=== PATIENT | female | born 1935 | race Caucasian/White ===

== ENCOUNTER → 2016-09-18 | Outpatient (CLI) | payer MEDICARE, OTHER ==
[~2016-09-18] MED LIST: ACDPT PO; ACET325T38 PO; ACT35T PO; APIX5TAB2 PO; ASP81TEC PO; ATOR10TA66 PO; BETA1TAB15 PO; C250T PO; CALCIUM PO; CARV3.122 PO; CEFD300C3 PO; CEPH500C; CHOL10002; CHOL10003 PO; CHONDROITIN; CYCL10TA45 PO; DENO60DI SQ; DIGO125T PO; ETAN50PE SQ; FLC1T PO; GLUC500C2 PO; GLUC750T; IBP800T PO; LACT1TAB6; LORA10TA76 PO; LVT.025T PO; M; MELA1TAB9 PO; METO-272 PO; MISO100T4 PO; MTX2.5T PO; MULT1CAP27 PO; OLME5TAB3 PO; OMEG10005 PO; OMEP-10 PO; UBID100C8 PO; VITA1CAP59 PO; [UNRECOGNIZED DRUG - CODE] PO; [UNRECOGNIZED DRUG - CODE] PO
--- OUTSIDE RECORDS SUMMARY | 2016-09-18 07:40 | XMS REPORT | Continuity of Care Document ---
Author Author [facility] Organization [facility] Address Unknown Phone Unavailable Care Team Providers Care Wearing Apparel Presser Name Role Phone TERRI ORTA DO PCP Insurance Providers Payer Name Policy Number Subscriber Name Relationship Wps Medicare [id number] Rowan Betancourt 19 Self / Same As Patient For Life [id number] Zena Betancourt Se 01 Advance Directives Directive Response Recorded Date/Time Advance Directives Yes 10/10/15 11:30am Health Care Power of Host No 10/10/15 11:30am Organ Donor Yes 10/10/15 11:30am Problems Active Problems Medical Problem Onset Date Status Acute sinusitis Unknown Acute Chest pain 11/19/2014 Acute Medications Current Home Medications Medication Dose Units Route Directions Days/Qty Instructions Start Date Folic Acid 1 Mg 1 Mg Oral Twice A Day 11/02/08 Etanercept 50 Mg/1 Ml 50 Mg Sub-Q As Directed WEEKLY 11/02/08 Methotrexate 2.5 Mg 20 Mg Oral As Directed WEEKLY 11/02/08 Multivitamins 1 Each 1 Each Oral Daily 01/08/10 [place]-3 Fatty Acids 1,000 Mg 1,000 Mg Oral Twice A Day 02/23/12 Metoprolol Succinate (Toprol Xl) 50 Mg 50 Mg Oral Bedtime 02/23/12 Atorvastatin Calcium 10 Mg 5 Mg Oral Daily 08/17/14 Cyclobenzaprine Hcl 10 Mg 2.5 Mg Oral Bedtime 08/17/14 Ubidecarenone 100 Mg 150 Mg Oral Daily 08/17/14 Melatonin/Pyridoxine Hcl 1 Each 1 Each Oral Bedtime 08/17/14 Denosumab 60 Mg/1 Ml 60 Mg Sub-Q As Directed every 6 months 08/17/14 Acetaminophen 325 Mg 500 Mg Oral Bedtime 08/17/14 Calcium Carbonate/Vitamin D3 1 Tab 1 Tab Oral Daily 11/18/14 Loratadine 10 Mg 10 Mg Oral Daily as needed for Congestion 11/18/14 Levothyroxine Sodium (Levothroid) 25 Mcg 25 Mcg Oral Daily@0630 30 Apixaban 5 Mg 5 Mg Oral Twice A Day 60 11/19/14 Digoxin (Lanoxin) 125 Mcg 1 Each Oral Daily 30 11/19/14 Cefdinir (Omnicef) 300 Mg 300 Mg Oral Twice A Day 28 10/10/15 Past Home Medications Medication Directions Ordered Status Ibuprofen 800 Mg Tablet, 800 Mg Oral Four Times Daily as needed 11/02/08 Discontinued Misoprostol 100 Mcg Tab, 350 Mcg Oral Daily 11/02/08 Discontinued Risedronate 35 Mg Tab, 35 Mg Oral As Directed 11/02/08 Discontinued Omeprazole 20 Mg Capsule.dr, 20 Mg Oral Daily 11/02/08 Discontinued Cholecalciferol 1,000 Unit Capsule, 11/02/08 Discontinued Lactobacillus Acidophilus 1 Each Tab.chew, 11/02/08 Discontinued Ascorbic Acid 250 Mg Tab, 1000 Mg Oral Daily 11/02/08 Discontinued Vitamin B Complex 1 Cap Capsule, 1 Cap Oral Daily 11/02/08 Discontinued Glucosamine Sulfate 750 Mg Tablet, 11/02/08 Discontinued [M] 1 Gm Tablet, 11/02/08 Discontinued [Chondroitin] 600 Mg Tab, 11/02/08 Discontinued Aspirin 81 Mg Tabec, 81 Mg Oral Daily 11/02/08 Discontinued Cephalexin Monohydrate (Keflex) 500 Mg Capsule, 11/02/08 Discontinued Cyclobenzaprine Hcl 10 Mg Tablet, 2.5 Mg Oral As Needed 11/02/08 Discontinued Carvedilol (Coreg) 3.125 Mg Tablet, 3.125 Mg Oral Twice A Day 01/07/10 Discontinued Olmesartan Medoxomil 5 Mg Tablet, 10 Mg Oral Daily 01/07/10 Discontinued Misoprostol 100 Mcg Tablet, 100 Mcg Oral 01/07/10 Discontinued [Calcium] , 600 Mg Oral Bedtime 01/08/10 Discontinued Glucosamine Sulfate 500 Mg Capsule, 600 Mg Oral Twice A Day 01/08/10 Discontinued Cholecalciferol 1,000 Unit Tablet, 1000 Unit Oral Daily 01/08/10 Discontinued Vit A/Vit C/Vit E/Zinc/Copper 1 Each Tablet, 2 Each Oral Daily 02/23/12 Discontinued Acetaminophen/Diphenhydramine 1 Ea Tab, 1 Ea Oral Bedtime 08/17/14 Discontinued Social History Social History Problem Response Recorded Date/Time Alcohol Use Denies Use 10/10/2015 11:30am Recreational Drug Use No 10/10/2015 11:30am Recent Foreign Travel No 01/09/2016 11:06am Sexually Transmitted Disease No 10/10/2015 11:30am Do you dip or chew tobacco? No 10/10/2015 11:30am Sexually Transmitted Disease No 10/10/2015 11:30am Hx Sexually Transmitted Disorders No 05/13/2009 8:12am Hospital Discharge Instructions No hospital discharge instructions. Plan of Care Prescriptions See Medication Section Functional Status No functional status results. Allergies, Adverse Reactions, Alerts Allergen Type Severity Reaction Status Last Updated tetanus toxoid, adsorbed Allergy Unknown Active 08/17/14 Immunizations No immunization records. Vital Signs No known vital signs results. Results No known relevant diagnostic tests, laboratory data and/or discharge summary. Procedures Procedure Status Date Provider(s) 48 hour Holter monitoring Completed 01/09/16 JESUS ORTEGA 48 hour Holter monitoring Completed 01/09/16 JESUS ORTEGA Encounters Encounter Location Arrival/Admit Date Discharge/Depart Date Attending Provider Registered Recurring [facility] 01/09/16 11:07am JESUS ORTEGA
--- NOTE | 2016-09-23 11:52 | ECHOCARDIOGRAPHY REPORT ---
PROCEDURE PHYSICIAN: WALTER MARQUEZ DATE OF PROCEDURE: 09/18/2016 TWO DIMENSIONAL ECHOCARDIOGRAM REPORT PRIMARY PHYSICIAN: OTHER PHYSICIAN: REFERRING PHYSICIAN: Dr. Connolly ORDERING PHYSICIAN: INDICATION FOR THE PROCEDURE: Coronary artery disease, hypertension MEASUREMENTS DERIVED VALUES LV DIAMETER (LAX) NORMALS NORMALS Diastolic 3. (3.6-5.2) Eject. Fract. 60% (60%+/-6%) Systolic (2.3-3.9) Diastolic Vol. % Shortening (0.22-0.42) Systolic Vol. Aortic Root IVS THICKNESS Diastolic 1. (0.6-1.1) LVPW THICKNESS Diastolic 1. (0.6-1.1) LA DIAMETER Systolic 2.5 (2.1-3.7) FINDINGS: 1. Technical quality is good. 2. The left ventricle is normal in size with normal contractility. Systolic function appeared to be normal. Estimated ejection fraction 60%. 3. The left atrium is normal in size. No clot or thrombus were seen within the left atrium. 4. The right atrium and right ventricle are normal in size. No clot or thrombus were seen within the right side. 5. Mitral valve is normal in morphology with mild mitral regurgitation noted by color Doppler flow. No mitral valve prolapse. No mitral valve stenosis. 6. Aortic valve is trileaflet with normal opening and closing pattern. No significant aortic stenosis or regurgitation was seen. 7. Tricuspid valve is normal in morphology with mild tricuspid regurgitation noted by color Doppler flow. Doppler across tricuspid valve estimated pulmonary artery pressure of 14+ right atrial pressure. 8. Pulmonic valve is functioning normally. 9. No pericardial effusion. CONCLUSION: 1. Normal left ventricular size and systolic function. Estimated ejection fraction 60%. 2. Mild mitral and tricuspid regurgitation. 3. Estimated pulmonary artery pressure of 20 mmHg. Job ID: [id number] Dictated Date: 09/23/2016 08:14:38 Respite Worker Date: 09/23/2016 11:47:50 / tommy
== END ==
LOC: CARD 07:37
PROVIDERS: ATTEND Physician Assistant
DX: I25.10 Atherosclerotic heart disease of native coronary artery without angina pectoris (principal); I10 Essential (primary) hypertension; E78.2 Mixed hyperlipidemia; I48.0 Paroxysmal atrial fibrillation
CPT/HCPCS: 93306

== ENCOUNTER → 2016-09-23 | Outpatient (CLI) | payer MEDICARE, OTHER ==
[~2016-09-23] VITALS: Ht 165.1 cm; Wt 52.6 kg
[~2016-09-23] MED LIST changes: +REGADENOSON 0.4 MG/5 ML SYR (LEXISCAN) IV ONE
--- OUTSIDE RECORDS SUMMARY | 2016-09-23 07:36 | XMS REPORT | Continuity of Care Document ---
Author Author [facility] Organization [facility] Address Unknown Phone Unavailable Care Team Providers Care Physician/Ophthalmologist Name Role Phone TERRI ORTA DO PCP Insurance Providers Payer Name Policy Number Subscriber Name Relationship Wps Medicare [id number] Rowan Betancourt 19 Self / Same As Patient For Life [id number] Zena Betancourt Se 01 Advance Directives Directive Response Recorded Date/Time Advance Directives Yes 10/10/15 11:30am Health Care Power of Incubator Machine Operator No 10/10/15 11:30am Organ Donor Yes 10/10/15 [...] 1 Each 1 Each Oral Daily 01/08/10 [place]-3 Fatty Acids 1,000 Mg 1,000 Mg Oral [...] Date Attending Provider Registered Recurring [facility] 01/09/16 11:07am JESUS ORTGEA
[2016-09-23] MEDS: CATHETER FLUSH 10 ML SYR IV PRN ×2 (07:48→09:16)
[2016-09-23 09:14] VITALS: BP 168/87
--- NOTE | 2016-09-24 07:25 | STRESS TEST ---
PROCEDURE PHYSICIAN: WALTER MARQUEZ DATE OF PROCEDURE: 09/23/2016 LEXISCAN MYOVIEW STRESS TEST REPORT REFERRING PHYSICIAN: Dr. Connolly. INDICATIONS: 1. Coronary artery disease. 2. Hypertension. BASELINE HEART RATE: 68 BASELINE BLOOD PRESSURE: 168/87. BASELINE EKG: Sinus rhythm with no ischemic changes. SUMMARY: The patient was injected with 10.83 mCi of technetium 99 Myoview and the resting images were obtained. Then the patient received 0.4 mg of Lexiscan followed by 28.3 mCi of technetium 99 Myoview. Throughout the test, there were no EKG changes. The resting and stress images were reviewed and compared in the short axis, horizontal long axis, and vertical long axis views. Review of the images showed good radiotracer uptake with no ischemia or infarction on SPECT images. SSS is 4, SDS 3, TID value 0.94. On the gated images, the left ventricle appeared to be small in size with normal contractility. Calculated ejection fraction 82%. CONCLUSION: 1. The patient tolerated Lexiscan well. 2. No ischemia or infarction on SPECT images. 3. Small left ventricular size with normal contractility. Calculated ejection fraction 82% Job ID: [id number] Dictated Date: 09/23/2016 17:47:19 Heddler Tier Date: 09/24/2016 07:22:40 / mukesh
== END ==
LOC: CARD 07:33
PROVIDERS: ATTEND Physician Assistant
DX: I25.10 Atherosclerotic heart disease of native coronary artery without angina pectoris (principal); I10 Essential (primary) hypertension; E78.2 Mixed hyperlipidemia; I48.0 Paroxysmal atrial fibrillation
CPT/HCPCS: 78452; 93017

== ENCOUNTER → 2016-09-25 | Outpatient (CLI) | payer MEDICARE, OTHER ==
[~2016-09-25] MED LIST changes: -REGADENOSON 0.4 MG/5 ML SYR (LEXISCAN) IV ONE
--- OUTSIDE RECORDS SUMMARY | 2016-09-25 08:15 | XMS REPORT | Continuity of Care Document ---
Author Author [facility] Organization [facility] Address Unknown Phone Unavailable Care Team Providers Care Pigment Processor Name Role Phone TERRI ORTA DO PCP Insurance Providers Payer Name Policy Number Subscriber Name Relationship Wps Medicare [id number] Rowan Betancourt 19 Self / Same As Patient For Life [id number] Zena Betancourt Se 01 Advance Directives Directive Response Recorded Date/Time Advance Directives Yes 10/10/15 11:30am Health Care Power of Inspector Watch Train No 10/10/15 11:30am Organ Donor Yes 10/10/15 [...] 1 Each 1 Each Oral Daily 01/08/10 [place]-3 Fatty Acids 1,000 Mg 1,000 Mg Oral [...] Discharge/Depart Date Attending Provider Registered Recurring [facility] 01/09/16 11:07am JESUS ORTEGA
[2016-09-25 08:42] LABS: ALANINE AMINOTRANSFERASE 21 U/L (0-55); ALBUMIN 4.3 G/DL (3.2-4.5); ANION GAP 11 MMOL/L (5-14); ASPARTATE AMINO TRANSFERASE 25 U/L (5-34); BILIRUBIN,TOTAL 0.6 MG/DL (0.1-1.0); BLOOD UREA NITROGEN 17 MG/DL (7-18); BUN/CREATININE RATIO 23; CALCIUM 10.2 MG/DL (8.5-10.1); CARBON DIOXIDE 27 MMOL/L (21-32); CHLORIDE 106 MMOL/L (98-107); CHOLESTEROL 207 MG/DL (< 200); CREATININE SERUM 0.74 MG/DL (0.60-1.30); DIRECT LDL 114 MG/DL (1-129); GFR ESTIMATED > 60; GLUCOSE 91 MG/DL (70-105); POTASSIUM 4.1 MMOL/L (3.6-5.0); SODIUM 144 MMOL/L (135-145); TOTAL PROTEIN 7.6 G/DL (6.4-8.2); TRIGLYCERIDES 119 MG/DL (<150); VLDL CHOLESTEROL 24 MG/DL (5-40)
== END ==
LOC: LAB 08:12
PROVIDERS: ATTEND Physician Assistant
DX: I25.10 Atherosclerotic heart disease of native coronary artery without angina pectoris (principal); I10 Essential (primary) hypertension; I48.0 Paroxysmal atrial fibrillation; E78.2 Mixed hyperlipidemia
CPT/HCPCS: 36415; 80053; 80061

== ENCOUNTER → 2017-06-15 | Outpatient (CLI) | payer MEDICARE, OTHER ==
[2017-06-15 09:15] LABS: ALBUMIN 4.1 GM/DL (3.2-4.5); BILIRUBIN,DIRECT 0.3 MG/DL (0.0-0.3); BILIRUBIN,INDIRECT 0.5 MG/DL; BILIRUBIN,TOTAL 0.8 MG/DL (0.1-1.0); TOTAL PROTEIN 7.8 GM/DL (6.4-8.2)
== END ==
LOC: LAB 08:25
PROVIDERS: ATTEND Internal Medicine Cardiovascular Disease
DX: I25.10 Atherosclerotic heart disease of native coronary artery without angina pectoris (principal); I10 Essential (primary) hypertension; E78.2 Mixed hyperlipidemia; I48.0 Paroxysmal atrial fibrillation
CPT/HCPCS: 36415; 80061; 80076

== ENCOUNTER 2017-08-06 20:52 | Emergency (ER) | payer MEDICARE, OTHER ==
[~2017-08-06] VITALS: Ht 165.1 cm; Wt 52.6 kg
[2017-08-06 21:14] LABS: BASOPHILS % (AUTO) 0 % (0-10); EOSINOPHILS # (AUTO) 0.2 10^3/uL (0.0-0.3); EOSINOPHILS % (AUTO) 2 % (0-10); HEMATOCRIT 44 % (35-52); HEMOGLOBIN 14.5 G/DL (11.5-16.0); LYMPHOCYTES # (AUTO) 2.4 X 10^3 (1.0-4.0); LYMPHOCYTES % (AUTO) 37 % (12-44); MEAN CORPUSCULAR HEMOGLOBIN 34 PG (25-34); MEAN CORPUSCULAR HGB CONC 33 G/DL (32-36); MEAN CORPUSCULAR VOLUME 103 FL (80-99); MEAN PLATELET VOLUME 10.6 FL (7.4-10.4); MONOCYTES # (AUTO) 0.7 X 10^3 (0.0-1.0); MONOCYTES % (AUTO) 10 % (0-12); NEUTROPHILS # (AUTO) 3.4 X 10^3 (1.8-7.8); NEUTROPHILS % (AUTO) 51 % (42-75); PLATELET COUNT 215 10^3/uL (130-400); RED BLOOD COUNT 4.24 10^6/uL (4.35-5.85); RED CELL DISTRIBUTION WIDTH 13.6 % (10.0-14.5); WHITE BLOOD COUNT 6.6 10^3/uL (4.3-11.0)
[2017-08-06] MEDS ORDERED: TERI202.4P SQ (21:21)
[2017-08-06] MEDS ORDERED: EZET10TA27 PO (21:21)
[2017-08-06] MEDS ORDERED: FLUT9.9S NS (21:21)
[2017-08-06] MEDS ORDERED: LIDO700A45 TP (21:21)
--- NOTE | 2017-08-06 21:21 | ED Neurological Problem ---
General Chief Complaint: Head/Cervical Problems Stated Complaint: HEADACHE,DIZZINESS Nursing Triage Note: PT REPORTS THAT AT APPROX 203 THIS EVENING SHE WAS IN HER KITCHEN WHEN SHE HAD SUDDEN ONSET OF DIZZINESS. SHE STATES HER HEAD FELT LIKE IT WAS SPINNING, CAUSING HER TO LOWER HERSELF TO HER KNEES. SHE STATES THAT IMMEDIATELY AFTER, SHE HAD SUDDEN ONSET R SIDED OH. Nursing Sepsis Screen: No Definite Risk Source: patient History of Present Illness Time seen by provider: 21:03 Initial Comments PT ARRIVES VIA POV FROM HOME C/O SUDDEN ONSET OF DIZZINESS AND HEADACHE--RIGHT POSTERIOR/OCCIPITAL AREA-- BEGAN AROUND 1999 TONIGHT BEGAN WHILE SHE WAS IN THE KITCHEN AND HAD TO GET DOWN ON HER KNEES BECAUSE SHE WAS SO DIZZY DIZZINESS HAS IMPROVED, HAS HEADACHE STATES HEADACHE WAS 4-5/10,NOW 3/10--FEELS ALOT OF PRESSURE IN HER HEAD NO VISION CHANGES NO PARESTHESIAS OR MOTOR DEFICITS NO NAUSEA/VOMITING NO PALPITATIONS NO CHEST PAIN OR SHORTNESS OF BREATH NO SWEATS HAS NOT TAKEN ANYTHING FOR HEADACHE NO FEVER OR URI SYMPTOMS HAD GI ILLNESS FOR 1 DAY LAST WEEK--DIARRHEA AND FELT WEAK ALL DAY, BUT THOSE SYMPTOMS COMPLETELY RESOLVED. HAD IT WELL. 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 PT FORGOT TO TAKE HER MORNING DOSE OF TOPROL YESTERDAY, BUT TOOK HER EVENING DOSE AND TOOK HER MORNING DOSE TODAY PCP: DR. ORTA Allergies and Home Medications Allergies Coded Allergies: tetanus toxoid, adsorbed (Unverified Allergy, Unknown, 08/17/14) Home Medications Acetaminophen 325 Mg Tablet, 500 MG PO HS, (Reported) Apixaban 5 Mg Tablet, 5 MG PO BID, #60 Ref 4 Prescribed by: WALTER MARQUEZ on 11/19/14 0913 Atorvastatin Calcium 10 Mg Tablet, 5 MG PO DAILY, (Reported) Calcium Carbonate/Vitamin D3 1 Tab Tablet, 1 TAB PO DAILY, (Reported) Cefdinir 300 Mg Capsule, 300 MG PO BID, #28 Ref 0 Prescribed by: ALTAGRACIA VINES on 10/10/15 1437 Cyclobenzaprine Hcl 10 Mg Tablet, 2.5 MG PO HS, (Reported) Denosumab 60 Mg/1 Ml Disp.syrin, 60 MG SQ UD, (Reported) every 6 months Digoxin 125 Mcg Tablet, 1 EACH PO DAILY, #30 Ref 4 Prescribed by: WALTER MARQUEZ on 11/19/14912 Etanercept 50 Mg/1 Ml Pen.injctr, 50 MG SQ UD, (Reported) WEEKLY Ezetimibe 10 Mg Tablet, 10 MG PO DAILY, (Reported) Fluticasone Propionate 9.9 Ml [place].susp, 9.9 ML NS, (Reported) Folic Acid 1 Mg Tab, 1 MG PO BID, (Reported) Levothyroxine Sodium 25 Mcg Tab, 25 MCG PO DAILY@0630, #30 Ref 4 Prescribed by: WALTER MARQUEZ on 11/19/14912 Lidocaine 1 Each Adh..patch, 1 EACH TP, (Reported) Loratadine 10 Mg Tablet, 10 MG PO DAILY PRN for CONGESTION, (Reported) Melatonin/Pyridoxine Hcl 1 Each Tablet, 1 EACH PO HS, (Reported) Methotrexate 2.5 Mg Tab, 20 MG PO UD, (Reported) WEEKLY Metoprolol Succinate 50 Mg Tab.sr.24h, 50 MG PO HS, (Reported) Multivitamins 1 Each Capsule, 1 EACH PO DAILY, (Reported) [place]-3 Fatty Acids 1,000 Mg Capsule, 1,000 MG PO BID, (Reported) Teriparatide 600 Mcg/2.4 Ml Syr, 20 MCG SQ DAILY, (Reported) Ubidecarenone 100 Mg Capsule, 150 MG PO DAILY, (Reported) Constitutional: see HPI, dizziness Eyes: No Symptoms Reported Ears, Nose, Mouth, Throat: no symptoms reported Respiratory: no symptoms reported Cardiovascular: no symptoms reported Gastrointestinal: no symptoms reported Genitourinary: no symptoms reported Musculoskeletal: no symptoms reported, No back pain, No neck pain Skin: no symptoms reported Psychiatric/Neurological: See HPI, Denies Cognitive Dysfunction, Headache, Denies Numbness, Denies Tingling, Denies Weakness Endocrine: No Symptoms Reported Hematologic/Lymphatic: No Symptoms Reported Past Kiedmwy-Ilkxkw-Sbqiyh Hx Patient Social History Alcohol Use: Denies Use Recreational Drug Use: No Smoking Status: Never a Smoker 2nd Hand Smoke Exposure: No Recent Foreign Travel: No Contact w/Someone Who Travel: No Recent Infectious Disease Expo: No Recent Hopitalizations: No Immunizations Up To Date Date of Pneumonia Vaccine: May 26, 2011 Date of Influenza Vaccine: May 17, 2014 Seasonal Allergies Seasonal Allergies: No Surgeries History of Surgeries: Yes (CATARACTS/LENS IMPLANT, COLONOSCOPY) Surgeries: Adenoidectomy, Cardiac, CABG, Eye Surgery, Gallbladder, Tonsillectomy Respiratory History of Respiratory Disorde: Yes Respiratory Disorders: Pneumonia Cardiovascular History of Cardiac Disorders: Yes Cardiac Disorders: Atrial Fibrillation, Coronary Artery Disease, High Cholesterol, Hypertension Neurological History of Neurological Disord: No Reproductive System Hx Reproductive Disorders: No Sexually Transmitted Disease: No UNION STEWARD History: Menopausal Genitourinary History of Genitourinary Disor: Yes Genitourinary Disorders: Kidney Infection, Bladder Infection Gastrointestinal History of Gastrointestinal Di: Yes ("STOMACH PROBLEMS" SINCE CABG--?IBS? 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) Integumentary History of Skin or Integumenta: No Blood Transfusions History of Blood Disorders: No Adverse Reaction to a Blood Tr: No Family Medical History Family Medial History: Abdominal aortic aneurysm G8 BROTHER Angina pectoris 19 MOTHER Completed stroke G8 BROTHER FH: brain aneurysm 19 MOTHER Hypercholesterolemia G8 SISTER Hypertension G8 SISTER Osteoporosis G8 SISTER Physical Exam Vital Signs Vital Sign - Last 12Hours 08/06/17 20:55 Temp 97.3 Pulse 77 Resp 20 B/P (MAP) 178/69 (105) Pulse Ox 95 O2 Delivery Room Air Capillary Refill : Less Than 3 Seconds General Appearance: thin HEENT: PERRL/EOMI, normal ENT inspection, TMs normal, pharynx normal, other ( GLASSES) Neck: non-tender, full range of motion, supple, normal inspection, No carotid bruit Respiratory: normal breath sounds, no respiratory distress, no accessory muscle use Cardiovascular: normal peripheral pulses, regular rate, rhythm, no edema, no gallop, no JVD, no murmur Gastrointestinal: normal bowel sounds, non tender, soft Back: normal inspection Extremities: normal inspection, no pedal edema, no calf tenderness, normal capillary refill Neurologic/Psychiatric: 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, no motor/sensory deficits, alert, normal mood/affect, oriented x 3 Cra[place] Nerves: normal hearing, normal speech, PERRL Motor/Sensory: no motor deficit, no sensory deficit, no pronator drift Skin: normal color, warm/dry Progress/Results/Core Measures Results/Orders Lab Results Laboratory Tests Test 08/06/17 21:08 08/06/17 21:18 Range/Units White Blood Count 6.6 4.3-11.0 10^3/uL Red Blood Count 4.24 L 4.35-5.85 10^6/uL Hemoglobin 14.5 11.5-16.0 G/DL Hematocrit 44 35-52 % Mean Corpuscular Volume 103 H 80-99 FL Mean Corpuscular Hemoglobin 34 25-34 PG Mean Corpuscular Hemoglobin Concent 33 32-36 G/DL Red Cell Distribution Width 13.6 10.0-14.5 % Platelet Count 215 130-400 10^3/uL Mean Platelet Volume 10.6 H 7.4-10.4 FL Neutrophils (%) (Auto) 51 42-75 % Lymphocytes (%) (Auto) 37 12-44 % Monocytes (%) (Auto) 10 0-12 % Eosinophils (%) (Auto) 2 0-10 % Basophils (%) (Auto) 0 0-10 % Neutrophils # (Auto) 3.4 1.8-7.8 X 10^3 Lymphocytes # (Auto) 2.4 1.0-4.0 X 10^3 Monocytes # (Auto) 0.7 0.0-1.0 X 10^3 Eosinophils # (Auto) 0.2 0.0-0.3 10^3/uL Basophils # (Auto) 0.0 0.0-0.1 10^3/uL Prothrombin Time 13.4 12.2-14.7 SEC INR Comment 1.0 0.8-1.4 Activated Partial Thromboplast Time 31 24-35 SEC Sodium Level 142 135-145 MMOL/L Potassium Level 3.7 3.6-5.0 MMOL/L Chloride Level 103 98-107 MMOL/L Carbon Dioxide Level 27 21-32 MMOL/L Anion Gap 12 5-14 MMOL/L Blood Urea Nitrogen 16 7-18 MG/DL Creatinine 0.71 0.60-1.30 MG/DL Estimat Glomerular Filtration Rate > 60 BUN/Creatinine Ratio 23 Glucose Level 125 H 70-105 MG/DL Calcium Level 9.7 8.5-10.1 MG/DL Magnesium Level 2.1 1.8-2.4 MG/DL Total Bilirubin 0.4 0.1-1.0 MG/DL Aspartate Amino Transf (AST/SGOT) 29 5-34 U/L Alanine Aminotransferase (ALT/SGPT) 24 0-55 U/L Alkaline Phosphatase 94 40-136 U/L Troponin I < 0.30 <0.30 NG/ML Total Protein 7.6 6.4-8.2 GM/DL Albumin 4.1 3.2-4.5 GM/DL Digoxin Level < 0.30 L 0.80-2.00 NG/ML Urine Color YELLOW Urine Clarity CLEAR Urine pH 7 5-9 Urine Specific [place] 1.005 L 1.016-1.022 Urine Protein NEGATIVE NEGATIVE Urine Glucose (UA) NEGATIVE NEGATIVE Urine Ketones NEGATIVE NEGATIVE Urine Nitrite NEGATIVE NEGATIVE Urine Bilirubin NEGATIVE NEGATIVE Urine Urobilinogen NORMAL NORMAL MG/DL Urine Leukocyte Esterase NEGATIVE NEGATIVE Urine RBC (Auto) 1+ H NEGATIVE Urine RBC RARE /HPF Urine WBC RARE /HPF Urine Crystals NONE /LPF Urine Bacteria TRACE /HPF Urine Casts NONE /LPF Urine Mucus NEGATIVE /LPF Urine Culture Indicated NO My Orders Orders - NICOLLE CROSS DO Saline Lock/Iv-Start (08/06/17 21:03) Ekg Tracing (08/06/17 21:03) Monitor-Rhythm Ecg Trace Only (08/06/17 21:03) Ct Head Wo-R/O Stroke (08/06/17 21:03) Cbc With Automated Diff (08/06/17 21:03) Comprehensive Metabolic Panel (08/06/17 21:03) Magnesium (08/06/17 21:03) Protime With Inr (08/06/17 21:03) Partial Thromboplastin Time (08/06/17 21:03) Troponin I (08/06/17 21:03) Ua Culture If Indicated (08/06/17 21:03) Digoxin (08/06/17 21:52) Metoprolol Succinate (Xl) Tab (Toprol Xl (08/06/17 22:00) Vital Signs/I&O Vital Sign - Last 12Hours 08/06/17 20:55 Temp 97.3 Pulse 77 Resp 20 B/P (MAP) 178/69 (105) Pulse Ox 95 O2 Delivery Room Air Blood Pressure Mean: 105 Progress Note : Progress Note PT DECLINES MEDICATIONS FOR DIZZINESS OR HEADACHE PT DECLINES ADMIT PT DECLINES TAKING TOPROL 50 MG IN ER--STATES IT WILL MAKE HER TOO TIRED AND JUST WANTS TO GO HOME COMFORTABLE TAKING PT HOME. ADVISED TO RETURN TO ER IF SYMPTOMS WORSEN ECG Initial ECG Impression Time: 21:09 Initial ECG Rate: 75 Initial ECG Rhythm: Normal Sinus Diagnostic Imaging Comments CT HEAD--NO ACUTE PROCESS,CHRONIC ISCHEMIC CHANGES--PER RADIOLOGIST REPORT @ 2143 Reviewed: Reviewed by Me Departure Impression Impression: Primary Impression: HTN (hypertension) Additional Impressions: Dizziness Headache Disposition: HOME, SELF-CARE Condition: Improved Departure-Patient Inst. Referrals: TERRI ORTA DO (PCP/Family) Primary Care Physician Patient Instructions: Dizziness, Nonvertigo, (DC), Headache, Adult (DC), High Blood Pressure (DC) Add. Discharge Instructions: RESUME ALL YOUR REGULAR MEDICATIONS PRESCRIBED FOLLOW UP WITH YOUR DR. ON WEDNESDAY FOR FURTHER CARE RETURN TO ER IF SYMPTOMS WORSEN All discharge instructions reviewed with patient and/or family. Voiced understanding. NICOLLE CROSS DO Aug 06, 2017 21:21
[2017-08-06 21:25] LABS: BILIRUBIN,URINE NEGATIVE (NEGATIVE); CLARITY,URINE CLEAR; COLOR,URINE YELLOW; GLUCOSE, URINE (UA) NEGATIVE (NEGATIVE); KETONES,URINE NEGATIVE (NEGATIVE); LEUKOCYTE ESTERASE ,URINE NEGATIVE (NEGATIVE); NITRITE,URINE NEGATIVE (NEGATIVE); PH,URINE 7 (5-9); PROTEIN,URINE NEGATIVE (NEGATIVE); UROBILINOGEN,URINE NORMAL (NORMAL)
[2017-08-06 21:35] LABS: ALANINE AMINOTRANSFERASE 24 U/L (0-55); ALBUMIN 4.1 GM/DL (3.2-4.5); ALKALINE PHOSPHATASE 94 U/L (40-136); BILIRUBIN,TOTAL 0.4 MG/DL (0.1-1.0); BUN/CREATININE RATIO 23; CALCIUM 9.7 MG/DL (8.5-10.1); CARBON DIOXIDE 27 MMOL/L (21-32); CHLORIDE 103 MMOL/L (98-107); CREATININE SERUM 0.71 MG/DL (0.60-1.30); GFR ESTIMATED > 60; GLUCOSE 125 MG/DL (70-105); MAGNESIUM 2.1 MG/DL (1.8-2.4); POTASSIUM 3.7 MMOL/L (3.6-5.0); SODIUM 142 MMOL/L (135-145); TOTAL PROTEIN 7.6 GM/DL (6.4-8.2)
--- NOTE | 2017-08-06 21:38 | Diagnostic Imaging Report ---
INDICATION: Headache and dizziness Noncontrast brain CT is performed. There is comparison to 10/10/2015. There are mild diffuse atrophic changes. There are patchy low-density changes in the deep white matter compatible with chronic ischemic change, similar to the previous study. There is no acute hemorrhage or mass effect or midline shift. Ventricles are stable in size. There is no new focal parenchymal abnormality in the brain. Calvarial windows are unremarkable. Visualized portions of the mastoid air cells and sinuses are well aerated. IMPRESSION: Mild atrophy and moderate chronic ischemic changes in the deep white matter. No acute hemorrhage or acute finding, no change from 10/10/2015. Dictated by: Dictated on workstation # [id number]
[2017-08-06 21:40] LABS: RBC,URINE RARE /HPF
[2017-08-06 21:41] LABS: BACTERIA,URINE TRACE /HPF; WBC,URINE RARE /HPF
[2017-08-06 21:46] LABS: PROTHROMBIN TIME PATIENT 13.4 SEC (12.2-14.7)
[2017-08-06] MEDS ORDERED: meTOproloL SUCCINATE 50 MG (TOPROL XL) TAB PO SCH (22:00)
[2017-08-06 22:41] VITALS: BP 155/69
== END 2017-08-06 22:33 | disposition home or self-care (01) ==
LOC: EDUNIT# 20:52 → ER 20:53
DX: I10 Essential (primary) hypertension (principal); F32.9 Major depressive disorder, single episode, unspecified; M06.9 Rheumatoid arthritis, unspecified; K21.9 Gastro-esophageal reflux disease without esophagitis; K58.9 Irritable bowel syndrome, unspecified; I25.10 Atherosclerotic heart disease of native coronary artery without angina pectoris; I48.2 Chronic atrial fibrillation; E78.00 Pure hypercholesterolemia, unspecified; Z87.01 Personal history of pneumonia (recurrent); Z95.1 Presence of aortocoronary bypass graft; Z90.89 Acquired absence of other organs; Z79.02 Long term (current) use of antithrombotics/antiplatelets
CPT/HCPCS: 36415; 70450; 80053; 80162; 81000; 83735; 84484; 85025; 85610; 85730; 93005; 93041

== ENCOUNTER 2017-12-25 12:20 | Emergency (ER) | payer MEDICARE, OTHER ==
[~2017-12-25] VITALS: Ht 165.1 cm; Wt 52.6 kg
[~2017-12-25 12:20] MED LIST changes: +EZET10TA27 PO; +FLUT9.9S NS; +LIDO700A45 TP; +TERI202.4P SQ
--- OUTSIDE RECORDS SUMMARY | 2017-12-25 12:29 | XMS REPORT | Continuity of Care Document ---
Author Author [facility] Organization [facility] Address Unknown Phone Unavailable Allergies Active Description Code Type Severity Reaction Onset Reported/Identified Relationship to Patient Clinical Status Yes [id number] (TETANUS ANTITOXIN) [id number] (TETANUS ANTITOXIN) Mild N/A 11/02/2008 Yes TETUNUS SHOT TETUNUS SHOT Unknown N/A 01/07/2010 Yes tetanus toxoid, adsorbed [id number] Drug Allergy Unknown N/A 08/17/2014 Medications There is no data. Problems Date Dx Coded Attending Type Code Diagnosis Diagnosed By 01/10/2010 Ot 401.9 01/10/2010 Ot 414.00 01/10/2010 Ot 560.1 01/10/2010 Ot 714.0 01/10/2010 Ot V45.81 04/13/2010 Ot 787.91 06/20/2014 JESUS DAILY Ot 272.4 08/17/2014 Ot 787.91 08/17/2014 Ot 787.91 08/17/2014 RICHARD HANSON MD Ot 455.0 INT HEMORRHOID W/O COMPL 08/17/2014 RICHARD HANSON MD Ot 455.3 EXT HEMORRHOID W/O COMPL 08/17/2014 RICHARD HANSON MD Ot 562.10 DIVERTICULOSIS COLON (W/O MENT OF HEMORR 08/17/2014 RICHARD HANSON MD Ot V58.66 LONG-TERM (CURRENT) USE OF ASPIRIN 11/14/2014 Ot V72.84 11/14/2014 Ot V72.84 11/19/2014 WALTER MARQUEZ MD Ot 244.9 HYPOTHYROIDISM NOS 11/19/2014 WALTER MARQUEZ MD Ot 272.0 PURE HYPERCHOLESTEROLEM 11/19/2014 WALTER MARQUEZ MD Ot 272.4 HYPERLIPIDEMIA NEC/NOS 11/19/2014 WALTER MARQUEZ MD Ot 362.50 MACULAR DEGENERATION NOS 11/19/2014 WALTER MARQUEZ MD Ot 397.0 TRICUSPID VALVE DISEASE 11/19/2014 WALTER MARQUEZ MD Ot 401.9 HYPERTENSION NOS 11/19/2014 WALTER MARQUEZ MD Ot 414.00 CORON ATHEROSCLER NOS TYPE VESSEL, NATIV 11/19/2014 WALTER MARQUEZ MD Ot 424.0 MITRAL VALVE DISORDER 11/19/2014 WALTER MARQUEZ MD Ot 427.31 ATRIAL FIBRILLATION 11/19/2014 WALTER MARQUEZ MD Ot 433.10 CAROTID ARTERY OCCLUSION W O CEREBRAL IN 11/19/2014 WALTER MARQUEZ MD Ot 433.30 MULT BILTRAL ARTERY OCCLUSION WO CEREBRA 11/19/2014 WALTER MARQUEZ MD Ot 714.0 RHEUMATOID ARTHRITIS 11/19/2014 WALTER MARQUEZ MD Ot V45.81 AORTOCORONARY BYPASS 11/19/2014 WALTER MARQUEZ MD Ot V58.65 LONG-TERM(CURRENT)USE OF STEROIDS 11/21/2014 Ot 401.9 11/21/2014 Ot 414.00 11/21/2014 Ot V45.81 11/21/2014 Ot V58.66 11/21/2014 Ot V58.69 11/21/2014 Ot 272.4 11/21/2014 Ot 401.9 11/21/2014 Ot 414.01 11/21/2014 Ot 790.6 11/21/2014 Ot 780.79 11/21/2014 Ot 785.1 11/21/2014 Ot 787.91 11/21/2014 Ot 729.5 11/21/2014 Ot 729.81 11/21/2014 Ot 396.3 11/21/2014 Ot 397.0 11/21/2014 Ot 401.9 11/21/2014 Ot 414.00 11/21/2014 Ot 272.4 11/21/2014 Ot 401.9 11/21/2014 Ot 414.01 11/21/2014 Ot 272.4 11/21/2014 Ot 272.4 11/21/2014 Ot 272.4 11/21/2014 Ot 414.01 11/21/2014 Ot 496 11/21/2014 Ot 780.79 11/21/2014 Ot V58.69 11/21/2014 Ot 401.9 11/21/2014 Ot 414.00 11/21/2014 Ot 272.4 11/21/2014 Ot 401.9 11/21/2014 Ot 414.00 11/21/2014 Ot 785.1 11/21/2014 Ot 715.34 11/21/2014 Ot 733.00 11/21/2014 Ot 959.5 11/21/2014 Ot E000.8 11/21/2014 Ot E849.0 11/21/2014 Ot E888.9 11/21/2014 HOLLIE PERALTA DO Ot 724.02 11/21/2014 JESUS DAILY Ot 272.4 11/21/2014 GELLENDER DO, TERRI Fernando Ot 780.60 11/21/2014 GELLENDER DO, TERRI Fernando Ot 780.79 11/21/2014 GELLENDER DO, TERRI Fernando Ot V58.69 11/21/2014 JESUS DAILY Ot 272.4 11/21/2014 RICHARD HANSON MD Ot V72.84 11/21/2014 Ot V72.84 12/22/2014 WALTER MARQUEZ MD Ot 786.59 01/16/2015 GELLENDER DO, TERRI Fernando Ot 782.9 01/16/2015 GELLENDER DO, TERRI Fernando Ot V13.52 02/05/2015 GELLENDER DO, TERRI Fernando Ot 782.9 02/05/2015 GELLENDER DO, TERRI Fernando Ot V13.52 10/04/2015 GELLENDER DO, TERRI Fernando Ot R05 10/06/2015 GELLENDER DO, TERRI Fernando Ot R05 10/10/2015 ALTAGRACIA VINES MD Ot J01.00 ACUTE MAXILLARY SINUSITIS, UNSPECIFIED 10/11/2015 ALTAGRACIA VINES MD Ot J01.00 10/12/2015 ALTAGRACIA VINES MD Ot J01.00 10/22/2015 GELLENDER DO, TERRI Fernando Ot R05 11/13/2015 GELLENDER DO, TERRI Fernando Ot R05 COUGH 12/10/2015 WALTER MARQUEZ MD Ot E78.2 MIXED HYPERLIPIDEMIA 12/10/2015 WALTER MARQUEZ MD Ot I10 ESSENTIAL (PRIMARY) HYPERTENSION 12/10/2015 WALTER MARQUEZ MD Ot I25.10 ATHSCL HEART DISEASE OF [place] CORONARY 12/10/2015 WALTER MARQUEZ MD Ot I48.0 PAROXYSMAL ATRIAL FIBRILLATION 01/10/2016 WALTER MARQUEZ MD Ot E78.2 MIXED HYPERLIPIDEMIA 01/10/2016 WALTER MARQUEZ MD Ot I10 ESSENTIAL (PRIMARY) HYPERTENSION 01/10/2016 WALTER MARQUEZ MD Ot I25.10 ATHSCL HEART DISEASE OF [place] CORONARY 01/10/2016 WALTER MARQUEZ MD Ot I48.0 PAROXYSMAL ATRIAL FIBRILLATION 01/10/2016 JESUS DAILY Ot I48.0 PAROXYSMAL ATRIAL FIBRILLATION 01/10/2016 JESUS DAILY Ot I48.0 PAROXYSMAL ATRIAL FIBRILLATION 02/13/2016 JESUS DAILY Ot I48.0 PAROXYSMAL ATRIAL FIBRILLATION 03/31/2016 JESUS DAILY Ot I48.0 PAROXYSMAL ATRIAL FIBRILLATION 04/03/2016 HOLLIE PERALTA DO Ot 724.02 SPINAL STENOSIS, LUMBAR REG, W/OUT NEURO 04/08/2016 JESUS DAILY Ot I48.0 PAROXYSMAL ATRIAL FIBRILLATION 04/09/2016 JESUS DAILY Ot I48.0 PAROXYSMAL ATRIAL FIBRILLATION 09/18/2016 JESUS DAILY Ot 272.4 HYPERLIPIDEMIA NEC/NOS 09/18/2016 TERRI ORTA DO Ot 780.60 FEVER, UNSPECIFIED 09/18/2016 TERRI ORTA DO Ot 780.79 OTH MALAISE FATIGUE 09/18/2016 TERRI ORTA DO Ot V58.69 OTH MED,LT,CURRENT USE 09/18/2016 JESUS DAILY Ot 272.4 HYPERLIPIDEMIA NEC/NOS 09/18/2016 RICHARD HANSON MD Ot V72.84 EXAM PRE-OPERATIVE NOS 09/18/2016 Ot V72.84 EXAM PRE- OPERATIVE NOS 09/18/2016 WALTER MARQUEZ MD Ot 786.59 CHEST PAIN NEC 09/18/2016 TERRI ORTA DO Ot 782.9 INTEGUMENT TISS SYMP NEC 09/18/2016 TERRI ORTA DO Ot V13.52 PERSONAL HISTORY OF STRESS FRACTURE 09/18/2016 TERRI ORTA DO Ot R05 COUGH 09/18/2016 WALTER MARQUEZ MD Ot E78.2 MIXED HYPERLIPIDEMIA 09/18/2016 ALMA MD, BASHAR J Ot I10 ESSENTIAL (PRIMARY) HYPERTENSION 09/18/2016 ALMA MACKENZIE, WALTER Cee Ot I25.10 ATHSCL HEART DISEASE OF [place] CORONARY 09/18/2016 ALMA MACKENZIE, WALTER Cee Ot I48.0 PAROXYSMAL ATRIAL FIBRILLATION 09/18/2016 JESUS DAILY Ot I48.0 PAROXYSMAL ATRIAL FIBRILLATION 09/18/2016 JESUS DAILY Ot I25.10 ATHSCL HEART DISEASE OF [place] CORONARY 09/18/2016 JOSE DAILYTH K Ot I25.10 ATHSCL HEART DISEASE OF [place] CORONARY 09/18/2016 JOSE DAILYTH K Ot E78.2 MIXED HYPERLIPIDEMIA 09/18/2016 JESUS DAILY K Ot I10 ESSENTIAL (PRIMARY) HYPERTENSION 09/18/2016 JESUS DAILY Ot I25.10 ATHSCL HEART DISEASE OF [place] CORONARY 09/18/2016 JESUS DAILY Ot I48.0 PAROXYSMAL ATRIAL FIBRILLATION 09/21/2016 JOSE DAILYTH K Ot E78.2 MIXED HYPERLIPIDEMIA 09/21/2016 SHANNON HENDERSON JESUS K Ot I10 ESSENTIAL (PRIMARY) HYPERTENSION 09/21/2016 JOSE DAILYTH K Ot I25.10 ATHSCL HEART DISEASE OF [place] CORONARY 09/21/2016 JESUS DAILY Ot I48.0 PAROXYSMAL ATRIAL FIBRILLATION 09/24/2016 JESUS DAILY Ot E78.2 MIXED HYPERLIPIDEMIA 09/24/2016 JOSE DAILYTH K Ot I10 ESSENTIAL (PRIMARY) HYPERTENSION 09/24/2016 JOSE DAILYTH K Ot I25.10 ATHSCL HEART DISEASE OF [place] CORONARY 09/24/2016 JESUS DAILY K Ot I48.0 PAROXYSMAL ATRIAL FIBRILLATION 09/25/2016 JESUS DAILY Ot 272.4 HYPERLIPIDEMIA NEC/NOS 09/25/2016 TERRI ORTA DO Ot 780.60 FEVER, UNSPECIFIED 09/25/2016 TERRI ORTA DO Ot 780.79 OTH MALAISE FATIGUE 09/25/2016 TERRI ORTA DO Ot V58.69 [facility] MED,LT,CURRENT USE 09/25/2016 SHANNON HENDERSON, JESUS Patel Ot 272.4 HYPERLIPIDEMIA NEC/NOS 09/25/2016 VALENTIN MACKENZIE, RICHARD Ot V72.84 EXAM PRE-OPERATIVE NOS 09/25/2016 Ot V72.84 EXAM PRE- OPERATIVE NOS 09/25/2016 ALMA MACKENZIE, WALTER Cee Ot 786.59 CHEST PAIN NEC 09/25/2016 TERRI ORTA DO Ot 782.9 INTEGUMENT TISS SYMP NEC 09/25/2016 MARIVEL BREAUX TERRI Fernando Ot V13.52 PERSONAL HISTORY OF STRESS FRACTURE 09/25/2016 MARIVEL BREAUX TERRI Fernando Ot R05 COUGH 09/25/2016 WALTER MARQUEZ MD Ot E78.2 MIXED HYPERLIPIDEMIA 09/25/2016 WALTER MARQUEZ MD Ot I10 ESSENTIAL (PRIMARY) HYPERTENSION 09/25/2016 WALTER MARQUEZ MD Ot I25.10 ATHSCL HEART DISEASE OF [place] CORONARY 09/25/2016 WALTER MARQUEZ MD Ot I48.0 PAROXYSMAL ATRIAL FIBRILLATION 09/25/2016 JESUS DAILY Ot I48.0 PAROXYSMAL ATRIAL FIBRILLATION 09/25/2016 JESUS DAILY Ot E78.2 MIXED HYPERLIPIDEMIA 09/25/2016 JESUS DAILY Ot I10 ESSENTIAL (PRIMARY) HYPERTENSION 09/25/2016 JESUS DAILY Ot I25.10 ATHSCL HEART DISEASE OF [place] CORONARY 09/25/2016 JESUS DAILY Ot I48.0 PAROXYSMAL ATRIAL FIBRILLATION 09/25/2016 JESUS DAILY Ot E78.2 MIXED HYPERLIPIDEMIA 09/25/2016 JESUS DAILY Ot I10 ESSENTIAL (PRIMARY) HYPERTENSION 09/25/2016 JESUS DAILY Ot I25.10 ATHSCL HEART DISEASE OF [place] CORONARY 09/25/2016 JESUS DAILY Ot I48.0 PAROXYSMAL ATRIAL FIBRILLATION 09/28/2016 JESUS DAILY Ot E78.2 MIXED HYPERLIPIDEMIA 09/28/2016 JESUS DAILY Ot I10 ESSENTIAL (PRIMARY) HYPERTENSION 09/28/2016 SHANNON PA, JESUS K Ot I25.10 ATHSCL HEART DISEASE OF [place] CORONARY 09/28/2016 SHANNON PA, JESUS K Ot I48.0 PAROXYSMAL ATRIAL FIBRILLATION 10/15/2016 SHANNON PA, JESUS K Ot E78.2 MIXED HYPERLIPIDEMIA 10/15/2016 LEEPEGGY PA, JESUS K Ot I10 ESSENTIAL (PRIMARY) HYPERTENSION 10/15/2016 SHANNON HENDERSON, JESUS K Ot I25.10 ATHSCL HEART DISEASE OF [place] CORONARY 10/15/2016 SHANNON PA, JESUS K Ot I48.0 PAROXYSMAL ATRIAL FIBRILLATION 10/15/2016 SHANNON PA, JESUS K Ot E78.2 MIXED HYPERLIPIDEMIA 10/15/2016 SHANNON PA, JESUS K Ot I10 ESSENTIAL (PRIMARY) HYPERTENSION 10/15/2016 SHANNON PA, JESUS K Ot I25.10 ATHSCL HEART DISEASE OF [place] CORONARY 10/15/2016 SHANNON HENDERSON, JESUS K Ot I48.0 PAROXYSMAL ATRIAL FIBRILLATION 10/19/2016 SHANNON PA, JESUS K Ot E78.2 MIXED HYPERLIPIDEMIA 10/19/2016 SHANNON PA, JESUS K Ot I10 ESSENTIAL (PRIMARY) HYPERTENSION 10/19/2016 SHANNON HENDERSON, JESUS K Ot I25.10 ATHSCL HEART DISEASE OF [place] CORONARY 10/19/2016 SHANNON PA, JESUS K Ot I48.0 PAROXYSMAL ATRIAL FIBRILLATION 11/05/2016 SHANNON HENDERSON, JESUS K Ot E78.2 MIXED HYPERLIPIDEMIA 11/05/2016 SHANNON PA, JESUS K Ot I10 ESSENTIAL (PRIMARY) HYPERTENSION 11/05/2016 SHANNON PA, JESUS K Ot I25.10 ATHSCL HEART DISEASE OF [place] CORONARY 11/05/2016 SHANNON PA, JESUS K Ot I48.0 PAROXYSMAL ATRIAL FIBRILLATION 11/05/2016 SHANNON PA, JESUS K Ot E78.2 MIXED HYPERLIPIDEMIA 11/05/2016 SHANNON PA, JESUS K Ot I10 ESSENTIAL (PRIMARY) HYPERTENSION 11/05/2016 SHANNON HENDERSON, JESUS K Ot I25.10 ATHSCL HEART DISEASE OF [place] CORONARY 11/05/2016 JESUS DAILY Ot I48.0 PAROXYSMAL ATRIAL FIBRILLATION 11/26/2016 REGISDAMIR BREAUX HOLLIE Brianda Ot 724.02 SPINAL STENOSIS, LUMBAR REG, W/OUT NEURO 06/21/2017 WALTER MARQUEZ MD Ot E78.2 MIXED HYPERLIPIDEMIA 06/21/2017 ALMA MACKENZIE, WALTER Cee Ot I10 ESSENTIAL (PRIMARY) HYPERTENSION 06/21/2017 WALTER MARQUEZ MD Ot I25.10 ATHSCL HEART DISEASE OF [place] CORONARY 06/21/2017 WALTER MARQUEZ MD Ot I48.0 PAROXYSMAL ATRIAL FIBRILLATION 07/06/2017 WALTER MARQUEZ MD Ot E78.2 MIXED HYPERLIPIDEMIA 07/06/2017 WALTER MARQUEZ MD Ot I10 ESSENTIAL (PRIMARY) HYPERTENSION 07/06/2017 WALTER MARQUEZ MD Ot I25.10 ATHSCL HEART DISEASE OF [place] CORONARY 07/06/2017 WALTER MARQUEZ MD Ot I48.0 PAROXYSMAL ATRIAL FIBRILLATION 08/06/2017 TAY DO, NICOLLE K Ot E78.00 PURE HYPERCHOLESTEROLEMIA, UNSPECIFIED 08/06/2017 TAY DO NICOLLE K Ot F32.9 MAJOR DEPRESSIVE DISORDER, SINGLE EPISOD 08/06/2017 TAY DO, NICOLLE K Ot I10 ESSENTIAL (PRIMARY) HYPERTENSION 08/06/2017 TAY DO NICOLLE K Ot I25.10 ATHSCL HEART DISEASE OF [place] CORONARY 08/06/2017 TAY DO NICOLLE K Ot I48.2 CHRONIC ATRIAL FIBRILLATION 08/06/2017 TAY DO NICOLLE K Ot K21.9 GASTRO-ESOPHAGEAL REFLUX DISEASE WITHOUT 08/06/2017 TAY DO, NICOLLE K Ot K58.9 IRRITABLE BOWEL SYNDROME WITHOUT DIARRHE 08/06/2017 TAY DO NICOLLE K Ot M06.9 RHEUMATOID ARTHRITIS, UNSPECIFIED 08/06/2017 TAY DO NICOLLE K Ot R42 DIZZINESS AND GIDDINESS 08/06/2017 TAY BREAUX NICOLLE K Ot Z79.02 SNF (CURRENT) USE OF ANTITHROMBOTI 08/06/2017 TAY DO NICOLLE K Ot Z87.01 PERSONAL HISTORY OF PNEUMONIA (RECURRENT 08/06/2017 CHASITY CROSS DOA K Ot Z90.89 ACQUIRED ABSENCE OF OTHER ORGANS 08/06/2017 NICOLLE CROSS DO Ot Z95.1 PRESENCE OF AORTOCORONARY BYPASS GRAFT 08/09/2017 TAY NICOLLE BREAUX Ot E78.00 PURE HYPERCHOLESTEROLEMIA, UNSPECIFIED 08/09/2017 TAY NICOLLE BREAUX Ot F32.9 MAJOR DEPRESSIVE DISORDER, SINGLE EPISOD 08/09/2017 NICOLLE CROSS DO Ot I10 ESSENTIAL (PRIMARY) HYPERTENSION 08/09/2017 TAY NICOLLE BREAUX Ot I25.10 ATHSCL HEART DISEASE OF [place] CORONARY 08/09/2017 NICOLLE CROSS DO Ot I48.2 CHRONIC ATRIAL FIBRILLATION 08/09/2017 TAY , NICOLLE Patel Ot K21.9 GASTRO-ESOPHAGEAL REFLUX DISEASE WITHOUT 08/09/2017 TAY CHASITY BREAUXA Amanda Ot K58.9 IRRITABLE BOWEL SYNDROME WITHOUT DIARRHE 08/09/2017 NICOLLE CROSS DO Ot M06.9 RHEUMATOID ARTHRITIS, UNSPECIFIED 08/09/2017 TAY NICOLLE BREAUX Ot R42 DIZZINESS AND GIDDINESS 08/09/2017 TAY BREAUX NICOLLE Patel Ot Z79.02 SNF (CURRENT) USE OF ANTITHROMBOTI 08/09/2017 NICOLLE CROSS DO Ot Z87.01 PERSONAL HISTORY OF PNEUMONIA (RECURRENT 08/09/2017 NICOLLE CROSS DO Ot Z90.89 ACQUIRED ABSENCE OF OTHER ORGANS 08/09/2017 NICOLLE CROSS DO Ot Z95.1 PRESENCE OF AORTOCORONARY BYPASS GRAFT 08/16/2017 JESUS DAILY Ot 272.4 HYPERLIPIDEMIA NEC/NOS 08/16/2017 TERRI ORTA DO Ot 780.60 FEVER, UNSPECIFIED 08/16/2017 TERRI ORTA DO Ot 780.79 OTH MALAISE FATIGUE 08/16/2017 TERRI ORTA DO Ot V58.69 OTH MED,LT,CURRENT USE 08/16/2017 JESUS DAILY Ot 272.4 HYPERLIPIDEMIA NEC/NOS 08/16/2017 RICHARD HANSON MD Ot V72.84 EXAM PRE-OPERATIVE NOS 08/16/2017 Ot V72.84 EXAM PRE- OPERATIVE NOS 08/16/2017 ALMA MACKENZIE, WALTER Cee Ot 786.59 CHEST PAIN NEC 08/16/2017 TERRI ORTA DO Ot 782.9 INTEGUMENT TISS SYMP NEC 08/16/2017 TERRI ORTA DO Ot V13.52 PERSONAL HISTORY OF STRESS FRACTURE 08/16/2017 TERRI ORTA DO Ot R05 COUGH 08/16/2017 ALMA MACKENZIE, WALTER Cee Ot E78.2 MIXED HYPERLIPIDEMIA 08/16/2017 ALMA MACKENZIE, WALTER Cee Ot I10 ESSENTIAL (PRIMARY) HYPERTENSION 08/16/2017 ALMA MACKENZIE, WALTER Cee Ot I25.10 ATHSCL HEART DISEASE OF [place] CORONARY 08/16/2017 ALMA MACKENZIE, WALTER J Ot I48.0 PAROXYSMAL ATRIAL FIBRILLATION 08/16/2017 SHANNON HENDERSON, JESUS K Ot I48.0 PAROXYSMAL ATRIAL FIBRILLATION 08/16/2017 SHANNON HENDERSON, JESUS K Ot E78.2 MIXED HYPERLIPIDEMIA 08/16/2017 SHANNON HENDERSON, JESUS K Ot I10 ESSENTIAL (PRIMARY) HYPERTENSION 08/16/2017 SHANNON HENDERSON JESUS K Ot I25.10 ATHSCL HEART DISEASE OF [place] CORONARY 08/16/2017 SHANNON HENDERSON, JESUS K Ot I48.0 PAROXYSMAL ATRIAL FIBRILLATION 08/16/2017 SHANNON HENDERSON, JESUS K Ot E78.2 MIXED HYPERLIPIDEMIA 08/16/2017 SHANNON HENDERSON, JESUS K Ot I10 ESSENTIAL (PRIMARY) HYPERTENSION 08/16/2017 SHANNON HENDERSON, JESUS K Ot I25.10 ATHSCL HEART DISEASE OF [place] CORONARY 08/16/2017 SHANNON HENDERSON JESUS K Ot I48.0 PAROXYSMAL ATRIAL FIBRILLATION 08/16/2017 SHANNON HENDERSON, JESUS K Ot E78.2 MIXED HYPERLIPIDEMIA 08/16/2017 SHANNON HENDERSON, JESUS K Ot I10 ESSENTIAL (PRIMARY) HYPERTENSION 08/16/2017 SHANNON HENDERSON, JESUS K Ot I25.10 ATHSCL HEART DISEASE OF [place] CORONARY 08/16/2017 SHANNON HENDERSON, JESUS K Ot I48.0 PAROXYSMAL ATRIAL FIBRILLATION 08/16/2017 ALMA MACKENZIE, WALTER eCe Ot E78.2 MIXED HYPERLIPIDEMIA 08/16/2017 ALMA MACKENZIE, WALTER Cee Ot I10 ESSENTIAL (PRIMARY) HYPERTENSION 08/16/2017 ALMA MACKENZIE, BASHAR J Ot I25.10 ATHSCL HEART DISEASE OF [place] CORONARY 08/16/2017 ALMA MACKENZIE, WALTER J Ot I48.0 PAROXYSMAL ATRIAL FIBRILLATION Procedures There is no data. Results Test Result Range Complete blood count (CBC) with automated white blood cell (WBC) differential - 08/06/17 21:08 Blood leukocytes automated count (number/volume) 6.6 10*3/uL 4.3-11.0 Blood erythrocytes automated count (number/volume) 4.24 10*6/uL 4.35-5.85 Venous blood hemoglobin measurement (mass/volume) 14.5 g/dL 11.5-16.0 Blood hematocrit (volume fraction) 44 % 35-52 Automated erythrocyte mean corpuscular volume 103 [foz_us] 80-99 Automated erythrocyte mean corpuscular hemoglobin (mass per erythrocyte) 34 pg 25-34 Automated erythrocyte mean corpuscular hemoglobin concentration measurement ( mass/volume) 33 g/dL 32-36 Automated erythrocyte distribution width ratio 13.6 % 10.0-14.5 Automated blood platelet count (count/volume) 215 10*3/uL 130-400 Automated blood platelet mean volume measurement 10.6 [foz_us] 7.4-10.4 Automated blood neutrophils/100 leukocytes 51 % 42-75 Automated blood lymphocytes/100 leukocytes 37 % 12-44 Blood monocytes/100 leukocytes 10 % 0-12 Automated blood eosinophils/100 leukocytes 2 % 0-10 Automated blood basophils/100 leukocytes 0 % 0-10 Blood neutrophils automated count (number/volume) 3.4 10*3 1.8-7.8 Blood lymphocytes automated count (number/volume) 2.4 10*3 1.0-4.0 Blood monocytes automated count (number/volume) 0.7 10*3 0.0-1.0 Automated eosinophil count 0.2 10*3/uL 0.0-0.3 Automated blood basophil count (count/volume) 0.0 10*3/uL 0.0-0.1 Comprehensive metabolic panel - 08/06/17 21:08 Serum or plasma sodium measurement (moles/volume) 142 mmol/L 135-145 Serum or plasma potassium measurement (moles/volume) 3.7 mmol/L 3.6-5.0 Serum or plasma chloride measurement (moles/volume) 103 mmol/L 98-107 Carbon dioxide 27 mmol/L 21-32 Serum or plasma anion gap determination (moles/volume) 12 mmol/L 5-14 Serum or plasma urea nitrogen measurement (mass/volume) 16 mg/dL 7-18 Serum or plasma creatinine measurement (mass/volume) 0.71 mg/dL 0.60-1.30 Serum or plasma urea nitrogen/creatinine mass ratio 23 NRG Serum or plasma creatinine measurement with calculation of estimated glomerular filtration rate > NRG Serum or plasma glucose measurement (mass/volume) 125 mg/dL 70-105 Serum or plasma calcium measurement (mass/volume) 9.7 mg/dL 8.5-10.1 Serum or plasma total bilirubin measurement (mass/volume) 0.4 mg/dL 0.1-1.0 Serum or plasma alkaline phosphatase measurement (enzymatic activity/volume) 94 U/L 40-136 Serum or plasma aspartate aminotransferase measurement (enzymatic activity/ volume) 29 U/L 5-34 Serum or plasma alanine aminotransferase measurement (enzymatic activity/volume ) 24 U/L 0-55 Serum or plasma protein measurement (mass/volume) 7.6 g/dL 6.4-8.2 Serum or plasma albumin measurement (mass/volume) 4.1 g/dL 3.2-4.5 Magnesium - 08/06/17 21:08 Magnesium 2.1 mg/dL 1.8-2.4 Serum or plasma troponin i.cardiac measurement (mass/volume) - 08/06/17 21:08 Serum or plasma troponin i.cardiac measurement (mass/volume) < ng/ mL <0.30 PT panel in platelet poor plasma by coagulation assay - 08/06/17 21:08 Prothrombin time (PT) in platelet poor plasma by coagulation assay 13.4 s 12.2-14.7 INR in platelet poor plasma or blood by coagulation assay 1.0 0.8-1.4 Activated partial thromboplastin time (aPTT) in platelet poor plasma bycoagulation assay - 08/06/17 21:08 Activated partial thromboplastin time (aPTT) in platelet poor plasma bycoagulation assay 31 s 24-35 Digoxin - 08/06/17 21:08 Digoxin < ng/mL 0.80-2.00 Complete urinalysis with reflex to culture - 08/06/17 21:18 Urine color determination YELLOW NRG Urine clarity determination CLEAR NRG Urine pH measurement by test strip 7 5-9 Specific gravity of urine by test strip 1.005 1.016- 1.022 Urine protein assay by test strip, semi-quantitative NEGATIVE NEGATIVE Urine glucose detection by automated test strip NEGATIVE NEGATIVE Erythrocytes detection in urine sediment by light microscopy 1+ NEGATIVE Urine ketones detection by automated test strip NEGATIVE NEGATIVE Urine nitrite detection by test strip NEGATIVE NEGATIVE Urine total bilirubin detection by test strip NEGATIVE NEGATIVE Urine urobilinogen measurement by automated test strip (mass/volume) NORMAL NORMAL Urine leukocyte esterase detection by dipstick NEGATIVE NEGATIVE Automated urine sediment erythrocyte count by microscopy (number/high power field) RARE NRG Automated urine sediment leukocyte count by microscopy (number/high power field ) RARE NRG Bacteria detection in urine sediment by light microscopy TRACE NRG Crystals detection in urine sediment by light microscopy NONE NRG Casts detection in urine sediment by light microscopy NONE NRG Mucus detection in urine sediment by light microscopy NEGATIVE NRG Complete urinalysis with reflex to culture NO NRG Encounters ACCT No. Visit Date/Time Discharge Status Pt. Type Provider Facility Loc./Unit Complaint [id number] 08/06/2017 20:53:00 08/06/2017 22:33:00 DIS Emergency NICOLLE CROSS DO [facility] ER HEADACHE,DIZZINESS [id number] 06/15/2017 08:25:00 06/15/2017 23:59:59 CLS Outpatient ALMA MACKENZIE, WALTER Cee [facility] LAB I25.10,I10,E78.2,I48.0 [id number] 09/25/2016 08:12:00 09/25/2016 23:59:59 CLS Outpatient JESUS DAILY [facility] LAB CAD,HTN,PAF [id number] 09/23/2016 07:33:00 09/23/2016 23:59:59 CLS Outpatient JESUS DAILY [facility] CARD CAD,HTN, HYPERLIPIDEMIA,PAF [id number] 09/18/2016 07:37:00 09/18/2016 23:59:59 CLS Outpatient JESUS DAILY [facility] CARD CAD,HTN, HYPERLIPIDEMIA,PAF [id number] 04/09/2016 11:00:00 04/09/2016 23:59:59 CLS Preadmit JESUS DAILY [facility] CARD PAF, HEART PALPITATIONS [id number] 01/09/2016 11:07:00 04/08/2016 00:01:00 DIS Outpatient JESUS DAILY [facility] CARD PAF, HEART PALPITATIONS [id number] 12/09/2015 14:00:00 12/09/2015 23:59:59 CLS Outpatient WALTER MARQUEZ MD [facility] LAB CAD, HTN, PAF [id number] 10/10/2015 11:23:00 10/10/2015 14:47:00 DIS Emergency ALTAGRACIA VINES MD [facility] ER HEART SKIPPING BEATS; SHAKINESS [id number] 09/30/2015 16:06:00 09/30/2015 23:59:59 CLS Outpatient TERRI ORTA DO [facility] RAD COUGH [id number] 12/27/2014 16:41:00 12/27/2014 23:59:59 CLS Outpatient TERRI ORTA DO [facility] RAD HX OF STRESS FX, REDUCTION OF RT 3RD [id number] 11/21/2014 08:39:00 11/21/2014 23:59:59 CLS Outpatient WALTER MARQUEZ MD [facility] CARD CAD,HTN,HLP,PAF [id number] 11/18/2014 06:11:00 11/19/2014 10:30:00 DIS Inpatient WALTER MARQUEZ MD [facility] ICU NEW ONSET ATRIAL FIBRILLATION [id number] 08/17/2014 09:09:00 08/17/2014 13:10:00 DIS Outpatient RICHARD HANSON MD [facility] SDC KAJAL POSITIVE STOOLS [id number] 07/04/2014 06:08:00 07/04/2014 23:59:59 CLS Outpatient RICHARD HANSON MD [facility] PREOP BLOOD IN STOOL [id number] 06/29/2014 10:00:00 06/29/2014 23:59:59 CLS Preadmit RICHARD HANSON MD [facility] SDC POSITIVE BLOOD IN STOOL [id number] 05/21/2014 08:58:00 05/21/2014 23:59:59 CLS Outpatient JESUS DAILY [facility] LAB HYPERLIPADEMIA [id number] 01/16/2014 15:15:00 01/16/2014 23:59:59 CLS Outpatient TERRI ORTA DO [facility] LAB TIRED FEELING WEAK [id number] 11/03/2013 09:03:00 11/03/2013 23:59:59 CLS Outpatient JESUS DAILY [facility] LAB HYPERLIPADEMIA [id number] 09/15/2013 15:38:00 09/15/2013 23:59:59 CLS Outpatient FABIAN BREAUX HOLLIE Brianda [facility] RAD LUMBAR RADICULOPATHY [id number] 11/21/2014 19:00:00 Document Registration [id number] 08/16/2014 10:32:00 Document Registration [id number] 03/17/2012 16:11:00 Document Registration [id number] 02/24/2012 09:58:00 Document Registration [id number] 02/22/2012 11:21:00 Document Registration [id number] 08/21/2011 08:21:00 Document Registration [id number] 05/15/2011 09:48:00 Document Registration [id number] 10/20/2010 09:39:00 Document Registration [id number] 09/11/2010 08:27:00 Document Registration [id number] 09/01/2010 07:54:00 Document Registration [id number] 06/25/2010 09:14:00 Document Registration [id number] 06/09/2010 09:09:00 Document Registration [id number] 05/22/2010 11:53:00 Document Registration [id number] 04/14/2010 00:00:00 Document Registration [id number] 01/28/2010 12:05:00 Document Registration [id number] 01/16/2010 08:39:00 Document Registration [id number] 01/13/2010 13:44:00 Document Registration [id number] 01/07/2010 21:31:00 Document Registration [id number] 08/05/2009 09:13:00 Document Registration [id number] 05/10/2009 00:00:00 Document Registration [id number] 12/28/2014 05:36:55 [place] Document Registration
[2017-12-25 12:42] LABS: BASOPHILS % (AUTO) 0 % (0-10); EOSINOPHILS # (AUTO) 0.1 10^3/uL (0.0-0.3); EOSINOPHILS % (AUTO) 1 % (0-10); HEMATOCRIT 43 % (35-52); HEMOGLOBIN 14.8 G/DL (11.5-16.0); LYMPHOCYTES # (AUTO) 1.9 X 10^3 (1.0-4.0); LYMPHOCYTES % (AUTO) 28 % (12-44); MEAN CORPUSCULAR HEMOGLOBIN 36 PG (25-34); MEAN CORPUSCULAR HGB CONC 34 G/DL (32-36); MEAN CORPUSCULAR VOLUME 105 FL (80-99); MEAN PLATELET VOLUME 10.6 FL (7.4-10.4); MONOCYTES # (AUTO) 0.7 X 10^3 (0.0-1.0); MONOCYTES % (AUTO) 10 % (0-12); NEUTROPHILS # (AUTO) 4.3 X 10^3 (1.8-7.8); NEUTROPHILS % (AUTO) 62 % (42-75); PLATELET COUNT 165 10^3/uL (130-400); RED CELL DISTRIBUTION WIDTH 13.9 % (10.0-14.5); WHITE BLOOD COUNT 6.9 10^3/uL (4.3-11.0)
[2017-12-25] MEDS ORDERED: ONDANSETRON 4 MG/2 ML (SDV) Z0FRAN IVP ONE ×2 (12:45→13:30)
--- NOTE | 2017-12-25 12:46 | ED Headache ---
General Chief Complaint: Head/Cervical Problems Stated Complaint: STOKE SYMTOMS Source: patient History of Present Illness Date Seen by Provider: Dec 25, 2017 Time Seen by Provider: 12:23 Initial Comments PT ARRIVES VIA POV FROM HOME--AMBULATES INTO ER WITHOUT DIFFICULTY C/O SEVERE HEADACHE ON TOP OF HEAD--BEGAN 2 HOURS AGO, BUT HAD A MILDER HEADACHE ALL DAY YESTERDAY AND "JUST DIDN'T FEEL GOOD" ALL DAY YESTERDAY-- HEADACHE, MALAISE, NAUSEA. C/O NUMBNESS TO LOWER JAW BILATERALLY AND BOTH ARMS FEEL A LITTLE TINGLY NO MOTOR DEFICITS HAD A DIZZY SPELL THIS AM WHEN HEADACHE WAS BAD, LASTED A FEW MINUTES AND WENT AWAY WHEN SHE LAID DOWN NO CHEST PAIN NO SHORTNESS OF BREATH NO PALPITATIONS NO VISION CHANGES + NAUSEA, NO VOMITING NO PROBLEMS SWALLOWING. ATE BREAKFAST AND TOOK MEDICATIONS THIS AM WITHOUT DIFFICULTY NO PROBLEMS SPEAKING DENIES HISTORY OF SIMILAR PT IS ON ELIQUIS FOR HISTORY OF ATRIAL FIBRILLATION DID NOT HIT HEAD OR FALL RECENTLY PT HAS NOT TAKEN ANYTHING FOR PAIN AT ANY TIME PCP: DR. ORTA VEGETABLE CANNER: DR. MARQUEZ Allergies and Home Medications Allergies Coded Allergies: tetanus toxoid, adsorbed (Unverified Allergy, Unknown, 08/17/14) Home Medications Acetaminophen 325 Mg Tablet, 500 MG PO HS, (Reported) Apixaban 5 Mg Tablet, 5 MG PO BID Prescribed by: WALTER MARQUEZ on 11/19/14 09 Atorvastatin Calcium 10 Mg Tablet, 5 MG PO DAILY, (Reported) Calcium Carbonate/Vitamin D3 1 Tab Tablet, 1 TAB PO DAILY, (Reported) Cefdinir 300 Mg Capsule, 300 MG PO BID Prescribed by: ALTAGRACIA VINES on 10/10/15 1437 Cyclobenzaprine Hcl 10 Mg Tablet, 2.5 MG PO HS, (Reported) Denosumab 60 Mg/1 Ml Disp.syrin, 60 MG SQ UD, (Reported) every 6 months Digoxin 125 Mcg Tablet, 1 EACH PO DAILY Prescribed by: WALTER MARQUEZ on 11/19/14 09 Etanercept 50 Mg/1 Ml Pen.injctr, 50 MG SQ UD, (Reported) WEEKLY Ezetimibe 10 Mg Tablet, 10 MG PO DAILY, (Reported) Folic Acid 1 Mg Tab, 1 MG PO BID, (Reported) Levothyroxine Sodium 25 Mcg Tab, 25 MCG PO DAILY@0630 Prescribed by: WALTER MARQUEZ on 11/19/14 0913 Loratadine 10 Mg Tablet, 10 MG PO DAILY PRN for CONGESTION, (Reported) Melatonin/Pyridoxine Hcl 1 Each Tablet, 1 EACH PO HS, (Reported) Methotrexate 2.5 Mg Tab, 20 MG PO UD, (Reported) WEEKLY Metoprolol Succinate 50 Mg Tab.sr.24h, 50 MG PO HS, (Reported) Multivitamins 1 Each Capsule, 1 EACH PO DAILY, (Reported) [place]-3 Fatty Acids 1,000 Mg Capsule, 1,000 MG PO BID, (Reported) Teriparatide 600 Mcg/2.4 Ml Syr, 20 MCG SQ DAILY, (Reported) Ubidecarenone 100 Mg Capsule, 150 MG PO DAILY, (Reported) Patient Home Medication List Home Medication List Reviewed: Yes Review of Systems Constitutional: see HPI; No chills; dizziness; No fever; malaise, weakness Eyes: No Symptoms Reported; Denies Blurred Vision Ears, Nose, Mouth, Throat: no symptoms reported Respiratory: no symptoms reported; No dyspnea on exertion, No short of breath Cardiovascular: no symptoms reported; No chest pain, No edema, No palpitations , No syncope Gastrointestinal: see HPI; No abdominal pain; loss of appetite, nausea; No vomiting Genitourinary: no symptoms reported Musculoskeletal: no symptoms reported (BUT HAS R.A. ) Skin: no symptoms reported Psychiatric/Neurological: See HPI, Headache, Paresthesia, Tingling Past Yqmrexx-Laqbbo-Mctmak Hx Patient Social History Alcohol Use: Denies Use Recreational Drug Use: No Smoking Status: Never a Smoker 2nd Hand Smoke Exposure: No Recent Foreign Travel: No Contact w/Someone Who Travel: No Recent Hopitalizations: No Immunizations Up To Date Date of Pneumonia Vaccine: May 26, 2011 Date of Influenza Vaccine: May 17, 2014 Seasonal Allergies Seasonal Allergies: No Past Medical History Surgeries: Yes (CATARACTS/LENS IMPLANT, COLONOSCOPY) Adenoidectomy, Cardiac, CABG, Eye Surgery, Gallbladder, Tonsillectomy Respiratory: Yes Pneumonia Cardiac: Yes Atrial Fibrillation, Coronary Artery Disease, High Cholesterol, Hypertension Neurological: No Reproductive Disorders: No 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 CONSTIPATION AND DIARRHEA) Gastroesophageal Reflux, Obstructive Bowel, Chronic Constipation, Diverticulosis , Chronic Diarrhea, Irritable Bowel Musculoskeletal: Yes Rheumatoid Arthritis, Chronic Back Pain Endocrine: No HEENT: Yes Macular Degeneration Cancer: No Psychosocial: Yes (POST DEPRESSION) Integumentary: No Blood Disorders: No Adverse Reaction/Blood Tranf: No Family Medical History Abdominal aortic aneurysm G8 BROTHER Angina pectoris 19 MOTHER Completed stroke G8 BROTHER FH: brain aneurysm 19 MOTHER Hypercholesterolemia G8 SISTER Hypertension G8 SISTER Osteoporosis G8 SISTER Physical Exam Vital Signs Capillary Refill : General Appearance: no apparent distress, thin, other (LOOKS MILDLY ILL. PALE. ) HEENT: PERRL/EOMI, pale conjunctivae (R), pale conjunctivae (L) Neck: non-tender, supple, normal inspection; No carotid bruit Cardiovascular: normal peripheral pulses, regular rate, rhythm, no edema, no JVD, no murmur Respiratory: normal breath sounds, no respiratory distress, no accessory muscle use Gastrointestinal: normal bowel sounds, non tender, soft, no organomegaly, no pulsatile mass Back: normal inspection, no CVA tenderness Extremities: normal range of motion, non-tender, normal inspection, no pedal edema, no calf tenderness, normal capillary refill, other (SEVERE R.A. BONY CHANGES TO RIGHT HAND-ULNAR DEVIATION) Psychiatric: alert, oriented x 3 Crainal Nerves: normal speech, PERRL, other (HARD OF HEARING) Coordination/Gait: normal finger to nose, normal gait Motor/Sensory: no motor deficit, no sensory deficit, no pronator drift Skin: normal color, warm/dry Progress/Results/Core Measures Results/Orders Lab Results Laboratory Tests Test 12/25/17 12:35 Range/Units White Blood Count 6.9 4.3-11.0 10^3/uL Red Blood Count 4.10 L 4.35-5.85 10^6/uL Hemoglobin 14.8 11.5-16.0 G/DL Hematocrit 43 35-52 % Mean Corpuscular Volume 105 H 80-99 FL Mean Corpuscular Hemoglobin 36 H 25-34 PG Mean Corpuscular Hemoglobin Concent 34 32-36 G/DL Red Cell Distribution Width 13.9 10.0-14.5 % Platelet Count 165 130-400 10^3/uL Mean Platelet Volume 10.6 H 7.4-10.4 FL Neutrophils (%) (Auto) 62 42-75 % Lymphocytes (%) (Auto) 28 12-44 % Monocytes (%) (Auto) 10 0-12 % Eosinophils (%) (Auto) 1 0-10 % Basophils (%) (Auto) 0 0-10 % Neutrophils # (Auto) 4.3 1.8-7.8 X 10^3 Lymphocytes # (Auto) 1.9 1.0-4.0 X 10^3 Monocytes # (Auto) 0.7 0.0-1.0 X 10^3 Eosinophils # (Auto) 0.1 0.0-0.3 10^3/uL Basophils # (Auto) 0.0 0.0-0.1 10^3/uL Prothrombin Time 14.0 12.2-14.7 SEC INR Comment 1.1 0.8-1.4 Activated Partial Thromboplast Time 30 24-35 SEC Sodium Level 141 135-145 MMOL/L Potassium Level 4.4 3.6-5.0 MMOL/L Chloride Level 106 98-107 MMOL/L Carbon Dioxide Level 22 21-32 MMOL/L Anion Gap 13 5-14 MMOL/L Blood Urea Nitrogen 13 7-18 MG/DL Creatinine 0.65 0.60-1.30 MG/DL Estimat Glomerular Filtration Rate > 60 BUN/Creatinine Ratio 20 Glucose Level 78 70-105 MG/DL Calcium Level 9.8 8.5-10.1 MG/DL Magnesium Level 2.2 1.8-2.4 MG/DL Total Bilirubin 0.7 0.1-1.0 MG/DL Aspartate Amino Transf (AST/SGOT) 27 5-34 U/L Alanine Aminotransferase (ALT/SGPT) 25 0-55 U/L Alkaline Phosphatase 60 40-136 U/L Myoglobin 47.9 10.0-92.0 NG/ML Troponin I < 0.30 <0.30 NG/ML Total Protein 7.4 6.4-8.2 GM/DL Albumin 4.4 3.2-4.5 GM/DL TSH [facility] Testing 1.87 0.35-4.94 UIU/ML Digoxin Level < 0.30 L 0.80-2.00 NG/ML My Orders Orders - NICOLLE CROSS DO O2 (12/25/17 12:27) Ekg Tracing (12/25/17 12:27) Cbc With Automated Diff (12/25/17 12:27) Comprehensive Metabolic Panel (12/25/17 12:27) Protime With Inr (12/25/17 12:27) Partial Thromboplastin Time (12/25/17 12:27) Magnesium (12/25/17 12:27) Chest 1 View, Ap/Pa Only (12/25/17 12:27) Cardiac Profile 1 (12/25/17 12:27) Myoglobin Serum (12/25/17 12:27) Monitor-Rhythm Ecg Trace Only (12/25/17 12:27) Ct Head Wo-R/O Stroke (12/25/17 12:27) Ondansetron Injection (Zofran Injectio (12/25/17 12:45) Ondansetron Injection (Zofran Injectio (12/25/17 13:30) Ketorolac Injection (Toradol Injection) (12/25/17 13:19) Saline Lock/Iv-Start (12/25/17 13:19) Lactated Ringers (Lr 1000 Ml Iv Solution (12/25/17 13:19) Fentanyl Injection (Sublimaze Injection (12/25/17 14:31) Methylprednisolone Sod Succ (Solu-Medrol (12/25/17 14:45) Digoxin (12/25/17 14:52) Thyroid Analyzer (12/25/17 14:52) Medications Given in ED Current Medications Medications Dose Ordered Sig/Cody Route Start Time Stop Time Status Last Admin Dose Admin Lactated Ringer's 1,000 ml @ 0 mls/hr Q0M ONCE IV 12/25/17 13:19 12/25/17 13:20 DC 12/25/17 13:51 1,000 MLS/HR Methylprednisolone Sodium Succinate 125 mg ONCE ONCE IVP 12/25/17 14:45 12/25/17 14:46 DC 12/25/17 15:05 125 MG Ondansetron HCl 4 mg ONCE ONCE IVP 12/25/17 12:45 12/25/17 12:46 DC 12/25/17 13:04 4 MG Progress Progress Note : Progress Note UNEVENTFUL ER STAY SYMPTOMS MUCH IMPROVED AT DISMISSAL BP DOWN WITHOUT TREATMENT DURING ER STAY PT ANXIOUS TO GO HOME PT ABLE TO WALK TO AND FROM BATHROOM ON HER OWN A FEW TIMES WITHOUT DIFFICULTY Initial ECG Impression Date: Dec 25, 2017 Initial ECG Impression Time: 12:56 Initial ECG Rate: 82 Initial ECG Rhythm: Normal Sinus Initial ECG Impression: Nonspecific Changes Initial ECG Comparisson: No Previous ECG Available Diagnostic Imaging Comments CXR--VAGUE, NONSPECIFIC DENSITY ALONG LEFT HEART BORDER CT HEAD--NO ACUTE PROCESS, CHRONIC SMALL VESSEL ISCHEMIC CHANGES PER RADIOLOGIST REPORTS @ 1256 Reviewed: Reviewed by Me Departure Impression Primary Impression: Headache Disposition: HOME, SELF-CARE Condition: Improved Departure-Patient Inst. Referrals: TERRI ORTA DO (PCP/Family) Primary Care Physician Patient Instructions: Headache, Adult (DC) Add. Discharge Instructions: LOTS OF CLEAR LIQUIDS TAKE YOUR REGULAR MEDICATIONS PRESCRIBED TYLENOL AND MOTRIN NEEDED FOR HEADACHE FOLLOW UP WITH YOUR DR ON WEDNESDAY IF NO BETTER RETURN TO ER IF WORSE All discharge instructions reviewed with patient and/or family. Voiced understanding. NICOLLE CROSS DO Dec 25, 2017 12:46
[2017-12-25 12:54] LABS: INR 1.1 (0.8-1.4)
--- NOTE | 2017-12-25 12:55 | Diagnostic Imaging Report ---
INDICATION: Headache, jaw numbness, weakness. COMPARISON: 08/06/2017. TECHNIQUE: Multiple contiguous axial CT images are obtained through the head without the use of intravenous contrast dated 12/25/2017. FINDINGS: Mild atrophy. No intracranial hemorrhage. Periventricular and subcortical white matter hypodensities are again identified, most consistent with moderate chronic small vessel white matter ischemic disease. This appears stable from prior examination. No CT evidence of an acute ischemic infarction. The paranasal sinuses are clear. The calvarium and extracalvarial soft tissues are unremarkable. IMPRESSION: 1. No acute intracranial abnormality. 2. Mild atrophy with associated moderate chronic small vessel white matter ischemic disease. 3. If there remains clinical concern for underlying occult infarction, further evaluation with MRI brain could be obtained. Dictated by: Dictated on workstation # [id number]
[2017-12-25 13:01] LABS: ALANINE AMINOTRANSFERASE 25 U/L (0-55); ALBUMIN 4.4 GM/DL (3.2-4.5); ALKALINE PHOSPHATASE 60 U/L (40-136); BILIRUBIN,TOTAL 0.7 MG/DL (0.1-1.0); BUN/CREATININE RATIO 20; CALCIUM 9.8 MG/DL (8.5-10.1); CARBON DIOXIDE 22 MMOL/L (21-32); CHLORIDE 106 MMOL/L (98-107); CREATININE SERUM 0.65 MG/DL (0.60-1.30); GFR ESTIMATED > 60; GLUCOSE 78 MG/DL (70-105); MAGNESIUM 2.2 MG/DL (1.8-2.4); POTASSIUM 4.4 MMOL/L (3.6-5.0); SODIUM 141 MMOL/L (135-145); TOTAL PROTEIN 7.4 GM/DL (6.4-8.2)
[2017-12-25 13:07] LABS: MYOGLOBIN SERUM 47.9 NG/ML (10.0-92.0)
--- NOTE | 2017-12-25 13:08 | Diagnostic Imaging Report ---
PA chest at 1:07 p.m. INDICATION: CVA. FINDINGS: The heart size is within normal limits and the heart does seem less prominent than on the prior exam of 10/10/2015. The sternotomy wires and surgical clips noted previously are again evident and no different. There is a vague area of increased density partially obscuring the left heart border. This finding was not present on the prior exam. This could be related to pneumonia/atelectasis. The possibility that this is secondary to scar formation should also be considered. The lungs are otherwise clear. There is no pleural effusion identified. The mediastinum is not widened. The osseous structures are intact. IMPRESSION: 1. In the interval since the prior study, a vague area of increased density has developed along the left heart border. Whether this is secondary to acute pneumonia/atelectasis or scar formation is not certain. Clinical follow-up is recommended. 2. There is no acute cardiopulmonary abnormality noted otherwise. Dictated by: Dictated on workstation # [id number]
[2017-12-25] MEDS ORDERED: LACTATED RINGERS 1,000 ML IV ONE (13:19)
[2017-12-25] MEDS ORDERED: KETOROLAC 30 MG/ML VIAL IVP STA (13:19)
[2017-12-25] MEDS ORDERED: fentaNYL INJECTION 100 MCG/2 ML AMP IVP STA (14:31)
[2017-12-25] MEDS ORDERED: methylPREDNISolone 125 MG (Solu-MEDROL) VIAL IVP ONE (14:45)
[2017-12-25 15:26] LABS: DIGOXIN < 0.30 NG/ML (0.80-2.00); TSH (THYROID ANALYZER) 1.87 UIU/ML (0.35-4.94)
[2017-12-25 17:00] VITALS: BP 142/85
== END 2017-12-25 17:00 | disposition home or self-care (01) ==
LOC: EDUNIT# 12:20 → ER 12:23
DX: R51 Headache (principal); Z95.5 Presence of coronary angioplasty implant and graft; I25.10 Atherosclerotic heart disease of native coronary artery without angina pectoris; E78.00 Pure hypercholesterolemia, unspecified; I10 Essential (primary) hypertension; K21.9 Gastro-esophageal reflux disease without esophagitis; M06.9 Rheumatoid arthritis, unspecified; Z79.01 Long term (current) use of anticoagulants; Z87.01 Personal history of pneumonia (recurrent); Z90.89 Acquired absence of other organs; Z88.7 Allergy status to serum and vaccine
CPT/HCPCS: 36415; 70450; 71045; 80053; 80162; 83735; 83874; 84443; 84484; 85025; 85610; 85730; 93041; 96361; 96374; 96375

== ENCOUNTER → 2018-01-31 | Outpatient (CLI) | payer MEDICARE, OTHER ==
[2018-01-31 16:19] LABS: BASOPHILS % (AUTO) 0 % (0-10); EOSINOPHILS # (AUTO) 0.2 10^3/uL (0.0-0.3); EOSINOPHILS % (AUTO) 2 % (0-10); HEMATOCRIT 41 % (35-52); HEMOGLOBIN 13.3 G/DL (11.5-16.0); LYMPHOCYTES # (AUTO) 1.7 X 10^3 (1.0-4.0); LYMPHOCYTES % (AUTO) 20 % (12-44); MEAN CORPUSCULAR HEMOGLOBIN 34 PG (25-34); MEAN CORPUSCULAR HGB CONC 33 G/DL (32-36); MEAN CORPUSCULAR VOLUME 104 FL (80-99); MEAN PLATELET VOLUME 10.2 FL (7.4-10.4); MONOCYTES # (AUTO) 0.9 X 10^3 (0.0-1.0); MONOCYTES % (AUTO) 11 % (0-12); NEUTROPHILS # (AUTO) 5.9 X 10^3 (1.8-7.8); NEUTROPHILS % (AUTO) 68 % (42-75); PLATELET COUNT 235 10^3/uL (130-400); RED BLOOD COUNT 3.92 10^6/uL (4.35-5.85); RED CELL DISTRIBUTION WIDTH 13.4 % (10.0-14.5); WHITE BLOOD COUNT 8.7 10^3/uL (4.3-11.0)
[2018-01-31 16:41] LABS: ALANINE AMINOTRANSFERASE 22 U/L (0-55); ALBUMIN 4.1 GM/DL (3.2-4.5); ALKALINE PHOSPHATASE 72 U/L (40-136); BILIRUBIN,TOTAL 0.4 MG/DL (0.1-1.0); BUN/CREATININE RATIO 19; CALCIUM 9.5 MG/DL (8.5-10.1); CARBON DIOXIDE 27 MMOL/L (21-32); CHLORIDE 104 MMOL/L (98-107); CREATININE SERUM 0.68 MG/DL (0.60-1.30); GFR ESTIMATED > 60; GLUCOSE 84 MG/DL (70-105); POTASSIUM 4.2 MMOL/L (3.6-5.0); SODIUM 139 MMOL/L (135-145); TOTAL PROTEIN 7.7 GM/DL (6.4-8.2)
--- NOTE | 2018-01-31 18:15 | Diagnostic Imaging Report ---
INDICATION: Cough, congestion, sputum production. TECHNIQUE: Two view chest 4:41 PM CORRELATION STUDY: 12/25/2017 FINDINGS: Poststernotomy and coronary artery bypass changes. Heart size borderline enlarged. Vasculature overall slightly prominent. Chronic type change about the lung parenchyma persists. Density over the left heart border appearing to persist. No significant effusion. IMPRESSION: 1. Chronic density over the left heart margins superimposed on chronic change of the lung parenchyma. Given symptoms and persistent nature, consideration might be given to CT imaging for further assessment. Dictated by: Dictated on workstation # [id number]
== END ==
LOC: LAB 15:50
PROVIDERS: ATTEND Family Medicine
DX: R05 Cough (principal)
CPT/HCPCS: 36415; 71046; 80053; 85025

== ENCOUNTER → 2018-02-02 | Outpatient (CLI) | payer MEDICARE, OTHER ==
[~2018-02-02] MED LIST changes: +IOHEXOL 350 MG/ML 100 ML (OMNIPAQUE 350) VIAL IV ONE; +NS 100 ML (IVPB) BAG IV ONE
--- NOTE | 2018-02-02 13:42 | Diagnostic Imaging Report ---
PROCEDURE: CT chest with contrast only. TECHNIQUE: Multiple contiguous axial images were obtained through the chest after administration of intravenous contrast. INDICATION: Cough and weakness with density noted on chest x-ray. COMPARISON: Correlation is made with prior chest radiograph from 01/31/2018. No prior CT chest is available for comparison. FINDINGS: No axillary lymphadenopathy is identified. No mediastinal lymphadenopathy is seen. There are small lymph nodes in the luna bilaterally. No pericardial or pleural fluid is detected. There are changes of median sternotomy and CABG. Parenchymal evaluation does show an ovoid nodule in left upper lobe, image 26 measuring 7 mm and indeterminate. There are areas of chronic scarring or atelectasis in the left upper lobe and lingula, likely accounting for the density noted on chest radiograph. This is adjacent to the left heart border. No discrete mass is seen. There appears to be an area of scarring or atelectasis in the posterior right lower lobe as well. There is subpleural interstitial scarring bilaterally. The upper abdomen is unremarkable. IMPRESSION: Chronic parenchymal changes, as described with probable scarring or atelectasis in the lingula accounting for the chest radiographic abnormality. No discrete mass is identified. Dictated by: Dictated on workstation # [id number]
== END ==
LOC: RAD 11:32
PROVIDERS: ATTEND Family Medicine
DX: J98.4 Other disorders of lung (principal); R53.1 Weakness
CPT/HCPCS: 71260

== ENCOUNTER 2018-07-29 09:42 | Emergency (ER) | payer MEDICARE, OTHER | END 2018-07-29 12:31 | disposition home or self-care (01) | LOC: ER 09:42 ==

== ENCOUNTER → 2018-10-24 | Outpatient (CLI) | payer MEDICARE, OTHER ==
[~2018-10-24] MED LIST changes: +HYOS0.1283 SL; -IOHEXOL 350 MG/ML 100 ML (OMNIPAQUE 350) VIAL IV ONE; -NS 100 ML (IVPB) BAG IV ONE; +ONDA4TAB11 SL
== END ==
LOC: CARD 10:22
PROVIDERS: ATTEND Physician Assistant
DX: I25.10 Atherosclerotic heart disease of native coronary artery without angina pectoris (principal); I10 Essential (primary) hypertension; E78.5 Hyperlipidemia, unspecified; I35.1 Nonrheumatic aortic (valve) insufficiency
CPT/HCPCS: 93306

== ENCOUNTER → 2018-10-26 | Outpatient (CLI) | payer MEDICARE, OTHER ==
[~2018-10-26] MED LIST changes: +CATHETER FLUSH 10 ML SYR IV PRN; +REGADENOSON 0.4 MG/5 ML SYR (LEXISCAN) IV ONE
[2018-10-26 09:19] VITALS: BP 151/73
[2018-10-26 09:22] VITALS: BP 172/69
--- NOTE | 2018-10-26 15:33 | STRESS TEST ---
DATE OF SERVICE: 10/26/2018 LEXISCAN MYOVIEW STRESS TEST REFERRING PHYSICIAN: Dr. Connolly. Baseline heart rate is 70. Baseline blood pressure 149/63. Baseline EKG is sinus rhythm with right bundle branch block. In summary, the patient was injected with 10.64 mCi of technetium-99 Myoview and the resting images were obtained. Then, the patient received 0.4 mg of Lexiscan followed by 29.0 mCi of technetium-99 Myoview. Throughout the test, there were no EKG changes. The resting and stress images were reviewed and compared in the short axis, horizontal long axis, and vertical long axis views. Review of the images showed breast attenuation affecting the quality of the images with questionable reversible ischemia involving the whole lateral wall, anterolateral and inferolateral wall. SSS is 11, SDS 4, TID value 1.01. On the gated images, the left ventricle appeared to be small in size with normal contractility. Calculated ejection fraction %. CONCLUSION: 1. The patient tolerated Lexiscan well. 2. Breast attenuation affecting the quality of the images with questionable ischemia involving the whole lateral wall, anterolateral and inferolateral wall. 3. Small left ventricular size with normal contractility. Calculated ejection fraction %. Job ID: [id number] DocumentID: [id number] Dictated Date: 10/26/2018 15:05:06 Plant Maintenance Manager Date: 10/26/2018 15:32:48 Dictated By: WALTER MARQUEZ MD
== END ==
LOC: CARD 07:38
PROVIDERS: ATTEND Physician Assistant
DX: I25.10 Atherosclerotic heart disease of native coronary artery without angina pectoris (principal); I10 Essential (primary) hypertension; E78.5 Hyperlipidemia, unspecified
CPT/HCPCS: 78452; 93017

== ENCOUNTER 2018-11-16 06:45 | Day surgery (SDC) | payer MEDICARE, OTHER ==
[~2018-11-16] VITALS: Ht 165.1 cm; Wt 54.0 kg
[2018-11-16] VITALS (11 sets, daily range): BP systolic 108–168; BP diastolic 49–74
[~2018-11-16 06:45] MED LIST changes: -CATHETER FLUSH 10 ML SYR IV PRN; -REGADENOSON 0.4 MG/5 ML SYR (LEXISCAN) IV ONE
[2018-11-16] MEDS ORDERED: HEParin 1000 UNIT/ML (10ML VIAL) FOR BOLUS ONE (06:54)
[2018-11-16] MEDS ORDERED: NS IV 1000 ML 3,000 ML ONE (06:54)
[2018-11-16] MEDS ORDERED: LIDOCAINE 1% INJ 20 ML 20 ML VIAL ONE (06:54)
[2018-11-16] MEDS ORDERED: NS IV 1000 ML 1,000 ML IV SCH ×2 (07:00→10:39)
[2018-11-16 07:29] LABS: BILIRUBIN,URINE NEGATIVE (NEGATIVE); CLARITY,URINE CLEAR; COLOR,URINE YELLOW; GLUCOSE, URINE (UA) NEGATIVE (NEGATIVE); KETONES,URINE NEGATIVE (NEGATIVE); LEUKOCYTE ESTERASE ,URINE 1+ (NEGATIVE); NITRITE,URINE NEGATIVE (NEGATIVE); PH,URINE 6.5 (5-9); PROTEIN,URINE NEGATIVE (NEGATIVE); UROBILINOGEN,URINE NORMAL (NORMAL)
[2018-11-16 07:31] LABS: HEMOGLOBIN 14.1 G/DL (11.5-16.0); MEAN PLATELET VOLUME 10.6 FL (7.4-10.4); RED CELL DISTRIBUTION WIDTH 13.9 % (10.0-14.5); WHITE BLOOD COUNT 5.4 10^3/uL (4.3-11.0)
[2018-11-16 07:36] LABS: RBC,URINE 0-2 /HPF; WBC,URINE RARE /HPF
[2018-11-16 07:37] LABS: BACTERIA,URINE NEGATIVE /HPF
[2018-11-16 07:42] LABS: INR 0.9 (0.8-1.4); PROTHROMBIN TIME PATIENT 12.7 SEC (12.2-14.7)
[2018-11-16 07:51] LABS: ALANINE AMINOTRANSFERASE 25 U/L (0-55); ALBUMIN 4.3 GM/DL (3.2-4.5); ALKALINE PHOSPHATASE 65 U/L (40-136); BILIRUBIN,TOTAL 0.5 MG/DL (0.1-1.0); BUN/CREATININE RATIO 19; CALCIUM 9.7 MG/DL (8.5-10.1); CARBON DIOXIDE 28 MMOL/L (21-32); CHLORIDE 106 MMOL/L (98-107); CHOLESTEROL 204 MG/DL (< 200); CREATININE SERUM 0.68 MG/DL (0.60-1.30); GFR ESTIMATED > 60; GLUCOSE 89 MG/DL (70-105); HDL CHOLESTEROL 58 MG/DL (40-60); POTASSIUM 3.9 MMOL/L (3.6-5.0); SODIUM 144 MMOL/L (135-145); TOTAL PROTEIN 7.7 GM/DL (6.4-8.2); TRIGLYCERIDES 133 MG/DL (<150); VLDL CHOLESTEROL 27 MG/DL (5-40)
--- NOTE | 2018-11-16 08:30 | Diagnostic Imaging Report ---
INDICATION: Heart disease. COMPARISON: 01/31/2018. FINDINGS: There is cardiomegaly. There is patchy bibasilar atelectasis and/or pneumonitis. There has been a previous median sternotomy and coronary artery bypass graft. There is no pneumothorax. The mediastinum is unremarkable. IMPRESSION: Cardiomegaly and some patchy bibasilar atelectasis and/or pneumonitis. Dictated by: Dictated on workstation # [id number]
--- NOTE | 2018-11-16 09:29 | Cardiac Procedure Note-CS/ASA ---
Pre-Procedure Note Pre-Op Procedure Note H&P Reviewed The H&P was reviewed, patient examined and no changes noted. Date H&P Reviewed: Nov 16, 2018 Time H&P Reviewed: 09:29 Conscious Sedation Pre-Proced Time 09:29 ASA Score 3 For ASA 3 and 4: Consider anesthesia and medical clearance. Also, for patients with a history of failed moderate sedation consider anesthesia. Airway Lungs Heart ASA score ASA 1: a normal healthy patient ASA 2: a patient with a mild systemic disease (mid diabetes, controlled hypertension, obesity x ASA 3: a patient with a severe systemic disease that limits activity (angina , COPD, prior Myocardial infarction) ASA 4: a patient with an incapacitating disease that is a constant threat to life (CHF, renal failure) ASA 5: a moribund patient not expected to survive 24 hrs. (ruptured aneurysm) ASA 6: a declared brain- patient whose organs are being harvested. For emergent operations, add the letter E after the classification Mallampati Classification Grade 3 Sedation Plan Analgesia, Amnesia, Plan communicated to team members, Discussed options with patient/fam, Discussed risks with patient/fam The patient is an appropriate candidate to undergo the planned procedure, sedation, and anesthesia. The patient immediately re-assessed prior to indication. WALTER MARQUEZ MD Nov 16, 2018 09:29
[2018-11-16] MEDS ORDERED: MIDAZOLAM 5 MG/5 ML (VERSED) VIAL ONE (09:39)
[2018-11-16] MEDS ORDERED: fentaNYL INJECTION 100 MCG/2 ML AMP ONE (09:39)
--- NOTE | 2018-11-16 10:42 | Discharge Inst-Post CATH ---
Discharge Inst-CATH/EP Post Cardiac Cath/EP D/C Inst Follow Up/Plan Appointment with Dr Davis's office in 2-4 weeks <b>CARDIAC CATH/EP PROCEDURE DISCHARGE INSTRUCTIONS</b> Cardiac Rehab Please be expecting a follow up call from Cardiac Rehab within in one week. ACTIVITY * Go Home directly and rest. * Limit activity of the leg (or wrist if it was used) for 7 days including aerobics, swimming, jogging, bicycling, etc. * Restrict stair-climbing for 7 days if possible, if not, climb up with your non -cath leg, then bring together on the same step. * Avoid lifting, pushing, pulling or excessive movement of the affected extremity for 7 days. * Customary sexual activity may be resumed after 2 days-use caution not to use a position that strains or causes pain to the affected extremity. * No driving for 24 hours. * NO SMOKING. * Avoid straining for bowel movements for 7 days. * Gentle walking on level ground is allowed. * Returning to work will depend on the type of procedure and the results. Your doctor will discuss this with you. CALL YOUR DOCTOR FOR ANY OF THE FOLLOWING: *If bleeding from the puncture site occurs- Apply gentle pressure to site with clean cloth and call your doctor or EMS. * If a knot or lump forms under the skin, increases in size, or causes pain. * If bruising appears to be worsening or moving further down your leg instead of disappearing. * Temperature above 101 F. CARE OF YOUR GROIN INCISION; * Bruising or purple discoloration of the skin near the puncture site is common. * You may shower only, no bathtub bathing for 5 days. Be careful to avoid slipping as your leg may feel stiff. * If a closure device was used on your femoral artery, please see the attached guide regarding care of the device and your leg. * Leave dressing on FOR 24 hours. CARE OF YOUR WRIST INCISION; * Bruising or purple discoloration of the skin near the puncture site is common. * You may shower. * DO NOT submerge wrist. * Leave dressing on FOR 24 hours. WALTER DAVIS MD Nov 16, 2018 10:42
[2018-11-16] MEDS ORDERED: PATIENT MAY USE OWN MEDS, ALL PO SCH (10:45)
--- NOTE | 2018-11-16 11:01 | Cardiac Cath Report ---
Cardiac Cath Report Physician (s)/Energy Specialist (s) Physician WALTER MARQUEZ MD Pre-Procedure Diagnosis Pre-Procedure Diagnosis: coronary artery disease Post-Procedure Note Procedure Start Date: Nov 16, 2018 Name of Procedure: Left heart catheterization Left ventriculogram Vein graft angiogram SAMUEL angiogram Aortic arch angiogram Findings/Procedure Note PROCEDURE NOTE: After explaining the procedure to the patient, all pros and cons were explained , all questions were answered. The patient signed the consent and then she was placed on the cardiac catheterization laboratory. Groin was prepped SL fashion local anesthesia was used. Sheath placed in the right femoral artery, Miguel left 3.5 catheter was used to access the left main system, angina gram was done , Miguel right catheter was used to access the right coronary artery and 2 vein graft and the SAMUEL, angiogram was done. Pigtail catheter was advanced to the left ventricular cavity, pressure was measured, pullback LV to aorta was done, aortic arch angiogram was done. At the end of the procedure the sheath was removed. manual pressure applied FINDINGS: Hemodynamics LV 135/19, end-diastolic pressure of 19 Aorta 138/53 mean of 89 ANATOMY: Left Main has severe stenosis Left Anterior Descending has severe stenosis, vein graft to the mid LAD is patent, the SAMUEL to the LAD is atretic and very small Left Circumflex is small nondominant, severe stenosis at the ostium and proximal circumflex artery, not bypassed artery, not amendable to intervention due to its size Right Coronory Artery is large dominant artery with moderate disease at the midportion, patent vein graft to the right PDA SAMUEL angiogram was done showing very small SAMUEL and atretic with sluggish flow Vein Graft evaluation showed 2 vein graft. The upper vein graft is the vein graft to the mid LAD that is patent with excellent flow in the LAD system. The lower vein graft to the vein graft to the right coronary artery that is very small and patent to the right PDA LV Gram was done showing normal left ventricular size and systolic function estimated ejection fraction 60 percent Aorta evaluation with aortic arch angiogram showed hypertensive changes in the aortic arch, no dissection or aneurysm, origin of the innominate artery, left carotid artery and left subclavian artery showed tortuosity with consultation with no obstructive disease CONCLUSION: 1. Severe left main coronary artery stenosis and ostial left circumflex and LAD stenosis, the LAD is corrected by vein graft to the mid, the circumflex artery is small artery not amendable to intervention and was not bypassed 2. The SAMUEL to the distal LAD appear to be atretic with sluggish flow. Probably due to the competitive flow through the vein graft to the LAD 3. Mild to moderate disease in the right coronary artery that is a large dominant and patent vein graft to the right coronary artery 4. Normal left ventricular size and systolic function estimated ejection fraction 60 percent 5. Normal aortic arch and great vessels of the neck DISCUSSION AND RECOMMENDATION: continue to maximize medical therapy no intervention is warranted Anesthesia Type: Conscious Sedation Estimated blood loss (mL): 25 ml Contrast Amount: 111 ml Total Radiation Dose: 194 mGy Post-Procedure Diagnosis Post-operative diagnosis: Coronary artery disease Hypertension Hyperlipidemia Rheumatoid arthritis WALTER MARQUEZ MD Nov 16, 2018 11:01
== END 2018-11-16 15:35 | disposition home or self-care (01) ==
LOC: CATH 06:45 → SDC 11:55 → CATH 15:35
PROVIDERS: ATTEND Internal Medicine Cardiovascular Disease
DX: I25.10 Atherosclerotic heart disease of native coronary artery without angina pectoris (principal); I10 Essential (primary) hypertension; E78.5 Hyperlipidemia, unspecified; M06.9 Rheumatoid arthritis, unspecified; I65.23 Occlusion and stenosis of bilateral carotid arteries; I48.0 Paroxysmal atrial fibrillation; Z88.1 Allergy status to other antibiotic agents; Z88.7 Allergy status to serum and vaccine; Z79.01 Long term (current) use of anticoagulants; Z79.899 Other long term (current) drug therapy; M81.0 Age-related osteoporosis without current pathological fracture; Z87.891 Personal history of nicotine dependence; R94.39 Abnormal result of other cardiovascular function study; Z95.1 Presence of aortocoronary bypass graft
CPT/HCPCS: 36221; 36415; 71045; 80053; 80061; 81000; 85027; 85610; 85730; 87081; 93459

== ENCOUNTER → 2019-01-12 | Outpatient (CLI) | payer MEDICARE, OTHER ==
[~2019-01-12] MED LIST changes: -EZET10TA27 PO; +EZET10TA49 PO
--- NOTE | 2019-01-12 21:08 | Diagnostic Imaging Report ---
INDICATION: Pain in the medial aspect of the left breast. COMPARISON: Correlation is made with prior mammogram from 04/28/2018 and 03/03/2016. EXAMINATION: 2D and 3D bilateral diagnostic mammography was performed with CAD. FINDINGS: Both breasts remain heterogeneously dense, limiting the sensitivity of mammography. The overall parenchymal pattern is stable. No mass or malignant appearing microcalcifications are seen. There are benign parenchymal and vascular calcifications, bilaterally. No abnormality is seen at the area of pain in the medial left breast. IMPRESSION: No mammographic features suspicious for malignancy are identified. Even so, directed sonographic interrogation of the medial left breast at the area of pain is recommended and will be performed today. ACR BI-RADS Category 0: Incomplete. (Needs additional imaging evaluation). Result letter will be mailed to the patient. Note: At least 10% of breast cancer is not imaged by mammography. Dictated by: Dictated on workstation # [id number]
--- NOTE | 2019-01-12 21:14 | Diagnostic Imaging Report ---
INDICATION: Pain in the medial left breast. Correlation is made with diagnostic mammogram earlier the same day. FINDINGS: Sonographic interrogation of the area of pain in the medial left breast was performed. No sonographic abnormality is seen. No solid or cystic mass is detected. IMPRESSION: No sonographic abnormality is identified. ACR BI-RADS Category 1: Negative. Dictated by: Dictated on workstation # [id number]
== END ==
LOC: RAD 08:34
PROVIDERS: ATTEND Obstetrics & Gynecology
DX: N64.4 Mastodynia (principal); Z80.3 Family history of malignant neoplasm of breast
CPT/HCPCS: 76642; 77066

== ENCOUNTER → 2019-06-15 | Outpatient (CLI) | payer MEDICARE, OTHER ==
--- NOTE | 2019-06-15 11:18 | Diagnostic Imaging Report ---
INDICATION: Status post CABG. TIME OF EXAM: 10:18 a.m. COMPARISON: Correlation is made with prior chest from 11/16/2018. FINDINGS: The heart is enlarged but stable. There are changes of median sternotomy and CABG. Lungs also appear to be hyperinflated, consistent with COPD. There may be some mild infiltrate or atelectasis in the right base. Otherwise, the lungs are clear. There is no effusion or pneumothorax. IMPRESSION: Status post CABG and COPD. There is some mild infiltrate or atelectasis in the right base. Dictated by: Dictated on workstation # [id number]
== END ==
LOC: RAD 09:44
PROVIDERS: ATTEND Internal Medicine Rheumatology
DX: J44.9 Chronic obstructive pulmonary disease, unspecified (principal); Z95.5 Presence of coronary angioplasty implant and graft; Z79.899 Other long term (current) drug therapy
CPT/HCPCS: 71046

== ENCOUNTER 2019-08-14 15:03 | Emergency (ER) | payer MEDICARE, OTHER ==
[~2019-08-14] VITALS: Ht 162 cm; Wt 54.4 kg
[2019-08-14] MEDS ORDERED: LIDOCAINE 1% INJ 20 ML 20 ML VIAL INJ ONE (16:15)
[2019-08-14] MEDS ORDERED: CEPH-507 PO (16:53)
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
[2019-08-14 17:23] VITALS: BP 158/74
== END 2019-08-14 17:23 | disposition home or self-care (01) ==
LOC: EDUNIT# 15:03 → ER 15:04
DX: S81.812A Laceration without foreign body, left lower leg, initial encounter (principal); I10 Essential (primary) hypertension; E78.00 Pure hypercholesterolemia, unspecified; I25.10 Atherosclerotic heart disease of native coronary artery without angina pectoris; I48.91 Unspecified atrial fibrillation; M06.9 Rheumatoid arthritis, unspecified; K21.9 Gastro-esophageal reflux disease without esophagitis; K58.9 Irritable bowel syndrome, unspecified; Z88.7 Allergy status to serum and vaccine; Z88.5 Allergy status to narcotic agent; Z79.01 Long term (current) use of anticoagulants; Z90.89 Acquired absence of other organs; Z95.1 Presence of aortocoronary bypass graft; Z82.49 Family history of ischemic heart disease and other diseases of the circulatory system; W50.1XXA Accidental kick by another person, initial encounter
CPT/HCPCS: 12032

== ENCOUNTER 2019-08-17 16:39 | Emergency (ER) | payer MEDICARE, OTHER ==
[~2019-08-17] VITALS: Ht 162 cm; Wt 54.4 kg
[~2019-08-17 16:39] MED LIST changes: -HYDR-4226 PO
[2019-08-17] MEDS ORDERED: HYDR-4226 PO (17:02)
--- NOTE | 2019-08-17 17:03 | ED Upper Extremity ---
General Stated Complaint: RT ELBOW FRACTURE Source: patient, family Exam Limitations: no limitations History of Present Illness Date Seen by Provider: Aug 17, 2019 Time Seen by Provider: 16:57 Initial Comments To ER with right elbow fracture from outpatient department. Elbow x-ray was ordered by primary care doctor Mohsen after a reported fall yesterday. No other injury. She is on Eliquis for history of atrial fibrillation. She is up-to-date on tetanus and currently on antibiotics following a leg laceration a few days ago. Onset: yesterday Severity: moderate Pain/Injury Location: left elbow Method of Injury: fell Modifying Factors: Improves With Movement Allergies and Home Medications Allergies Coded Allergies: tetanus toxoid, adsorbed (Unverified Allergy, Unknown, 08/17/14) tramadol (Verified Allergy, Unknown, Hives, 11/16/18) Home Medications Acetaminophen 325 Mg Tablet, 500 MG PO HS, (Reported) Apixaban 5 Mg Tablet, 5 MG PO BID Prescribed by: WALTER MARQUEZ on 11/19/14912 Cephalexin 500 Mg Capsule, 500 MG PO BID Prescribed by: AMANDA LU on 08/14/19 1653 Cyclobenzaprine Hcl 10 Mg Tablet, 2.5 MG PO HS, (Reported) Denosumab 60 Mg/1 Ml Disp.syrin, 60 MG SQ UD, (Reported) every 6 months Digoxin 125 Mcg Tablet, 1 EACH PO DAILY Prescribed by: AWLTER MARQUEZ on 11/19/14912 Etanercept 50 Mg/1 Ml Pen.injctr, 50 MG SQ UD, (Reported) WEEKLY Folic Acid 1 Mg Tab, 1 MG PO BID, (Reported) Hydrocodone/Acetaminophen 1 Each Tablet, 1 TAB PO Q4-6HR Prescribed by: IMTIAZ WYATT on 08/17/19 1702 Melatonin/Pyridoxine Hcl 1 Each Tablet, 1 EACH PO HS, (Reported) Methotrexate 2.5 Mg Tab, 20 MG PO UD, (Reported) WEEKLY Metoprolol Succinate 50 Mg Tab.sr.24h, 50 MG PO HS, (Reported) Multivitamins 1 Each Capsule, 1 EACH PO DAILY, (Reported) [place]-3 Fatty Acids 1,000 Mg Capsule, 1,000 MG PO BID, (Reported) Patient Home Medication List Home Medication List Reviewed: Yes Review of Systems Constitutional: see HPI EENTM: see HPI Respiratory: no symptoms reported Cardiovascular: no symptoms reported Genitourinary: no symptoms reported Musculoskeletal: see HPI Skin: no symptoms reported Psychiatric/Neurological: No Symptoms Reported Past Dltinzy-Hzaovk-Qojdwt Hx Patient Social History Type Used: Cigarettes 2nd Hand Smoke Exposure: No Recent Foreign Travel: No Contact w/Someone Who Travel: No Recent Hopitalizations: No Immunizations Up To Date Date of Pneumonia Vaccine: May 26, 2011 Date of Influenza Vaccine: May 17, 2014 Seasonal Allergies Seasonal Allergies: No Past Medical History Surgeries: Yes (CATARACTS/LENS IMPLANT, COLONOSCOPY) Adenoidectomy, Cardiac, CABG, Eye Surgery, Gallbladder, Tonsillectomy Respiratory: Yes Pneumonia Currently Using CPAP: No Currently Using BIPAP: No Cardiac: Yes Atrial Fibrillation, Coronary Artery Disease, High Cholesterol, Hypertension Neurological: No 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 CONSTIPATION AND DIARRHEA) Gastroesophageal Reflux, Obstructive Bowel, Chronic Constipation, Dive rticulosis, Chronic Diarrhea, Irritable Bowel Musculoskeletal: Yes Rheumatoid Arthritis, Chronic Back Pain Endocrine: No HEENT: Yes Macular Degeneration Cancer: No Psychosocial: Yes (POST DEPRESSION) Integumentary: No Blood Disorders: No Adverse Reaction/Blood Tranf: No Family Medical History Abdominal aortic aneurysm G8 BROTHER Angina pectoris 19 MOTHER Completed stroke G8 BROTHER FH: brain aneurysm 19 MOTHER Hypercholesterolemia G8 SISTER Hypertension G8 SISTER Osteoporosis G8 SISTER Physical Exam Vital Signs Capillary Refill : Height, Weight, BMI Height: 5'5.00" Weight: 119lbs. 0.0oz. 53.324932bi; 20.00 BMI Method:Stated General Appearance: WD/WN, no apparent distress HEENT: PERRL/EOMI Respiratory: no respiratory distress, no accessory muscle use Shoulder: non-tender Elbow/Forearm: Right, ecchymosis, pain, soft tissue tenderness (ecchymosis over the dorsal aspect of the arm from the distal humerus all the way down to the wrist over the ulnar side. There is a 1 similar laceration over the posterior aspect of the elbow at the olecranon process. There is no surrounding erythema, this was cleansed and appears to be superficial, I probed this with a sterile Q- tip and I'm unable to touch bone and do not believe this to be an open fracture. I had Dr. Bustamante evaluate this as well and he agrees does not appear to be open fracture at this laceration is superficial.) Wrist: Yes normal inspection, Yes non-tender Hand: normal inspection, non-tender Neurologic/Psychiatric: alert, normal mood/affect, oriented x 3 Skin: normal color, warm/dry Departure Communication (Admissions) Patient placed in a posterior long-arm splint using 3 inch Ortho-Glass. She is neurovascularly intact with normal thumbs-up normal okay sign, normal sensation of the ring and pinky finger of both the dorsal and palmar surfaces.. Spoke with Dr. Pinedo here, not comfortable repairing this type of injury would like her to be seen elsewhere. Offices are closed, I am unable to make an appointment on her behalf. I'll call Dr. Dr. Orta so that he can facilitate outpatient follow- up in the near future for her. Impression Primary Impression: Closed olecranon process fracture Qualified Codes: S52.021A - Displaced fracture of olecranon process without intraarticular extension of right ulna, initial encounter for closed fracture Disposition: HOME, SELF-CARE Condition: Stable Departure-Patient Inst. Decision time for Depature: 17:01 Referrals: TERRI ORTA DO (PCP/Family) Primary Care Physician MAURICE RAYA MICHAEL P MD Patient Instructions: Elbow Fracture (DC) Add. Discharge Instructions: 1. Keep the splint on at all times until you follow up with orthopedics. Call an orthopedic surgeon of your choosing to make an appointment to be seen within the next 1-2 weeks. Pain medication as directed. Scripts Hydrocodone/Acetaminophen ([place] 5-325 Tablet) 1 Each Tablet 1 TAB PO Q4-6HR for Pain MDD 10 TABS for 7 Days, #20 TAB Prov: IMTIAZ WYATT APRN 08/17/19 Copy Copies To 1: MAURICE RAYA DO; HOLLIE VIVEROS MD, PETER J APRN Aug 17, 2019 17:03
[2019-08-17 17:45] VITALS: BP 151/67
== END 2019-08-17 17:45 | disposition home or self-care (01) ==
LOC: EDUNIT# 16:39 → ER 16:40
DX: S52.021A Displaced fracture of olecranon process without intraarticular extension of right ulna, initial encounter for closed fracture (principal); I10 Essential (primary) hypertension; I48.91 Unspecified atrial fibrillation; I25.10 Atherosclerotic heart disease of native coronary artery without angina pectoris; E78.00 Pure hypercholesterolemia, unspecified; K58.9 Irritable bowel syndrome, unspecified; M06.9 Rheumatoid arthritis, unspecified; Z88.5 Allergy status to narcotic agent; Z88.7 Allergy status to serum and vaccine; Z79.01 Long term (current) use of anticoagulants; Z90.89 Acquired absence of other organs; Z82.49 Family history of ischemic heart disease and other diseases of the circulatory system; W19.XXXA Unspecified fall, initial encounter
CPT/HCPCS: 29105

== ENCOUNTER → 2019-08-17 | Outpatient (CLI) | payer MEDICARE, OTHER ==
[~2019-08-17] MED LIST changes: +CEPH-507 PO; +HYDR-4226 PO
--- NOTE | 2019-08-17 16:29 | Diagnostic Imaging Report ---
EXAMINATION: Right forearm at 4:23 p.m. INDICATION: Injury. AP and lateral views were obtained. There are no prior studies available for comparison. FINDINGS: There is a broad, slightly comminuted fracture extending through the base of the olecranon process of the ulna. There is also an oblique slightly displaced fracture of the proximal ulna itself. There may also be a minimal impaction fracture of the radial neck. No other fracture or acute bony abnormality is noted. Both the anterior and posterior fat pads are elevated, and there is generalized soft tissue edema about the elbow joint. The distal forearm is unremarkable for an acute abnormality. There is narrowing of the radiocarpal joint and sclerosis of the carpal bones. IMPRESSION: 1. There is a broad, comminuted displaced fracture of the base of the olecranon process and a nondisplaced fracture of the proximal ulna. There may also be a minimal impaction fracture of the radial neck. 2. There is no acute bony abnormality noted otherwise. Dictated by: Dictated on workstation # [id number]
--- NOTE | 2019-08-17 16:44 | Diagnostic Imaging Report ---
INDICATION: Right elbow injury from a fall. EXAMINATION: Three views of the right elbow were obtained. FINDINGS: Comminuted fractured of the olecranon process with 12.5 cm diastasis. Radius and humerus appear to be grossly intact. There is a large joint effusion. IMPRESSION: Comminuted/ fracture of the olecranon process of the proximal right ulna. Dictated by: Dictated on workstation # [id number]
== END ==
LOC: RAD 15:56
PROVIDERS: ATTEND Family Medicine
DX: S52.021A Displaced fracture of olecranon process without intraarticular extension of right ulna, initial encounter for closed fracture (principal); W19.XXXA Unspecified fall, initial encounter
CPT/HCPCS: 73080; 73090

== ENCOUNTER 2019-08-22 21:19 | Emergency (ER) | payer MEDICARE, OTHER ==
[~2019-08-22] VITALS: Ht 167 cm; Wt 68.0 kg
[~2019-08-22 21:19] MED LIST changes: +HYDR-4226 PO
[2019-08-22] MEDS ORDERED: oxyCODONE/APAP 5/325MG (PERCOCET 5) TABLET PO ONE ×2 (22:00)
[2019-08-22] MEDS ORDERED: OXYC1TAB87 PO (22:04)
--- NOTE | 2019-08-22 22:04 | ED Upper Extremity ---
General Chief Complaint: Upper Extremity Stated Complaint: ARM INJURY Nursing Triage Note: Pt ambulates to FT2 with c/o increased swelling and pain in right arm. PT was seen here 3 days ago for right arm injury. Right hand has ecchymosis and moderate swelling present. Pt is able to move hands without difficulty, cap refill 3 sec. Pt denies fever/chills at this time. Nursing Sepsis Screen: No Definite Risk Source: patient Exam Limitations: no limitations History of Present Illness Date Seen by Provider: Aug 22, 2019 Time Seen by Provider: 21:59 Initial Comments To ER with c/o right arm bruising and swelling. here recently for olecranon process fracture right arm. placed in splint, has follow up with Dr Mario at [facility] tomorrow. Onset: just prior to arrival Severity: moderate Pain/Injury Location: right elbow, right forearm, right wrist, right hand Modifying Factors: Improves With Movement Allergies and Home Medications Allergies Coded Allergies: tetanus toxoid, adsorbed (Unverified Allergy, Unknown, 08/17/14) tramadol (Verified Allergy, Unknown, Hives, 11/16/18) Home Medications Acetaminophen 325 Mg Tablet, 500 MG PO HS, (Reported) Apixaban 5 Mg Tablet, 5 MG PO BID Prescribed by: WALTER MARQUEZ on 11/19/14912 Cephalexin 500 Mg Capsule, 500 MG PO BID Prescribed by: AMANDA LU on 08/14/19 165 Cyclobenzaprine Hcl 10 Mg Tablet, 2.5 MG PO HS, (Reported) Denosumab 60 Mg/1 Ml Disp.syrin, 60 MG SQ UD, (Reported) every 6 months Digoxin 125 Mcg Tablet, 1 EACH PO DAILY Prescribed by: WALTER MARQUEZ on 11/19/14912 Etanercept 50 Mg/1 Ml Pen.injctr, 50 MG SQ UD, (Reported) WEEKLY Folic Acid 1 Mg Tab, 1 MG PO BID, (Reported) Hydrocodone/Acetaminophen 1 Each Tablet, 1 TAB PO Q4-6HR Prescribed by: IMTIAZ WYATT on 08/17/19 170 Melatonin/Pyridoxine Hcl 1 Each Tablet, 1 EACH PO HS, (Reported) Methotrexate 2.5 Mg Tab, 20 MG PO UD, (Reported) WEEKLY Metoprolol Succinate 50 Mg Tab.sr.24h, 50 MG PO HS, (Reported) Multivitamins 1 Each Capsule, 1 EACH PO DAILY, (Reported) [place]-3 Fatty Acids 1,000 Mg Capsule, 1,000 MG PO BID, (Reported) Oxycodone HCl/Acetaminophen 1 Each Tablet, 1 TAB PO Q4H Prescribed by: IMTIAZ WYATT on 08/22/19 2353 Patient Home Medication List Home Medication List Reviewed: Yes Review of Systems Constitutional: see HPI EENTM: see HPI Respiratory: no symptoms reported Cardiovascular: no symptoms reported Genitourinary: no symptoms reported Musculoskeletal: no symptoms reported Skin: no symptoms reported Psychiatric/Neurological: No Symptoms Reported Past Msgmvmc-Zjbxwq-Degkbc Hx Patient Social History Alcohol Use: Denies Use Recreational Drug Use: No Type Used: Cigarettes 2nd Hand Smoke Exposure: No Recent Foreign Travel: No Contact w/Someone Who Travel: No Recent Infectious Disease Expo: No Recent Hopitalizations: No Physical Abuse: No Sexual Abuse: No Mistreated: No Fear: No Immunizations Up To Date Tetanus Booster (TDap): Less than 5yrs Date of Pneumonia Vaccine: May 26, 2011 Date of Influenza Vaccine: May 17, 2014 Seasonal Allergies Seasonal Allergies: No Past Medical History Surgeries: Yes (CATARACTS/LENS IMPLANT, COLONOSCOPY) Adenoidectomy, Cardiac, CABG, Eye Surgery, Gallbladder, Tonsillectomy Respiratory: Yes Pneumonia Currently Using CPAP: No Currently Using BIPAP: No Cardiac: Yes Atrial Fibrillation, Coronary Artery Disease, High Cholesterol, Hypertension Neurological: No 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 CONSTIPATION AND DIARRHEA) Gastroesophageal Reflux, Obstructive Bowel, Chronic Constipation, Diverticulosis, Chronic Diarrhea, Irritable Bowel Musculoskeletal: Yes Rheumatoid Arthritis, Chronic Back Pain Endocrine: No HEENT: Yes Macular Degeneration Cancer: No Psychosocial: Yes (POST DEPRESSION) Integumentary: No Blood Disorders: No Adverse Reaction/Blood Tranf: No Family Medical History Abdominal aortic aneurysm G8 BROTHER Angina pectoris 19 MOTHER Completed stroke G8 BROTHER FH: brain aneurysm 19 MOTHER Hypercholesterolemia G8 SISTER Hypertension G8 SISTER Osteoporosis G8 SISTER Physical Exam Vital Signs Vital Signs - First Documented 08/22/19 21:35 Temp 37.5 Pulse 75 Resp 20 B/P (MAP) 118/69 (85) Pulse Ox 97 O2 Delivery Room Air Capillary Refill : Less Than 3 Seconds Height, Weight, BMI Height: 5'5.00" Weight: 119lbs. 0.0oz. 53.386431la; 24.00 BMI Method:Stated General Appearance: WD/WN, no apparent distress Neck: non-tender, full range of motion Respiratory: no respiratory distress, no accessory muscle use Shoulder: normal inspection, non-tender Elbow/Forearm: Right, limited ROM, pain, soft tissue tenderness, swelling Wrist: Yes normal inspection, Yes non-tender, Yes ecchymosis Hand: normal inspection, non-tender, ecchymosis Neurologic/Psychiatric: alert, normal mood/affect, oriented x 3 Skin: normal color, warm/dry normal sensation and movement of fingers. significant ecchymosis to entire forearm. splint removed and reapplied with 4 inch orthoglass. Progress/Results/Core Measures Results/Orders My Orders Orders - IMTIAZ WYATT APRN Oxycodone/Apap 5/325mg Tablet (Percocet (08/22/19 22:00) Oxycodone/Apap 5/325mg Tablet (Percocet (08/22/19 22:00) Rx-Oxycodone/Apap 5-325 Mg (Rx-Percocet (08/22/19 22:45) Medications Given in ED Current Medications Medications Dose Ordered Sig/Cody Route Start Time Stop Time Status Last Admin Dose Admin Oxycodone/ Acetaminophen 0.5 tab ONCE ONCE PO 08/22/19 22:00 08/22/19 22:01 DC 08/22/19 21:56 0.5 TAB Vital Signs/I&O 08/22/19 21:35 Temp 37.5 Pulse 75 Resp 20 B/P (MAP) 118/69 (85) Pulse Ox 97 O2 Delivery Room Air Blood Pressure Mean: 85 Departure Impression Primary Impression: Elbow fracture Additional Impression: Ecchymosis Disposition: 01 HOME, SELF-CARE Condition: Stable Departure-Patient Inst. Decision time for Depature: 22:03 Referrals: TERRI ORTA DO (PCP/Family) Primary Care Physician Patient Instructions: Elbow Fracture (DC) Add. Discharge Instructions: 1. Keep appointment with Dr Mario tomorrow. Return to ER for any concerns All discharge instructions reviewed with patient and/or family. Voiced understanding. Scripts Oxycodone HCl/Acetaminophen (Percocet 5-325 mg Tablet) 1 Each Tablet 1 TAB PO Q4H for PAIN-MODERATE MDD 6 TABS for 7 Days, #10 TAB Prov: IMTIAZ WYATT APRN 08/22/19 IMTIAZ WYATT APRN Aug 22, 2019 22:04
[2019-08-22 22:41] VITALS: BP 118/69
[2019-08-22] MEDS ORDERED: RX-OXYCODONE/APAP 5-325 MG #4 TAB PK PO PRN (22:45)
== END 2019-08-22 22:43 | disposition home or self-care (01) ==
LOC: EDUNIT# 21:19 → ER 21:20
DX: S42.401A Unspecified fracture of lower end of right humerus, initial encounter for closed fracture (principal); S60.211A Contusion of right wrist, initial encounter; S60.221A Contusion of right hand, initial encounter; S50.11XA Contusion of right forearm, initial encounter; I10 Essential (primary) hypertension; E78.00 Pure hypercholesterolemia, unspecified; I25.10 Atherosclerotic heart disease of native coronary artery without angina pectoris; I48.91 Unspecified atrial fibrillation; K21.9 Gastro-esophageal reflux disease without esophagitis; K58.9 Irritable bowel syndrome, unspecified; M06.9 Rheumatoid arthritis, unspecified; Z79.01 Long term (current) use of anticoagulants; Z90.89 Acquired absence of other organs; Z95.1 Presence of aortocoronary bypass graft; Z88.5 Allergy status to narcotic agent; Z88.7 Allergy status to serum and vaccine
CPT/HCPCS: 99283

== ENCOUNTER 2019-09-22 16:59 | Emergency (ER) | payer MEDICARE, OTHER ==
[~2019-09-22] VITALS: Ht 162.5 cm; Wt 52.1 kg
[~2019-09-22 16:59] MED LIST changes: +OXYC1TAB87 PO
--- NOTE | 2019-09-22 17:29 | ED Upper Extremity ---
General Chief Complaint: Upper Extremity Stated Complaint: ARM PAIN POST ARM SURGERY Nursing Triage Note: R arm has been really sore, has been going to therapy, granddaughter looked incision site today on R arm and states that pt has drainage coming from surgical site, surgery on August 22 2019, surgery was completed at [facility] Nursing Sepsis Screen: No Definite Risk Source: patient Exam Limitations: no limitations History of Present Illness Date Seen by Provider: Sep 22, 2019 Time Seen by Provider: 17:20 Initial Comments Patient fell August 17 sustaining olecranon process fracture of the right arm with a small laceration over the dorsal aspect of the elbow. This was irrigated, she was placed on Keflex, splinted and followed up with Dr. Calvert from orthopedics at [facility]. She had operative repair at the end of July. She restarted her medication for rheumatoid arthritis about a week ago, started physical therapy on Wednesday09/19/19. On Wednesday she awakened with some redness to the elbow, increasing pain, body aches and fever up to 102. She wasn't sure if she had the flu. Her daughter who is a nurse noticed the puslike drainage from the elbow today and referred her to the emergency room. Onset: other Severity: moderate Pain/Injury Location: right elbow Method of Injury: unknown Allergies and Home Medications Allergies Coded Allergies: tetanus toxoid, adsorbed (Unverified Allergy, Unknown, 08/17/14) tramadol (Verified Allergy, Unknown, Hives, 11/16/18) Home Medications Acetaminophen 325 Mg Tablet, 500 MG PO HS, (Reported) Apixaban 5 Mg Tablet, 5 MG PO BID Prescribed by: WALTER MARQUEZ on 11/19/14912 Cephalexin 500 Mg Capsule, 500 MG PO BID Prescribed by: AMANDA LU on 08/14/19 1653 Cyclobenzaprine Hcl 10 Mg Tablet, 2.5 MG PO HS, (Reported) Denosumab 60 Mg/1 Ml Disp.syrin, 60 MG SQ UD, (Reported) every 6 months Digoxin 125 Mcg Tablet, 1 EACH PO DAILY Prescribed by: WALTER MARQUEZ on 11/19/14912 Etanercept 50 Mg/1 Ml Pen.injctr, 50 MG SQ UD, (Reported) WEEKLY Folic Acid 1 Mg Tab, 1 MG PO BID, (Reported) Hydrocodone/Acetaminophen 1 Each Tablet, 1 TAB PO Q4-6HR Prescribed by: IMTIAZ WYATT on 08/17/19 1702 Melatonin/Pyridoxine Hcl 1 Each Tablet, 1 EACH PO HS, (Reported) Methotrexate 2.5 Mg Tab, 20 MG PO UD, (Reported) WEEKLY Metoprolol Succinate 50 Mg Tab.sr.24h, 50 MG PO HS, (Reported) Multivitamins 1 Each Capsule, 1 EACH PO DAILY, (Reported) [place]-3 Fatty Acids 1,000 Mg Capsule, 1,000 MG PO BID, (Reported) Oxycodone HCl/Acetaminophen 1 Each Tablet, 1 TAB PO Q4H Prescribed by: IMTIAZ WYATT on 08/22/19 2204 Patient Home Medication List Home Medication List Reviewed: Yes Review of Systems Constitutional: see HPI EENTM: see HPI Respiratory: no symptoms reported Cardiovascular: no symptoms reported Genitourinary: no symptoms reported Musculoskeletal: see HPI Skin: see HPI Psychiatric/Neurological: No Symptoms Reported Past Xqjpiwf-Qniadx-Cwttlr Hx Patient Social History Alcohol Use: Denies Use Recreational Drug Use: No Type Used: Cigarettes 2nd Hand Smoke Exposure: No Recent Foreign Travel: No Contact w/Someone Who Travel: No Recent Infectious Disease Expo: No Recent Hopitalizations: No Immunizations Up To Date Tetanus Booster (TDap): Less than 5yrs Date of Pneumonia Vaccine: May 26, 2011 Date of Influenza Vaccine: May 17, 2014 Seasonal Allergies Seasonal Allergies: No Past Medical History Surgeries: Yes (CATARACTS/LENS IMPLANT, COLONOSCOPY, R elbow) Adenoidectomy, Cardiac, CABG, Eye Surgery, Gallbladder, Tonsillectomy Respiratory: Yes Pneumonia Currently Using CPAP: No Currently Using BIPAP: No Cardiac: Yes Atrial Fibrillation, Coronary Artery Disease, High Cholesterol, Hypertension Neurological: No Reproductive Disorders: No DIRECTOR OF MEDICAL REVIEW History: Menopausal Sexually Transmitted Disease: No Genitourinary: Yes Kidney Infection, Bladder Infection Gastrointestinal: Yes ("STOMACH PROBLEMS" SINCE CABG--?IBS? CONSTIPATION AND DIARRHEA) Gastroesophageal Reflux, Obstructive Bowel, Chronic Constipation, Diverticulosis, Chronic Diarrhea, Irritable Bowel Musculoskeletal: Yes Rheumatoid Arthritis, Chronic Back Pain Endocrine: No HEENT: Yes Macular Degeneration Cancer: No Psychosocial: Yes (POST DEPRESSION) Integumentary: No Blood Disorders: No Adverse Reaction/Blood Tranf: No Family Medical History Abdominal aortic aneurysm G8 BROTHER Angina pectoris 19 MOTHER Completed stroke G8 BROTHER FH: brain aneurysm 19 MOTHER Hypercholesterolemia G8 SISTER Hypertension G8 SISTER Osteoporosis G8 SISTER Physical Exam Vital Signs Vital Signs - First Documented 09/22/19 17:08 Temp 36.7 Pulse 94 B/P (MAP) 127/62 (83) Capillary Refill : Less Than 3 Seconds Height, Weight, BMI Height: 5'5.00" Weight: 119lbs. 0.0oz. 53.516365od; 19.00 BMI Method:Stated General Appearance: WD/WN, no apparent distress HEENT: PERRL/EOMI, normal ENT inspection Neck: non-tender, full range of motion Respiratory: no respiratory distress, no accessory muscle use Shoulder: normal inspection, non-tender Elbow/Forearm: normal ROM, limited ROM, pain, soft tissue tenderness (erythema around the incision right elbow. He is what there is no drainage from the incision itself, this drainage is from initial laceration she sustained there is. Culture of this was collected and sent to lab, IV started to check labs and empirically give Rocephin. ) Wrist: Yes normal inspection, Yes non-tender Hand: normal inspection, non-tender Neurologic/Psychiatric: alert, normal mood/affect, oriented x 3 Skin: normal color, warm/dry Progress/Results/Core Measures Results/Orders Lab Results Laboratory Tests Test 09/22/19 17:40 Range/Units White Blood Count 8.6 4.3-11.0 10^3/uL Red Blood Count 3.78 L 4.35-5.85 10^6/uL Hemoglobin 12.7 11.5-16.0 G/DL Hematocrit 38 35-52 % Mean Corpuscular Volume 101 H 80-99 FL Mean Corpuscular Hemoglobin 34 25-34 PG Mean Corpuscular Hemoglobin Concent 33 32-36 G/DL Red Cell Distribution Width 14.3 10.0-14.5 % Platelet Count 165 130-400 10^3/uL Mean Platelet Volume 10.8 H 7.4-10.4 FL Neutrophils (%) (Auto) 78 H 42-75 % Lymphocytes (%) (Auto) 14 12-44 % Monocytes (%) (Auto) 7 0-12 % Eosinophils (%) (Auto) 1 0-10 % Basophils (%) (Auto) 0 0-10 % Neutrophils # (Auto) 6.8 1.8-7.8 X 10^3 Lymphocytes # (Auto) 1.2 1.0-4.0 X 10^3 Monocytes # (Auto) 0.6 0.0-1.0 X 10^3 Eosinophils # (Auto) 0.0 0.0-0.3 10^3/uL Basophils # (Auto) 0.0 0.0-0.1 10^3/uL Sodium Level 136 135-145 MMOL/L Potassium Level 3.7 3.6-5.0 MMOL/L Chloride Level 102 98-107 MMOL/L Carbon Dioxide Level 23 21-32 MMOL/L Anion Gap 11 5-14 MMOL/L Blood Urea Nitrogen 11 7-18 MG/DL Creatinine 0.67 0.60-1.30 MG/DL Estimat Glomerular Filtration Rate > 60 BUN/Creatinine Ratio 16 Glucose Level 101 70-105 MG/DL Calcium Level 9.1 8.5-10.1 MG/DL My Orders Orders - IMTIAZ WYATT APRN Wound Culture (09/22/19 17:13) Cbc With Automated Diff (09/22/19 17:26) Basic Metabolic Panel (09/22/19 17:26) Ed Iv/Invasive Line Start (09/22/19 17:30) Ceftriaxone For Iv Use (Rocephin For I (09/22/19 17:30) Vital Signs/I&O 09/22/19 17:08 Temp 36.7 Pulse 94 B/P (MAP) 127/62 (83) Blood Pressure Mean: 83 Departure Impression Primary Impression: Soft tissue infection Disposition: 01 HOME, SELF-CARE Condition: Stable Departure-Patient Inst. Decision time for Depature: 18:11 Referrals: TERRI ORTA DO (PCP/Family) Primary Care Physician Patient Instructions: Wound Infection Add. Discharge Instructions: 1. Call Dr. Calvert on Wednesday to make an appointment to be seen. Return to ER for any worsening symptoms in the meantime. Take antibiotics as directed starting tomorrow. All discharge instructions reviewed with patient and/or family. Voiced understanding. Scripts Doxycycline Hyclate (Doxycycline Hyclate) 100 Mg Tablet 100 MG PO BID, #20 TAB 0 Refills Prov: IMTIAZ WYATT APRN 09/22/19 IMTIAZ WYATT APRN Sep 22, 2019 17:29
[2019-09-22] MEDS ORDERED: cefTRIAXone FOR IV USE 1,000 MG in WATER (STERILE) FOR INJECTION 10 ML IV ONE (17:30)
[2019-09-22 17:47] LABS: BASOPHILS % (AUTO) 0 % (0-10); EOSINOPHILS % (AUTO) 1 % (0-10); HEMATOCRIT 38 % (35-52); HEMOGLOBIN 12.7 G/DL (11.5-16.0); LYMPHOCYTES # (AUTO) 1.2 X 10^3 (1.0-4.0); LYMPHOCYTES % (AUTO) 14 % (12-44); MEAN CORPUSCULAR HEMOGLOBIN 34 PG (25-34); MEAN CORPUSCULAR HGB CONC 33 G/DL (32-36); MEAN CORPUSCULAR VOLUME 101 FL (80-99); MEAN PLATELET VOLUME 10.8 FL (7.4-10.4); MONOCYTES # (AUTO) 0.6 X 10^3 (0.0-1.0); MONOCYTES % (AUTO) 7 % (0-12); NEUTROPHILS # (AUTO) 6.8 X 10^3 (1.8-7.8); NEUTROPHILS % (AUTO) 78 % (42-75); PLATELET COUNT 165 10^3/uL (130-400); RED CELL DISTRIBUTION WIDTH 14.3 % (10.0-14.5); WHITE BLOOD COUNT 8.6 10^3/uL (4.3-11.0)
[2019-09-22 18:06] LABS: BUN/CREATININE RATIO 16; CALCIUM 9.1 MG/DL (8.5-10.1); CARBON DIOXIDE 23 MMOL/L (21-32); CHLORIDE 102 MMOL/L (98-107); CREATININE SERUM 0.67 MG/DL (0.60-1.30); GFR ESTIMATED > 60; GLUCOSE 101 MG/DL (70-105); POTASSIUM 3.7 MMOL/L (3.6-5.0); SODIUM 136 MMOL/L (135-145)
[2019-09-22] MEDS ORDERED: DOXY100T2 PO (18:12)
[2019-09-22] MEDS ORDERED: DOXYCYCLINE 100 MG (VIBRAMYCIN) TABLET PO SCH (18:15)
[2019-09-22 18:26] VITALS: BP 123/80
== END 2019-09-22 18:29 | disposition home or self-care (01) ==
LOC: EDUNIT# 16:59 → ER 17:00
DX: L08.9 Local infection of the skin and subcutaneous tissue, unspecified (principal); I10 Essential (primary) hypertension; I48.91 Unspecified atrial fibrillation; I25.10 Atherosclerotic heart disease of native coronary artery without angina pectoris; K21.9 Gastro-esophageal reflux disease without esophagitis; Z87.81 Personal history of (healed) traumatic fracture; Z88.7 Allergy status to serum and vaccine; Z88.5 Allergy status to narcotic agent; Z79.01 Long term (current) use of anticoagulants; Z95.1 Presence of aortocoronary bypass graft
CPT/HCPCS: 36415; 80048; 85025; 87070; 87077; 87186; 87205

== ENCOUNTER 2019-10-20 16:42 | Emergency (ER) | payer MEDICARE, OTHER ==
[~2019-10-20] VITALS: Ht 162.5 cm; Wt 51.8 kg
[~2019-10-20 16:42] MED LIST changes: +DOXY100T2 PO
--- NOTE | 2019-10-20 16:45 | NUR ---
WOUND VAC REMOVED BY Eduardo WYATT APRN XERFOAM PLACED NEXT TO WOUND WITH WET DRESSING ON TOP OF THAT WITH DRY DRESSING. AND OPSITE AND FRANSISCO WRAP ON TOP.
--- NOTE | 2019-10-20 16:56 | ED General ---
General Stated Complaint: WOUND PUMP REMOVED Source of Information: Patient Exam Limitations: No Limitations (ALTAGRACIA VINES MD) History of Present Illness Date Seen by Provider: Oct 20, 2019 Time Seen by Provider: 16:45 Initial Comments Here with report of wound that failure to wound on right elbow. She has had fracture and hardware placement. Apparently that skin has opened and there was infection. She has wound VAC over the wound and the wound VAC quit working last night. She has talked with her orthopedist who is going to change the wound VAC on Wednesday. He called here and asked that we place a dressing that is a wet dressing over wound with Xeroform and bulky dressing over. This is to remain in place until Wednesday when he will see her for the wound VAC replacement. Denies foul-smelling drainage, increased pain or fevers. Timing/Duration: 12 Hours Severity: Mild Associated Systoms: No Fever/Chills, No Weakness (ALTAGRACIA VINES MD) Allergies and Home Medications Allergies Coded Allergies: tetanus toxoid, adsorbed (Unverified Allergy, Unknown, 08/17/14) tramadol (Verified Allergy, Unknown, Hives, 11/16/18) Home Medications Acetaminophen 325 Mg Tablet, 500 MG PO HS, (Reported) Apixaban 5 Mg Tablet, 5 MG PO BID Prescribed by: WALTER MARQUEZ on 11/19/14912 Cephalexin 500 Mg Capsule, 500 MG PO BID Prescribed by: AMANDA LU on 08/14/19 1653 Cyclobenzaprine Hcl 10 Mg Tablet, 2.5 MG PO HS, (Reported) Denosumab 60 Mg/1 Ml Disp.syrin, 60 MG SQ UD, (Reported) every 6 months Digoxin 125 Mcg Tablet, 1 EACH PO DAILY Prescribed by: WALTER MARQUEZ on 11/19/14 09 Doxycycline Hyclate 100 Mg Tablet, 100 MG PO BID Prescribed by: IMTIAZ TAPIA on 09/22/19 181 Etanercept 50 Mg/1 Ml Pen.injctr, 50 MG SQ UD, (Reported) WEEKLY Folic Acid 1 Mg Tab, 1 MG PO BID, (Reported) Hydrocodone/Acetaminophen 1 Each Tablet, 1 TAB PO Q4-6HR Prescribed by: IMTIAZ TAPIA on 08/17/19 1702 Melatonin/Pyridoxine Hcl 1 Each Tablet, 1 EACH PO HS, (Reported) Methotrexate 2.5 Mg Tab, 20 MG PO UD, (Reported) WEEKLY Metoprolol Succinate 50 Mg Tab.sr.24h, 50 MG PO HS, (Reported) Multivitamins 1 Each Capsule, 1 EACH PO DAILY, (Reported) [place]-3 Fatty Acids 1,000 Mg Capsule, 1,000 MG PO BID, (Reported) Oxycodone HCl/Acetaminophen 1 Each Tablet, 1 TAB PO Q4H Prescribed by: IMTIAZ TAPIA on 08/22/19 9469 Patient Home Medication List Home Medication List Reviewed: Yes (ALTAGRACIA VINES MD) Review of Systems Review of Systems Constitutional: see HPI; No chills, No fever Respiratory: no symptoms reported Cardiovascular: no symptoms reported Skin: see HPI (ALTAGRACIA VINES MD) Past Dwcqbbh-Kcvsch-Asdfaa Hx Past Med/Social Hx: Reviewed Nursing Past Med/Soc Hx (ALTAGRACIA VINES MD) Patient Social History Alcohol Use: Denies Use Recreational Drug Use: No Type Used: Cigarettes 2nd Hand Smoke Exposure: No Recent Foreign Travel: No Contact w/Someone Who Travel: No Recent Hopitalizations: No (ALTAGRACIA VINSE MD) Immunizations Up To Date Tetanus Booster (TDap): Less than 5yrs Date of Pneumonia Vaccine: May 26, 2011 Date of Influenza Vaccine: May 17, 2014 (ALTAGRACIA VINES MD) Seasonal Allergies Seasonal Allergies: No (ALTAGRACIA VINES MD) Past Medical History Surgeries: Yes (CATARACTS/LENS IMPLANT, COLONOSCOPY, R elbow) Adenoidectomy, Cardiac, CABG, Eye Surgery, Gallbladder, Tonsillectomy Respiratory: Yes Pneumonia Currently Using CPAP: No Currently Using BIPAP: No Cardiac: Yes Atrial Fibrillation, Coronary Artery Disease, High Cholesterol, Hypertension Neurological: No Reproductive Disorders: No DIRECTOR DATABASE History: Menopausal Sexually Transmitted Disease: No Genitourinary: Yes Kidney Infection, Bladder Infection Gastrointestinal: Yes ("STOMACH PROBLEMS" SINCE CABG--?IBS? CONSTIPATION AND DIARRHEA) Gastroesophageal Reflux, Obstructive Bowel, Chronic Constipation, Diverticulosis, Chronic Diarrhea, Irritable Bowel Musculoskeletal: Yes Rheumatoid Arthritis, Chronic Back Pain Endocrine: No HEENT: Yes Macular Degeneration Cancer: No Psychosocial: Yes (POST DEPRESSION) Integumentary: No Blood Disorders: No Adverse Reaction/Blood Tranf: No (ALTAGRACIA VINES MD) Family Medical History Reviewed Nursing Family Hx (ALTAGRACIA VINES MD) Abdominal aortic aneurysm G8 BROTHER Angina pectoris 19 MOTHER Completed stroke G8 BROTHER FH: brain aneurysm 19 MOTHER Hypercholesterolemia G8 SISTER Hypertension G8 SISTER Osteoporosis G8 SISTER Physical Exam Vital Signs Capillary Refill : (ALTAGRACIA VINES MD) Height, Weight, BMI Height: 5'5.00" Weight: 119lbs. 0.0oz. 53.744108bc; 19.76 BMI Method:Stated General Appearance: No Apparent Distress, WD/WN Respiratory: Lungs Clear, Normal Breath Sounds Cardiovascular: Regular Rate, Rhythm, No Murmur Neurologic/Psychiatric: Alert, Oriented x3 Skin: Warm/Dry, Other (wound VAC to right elbow. On removal, hardware apparent within wound. There is surrounding erythema although no foul-smelling drainage and no red streaks up or down arm. Minimal to no swelling) (ALTAGRACIA VINES MD) Progress/Results/Core Measures Suspected Sepsis SIRS Temperature: Pulse: Respiratory Rate: Blood Pressure / Mean: (ALTAGRACIA VINES MD) Results/Orders Vital Signs/I&O Capillary Refill : (ALTAGRACIA VINES MD) Progress Note : Progress Note Seen and evaluated. Wound VAC taken down by Imtiaz Tapia APRN and wound dressing placed by him as well. Discharged home with return precautions. Patient verbalize understanding instructions and agreement with plan. (ALTAGRACIA VINES MD) Departure Communication (Admissions) Wound VAC was removed, exposed hardware was visualized, this was covered with Xeroform dressing then sterile damp gauze with sterile saline, then OpSite and then gauze (IMTIAZ TAPIA APRN) Impression Primary Impression: Encounter for postoperative wound care Disposition: 01 HOME, SELF-CARE Condition: Improved Departure-Patient Inst. Decision time for Depature: 16:55 (ALTAGRACIA VINES MD) Referrals: TERRI ORTA DO (PCP/Family) Primary Care Physician Patient Instructions: Wound Care (DC) Add. Discharge Instructions: Keep dressing in place and keep it clean and dry. Return for any dressing proble ms. Follow-up with your orthopedic doctor on Wednesday as scheduled. Call his office first thing in the morning on Wednesday morning. Return for increasing pain, fever, foul-smelling drainage or other concerns as needed. ALTAGRACIA VINES MD Oct 20, 2019 16:55 IMTIAZ TAPIA APRN Oct 20, 2019 16:58
[2019-10-20 16:57] VITALS: BP 146/92
== END 2019-10-20 16:57 | disposition home or self-care (01) ==
LOC: EDUNIT# 16:42 → ER 16:44
DX: Z48.01 Encounter for change or removal of surgical wound dressing (principal); T84.610A Infection and inflammatory reaction due to internal fixation device of right humerus, initial encounter; I25.10 Atherosclerotic heart disease of native coronary artery without angina pectoris; Z95.1 Presence of aortocoronary bypass graft; I10 Essential (primary) hypertension; I48.91 Unspecified atrial fibrillation; E78.00 Pure hypercholesterolemia, unspecified; K21.9 Gastro-esophageal reflux disease without esophagitis
CPT/HCPCS: 99282

== ENCOUNTER → 2019-11-02 | Outpatient (CLI) | payer MEDICARE, OTHER ==
--- NOTE | 2019-11-02 13:41 | Diagnostic Imaging Report ---
PROCEDURE: CT right upper extremity without contrast. TECHNIQUE: Multiple contiguous axial images were obtained through the right upper extremity without the use of intravenous contrast. Sagittal and coronal reformations were then performed. Auto Exposure Controls were utilized during the CT exam to meet ALARA standards for radiation dose reduction. INDICATION: Check healing fracture of the elbow joint There are no prior CT examinations available for comparison. The plain film examination of the right elbow performed on 08/17/2019 did note a comminuted displaced fracture of the olecranon process as well as an oblique nondisplaced fracture extending through the ulna just proximal to the olecranon process. In the interval since the prior exam the patient has undergone a surgical procedure. There is now an orthopedic plate and screw fixation device along the posterior aspect of the olecranon process and proximal 3rd of the ulna. The orthopedic hardware appears to be in good position. The fracture of the olecranon process is still evident. The fracture fragments however are in much better alignment. The oblique fracture extending through the proximal ulna is also again visualized although there is some sclerosis about this fracture. There is also some irregularity of the radial head. This may be a sequela of prior trauma. The distal humerus appears to be intact. No other fracture or acute bony abnormality is noted. There is at least moderate degenerative disease involving the articulation of the distal humerus with the olecranon process. There is a small amount of fluid within the elbow joint, and both the anterior and posterior fat pads remain elevated. IMPRESSION: 1. There are postoperative and posttraumatic changes involving the ulna and radial head. The orthopedic hardware appears to be in good position and the main fracture fragments are near anatomic in alignment. The fractures of the olecranon process of the proximal ulna are still evident, however, indicating that they have not healed completely. 2. There is no acute bony abnormality noted. 3. There is at least moderate degenerative disease of the articulation of the distal humerus with the olecranon process. Dictated by: Dictated on workstation # [id number]
== END ==
LOC: RAD 12:03
PROVIDERS: ATTEND Orthopaedic Surgery
DX: S52.021D Displaced fracture of olecranon process without intraarticular extension of right ulna, subsequent encounter for closed fracture with routine healing (principal); M89.8X2 Other specified disorders of bone, upper arm; Z98.890 Other specified postprocedural states
CPT/HCPCS: 73200

== ENCOUNTER 2019-11-11 07:29 | Emergency (ER) | payer MEDICARE, OTHER ==
[~2019-11-11] VITALS: Ht 162.5 cm; Wt 54.4 kg
[2019-11-11 07:32] VITALS: BP 127/100
[2019-11-11 07:53] LABS: BILIRUBIN,URINE NEGATIVE (NEGATIVE); CLARITY,URINE CLOUDY; COLOR,URINE YELLOW; GLUCOSE, URINE (UA) NEGATIVE (NEGATIVE); KETONES,URINE NEGATIVE (NEGATIVE); LEUKOCYTE ESTERASE ,URINE 3+ (NEGATIVE); NITRITE,URINE POSITIVE (NEGATIVE); PROTEIN,URINE TRACE (NEGATIVE)
--- NOTE | 2019-11-11 08:03 | ED GU-Female ---
General Chief Complaint: - Urinary Stated Complaint: URINATION TROUBLE Nursing Triage Note: pt to rm 5 with complaint of frequent urination since last night. states had surgey on wednesday and had to have a catheter placed due to difficulty urinating. Nursing Sepsis Screen: No Definite Risk Source: patient Exam Limitations: no limitations History of Present Illness Date Seen by Provider: Nov 11, 2019 Time Seen by Provider: 07:33 Initial Comments This 84-year-old woman presents to the emergency room with difficulty urinating. She was up in the night 7 times last night to the bathroom. She had very little urine output with these visits to the restroom but felt urgency. She had surgery on her right arm 4 days ago because of complex fracture and wound infection. She had a catheter in for a short period of time after the surgery. She is afebrile. Allergies and Home Medications Allergies Coded Allergies: tetanus toxoid, adsorbed (Unverified Allergy, Unknown, 08/17/14) tramadol (Verified Allergy, Unknown, Hives, 11/16/18) Home Medications Acetaminophen 325 Mg Tablet, 500 MG PO HS, (Reported) Apixaban 5 Mg Tablet, 5 MG PO BID Prescribed by: WALTER MARQUEZ on 11/19/14912 Cephalexin 500 Mg Capsule, 500 MG PO BID Prescribed by: AMANDA LU on 08/14/19 165 Cyclobenzaprine Hcl 10 Mg Tablet, 2.5 MG PO HS, (Reported) Denosumab 60 Mg/1 Ml Disp.syrin, 60 MG SQ UD, (Reported) every 6 months Digoxin 125 Mcg Tablet, 1 EACH PO DAILY Prescribed by: WALTER MARQUEZ on 11/19/14912 Doxycycline Hyclate 100 Mg Tablet, 100 MG PO BID Prescribed by: IMTIAZ WYATT on 09/22/19 181 Etanercept 50 Mg/1 Ml Pen.injctr, 50 MG SQ UD, (Reported) WEEKLY Folic Acid 1 Mg Tab, 1 MG PO BID, (Reported) Hydrocodone/Acetaminophen 1 Each Tablet, 1 TAB PO Q4-6HR Prescribed by: IMTIAZ WYATT on 08/17/19 170 Melatonin/Pyridoxine Hcl 1 Each Tablet, 1 EACH PO HS, (Reported) Methotrexate 2.5 Mg Tab, 20 MG PO UD, (Reported) WEEKLY Metoprolol Succinate 50 Mg Tab.sr.24h, 50 MG PO HS, (Reported) Multivitamins 1 Each Capsule, 1 EACH PO DAILY, (Reported) Nitrofurantoin Monohyd/M-Cryst 100 Mg Capsule, 1 TAB PO BID Prescribed by: BUCK ORTIZ on 11/11/19911 [place]-3 Fatty Acids 1,000 Mg Capsule, 1,000 MG PO BID, (Reported) Oxycodone HCl/Acetaminophen 1 Each Tablet, 1 TAB PO Q4H Prescribed by: IMTIAZ WYATT on 08/22/192203 Phenazopyridine HCl 100 Mg Tablet, 100 MG PO TID PRN for PAIN-MILD (1-4) For bladder pain or spasms Prescribed by: BUCK ORTIZ on 11/11/19911 Patient Home Medication List Home Medication List Reviewed: Yes Review of Systems Review of Systems Constitutional: no symptoms reported EENTM: no symptoms reported Respiratory: no symptoms reported Cardiovascular: no symptoms reported Gastrointestinal: no symptoms reported Genitourinary: see HPI : No Musculoskeletal: see HPI Skin: see HPI Psychiatric/Neurological: No Symptoms Reported Endocrine: No Symptoms Reported Hematologic/Lymphatic: No Symptoms Reported Past Bchfdxf-Ynlvck-Vekukm Hx Past Med/Social Hx: Reviewed Nursing Past Med/Soc Hx Patient Social History Alcohol Use: Denies Use Recreational Drug Use: No Type Used: Cigarettes 2nd Hand Smoke Exposure: No Recent Foreign Travel: No Contact w/Someone Who Travel: No Recent Infectious Disease Expo: No Recent Hopitalizations: No Immunizations Up To Date Tetanus Booster (TDap): Less than 5yrs Date of Pneumonia Vaccine: May 26, 2011 Date of Influenza Vaccine: May 17, 2014 Seasonal Allergies Seasonal Allergies: No Past Medical History Surgeries: Yes (CATARACTS/LENS IMPLANT, COLONOSCOPY, R elbow) Adenoidectomy, Cardiac, CABG, Eye Surgery, Gallbladder, Orthopedic (fracture repair with plating of the right arm. 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 CONSTIPATION AND DIARRHEA) Gastroesophageal Reflux, Obstructive Bowel, Chronic Constipation, Diverticulosis, Chronic Diarrhea, Irritable Bowel Musculoskeletal: Yes Rheumatoid Arthritis, Chronic Back Pain Endocrine: No HEENT: Yes Macular Degeneration Cancer: No Psychosocial: Yes (POST DEPRESSION) Integumentary: No Blood Disorders: No Adverse Reaction/Blood Tranf: No Family Medical History Reviewed Nursing Family Hx Abdominal aortic aneurysm G8 BROTHER Angina pectoris 19 MOTHER Completed stroke G8 BROTHER FH: brain aneurysm 19 MOTHER Hypercholesterolemia G8 SISTER Hypertension G8 SISTER Osteoporosis G8 SISTER Physical Exam Vital Signs Vital Signs - First Documented 11/11/19 07:32 Temp 37.2 Pulse 87 Resp 20 B/P (MAP) 127/100 (109) Pulse Ox 96 O2 Delivery Room Air Capillary Refill : Less Than 3 Seconds Height, Weight, BMI Height: 5'5.00" Weight: 119lbs. 0.0oz. 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, no motor/sensory deficits, alert, normal mood/affect, oriented x 3 Skin: normal color, warm/dry Progress/Results/Core Measures Suspected Sepsis Recent Fever Within 48 Hours: No Infection Criteria Present: None New/Unexplained Altered Menta: No Sepsis Screen: No Definite Risk SIRS Temperature: Pulse: 87 Respiratory Rate: 20 Blood Pressure 127 /100 Mean: 109 Results/Orders Lab Results Laboratory Tests Test 11/11/19 07:38 Range/Units Urine Color YELLOW Urine Clarity CLOUDY Urine pH 8.0 5-9 Urine Specific [place] 1.015 L 1.016-1.022 Urine Protein TRACE H NEGATIVE Urine Glucose (UA) NEGATIVE NEGATIVE Urine Ketones NEGATIVE NEGATIVE Urine Nitrite POSITIVE H NEGATIVE Urine Bilirubin NEGATIVE NEGATIVE Urine Urobilinogen 0.2 < = 1.0 MG/DL Urine Leukocyte Esterase 3+ H NEGATIVE Urine RBC (Auto) 3+ H NEGATIVE Urine RBC TNTC H /HPF Urine WBC TNTC H /HPF Urine Squamous Epithelial Cells RARE /HPF Urine Crystals NONE /LPF Urine Bacteria MODERATE H /HPF Urine Casts NONE /LPF Urine Mucus NEGATIVE /LPF Urine Culture Indicated YES My Orders Orders - BUCK RAMIREZ MD Ua Culture If Indicated (11/11/19 07:33) Bladder Scan (11/11/19 07:48) Urine Culture (11/11/19 07:38) Vital Signs/I&O 11/11/19 07:32 Temp 37.2 Pulse 87 Resp 20 B/P (MAP) 127/100 (109) Pulse Ox 96 O2 Delivery Room Air Capillary Refill : Less Than 3 Seconds Blood Pressure Mean: 109 Progress Note #1: Time: 08:04 Progress Note Bladder scan demonstrated only 83 mL of retained post void urine. Progress Note #2: Progress Note UA was suggestive of urinary tract infection. 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 Macrobid was selected for treatment of the urinary tract infection. Patient's historical renal function was reviewed prior to prescribing. See discharge instructions. Departure Impression Primary Impression: Urinary tract infection Qualified Codes: N39.0 - Urinary tract infection, site not specified; R31.9 - Hematuria, unspecified Disposition: 01 HOME, SELF-CARE Condition: Stable Departure-Patient Inst. Decision time for Depature: 09:05 Referrals: TERRI ORTA DO (PCP/Family) Primary Care Physician Patient Instructions: Urinary Tract Infection, Adult (DC) Add. Discharge Instructions: Drink plenty of clear liquids to help flush out your bladder. Contact Dr. Orta's office or the emergency room on Wednesday to review urine culture results. Start your antibiotics today and be sure to get into doses today. You may take the Pyridium (phenazopyridine) as directed for bladder discomfort. Return to the emergency room if you have worsening symptoms or develop new symptoms such as fever. Please be aware that both Pyridium and your antibiotic may cause the urine to turn a reddish or orangeish color. All discharge instructions reviewed with patient and/or family. Voiced understanding. Scripts Phenazopyridine HCl (Pyridium) 100 Mg Tablet 100 MG PO TID PRN for PAIN-MILD (1-4), #10 TAB For bladder pain or spasms Prov: BUCK RAMIREZ MD 11/11/19 Nitrofurantoin Monohyd/M-Cryst (Macrobid 100 mg Capsule) 100 Mg Capsule 1 TAB PO BID, #14 CAP Prov: BUCK RAMIREZ MD 11/11/19 Copy Copies To 1: TERRI ORTA JOSHUA T MD Nov 11, 2019 08:03
[2019-11-11 08:08] LABS: BACTERIA,URINE MODERATE /HPF; RBC,URINE TNTC /HPF; SQUAMOUS EPITHELIAL CELL,UR RARE /HPF; WBC,URINE TNTC /HPF
[2019-11-11] MEDS ORDERED: NITR-65 PO (09:12)
[2019-11-11] MEDS ORDERED: PHEN-639 PO (09:12)
== END 2019-11-11 09:26 | disposition home or self-care (01) ==
LOC: EDUNIT# 07:29 → ER 07:30
DX: N39.0 Urinary tract infection, site not specified (principal); I10 Essential (primary) hypertension; E78.00 Pure hypercholesterolemia, unspecified; I25.10 Atherosclerotic heart disease of native coronary artery without angina pectoris; I48.91 Unspecified atrial fibrillation; M06.9 Rheumatoid arthritis, unspecified; Z95.1 Presence of aortocoronary bypass graft; Z79.01 Long term (current) use of anticoagulants; Z90.49 Acquired absence of other specified parts of digestive tract; Z82.49 Family history of ischemic heart disease and other diseases of the circulatory system; Z88.7 Allergy status to serum and vaccine; Z88.5 Allergy status to narcotic agent
CPT/HCPCS: 81000; 87077; 87088; 87186; 99283

== ENCOUNTER 2019-12-12 09:36 | Outpatient (RCR) | payer MEDICARE, OTHER ==
--- NOTE | 2019-09-30 10:00 | NUR ---
Order that was received from [facility] for patient's outpt antibiotics is unacceptable per Jeremy in pharmacy as it is a consult order for long term care social worker. Pt reports that Dr. Connolly is her primary care provider. Dr. Edwards domestic travel consultant for Dr. Connolly. Dr Edwards called and this RN spoke with her about patients order status from Dr. Green. Dr. Edwards agree's to cover IV antibiotic of Daptomycin 4 mg/kg IV daily until November 06, 2019, Weekly labs every Wednesday while on IV antibiotics: CBC w/ diff, CMP, ESR, CPK; PICC/midline care, DC PICC/midline after last dose of IV antibiotic, fax lab results for Dr. Green.
[2019-09-30] MEDS: NS IV SCH (10:28)
[2019-09-30] MEDS: DAPTOMYCIN IV SCH (10:28)
[2019-09-30 11:09] VITALS: BP 109/71
[2019-10-01] MEDS: NS IV SCH (09:24)
[2019-10-01] MEDS: DAPTOMYCIN IV SCH (09:24)
[2019-10-01 10:04] VITALS: BP 129/73
[2019-10-02 09:35] VITALS: BP 133/62
[2019-10-02] MEDS: NS IV SCH (09:50)
[2019-10-02] MEDS: DAPTOMYCIN IV SCH (09:50)
[2019-10-02 09:59] LABS: BASOPHILS % (AUTO) 0 % (0-10); EOSINOPHILS # (AUTO) 0.2 10^3/uL (0.0-0.3); EOSINOPHILS % (AUTO) 4 % (0-10); HEMATOCRIT 39 % (35-52); HEMOGLOBIN 12.3 G/DL (11.5-16.0); LYMPHOCYTES # (AUTO) 1.2 X 10^3 (1.0-4.0); LYMPHOCYTES % (AUTO) 27 % (12-44); MEAN CORPUSCULAR HEMOGLOBIN 32 PG (25-34); MEAN CORPUSCULAR HGB CONC 31 G/DL (32-36); MEAN CORPUSCULAR VOLUME 102 FL (80-99); MEAN PLATELET VOLUME 10.2 FL (7.4-10.4); MONOCYTES # (AUTO) 0.4 X 10^3 (0.0-1.0); MONOCYTES % (AUTO) 9 % (0-12); NEUTROPHILS # (AUTO) 2.7 X 10^3 (1.8-7.8); NEUTROPHILS % (AUTO) 60 % (42-75); PLATELET COUNT 226 10^3/uL (130-400); RED CELL DISTRIBUTION WIDTH 14.2 % (10.0-14.5); WHITE BLOOD COUNT 4.6 10^3/uL (4.3-11.0)
[2019-10-02 10:22] LABS: ALANINE AMINOTRANSFERASE 100 U/L (0-55); ALBUMIN 3.7 GM/DL (3.2-4.5); ALKALINE PHOSPHATASE 191 U/L (40-136); BILIRUBIN,TOTAL 0.4 MG/DL (0.1-1.0); BUN/CREATININE RATIO 13; CALCIUM 9.4 MG/DL (8.5-10.1); CARBON DIOXIDE 28 MMOL/L (21-32); CHLORIDE 104 MMOL/L (98-107); CREATINE KINASE 34 U/L (29-168); CREATININE SERUM 0.71 MG/DL (0.60-1.30); GFR ESTIMATED > 60; GLUCOSE 178 MG/DL (70-105); SODIUM 140 MMOL/L (135-145); TOTAL PROTEIN 6.7 GM/DL (6.4-8.2)
[2019-10-02 10:29] LABS: BAND NEUTROPHILS 5 %; EOSINOPHILS % (MANUAL) 4 %; LYMPHOCYTES % (MANUAL) 29 %; MONOCYTES % (MANUAL) 8 %; NEUTROPHILS % (MANUAL) 54 %; RBC MORPH NORMAL
[2019-10-02 10:37] LABS: ERYTHROCYTE SEDIMENTATION RATE 46 MM/HR (0-30)
[2019-10-03 09:30] VITALS: BP 123/80
[2019-10-03] MEDS: NS IV SCH (09:30)
[2019-10-03] MEDS: DAPTOMYCIN IV SCH (09:30)
[2019-10-04 09:30] VITALS: BP 118/72
[2019-10-04] MEDS: NS IV SCH (09:50)
[2019-10-04] MEDS: DAPTOMYCIN IV SCH (09:50)
[2019-10-05] MEDS: NS IV SCH (09:32)
[2019-10-05] MEDS: DAPTOMYCIN IV SCH (09:32)
[2019-10-05 10:04] VITALS: BP 122/59
[2019-10-06 09:20] VITALS: BP 110/93
[2019-10-06] MEDS: DAPTOMYCIN IV SCH (09:42)
[2019-10-06] MEDS: NS IV SCH (09:42)
[2019-10-07] MEDS: DAPTOMYCIN IV SCH (09:15)
[2019-10-07] MEDS: NS IV SCH (09:15)
[2019-10-07 09:50] VITALS: BP 127/61
[2019-10-08 09:10] VITALS: BP 132/65
[2019-10-08] MEDS: DAPTOMYCIN IV SCH (09:37)
[2019-10-08] MEDS: NS IV SCH (09:37)
[2019-10-09 09:25] LABS: BASOPHILS % (AUTO) 0 % (0-10); EOSINOPHILS # (AUTO) 0.2 10^3/uL (0.0-0.3); EOSINOPHILS % (AUTO) 4 % (0-10); HEMATOCRIT 42 % (35-52); HEMOGLOBIN 13.1 G/DL (11.5-16.0); LYMPHOCYTES # (AUTO) 1.4 X 10^3 (1.0-4.0); LYMPHOCYTES % (AUTO) 30 % (12-44); MEAN CORPUSCULAR HEMOGLOBIN 32 PG (25-34); MEAN CORPUSCULAR HGB CONC 31 G/DL (32-36); MEAN CORPUSCULAR VOLUME 102 FL (80-99); MEAN PLATELET VOLUME 10.8 FL (7.4-10.4); MONOCYTES # (AUTO) 0.5 X 10^3 (0.0-1.0); MONOCYTES % (AUTO) 10 % (0-12); NEUTROPHILS # (AUTO) 2.7 X 10^3 (1.8-7.8); NEUTROPHILS % (AUTO) 56 % (42-75); PLATELET COUNT 233 10^3/uL (130-400); RED CELL DISTRIBUTION WIDTH 14.5 % (10.0-14.5); WHITE BLOOD COUNT 4.8 10^3/uL (4.3-11.0)
[2019-10-09] MEDS: NS IV SCH (09:25)
[2019-10-09] MEDS: DAPTOMYCIN IV SCH (09:25)
[2019-10-09 09:45] LABS: ERYTHROCYTE SEDIMENTATION RATE 36 MM/HR (0-30)
[2019-10-09 09:49] LABS: ALANINE AMINOTRANSFERASE 32 U/L (0-55); ALBUMIN 3.9 GM/DL (3.2-4.5); ALKALINE PHOSPHATASE 114 U/L (40-136); BILIRUBIN,TOTAL 0.4 MG/DL (0.1-1.0); BUN/CREATININE RATIO 16; CALCIUM 8.9 MG/DL (8.5-10.1); CARBON DIOXIDE 27 MMOL/L (21-32); CHLORIDE 104 MMOL/L (98-107); CREATINE KINASE 40 U/L (29-168); CREATININE SERUM 0.77 MG/DL (0.60-1.30); GFR ESTIMATED > 60; GLUCOSE 153 MG/DL (70-105); POTASSIUM 3.9 MMOL/L (3.6-5.0); SODIUM 140 MMOL/L (135-145)
[2019-10-09 09:55] VITALS: BP 133/69
[2019-10-10] MEDS: DAPTOMYCIN IV SCH (09:29)
[2019-10-10] MEDS: NS IV SCH (09:29)
[2019-10-10 09:57] VITALS: BP 115/73
[2019-10-11] MEDS: DAPTOMYCIN IV SCH (09:25)
[2019-10-11] MEDS: NS IV SCH (09:25)
[2019-10-11 09:28] VITALS: BP 138/76
[2019-10-12 09:00] VITALS: BP 35/75
[2019-10-12] MEDS: NS IV SCH (09:00)
[2019-10-12] MEDS: DAPTOMYCIN IV SCH (09:00)
[2019-10-13] MEDS: NS IV SCH (09:33)
[2019-10-13] MEDS: DAPTOMYCIN IV SCH (09:33)
[2019-10-13 10:10] VITALS: BP 139/60
[2019-10-14] MEDS: DAPTOMYCIN IV SCH (09:28)
[2019-10-14] MEDS: NS IV SCH (09:28)
[2019-10-14 10:00] VITALS: BP 125/85
[2019-10-15] MEDS: NS IV SCH (09:52)
[2019-10-15] MEDS: DAPTOMYCIN IV SCH (09:52)
[2019-10-15 10:20] VITALS: BP 164/68
[2019-10-16 10:05] LABS: BASOPHILS % (AUTO) 0 % (0-10); EOSINOPHILS # (AUTO) 0.1 10^3/uL (0.0-0.3); EOSINOPHILS % (AUTO) 2 % (0-10); HEMATOCRIT 41 % (35-52); HEMOGLOBIN 13.2 G/DL (11.5-16.0); LYMPHOCYTES # (AUTO) 1.3 X 10^3 (1.0-4.0); LYMPHOCYTES % (AUTO) 23 % (12-44); MEAN CORPUSCULAR HEMOGLOBIN 32 PG (25-34); MEAN CORPUSCULAR HGB CONC 32 G/DL (32-36); MEAN CORPUSCULAR VOLUME 100 FL (80-99); MEAN PLATELET VOLUME 10.5 FL (7.4-10.4); MONOCYTES # (AUTO) 0.6 X 10^3 (0.0-1.0); MONOCYTES % (AUTO) 11 % (0-12); NEUTROPHILS # (AUTO) 3.7 X 10^3 (1.8-7.8); NEUTROPHILS % (AUTO) 64 % (42-75); PLATELET COUNT 208 10^3/uL (130-400); RED CELL DISTRIBUTION WIDTH 14.8 % (10.0-14.5); WHITE BLOOD COUNT 5.8 10^3/uL (4.3-11.0)
[2019-10-16] MEDS: DAPTOMYCIN IV SCH (10:11)
[2019-10-16] MEDS: NS IV SCH (10:11)
[2019-10-16 10:20] VITALS: BP 142/73
[2019-10-16 10:26] LABS: ALANINE AMINOTRANSFERASE 30 U/L (0-55); ALBUMIN 3.9 GM/DL (3.2-4.5); ALKALINE PHOSPHATASE 129 U/L (40-136); BILIRUBIN,TOTAL 0.3 MG/DL (0.1-1.0); BUN/CREATININE RATIO 17; CALCIUM 9.1 MG/DL (8.5-10.1); CARBON DIOXIDE 24 MMOL/L (21-32); CHLORIDE 104 MMOL/L (98-107); CREATINE KINASE 39 U/L (29-168); CREATININE SERUM 0.78 MG/DL (0.60-1.30); GFR ESTIMATED > 60; GLUCOSE 150 MG/DL (70-105); POTASSIUM 4.1 MMOL/L (3.6-5.0); SODIUM 141 MMOL/L (135-145); TOTAL PROTEIN 6.9 GM/DL (6.4-8.2)
[2019-10-16 10:30] LABS: ERYTHROCYTE SEDIMENTATION RATE 30 MM/HR (0-30)
[2019-10-17] MEDS: NS IV SCH (09:08)
[2019-10-17] MEDS: DAPTOMYCIN IV SCH (09:08)
[2019-10-17 09:35] VITALS: BP 144/77
[2019-10-18] MEDS: DAPTOMYCIN IV SCH (09:49)
[2019-10-18] MEDS: NS IV SCH (09:49)
[2019-10-18 10:25] VITALS: BP 142/5
[2019-10-19] MEDS: NS IV SCH (10:10)
[2019-10-19] MEDS: DAPTOMYCIN IV SCH (10:10)
[2019-10-19 10:17] VITALS: BP 114/65
[2019-10-20] MEDS: DAPTOMYCIN IV SCH (09:34)
[2019-10-20] MEDS: NS IV SCH (09:34)
[2019-10-20 09:38] VITALS: BP 132/59
[2019-10-21 08:39] VITALS: BP 170/75
[2019-10-21] MEDS: DAPTOMYCIN IV SCH (08:49)
[2019-10-21] MEDS: NS IV SCH (08:49)
[2019-10-22] MEDS: NS IV SCH (08:40)
[2019-10-22] MEDS: DAPTOMYCIN IV SCH (08:40)
[2019-10-22 09:10] VITALS: BP 165/65
[2019-10-23 08:58] LABS: BASOPHILS % (AUTO) 0 % (0-10); EOSINOPHILS # (AUTO) 0.2 10^3/uL (0.0-0.3); EOSINOPHILS % (AUTO) 4 % (0-10); HEMATOCRIT 43 % (35-52); HEMOGLOBIN 13.3 G/DL (11.5-16.0); LYMPHOCYTES # (AUTO) 1.2 X 10^3 (1.0-4.0); LYMPHOCYTES % (AUTO) 20 % (12-44); MEAN CORPUSCULAR HEMOGLOBIN 31 PG (25-34); MEAN CORPUSCULAR HGB CONC 31 G/DL (32-36); MEAN CORPUSCULAR VOLUME 101 FL (80-99); MEAN PLATELET VOLUME 10.7 FL (7.4-10.4); MONOCYTES # (AUTO) 0.6 X 10^3 (0.0-1.0); MONOCYTES % (AUTO) 10 % (0-12); NEUTROPHILS # (AUTO) 4.1 X 10^3 (1.8-7.8); NEUTROPHILS % (AUTO) 66 % (42-75); PLATELET COUNT 181 10^3/uL (130-400); RED CELL DISTRIBUTION WIDTH 14.6 % (10.0-14.5); WHITE BLOOD COUNT 6.2 10^3/uL (4.3-11.0)
[2019-10-23] MEDS: DAPTOMYCIN IV SCH (08:59)
[2019-10-23] MEDS: NS IV SCH (08:59)
[2019-10-23 09:09] VITALS: BP 146/72
[2019-10-23 09:16] LABS: ALANINE AMINOTRANSFERASE 20 U/L (0-55); ALBUMIN 3.8 GM/DL (3.2-4.5); ALKALINE PHOSPHATASE 89 U/L (40-136); BILIRUBIN,TOTAL 0.4 MG/DL (0.1-1.0); BUN/CREATININE RATIO 13; CALCIUM 8.9 MG/DL (8.5-10.1); CARBON DIOXIDE 26 MMOL/L (21-32); CHLORIDE 105 MMOL/L (98-107); CREATINE KINASE 33 U/L (29-168); CREATININE SERUM 0.71 MG/DL (0.60-1.30); GFR ESTIMATED > 60; GLUCOSE 111 MG/DL (70-105); POTASSIUM 3.9 MMOL/L (3.6-5.0); SODIUM 140 MMOL/L (135-145); TOTAL PROTEIN 6.8 GM/DL (6.4-8.2)
[2019-10-23 09:50] LABS: ERYTHROCYTE SEDIMENTATION RATE 39 MM/HR (0-30)
[2019-10-24] MEDS: DAPTOMYCIN IV SCH (09:36)
[2019-10-24] MEDS: NS IV SCH (09:36)
[2019-10-24 10:10] VITALS: BP 117/77
[2019-10-25] MEDS: NS IV SCH (09:29)
[2019-10-25] MEDS: DAPTOMYCIN IV SCH (09:29)
[2019-10-25 09:48] VITALS: BP 128/80
[2019-10-26] MEDS: NS IV SCH (09:52)
[2019-10-26] MEDS: DAPTOMYCIN IV SCH (09:52)
[2019-10-26 10:20] VITALS: BP 119/59
[2019-10-27 09:15] VITALS: BP 143/69
[2019-10-27] MEDS: NS IV SCH (09:35)
[2019-10-27] MEDS: DAPTOMYCIN IV SCH (09:35)
[2019-10-28 08:34] VITALS: BP 121/75
[2019-10-28] MEDS: DAPTOMYCIN IV SCH (08:45)
[2019-10-28] MEDS: NS IV SCH (08:45)
[2019-10-29 08:30] VITALS: BP 108/75
[2019-10-29] MEDS: NS IV SCH (08:43)
[2019-10-29] MEDS: DAPTOMYCIN IV SCH (08:43)
[2019-10-30 08:40] VITALS: BP 122/86
[2019-10-30] MEDS: NS IV SCH (09:05)
[2019-10-30] MEDS: DAPTOMYCIN IV SCH (09:05)
[2019-10-30 09:14] LABS: BASOPHILS % (AUTO) 0 % (0-10); EOSINOPHILS # (AUTO) 0.2 10^3/uL (0.0-0.3); EOSINOPHILS % (AUTO) 3 % (0-10); HEMATOCRIT 41 % (35-52); LYMPHOCYTES # (AUTO) 1.3 X 10^3 (1.0-4.0); LYMPHOCYTES % (AUTO) 23 % (12-44); MEAN CORPUSCULAR HEMOGLOBIN 32 PG (25-34); MEAN CORPUSCULAR HGB CONC 32 G/DL (32-36); MEAN CORPUSCULAR VOLUME 100 FL (80-99); MEAN PLATELET VOLUME 10.6 FL (7.4-10.4); MONOCYTES # (AUTO) 0.6 X 10^3 (0.0-1.0); MONOCYTES % (AUTO) 10 % (0-12); NEUTROPHILS # (AUTO) 3.6 X 10^3 (1.8-7.8); NEUTROPHILS % (AUTO) 64 % (42-75); PLATELET COUNT 196 10^3/uL (130-400); RED CELL DISTRIBUTION WIDTH 14.3 % (10.0-14.5); WHITE BLOOD COUNT 5.7 10^3/uL (4.3-11.0)
[2019-10-30 09:36] LABS: ALANINE AMINOTRANSFERASE 18 U/L (0-55); ALBUMIN 3.7 GM/DL (3.2-4.5); ALKALINE PHOSPHATASE 80 U/L (40-136); BILIRUBIN,TOTAL 0.3 MG/DL (0.1-1.0); BUN/CREATININE RATIO 20; CALCIUM 8.7 MG/DL (8.5-10.1); CARBON DIOXIDE 26 MMOL/L (21-32); CHLORIDE 105 MMOL/L (98-107); CREATINE KINASE 35 U/L (29-168); CREATININE SERUM 0.64 MG/DL (0.60-1.30); GFR ESTIMATED > 60; GLUCOSE 105 MG/DL (70-105); SODIUM 140 MMOL/L (135-145); TOTAL PROTEIN 6.6 GM/DL (6.4-8.2)
[2019-10-30 09:55] LABS: ERYTHROCYTE SEDIMENTATION RATE 33 MM/HR (0-30)
[2019-10-30 10:16] LABS: EOSINOPHILS % (MANUAL) 1 %; LYMPHOCYTES % (MANUAL) 21 %; MONOCYTES % (MANUAL) 11 %; NEUTROPHILS % (MANUAL) 67 %
[2019-10-31] MEDS: DAPTOMYCIN IV SCH (09:14)
[2019-10-31] MEDS: NS IV SCH (09:14)
[2019-10-31 09:45] VITALS: BP 122/72
[2019-11-01 09:08] VITALS: BP 120/70
[2019-11-01] MEDS: NS IV SCH (09:33)
[2019-11-01] MEDS: DAPTOMYCIN IV SCH (09:33)
[2019-11-02] MEDS: NS IV SCH (09:25)
[2019-11-02] MEDS: DAPTOMYCIN IV SCH (09:25)
[2019-11-02 09:58] VITALS: BP 117/69
[2019-11-03] MEDS: DAPTOMYCIN IV SCH (09:53)
[2019-11-03] MEDS: NS IV SCH (09:53)
[2019-11-03 10:25] VITALS: BP 121/77
[2019-11-04] MEDS: NS IV SCH (09:11)
[2019-11-04] MEDS: DAPTOMYCIN IV SCH (09:11)
[2019-11-04 09:37] VITALS: BP 157/76
[2019-11-05] MEDS: DAPTOMYCIN IV SCH (09:05)
[2019-11-05] MEDS: NS IV SCH (09:05)
[2019-11-05 09:37] VITALS: BP 109/90
[2019-11-06] MEDS: DAPTOMYCIN IV SCH (09:26)
[2019-11-06] MEDS: NS IV SCH (09:26)
[2019-11-06 09:48] LABS: BASOPHILS % (AUTO) 0 % (0-10); EOSINOPHILS # (AUTO) 0.2 10^3/uL (0.0-0.3); EOSINOPHILS % (AUTO) 3 % (0-10); HEMATOCRIT 42 % (35-52); HEMOGLOBIN 13.8 G/DL (11.5-16.0); LYMPHOCYTES # (AUTO) 1.5 X 10^3 (1.0-4.0); LYMPHOCYTES % (AUTO) 23 % (12-44); MEAN CORPUSCULAR HEMOGLOBIN 32 PG (25-34); MEAN CORPUSCULAR HGB CONC 33 G/DL (32-36); MEAN CORPUSCULAR VOLUME 99 FL (80-99); MEAN PLATELET VOLUME 10.1 FL (7.4-10.4); MONOCYTES # (AUTO) 0.6 X 10^3 (0.0-1.0); MONOCYTES % (AUTO) 9 % (0-12); NEUTROPHILS # (AUTO) 4.5 X 10^3 (1.8-7.8); NEUTROPHILS % (AUTO) 66 % (42-75); PLATELET COUNT 333 10^3/uL (130-400); RED CELL DISTRIBUTION WIDTH 14.4 % (10.0-14.5); WHITE BLOOD COUNT 6.8 10^3/uL (4.3-11.0)
[2019-11-06 10:02] LABS: ALBUMIN 3.7 GM/DL (3.2-4.5); CHLORIDE 104 MMOL/L (98-107); POTASSIUM 4.5 MMOL/L (3.6-5.0); SODIUM 139 MMOL/L (135-145)
[2019-11-06 10:03] LABS: CALCIUM 9.1 MG/DL (8.5-10.1)
[2019-11-06 10:04] LABS: GLUCOSE 137 MG/DL (70-105); TOTAL PROTEIN 7.5 GM/DL (6.4-8.2)
[2019-11-06 10:05] LABS: CARBON DIOXIDE 25 MMOL/L (21-32)
[2019-11-06 10:06] LABS: BILIRUBIN,TOTAL 0.4 MG/DL (0.1-1.0)
[2019-11-06 10:08] LABS: ALKALINE PHOSPHATASE 69 U/L (40-136); CREATININE SERUM 0.71 MG/DL (0.60-1.30); GFR ESTIMATED > 60
[2019-11-06 10:09] LABS: BUN/CREATININE RATIO 15
[2019-11-06 10:11] LABS: ALANINE AMINOTRANSFERASE 38 U/L (0-55); BAND NEUTROPHILS 2 %; BASOPHILS % (MANUAL) 0 %; CREATINE KINASE 40 U/L (29-168); EOSINOPHILS % (MANUAL) 1 %; LYMPHOCYTES % (MANUAL) 6 %; MONOCYTES % (MANUAL) 4 %; NEUTROPHILS % (MANUAL) 70 %
[2019-11-06 10:12] LABS: RBC MORPH NORMAL; REACTIVE LYMPHOCYTES 16 %
[2019-11-06 10:22] LABS: ERYTHROCYTE SEDIMENTATION RATE 47 MM/HR (0-30)
[2019-11-23] MEDS: NS IV SCH (09:33)
[2019-11-23] MEDS: DAPTOMYCIN IV SCH (09:33)
[2019-11-23 10:05] VITALS: BP 124/93
[2019-11-24 08:51] VITALS: BP 124/80
[2019-11-24] MEDS: NS IV SCH (08:58)
[2019-11-24] MEDS: DAPTOMYCIN IV SCH (08:58)
[2019-11-25] MEDS: NS IV SCH (09:47)
[2019-11-25] MEDS: DAPTOMYCIN IV SCH (09:47)
[2019-11-25 09:50] VITALS: BP 157/75
[2019-11-26 09:03] VITALS: BP_SYST 128; BP_SYST 157; BP_DIAS 68; BP_DIAS 75
[2019-11-26] MEDS: NS IV SCH (09:08)
[2019-11-26] MEDS: DAPTOMYCIN IV SCH (09:08)
[2019-11-26 09:49] VITALS: BP 128/68
[2019-11-27] MEDS: DAPTOMYCIN IV SCH (09:06)
[2019-11-27] MEDS: NS IV SCH (09:06)
[2019-11-27 09:20] LABS: BASOPHILS % (AUTO) 0 % (0-10); EOSINOPHILS # (AUTO) 0.1 10^3/uL (0.0-0.3); EOSINOPHILS % (AUTO) 2 % (0-10); HEMATOCRIT 41 % (35-52); HEMOGLOBIN 12.7 G/DL (11.5-16.0); LYMPHOCYTES # (AUTO) 1.2 X 10^3 (1.0-4.0); LYMPHOCYTES % (AUTO) 20 % (12-44); MEAN CORPUSCULAR HEMOGLOBIN 31 PG (25-34); MEAN CORPUSCULAR HGB CONC 31 G/DL (32-36); MEAN CORPUSCULAR VOLUME 98 FL (80-99); MEAN PLATELET VOLUME 10.6 FL (7.4-10.4); MONOCYTES # (AUTO) 0.6 X 10^3 (0.0-1.0); MONOCYTES % (AUTO) 10 % (0-12); NEUTROPHILS # (AUTO) 4.2 X 10^3 (1.8-7.8); NEUTROPHILS % (AUTO) 69 % (42-75); PLATELET COUNT 235 10^3/uL (130-400); RED CELL DISTRIBUTION WIDTH 14.4 % (10.0-14.5); WHITE BLOOD COUNT 6.1 10^3/uL (4.3-11.0)
[2019-11-27 09:40] VITALS: BP 132/80
[2019-11-27 09:41] LABS: ALANINE AMINOTRANSFERASE 23 U/L (0-55); ALBUMIN 3.5 GM/DL (3.2-4.5); ALKALINE PHOSPHATASE 67 U/L (40-136); BILIRUBIN,TOTAL 0.4 MG/DL (0.1-1.0); BUN/CREATININE RATIO 22; CALCIUM 8.4 MG/DL (8.5-10.1); CARBON DIOXIDE 26 MMOL/L (21-32); CHLORIDE 104 MMOL/L (98-107); CREATINE KINASE 28 U/L (29-168); CREATININE SERUM 0.63 MG/DL (0.60-1.30); GFR ESTIMATED > 60; GLUCOSE 95 MG/DL (70-105); POTASSIUM 4.2 MMOL/L (3.6-5.0); SODIUM 139 MMOL/L (135-145); TOTAL PROTEIN 6.5 GM/DL (6.4-8.2)
[2019-11-27 09:54] LABS: EOSINOPHILS % (MANUAL) 1 %; LYMPHOCYTES % (MANUAL) 18 %; MONOCYTES % (MANUAL) 10 %; NEUTROPHILS % (MANUAL) 71 %; RBC MORPH NORMAL
[2019-11-27 09:55] LABS: ERYTHROCYTE SEDIMENTATION RATE 41 MM/HR (0-30)
[2019-11-28] MEDS: NS IV SCH (09:00)
[2019-11-28] MEDS: DAPTOMYCIN IV SCH (09:00)
--- NOTE | 2019-11-28 09:00 | NUR ---
DOSE SKIPPED TODAY. PT HAVING SURGICAL PROCEDURE AT [facility] WILL RECEIVE ABX THERE.
[2019-11-29 09:55] VITALS: BP 138/74
[2019-11-29] MEDS: DAPTOMYCIN IV SCH (10:07)
[2019-11-29] MEDS: NS IV SCH (10:07)
[2019-11-30] MEDS: NS IV SCH (10:06)
[2019-11-30] MEDS: DAPTOMYCIN IV SCH (10:06)
[2019-11-30 10:35] VITALS: BP 147/64
[2019-12-01] MEDS: NS IV SCH (09:51)
[2019-12-01] MEDS: DAPTOMYCIN IV SCH (09:51)
[2019-12-01 10:23] VITALS: BP 128/66
[2019-12-02] MEDS: NS IV SCH (09:20)
[2019-12-02] MEDS: DAPTOMYCIN IV SCH (09:20)
[2019-12-02 09:50] VITALS: BP 129/63
[2019-12-03] MEDS: DAPTOMYCIN IV SCH (09:25)
[2019-12-03] MEDS: NS IV SCH (09:25)
[2019-12-03 09:54] VITALS: BP 116/62
[2019-12-04] MEDS: DAPTOMYCIN IV SCH (09:26)
[2019-12-04] MEDS: NS IV SCH (09:26)
[2019-12-04 09:33] VITALS: BP 127/80
[2019-12-04 09:35] LABS: BASOPHILS % (AUTO) 0 % (0-10); EOSINOPHILS # (AUTO) 0.1 10^3/uL (0.0-0.3); EOSINOPHILS % (AUTO) 2 % (0-10); HEMATOCRIT 42 % (35-52); LYMPHOCYTES # (AUTO) 1.1 X 10^3 (1.0-4.0); LYMPHOCYTES % (AUTO) 22 % (12-44); MEAN CORPUSCULAR HEMOGLOBIN 31 PG (25-34); MEAN CORPUSCULAR HGB CONC 31 G/DL (32-36); MEAN CORPUSCULAR VOLUME 99 FL (80-99); MEAN PLATELET VOLUME 10.6 FL (7.4-10.4); MONOCYTES # (AUTO) 0.4 X 10^3 (0.0-1.0); MONOCYTES % (AUTO) 8 % (0-12); NEUTROPHILS # (AUTO) 3.5 X 10^3 (1.8-7.8); NEUTROPHILS % (AUTO) 68 % (42-75); PLATELET COUNT 232 10^3/uL (130-400); RED CELL DISTRIBUTION WIDTH 14.3 % (10.0-14.5); WHITE BLOOD COUNT 5.1 10^3/uL (4.3-11.0)
[2019-12-04 09:58] LABS: ALANINE AMINOTRANSFERASE 19 U/L (0-55); ALBUMIN 3.5 GM/DL (3.2-4.5); ALKALINE PHOSPHATASE 63 U/L (40-136); BILIRUBIN,TOTAL 0.4 MG/DL (0.1-1.0); BUN/CREATININE RATIO 12; CALCIUM 8.6 MG/DL (8.5-10.1); CARBON DIOXIDE 24 MMOL/L (21-32); CHLORIDE 104 MMOL/L (98-107); CREATINE KINASE 30 U/L (29-168); CREATININE SERUM 0.69 MG/DL (0.60-1.30); GFR ESTIMATED > 60; GLUCOSE 175 MG/DL (70-105); POTASSIUM 3.9 MMOL/L (3.6-5.0); SODIUM 139 MMOL/L (135-145); TOTAL PROTEIN 6.6 GM/DL (6.4-8.2)
[2019-12-04 10:12] LABS: ERYTHROCYTE SEDIMENTATION RATE 36 MM/HR (0-30)
[2019-12-05] MEDS: NS IV SCH (09:17)
[2019-12-05] MEDS: DAPTOMYCIN IV SCH (09:17)
[2019-12-05 09:50] VITALS: BP 106/91
[2019-12-06] MEDS: NS IV SCH (09:38)
[2019-12-06] MEDS: DAPTOMYCIN IV SCH (09:38)
[2019-12-06 09:45] VITALS: BP 127/88
[2019-12-07] MEDS: DAPTOMYCIN IV SCH (09:23)
[2019-12-07] MEDS: NS IV SCH (09:23)
[2019-12-07 10:00] VITALS: BP 136/6
[2019-12-08 09:18] VITALS: BP 142/75
[2019-12-08] MEDS: NS IV SCH (09:37)
[2019-12-08] MEDS: DAPTOMYCIN IV SCH (09:37)
[2019-12-09 08:55] VITALS: BP 137/69
[2019-12-09] MEDS: NS IV SCH (09:18)
[2019-12-09] MEDS: DAPTOMYCIN IV SCH (09:18)
[2019-12-10] MEDS: DAPTOMYCIN IV SCH (09:08)
[2019-12-10] MEDS: NS IV SCH (09:08)
[2019-12-10 09:15] VITALS: BP 122/0
[2019-12-11] MEDS: NS IV SCH (09:09)
[2019-12-11] MEDS: DAPTOMYCIN IV SCH (09:09)
[2019-12-11 09:41] LABS: HEMOGLOBIN 13.6 G/DL (11.5-16.0); MEAN PLATELET VOLUME 10.6 FL (7.4-10.4); RED CELL DISTRIBUTION WIDTH 14.6 % (10.0-14.5); WHITE BLOOD COUNT 7.2 10^3/uL (4.3-11.0)
[2019-12-11 09:45] VITALS: BP 160/76
[2019-12-11 09:55] LABS: ALBUMIN 3.7 GM/DL (3.2-4.5)
[2019-12-11 09:56] LABS: CHLORIDE 104 MMOL/L (98-107); SODIUM 139 MMOL/L (135-145)
[2019-12-11 09:58] LABS: GLUCOSE 94 MG/DL (70-105); TOTAL PROTEIN 6.9 GM/DL (6.4-8.2)
[2019-12-11 09:59] LABS: CARBON DIOXIDE 27 MMOL/L (21-32)
[2019-12-11 10:00] LABS: BILIRUBIN,TOTAL 0.4 MG/DL (0.1-1.0)
[2019-12-11 10:01] LABS: ALKALINE PHOSPHATASE 73 U/L (40-136)
[2019-12-11 10:02] LABS: CREATININE SERUM 0.64 MG/DL (0.60-1.30); GFR ESTIMATED > 60
[2019-12-11 10:03] LABS: BUN/CREATININE RATIO 27
[2019-12-11 10:05] LABS: ALANINE AMINOTRANSFERASE 17 U/L (0-55); CREATINE KINASE 24 U/L (29-168)
[~2019-12-12] VITALS: Ht 162.5 cm; Wt 54.4 kg
[~2019-12-12 09:36] MED LIST changes: +LIDOCAINE PF 1% 2 ML VIAL IJ ONE; +LIDOCAINE PF 2% 5 ML (XYLOCAINE) VIAL INJ ONE; +NITR-65 PO; +PHEN-639 PO
[2019-12-12 09:44] VITALS: BP 153/69
[2019-12-12] MEDS: NS IV SCH (09:51)
[2019-12-12] MEDS: DAPTOMYCIN IV SCH (09:51)
== END 2019-12-12 10:25 | disposition home or self-care (01) ==
LOC: SDC 09:36
PROVIDERS: ATTEND Family Medicine
DX: T85.79XA Infection and inflammatory reaction due to other internal prosthetic devices, implants and grafts, initial encounter (principal); A49.02 Methicillin resistant Staphylococcus aureus infection, unspecified site
CPT/HCPCS: 36415; 80053; 82550; 85007; 85025; 85027; 85652; 96365; 96366; 99211

== ENCOUNTER → 2019-12-25 | Outpatient (CLI) | payer MEDICARE, OTHER ==
[~2019-12-25] MED LIST changes: -LIDOCAINE PF 1% 2 ML VIAL IJ ONE; -LIDOCAINE PF 2% 5 ML (XYLOCAINE) VIAL INJ ONE
--- NOTE | 2019-12-25 14:02 | Diagnostic Imaging Report ---
EXAMINATION: PA and lateral chest at 1:24 PM. INDICATION: High-risk medication. FINDINGS: The heart size is stable when compared to the prior exam of 06/15/2019. The sternotomy wires and surgical clips noted previously are again evident and no different. There are chronic pulmonary changes evident but there is no sign of failure, pneumonia, or pleural effusion. The mediastinum is not widened. The osseous structures are intact. IMPRESSION: There is chronic pulmonary disease and evidence of prior cardiac surgery but there is no sign of an acute cardiopulmonary abnormality. Dictated by: Dictated on workstation # [id number]
== END ==
LOC: RAD 12:59
PROVIDERS: ATTEND Internal Medicine Rheumatology
DX: Z79.899 Other long term (current) drug therapy (principal)
CPT/HCPCS: 71046

== ENCOUNTER 2020-06-13 12:50 | Emergency (ER) | payer MEDICARE, OTHER ==
[~2020-06-13] VITALS: Ht 162 cm; Wt 51.0 kg
--- NOTE | 2020-06-13 13:35 | NUR ---
TISSUE REMOVED FROM NOSE BY IMTIAZ WYATT.
--- NOTE | 2020-06-13 13:41 | ED EENT ---
History of Present Illness General Chief Complaint: Nasal Problems Stated Complaint: NOSE BLEED Source: patient Exam Limitations: no limitations History of Present Illness Date Seen by Provider: Jun 13, 2020 Time Seen by Provider: 13:00 Initial Comments To ER with a nosebleed that you started about an hour prior to arrival. No history of this. She is on Eliquis. 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 Timing/Duration: abrupt Severity: moderate Associated Symptoms: denies symptoms Allergies and Home Medications Allergies Coded Allergies: tetanus toxoid, adsorbed (Unverified Allergy, Unknown, 08/17/14) tramadol (Verified Allergy, Unknown, Hives, 11/16/18) Home Medications Acetaminophen 325 Mg Tablet, 500 MG PO HS, (Reported) Apixaban 5 Mg Tablet, 5 MG PO BID Prescribed by: WALTER MARQUEZ on 11/19/14912 Cephalexin 500 Mg Capsule, 500 MG PO BID Prescribed by: AMANDA LU on 08/14/19 1653 Cyclobenzaprine Hcl 10 Mg Tablet, 2.5 MG PO HS, (Reported) Denosumab 60 Mg/1 Ml Disp.syrin, 60 MG SQ UD, (Reported) every 6 months Digoxin 125 Mcg Tablet, 1 EACH PO DAILY Prescribed by: WALTER MARQUEZ on 11/19/14912 Doxycycline Hyclate 100 Mg Tablet, 100 MG PO BID Prescribed by: IMTIAZ WYATT on 09/22/19 181 Etanercept 50 Mg/1 Ml Pen.injctr, 50 MG SQ UD, (Reported) WEEKLY Folic Acid 1 Mg Tab, 1 MG PO BID, (Reported) Hydrocodone/Acetaminophen 1 Each Tablet, 1 TAB PO Q4-6HR Prescribed by: IMTIAZ WYATT on 08/17/19 1702 Melatonin/Pyridoxine Hcl 1 Each Tablet, 1 EACH PO HS, (Reported) Methotrexate 2.5 Mg Tab, 20 MG PO UD, (Reported) WEEKLY Metoprolol Succinate 50 Mg Tab.sr.24h, 50 MG PO HS, (Reported) Multivitamins 1 Each Capsule, 1 EACH PO DAILY, (Reported) Nitrofurantoin Monohyd/M-Cryst 100 Mg Capsule, 1 TAB PO BID Prescribed by: BUCK ORTIZ on 11/11/19 0912 [place]-3 Fatty Acids 1,000 Mg Capsule, 1,000 MG PO BID, (Reported) Oxycodone HCl/Acetaminophen 1 Each Tablet, 1 TAB PO Q4H Prescribed by: IMTIAZ WYATT on 08/22/192203 Phenazopyridine HCl 100 Mg Tablet, 100 MG PO TID PRN for PAIN-MILD (1-4) For bladder pain or spasms Prescribed by: BUCK ORTIZ on 11/11/19 0912 Patient Home Medication List Home Medication List Reviewed: Yes Review of Systems Review of Systems Constitutional: see HPI Eyes: No Symptoms Reported Ears: No Symptoms Reported Nose: see HPI, clots, epistaxis Mouth: no symptoms reported Throat: no symptoms reported Respiratory: no symptoms reported Cardiovascular: no symptoms reported Musculoskeletal: no symptoms reported Past Dhfflfu-Qwhbjl-Khdtjl Hx Patient Social History Type Used: Cigarettes 2nd Hand Smoke Exposure: No Recent Foreign Travel: No Contact w/Someone Who Travel: No (N) Recent Hopitalizations: No Immunizations Up To Date Tetanus Booster (TDap): Less than 5yrs Date of Pneumonia Vaccine: May 26, 2011 Date of Influenza Vaccine: May 17, 2014 Seasonal Allergies Seasonal Allergies: No Past Medical History Surgeries: Yes (CATARACTS/LENS IMPLANT, COLONOSCOPY, R elbow) Adenoidectomy, Cardiac, CABG, Eye Surgery, Gallbladder, Orthopedic, Tonsill ectomy Respiratory: Yes Pneumonia Currently Using CPAP: No Currently Using BIPAP: No Cardiac: Yes Atrial Fibrillation, Coronary Artery Disease, High Cholesterol, Hypertension Neurological: No 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 CONSTIPATION AND DIARRHEA) Gastroesophageal Reflux, Obstructive Bowel, Chronic Constipation, Diverticulosis, Chronic Diarrhea, Irritable Bowel Musculoskeletal: Yes Rheumatoid Arthritis, Chronic Back Pain Endocrine: No HEENT: Yes Macular Degeneration Cancer: No Psychosocial: Yes (POST DEPRESSION) Integumentary: No Blood Disorders: No Adverse Reaction/Blood Tranf: No Family Medical History Abdominal aortic aneurysm G8 BROTHER Angina pectoris 19 MOTHER Completed stroke G8 BROTHER FH: brain aneurysm 19 MOTHER Hypercholesterolemia G8 SISTER Hypertension G8 SISTER Osteoporosis G8 SISTER Physical Exam Vital Signs Vital Signs - First Documented 06/13/20 13:36 Temp 36.5 Pulse 91 Resp 20 B/P (MAP) 109/66 (80) Pulse Ox 93 O2 Delivery Room Air Height, Weight, BMI Height: 5'5.00" Weight: 119lbs. 0.0oz. 53.686558ev; 20.00 BMI Method:Stated General Appearance: WD/WN, no apparent distress Eyes: bilateral eye normal inspection, bilateral eye PERRL, bilateral eye EOMI Ears: bilateral ear auricle normal, bilateral ear canal normal, bilateral ear TM normal Nose: other (Significant clotted material. There is presence of the most anterior 1 to 1-1/2 cm of nasal septum. Posterior to this there is no apparent nasal septum. She has a large clot. This was suctioned out but more clot remains. There was a small amount of blood seen trickling down the oropharynx. A 7.5 cm rapid Rhino was inserted into the left nostril and inflated. A 5.5 cm rapid Rhino was inserted into the right. We will observe. If she has continued bleeding in the oropharynx she will need to be transferred to a facility with ear nose and throat capabilities. If there is no bleeding then we will discharge the patient home with packing in place to return tomorrow) Neck: non-tender, full range of motion Respiratory: no respiratory distress, no accessory muscle use Neurologic/Psychiatric: alert, normal mood/affect, oriented x 3 Skin: normal color, warm/dry Progress/Results/Core Measures Results/Orders Lab Results Laboratory Tests Test 06/13/20 14:15 Range/Units My Orders Orders - IMTIAZ WYATT APRN Cbc No Diff (06/13/20 13:48) Vital Signs/I&O 06/13/20 13:36 Temp 36.5 Pulse 91 Resp 20 B/P (MAP) 109/66 (80) Pulse Ox 93 O2 Delivery Room Air Departure Communication (Admissions) 8441-it has been about 5 minutes since packing was placed. There is no blood dripping from the front of the nose or in the oropharynx. We will observe her for a little while here. I did make an appointment on her behalf with Dr. Wallace at 9 AM on Wednesday the of this month for packing removal. 1416-Still no blood in oropharynx or out of nose around the packing. Impression Primary Impression: Epistaxis Disposition: HOME, SELF-CARE Condition: Stable Departure-Patient Inst. Decision time for Depature: 14:16 Referrals: HOLLIE WALLACE MD, RICHARD A DO (PCP/Family) Primary Care Physician Patient Instructions: Nosebleeds (DC) Add. Discharge Instructions: Leave the packing in until tomorrow. Return tomorrow about 24 hours from now to have the packing removed. Return before then if you notice any blood going down the back of your throat or any significant blood coming out from around the packing devices. It is not unexpected to have a little bit of blood to dab with a Kleenex from the device itself. I have also made an appointment for you with Dr. Wallace on Wednesday the at 9 AM. Take the antibiotics as directed. All discharge instructions reviewed with patient and/or family. Voiced understanding. Scripts Cefuroxime Axetil (Cefuroxime) 250 Mg Tablet 250 MG PO BID, #10 TAB Prov: IMTIAZ WYATT APRN 06/13/20 IMTIAZ WYATT APRN Jun 13, 2020 13:41
[2020-06-13 14:20] LABS: HEMOGLOBIN 14.7 g/dL (11.5-16.0); MEAN PLATELET VOLUME 10.6 fL (9.0-12.2); WHITE BLOOD COUNT 5.5 10^3/uL (4.3-11.0)
[2020-06-13] MEDS ORDERED: CEFU250T80 PO (14:21)
[2020-06-13 14:35] VITALS: BP 109/66
== END 2020-06-13 14:32 | disposition home or self-care (01) ==
LOC: EDUNIT# 12:50 → ER 12:51
DX: R04.0 Epistaxis (principal); G89.29 Other chronic pain; M54.9 Dorsalgia, unspecified; I10 Essential (primary) hypertension; I48.91 Unspecified atrial fibrillation; Z82.49 Family history of ischemic heart disease and other diseases of the circulatory system; Z88.7 Allergy status to serum and vaccine; Z88.5 Allergy status to narcotic agent; Z79.01 Long term (current) use of anticoagulants
CPT/HCPCS: 30300; 36415; 85027

== ENCOUNTER 2020-06-14 13:27 | Emergency (ER) | payer MEDICARE, OTHER ==
[~2020-06-14] VITALS: Ht 162.5 cm; Wt 50.9 kg
[~2020-06-14 13:27] MED LIST changes: +CEFU250T80 PO
[2020-06-14] MEDS ORDERED: OXYMETAZOLINE (AFRIN) 0.05% NA 30 ML BTL ONE (13:48)
--- NOTE | 2020-06-14 13:49 | ED EENT ---
History of Present Illness General Stated Complaint: NASAL IMPACTION REMOVAL Source: patient Exam Limitations: no limitations History of Present Illness Date Seen by Provider: Jun 14, 2020 Time Seen by Provider: 13:49 Initial Comments To ER for nasal packing removal. She was here yesterday for epistaxis. Bilateral nasal packing was placed. Follow-up arranged for Wednesday with Dr. Wallace. Timing/Duration: abrupt Severity: moderate Location: nose Associated Symptoms: denies symptoms Allergies and Home Medications Allergies Coded Allergies: tetanus toxoid, adsorbed (Unverified Allergy, Unknown, 08/17/14) tramadol (Verified Allergy, Unknown, Hives, 11/16/18) Home Medications Acetaminophen 325 Mg Tablet, 500 MG PO HS, (Reported) Apixaban 5 Mg Tablet, 5 MG PO BID Prescribed by: WALTER MARQUEZ on 11/19/14 0913 Cefuroxime Axetil 250 Mg Tablet, 250 MG PO BID Prescribed by: IMTIAZ WYATT on 06/13/20 1421 Cephalexin 500 Mg Capsule, 500 MG PO BID Prescribed by: AMANDA LU on 08/14/19 1653 Cyclobenzaprine Hcl 10 Mg Tablet, 2.5 MG PO HS, (Reported) Denosumab 60 Mg/1 Ml Disp.syrin, 60 MG SQ UD, (Reported) every 6 months Digoxin 125 Mcg Tablet, 1 EACH PO DAILY Prescribed by: WALTER MARQUEZ on 11/19/14 0913 Doxycycline Hyclate 100 Mg Tablet, 100 MG PO BID Prescribed by: IMTIAZ WYATT on 09/22/19 1812 Etanercept 50 Mg/1 Ml Pen.injctr, 50 MG SQ UD, (Reported) WEEKLY Folic Acid 1 Mg Tab, 1 MG PO BID, (Reported) Hydrocodone/Acetaminophen 1 Each Tablet, 1 TAB PO Q4-6HR Prescribed by: IMTIAZ WYATT on 08/17/19 1702 Melatonin/Pyridoxine Hcl 1 Each Tablet, 1 EACH PO HS, (Reported) Methotrexate 2.5 Mg Tab, 20 MG PO UD, (Reported) WEEKLY Metoprolol Succinate 50 Mg Tab.sr.24h, 50 MG PO HS, (Reported) Multivitamins 1 Each Capsule, 1 EACH PO DAILY, (Reported) Nitrofurantoin Monohyd/M-Cryst 100 Mg Capsule, 1 TAB PO BID Prescribed by: BUCK ORTIZ on 11/11/19 0912 [place]-3 Fatty Acids 1,000 Mg Capsule, 1,000 MG PO BID, (Reported) Oxycodone HCl/Acetaminophen 1 Each Tablet, 1 TAB PO Q4H Prescribed by: IMTIAZ WYATT on 08/22/192203 Phenazopyridine HCl 100 Mg Tablet, 100 MG PO TID PRN for PAIN-MILD (1-4) For bladder pain or spasms Prescribed by: BUCK ORTIZ on 11/11/19 0912 Patient Home Medication List Home Medication List Reviewed: Yes Review of Systems Review of Systems Constitutional: see HPI Eyes: No Symptoms Reported Ears: No Symptoms Reported Nose: see HPI, epistaxis Mouth: no symptoms reported Throat: no symptoms reported Respiratory: no symptoms reported Cardiovascular: no symptoms reported Musculoskeletal: no symptoms reported Past Ivfnvuh-Jwmphz-Jdwtjr Hx Patient Social History Type Used: Cigarettes Former Smoker, Quit: Jul 26, 1979 2nd Hand Smoke Exposure: No Recent Foreign Travel: No Contact w/Someone Who Travel: No Recent Hopitalizations: No Immunizations Up To Date Tetanus Booster (TDap): Less than 5yrs Date of Pneumonia Vaccine: May 26, 2011 Date of Influenza Vaccine: May 17, 2014 Seasonal Allergies Seasonal Allergies: No Past Medical History Surgeries: Yes (CATARACTS/LENS IMPLANT, COLONOSCOPY, R elbow) Adenoidectomy, Cardiac, CABG, Eye Surgery, Gallbladder, Orthopedic, Tonsillectomy Respiratory: Yes Pneumonia Currently Using CPAP: No Currently Using BIPAP: No Cardiac: Yes Atrial Fibrillation, Coronary Artery Disease, High Cholesterol, Hypertension Neurological: No 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 CONSTIPATION AND DIARRHEA) Gastroesophageal Reflux, Obstructive Bowel, Chronic Constipation, Diverticulosis, Chronic Diarrhea, Irritable Bowel Musculoskeletal: Yes Rheumatoid Arthritis, Chronic Back Pain Endocrine: No HEENT: Yes Macular Degeneration Cancer: No Psychosocial: Yes (POST DEPRESSION) Integumentary: No Blood Disorders: No Adverse Reaction/Blood Tranf: No Family Medical History Abdominal aortic aneurysm G8 BROTHER Angina pectoris 19 MOTHER Completed stroke G8 BROTHER FH: brain aneurysm 19 MOTHER Hypercholesterolemia G8 SISTER Hypertension G8 SISTER Osteoporosis G8 SISTER Physical Exam Vital Signs Vital Signs - First Documented 06/14/20 13:35 Temp 35.8 Pulse 92 Resp 18 B/P (MAP) 92/66 (75) Pulse Ox 98 O2 Delivery Room Air Height, Weight, BMI Height: 5'5.00" Weight: 119lbs. 0.0oz. 53.574857nq; 19.00 BMI Method:Stated General Appearance: WD/WN, no apparent distress Eyes: bilateral eye normal inspection, bilateral eye PERRL, bilateral eye EOMI Ears: bilateral ear auricle normal, bilateral ear canal normal, bilateral ear TM normal Nose: active bleeding, other (Once the packing removed there was persistence oozing of blood from the superior aspect of the nose. She does not have a nasal septum.) Neck: non-tender, full range of motion Respiratory: no respiratory distress, no accessory muscle use Neurologic/Psychiatric: alert, normal mood/affect, oriented x 3 Skin: normal color, warm/dry Progress/Results/Core Measures Results/Orders Lab Results Laboratory Tests Test 06/14/20 14:15 Range/Units White Blood Count 7.7 4.3-11.0 10^3/uL Red Blood Count 4.00 3.80-5.11 10^6/uL Hemoglobin 13.6 11.5-16.0 g/dL Hematocrit 42 35-52 % Mean Corpuscular Volume 106 H 80-99 fL Mean Corpuscular Hemoglobin 34 25-34 pg Mean Corpuscular Hemoglobin Concent 32 32-36 g/dL Red Cell Distribution Width 13.7 10.0-14.5 % Platelet Count 205 130-400 10^3/uL Mean Platelet Volume 10.5 9.0-12.2 fL My Orders Orders - IMTIAZ WYATT APRN Oxymetazoline 0.05% Nasal [place] (Afrin 0. (06/14/20 21:00) Oxymetazoline 0.05% Nasal [place] (Afrin 0. (06/14/20 13:48) Cbc No Diff (06/14/20 14:05) Medications Given in ED Current Medications Medications Dose Ordered Sig/Cody Route Start Time Stop Time Status Last Admin Dose Admin Oxymetazoline HCl 30 ml STK-MED ONCE .ROUTE 06/14/20 13:48 06/14/20 13:50 DC 06/14/20 13:56 30 ML Vital Signs/I&O 06/14/20 13:35 Temp 35.8 Pulse 92 Resp 18 B/P (MAP) 92/66 (75) Pulse Ox 98 O2 Delivery Room Air Departure Communication (Admissions) 1428-Merocel was inserted into each nostril then soaked with afrin and left in place for 30 minutes. Merocel removed and no active bleeding. The area that was believed to be bleeding was cauterized with silver nitrate stick x2. Will observe. 1504-Still no bleeding. Will dc to home. Impression Primary Impression: Epistaxis Disposition: HOME, SELF-CARE Condition: Improved Departure-Patient Inst. Decision time for Depature: 14:58 Referrals: TERRI ORTA DO (PCP/Family) Primary Care Physician Patient Instructions: Nosebleeds Add. Discharge Instructions: 1. Return to ER for any concerns 2. 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
[2020-06-14 14:28] LABS: HEMOGLOBIN 13.6 g/dL (11.5-16.0); MEAN PLATELET VOLUME 10.5 fL (9.0-12.2); WHITE BLOOD COUNT 7.7 10^3/uL (4.3-11.0)
[2020-06-14 15:04] VITALS: BP 129/94
[2020-06-14] MEDS ORDERED: OXYMETAZOLINE (AFRIN) 0.05% NA 30 ML BTL SCH (21:00)
== END 2020-06-14 15:04 | disposition home or self-care (01) ==
LOC: EDUNIT# 13:27 → ER 13:28
DX: R04.0 Epistaxis (principal); I10 Essential (primary) hypertension; I48.91 Unspecified atrial fibrillation; G89.29 Other chronic pain; M54.9 Dorsalgia, unspecified; Z82.49 Family history of ischemic heart disease and other diseases of the circulatory system; Z95.1 Presence of aortocoronary bypass graft; Z87.891 Personal history of nicotine dependence; Z88.7 Allergy status to serum and vaccine; Z88.5 Allergy status to narcotic agent; Z79.01 Long term (current) use of anticoagulants; Z79.891 Long term (current) use of opiate analgesic
CPT/HCPCS: 30903; 36415; 85027

== ENCOUNTER 2020-06-24 20:52 | Emergency (ER) | payer MEDICARE, OTHER ==
[~2020-06-24] VITALS: Ht 162 cm; Wt 52.0 kg
--- NOTE | 2020-06-24 21:05 | NUR ---
Pt reports she was seen here last wk for same cc. States she takes blood thinners.
[2020-06-24] MEDS ORDERED: OXYMETAZOLINE (AFRIN) 0.05% NA 30 ML BTL ONE (21:16)
[2020-06-24] MEDS ORDERED: TRANEXAMIC ACID 100 MG/ML 10 ML INJECTION IV ONE (21:22)
[2020-06-24] MEDS ORDERED: ONDANSETRON 4 MG (ZOFRAN) ORAL DISSOLVE TAB ONE (21:24)
[2020-06-24] MEDS ORDERED: TRANEXAMIC ACID INJECTION 1,000 MG in NS (IVPB) 100 ML IV ONE (21:30)
[2020-06-24] MEDS ORDERED: ONDANSETRON 4 MG (ZOFRAN) ORAL DISSOLVE TAB SL ONE (21:45)
--- NOTE | 2020-06-24 21:50 | NUR ---
Assisted Roxanne Tapia and Dr. Barba with exam.
--- NOTE | 2020-06-24 22:00 | ED EENT ---
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 Source: patient Exam Limitations: no limitations History of Present Illness Date Seen by Provider: Jun 24, 2020 Time Seen by Provider: 21:00 Initial Comments This 84-year-old woman presents to the emergency room with uncontrolled epistaxis. She was seen on June 13 and in the ER during which she had epistaxis treated with packing and cautery. She had a follow-up at Dr. Wallace's office where she was again treated. She has challenges with epistaxis including use of Eliquis and absence of a septum (congenital). Her nostrils appear to have clotted off but she continues to have bleeding down her posterior pharynx. Allergies and Home Medications Allergies Coded Allergies: tetanus toxoid, adsorbed (Unverified Allergy, Unknown, 08/17/14) tramadol (Verified Allergy, Unknown, Hives, 11/16/18) Home Medications Acetaminophen 325 Mg Tablet, 500 MG PO HS, (Reported) Apixaban 5 Mg Tablet, 5 MG PO BID Prescribed by: WALTER MARQUEZ on 11/19/14912 Cefuroxime Axetil 250 Mg Tablet, 250 MG PO BID Prescribed by: IMTIAZ TAPIA on 06/13/20 1421 Cephalexin 500 Mg Capsule, 500 MG PO BID Prescribed by: AMANDA LU on 08/14/19 1653 Cephalexin 500 Mg Capsule, 500 MG PO TID Prescribed by: BUCK ORTIZ on 06/24/20 2227 Cyclobenzaprine Hcl 10 Mg Tablet, 2.5 MG PO HS, (Reported) Denosumab 60 Mg/1 Ml Disp.syrin, 60 MG SQ UD, (Reported) every 6 months Digoxin 125 Mcg Tablet, 1 EACH PO DAILY Prescribed by: WALTER MARQUEZ on 11/19/14912 Doxycycline Hyclate 100 Mg Tablet, 100 MG PO BID Prescribed by: IMTIAZ TAPIA on 09/22/19 181 Etanercept 50 Mg/1 Ml Pen.injctr, 50 MG SQ UD, (Reported) WEEKLY Folic Acid 1 Mg Tab, 1 MG PO BID, (Reported) Hydrocodone/Acetaminophen 1 Each Tablet, 1 TAB PO Q4-6HR Prescribed by: IMTIAZ TAPIA on 08/17/19 1702 Melatonin/Pyridoxine Hcl 1 Each Tablet, 1 EACH PO HS, (Reported) Methotrexate 2.5 Mg Tab, 20 MG PO UD, (Reported) WEEKLY Metoprolol Succinate 50 Mg Tab.sr.24h, 50 MG PO HS, (Reported) Multivitamins 1 Each Capsule, 1 EACH PO DAILY, (Reported) Nitrofurantoin Monohyd/M-Cryst 100 Mg Capsule, 1 TAB PO BID Prescribed by: BUCK ORTIZ on 11/11/19 0912 [place]-3 Fatty Acids 1,000 Mg Capsule, 1,000 MG PO BID, (Reported) Oxycodone HCl/Acetaminophen 1 Each Tablet, 1 TAB PO Q4H Prescribed by: IMTIAZ TAPIA on 08/22/192203 Phenazopyridine HCl 100 Mg Tablet, 100 MG PO TID PRN for PAIN-MILD (1-4) For bladder pain or spasms Prescribed by: BUCK ORTIZ on 11/11/19 09 Patient Home Medication List Home Medication List Reviewed: Yes Review of Systems Review of Systems Constitutional: no symptoms reported Eyes: No Symptoms Reported Ears: No Symptoms Reported Nose: see HPI Mouth: no symptoms reported Throat: see HPI Respiratory: no symptoms reported Cardiovascular: no symptoms reported Gastrointestinal: nausea : No Neurological: No Symptoms Reported Hematologic/Lymphatic: See HPI Past Cvvanxo-Pkpdyf-Emakai Hx Past Med/Social Hx: Reviewed Nursing Past Med/Soc Hx Patient Social History Alcohol Use: Denies Use Recreational Drug Use: No Smoking Status: Former Smoker Type Used: Cigarettes Former Smoker, Quit: Jul 26, 1979 2nd Hand Smoke Exposure: No Recent Foreign Travel: No Contact w/Someone Who Travel: No Recent Infectious Disease Expo: No Recent Hopitalizations: No Immunizations Up To Date Tetanus Booster (TDap): Less than 5yrs Date of Pneumonia Vaccine: May 26, 2011 Date of Influenza Vaccine: May 17, 2014 Seasonal Allergies Seasonal Allergies: No Past Medical History Surgeries: Yes (CATARACTS/LENS IMPLANT, COLONOSCOPY, R elbow) Adenoidectomy, Cardiac, CABG, Eye Surgery, Gallbladder, Orthopedic, Ton sillectomy Respiratory: Yes Pneumonia Currently Using CPAP: No Currently Using BIPAP: No Cardiac: Yes Atrial Fibrillation, Coronary Artery Disease, High Cholesterol, Hypertension Neurological: No 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 CONSTIPATION AND DIARRHEA) Gastroesophageal Reflux, Obstructive Bowel, Chronic Constipation, Diverticulosis, Chronic Diarrhea, Irritable Bowel Musculoskeletal: Yes Rheumatoid Arthritis, Chronic Back Pain Endocrine: No HEENT: Yes Macular Degeneration Cancer: No Psychosocial: Yes (POST DEPRESSION) Integumentary: No Blood Disorders: No Adverse Reaction/Blood Tranf: No Family Medical History Abdominal aortic aneurysm G8 BROTHER Angina pectoris 19 MOTHER Completed stroke G8 BROTHER FH: brain aneurysm 19 MOTHER Hypercholesterolemia G8 SISTER Hypertension G8 SISTER Osteoporosis G8 SISTER Physical Exam Vital Signs Vital Signs - First Documented 06/24/20 21:03 Temp 36.7 Pulse 104 Resp 16 B/P (MAP) 155/58 (90) Pulse Ox 95 O2 Delivery Room Air Height, Weight, BMI Height: 5'5.00" Weight: 119lbs. 0.0oz. 53.550101kt; 19.00 BMI Method:Stated General Appearance: WD/WN, no apparent distress Nose: active bleeding, other (Absence of septum. Clotted blood in the nostrils bilaterally.) Mouth/Throat: other (Bright red blood in the posterior pharynx) Neck: normal inspection Respiratory: normal breath sounds, no respiratory distress Neurologic/Psychiatric: gyn II-XII nml as tested, no motor/sensory deficits, alert, normal mood/affect, oriented x 3 Skin: normal color, warm/dry Procedures/Interventions Progress After discussion with Valeria Gilmore, on-call provider for ENT, the clots were evacuated from the nasal cavity with a Santos catheter. Oozing could be seen from the superior aspect where the superior base of the septum should be l ocated. The nose was then flooded with Afrin. A cotton roll was then placed in the right nostril and a Merisel packing was placed in the left nostril. The packing was soaked with Afrin and TXA. The packing remained in place for 20 to 30 minutes. We then removed the packing. Oozing continued. Cauterization with silver nitrate was attempted. Even after cauterization there was still some oozing around the edges. Nose was then repacked with a Rapid Rhino in each nostril. Procedure was performed by Imtiaz Tapia with my assistance. Progress/Results/Core Measures Results/Orders My Orders Orders - BUCK RAMIREZ MD Oxymetazoline 0.05% Nasal Bivins (Afrin 0. (06/24/20 21:16) Tranexamic Acid Injection (Cyklokapron I (06/24/20 21:22) Ondansetron Oral Dissolve Tab (Zofran (06/24/20 21:24) Oxymetazoline 0.05% Nasal Bivins (Afrin 0. (06/25/20 09:00) Tranexamic Acid Injection (Cyklokapron I (06/24/20 21:30) Ondansetron Oral Dissolve Tab (Zofran (06/24/20 21:45) Cephalexin Capsule (Keflex Capsule) (06/24/20 22:30) Medications Given in ED Current Medications Medications Dose Ordered Sig/Cody Route Start Time Stop Time Status Last Admin Dose Admin Cephalexin HCl 500 mg ONCE ONCE PO 06/24/20 22:30 06/24/20 22:31 DC 06/24/20 22:29 500 MG Ondansetron HCl 8 mg ONCE ONCE SL 06/24/20 21:45 06/24/20 21:46 DC 06/24/20 21:42 8 MG Tranexamic Acid 1000 mg/Sodium Chloride 110 ml @ 330 mls/hr ONCE ONCE IV 06/24/20 21:30 06/24/20 21:49 DC 06/24/20 21:37 330 MLS/HR Vital Signs/I&O 06/24/20 06/24/20 21:03 22:35 Temp 36.7 Pulse 104 91 Resp 16 18 B/P (MAP) 155/58 (90) 129/78 Pulse Ox 95 93 O2 Delivery Room Air Room Air Blood Pressure Mean: 90 Progress Progress Note : Progress Note CBC on June 14 showed normal platelets. Attempts at treatment with Afrin followed by packing with Merocel and TXA were unsuccessful in stopping the bleeding. We then attempted cautery which was also not successful. Eventually we did a bilateral rapid Rhino packings which did stop the bleeding. Case was discussed with Valeria Gilmore on-call for Dr. Wallace. Departure Impression Primary Impression: Epistaxis Additional Impression: Anticoagulated Disposition: 01 HOME, SELF-CARE Condition: Improved Departure-Patient Inst. Referrals: TERRI ORTA DO (PCP/Family) Primary Care Physician Patient Instructions: Nosebleeds (DC) Add. Discharge Instructions: Skip tonight's dose of Eliquis and do not take it in the morning until you receive instructions from Dr. Wallace's clinic. Call his office first thing in the morning. Leave the packing in place. You may take Tylenol (acetaminophen) as needed up to 650 mg every 6 hours for pain. Continue taking the Keflex antibiotic until otherwise instructed. Return to care if you have persistent bleeding or other concerns. All discharge instructions reviewed with patient and/or family. Voiced understanding. Scripts Cephalexin (Keflex) 500 Mg Capsule 500 MG PO TID, #20 CAP Prov: BUCK RAMIREZ MD 06/24/20 Copy Copies To 1: HOLLIE WALLACE MD, JOSHUA T MD Jun 24, 2020 22:00
[2020-06-24] MEDS ORDERED: CEPH-507 PO (22:27)
[2020-06-24] MEDS ORDERED: CEPHALEXIN 250 MG (KEFLEX) CAP PO ONE (22:30)
[2020-06-24 22:35] VITALS: BP 129/78
[2020-06-25] MEDS ORDERED: OXYMETAZOLINE (AFRIN) 0.05% NA 30 ML BTL SCH (09:00)
== END 2020-06-24 22:37 | disposition home or self-care (01) ==
LOC: EDUNIT# 20:52 → ER 20:54
DX: R04.0 Epistaxis (principal); I10 Essential (primary) hypertension; I25.10 Atherosclerotic heart disease of native coronary artery without angina pectoris; I48.91 Unspecified atrial fibrillation; M06.9 Rheumatoid arthritis, unspecified; Z79.01 Long term (current) use of anticoagulants; Z79.02 Long term (current) use of antithrombotics/antiplatelets; Z87.891 Personal history of nicotine dependence; Z95.1 Presence of aortocoronary bypass graft; Z87.01 Personal history of pneumonia (recurrent); Z88.7 Allergy status to serum and vaccine; Z88.5 Allergy status to narcotic agent
CPT/HCPCS: 99284

== ENCOUNTER → 2020-08-06 | Outpatient (CLI) | payer MEDICARE, OTHER ==
[2020-08-06 16:01] LABS: BASOPHILS % (AUTO) 0 % (0-10); EOSINOPHILS # (AUTO) 0.2 10^3/uL (0.0-0.3); EOSINOPHILS % (AUTO) 4 % (0-10); HEMATOCRIT 43 % (35-52); HEMOGLOBIN 13.9 g/dL (11.5-16.0); LYMPHOCYTES # (AUTO) 1.2 10^3/uL (1.0-4.0); LYMPHOCYTES % (AUTO) 23 % (12-44); MEAN CORPUSCULAR HEMOGLOBIN 33 pg (25-34); MEAN CORPUSCULAR HGB CONC 32 g/dL (32-36); MEAN CORPUSCULAR VOLUME 104 fL (80-99); MONOCYTES # (AUTO) 0.5 10^3/uL (0.0-1.0); MONOCYTES % (AUTO) 9 % (0-12); NEUTROPHILS # (AUTO) 3.3 10^3/uL (1.8-7.8); NEUTROPHILS % (AUTO) 63 % (42-75); PLATELET COUNT 194 10^3/uL (130-400); WHITE BLOOD COUNT 5.3 10^3/uL (4.3-11.0)
[2020-08-06 16:10] LABS: CREATININE SERUM 0.72 MG/DL (0.60-1.30)
[2020-08-06 16:25] LABS: ERYTHROCYTE SEDIMENTATION RATE 28 MM/HR (0-30)
== END ==
LOC: LAB 15:37
PROVIDERS: ATTEND Nurse Practitioner
DX: S51.001A Unspecified open wound of right elbow, initial encounter (principal)
CPT/HCPCS: 36415; 82565; 85025; 85652; 86141

== ENCOUNTER → 2020-10-16 | Outpatient (CLI) | payer MEDICARE, OTHER | LOC: CARD 13:58 | PROVIDERS: ATTEND Internal Medicine Cardiovascular Disease | DX: I34.0 Nonrheumatic mitral (valve) insufficiency (principal); I10 Essential (primary) hypertension | CPT/HCPCS: 93306 ==

== ENCOUNTER → 2020-12-24 | Outpatient (CLI) | payer MEDICARE, OTHER ==
--- NOTE | 2020-12-24 20:00 | Diagnostic Imaging Report ---
INDICATION: Routine screening. COMPARISON is made with prior mammograms from 01/12/2019 and 04/28/2018. 2-D and 3-D bilateral screening mammography was performed with CAD. Both breasts are heterogeneously dense, limiting the sensitivity of mammography. There are benign parenchymal and vascular calcifications bilaterally. No mass or malignant appearing microcalcifications are seen. Axillae are unremarkable. IMPRESSION: BI-RADS Category 2 No mammographic features suspicious for malignancy are identified. ACR BI-RADS Category 2: Benign findings. Result letter will be mailed to the patient. Note: At least 10% of breast cancer is not imaged by mammography. Dictated by: Dictated on workstation # [id number]
== END ==
LOC: RAD 14:45
PROVIDERS: ATTEND Obstetrics & Gynecology
DX: Z12.31 Encounter for screening mammogram for malignant neoplasm of breast (principal)
CPT/HCPCS: 77063; 77067

== ENCOUNTER 2021-01-17 13:24 | Emergency (ER) | payer MEDICARE, OTHER ==
[~2021-01-17] VITALS: Ht 162.6 cm; Wt 52.2 kg
--- NOTE | 2021-01-17 13:40 | ED GU-Female ---
General Chief Complaint: - Urinary Stated Complaint: BACK PAIN, BLOOD IN URINE Source: patient Exam Limitations: no limitations (IMTIAZ WYATT APRN) History of Present Illness Date Seen by Provider: Jan 17, 2021 Time Seen by Provider: 13:38 Initial Comments To ER with a 3-day history of left flank pain, left lower quadrant abdominal pain and hematuria. Was seen by Dr. Orta this morning and referred to the emergency room for suspected stone. Patient has a history of rheumatoid arthritis and is maintained on Enbrel and methotrexate. She is also on Eliquis. Reports a fever up to 100.5 last night. No nausea no vomiting. Timing/Duration: constant Severity/Quality: moderate Location: LLQ, left flank Radiation: none Activities at Onset: none Prior Genitourinary Problems: none Associated Symptoms: denies symptoms (IMTIAZ WYATT APRN) Allergies and Home Medications Allergies Coded Allergies: tetanus toxoid, adsorbed (Unverified Allergy, Unknown, 08/17/14) tramadol (Verified Allergy, Unknown, Hives, 11/16/18) Home Medications Acetaminophen 325 Mg Tablet, 500 MG PO HS, (Reported) Apixaban 5 Mg Tablet, 5 MG PO BID Prescribed by: WALTER MARQUEZ on 11/19/14912 Cefuroxime Axetil 250 Mg Tablet, 250 MG PO BID Prescribed by: IMTIAZ WYATT on 06/13/20 1421 Cephalexin 500 Mg Capsule, 500 MG PO BID Prescribed by: AMANDA LU on 08/14/19 1653 Cephalexin 500 Mg Capsule, 500 MG PO TID Prescribed by: BUCK ORTIZ on 06/24/20 2227 Cyclobenzaprine Hcl 10 Mg Tablet, 2.5 MG PO HS, (Reported) Denosumab 60 Mg/1 Ml Disp.syrin, 60 MG SQ UD, (Reported) every 6 months Digoxin 125 Mcg Tablet, 1 EACH PO DAILY Prescribed by: WALTER MARQUEZ on 11/19/14912 Doxycycline Hyclate 100 Mg Tablet, 100 MG PO BID Prescribed by: IMTIAZ WYATT on 09/22/19 181 Etanercept 50 Mg/1 Ml Pen.injctr, 50 MG SQ UD, (Reported) WEEKLY Folic Acid 1 Mg Tab, 1 MG PO BID, (Reported) Hydrocodone/Acetaminophen 1 Each Tablet, 1 TAB PO Q4-6HR Prescribed by: IMTIAZ WYATT on 08/17/19 1702 Melatonin/Pyridoxine Hcl 1 Each Tablet, 1 EACH PO HS, (Reported) Methotrexate 2.5 Mg Tab, 20 MG PO UD, (Reported) WEEKLY Metoprolol Succinate 50 Mg Tab.sr.24h, 50 MG PO HS, (Reported) Multivitamins 1 Each Capsule, 1 EACH PO DAILY, (Reported) Nitrofurantoin Monohyd/M-Cryst 100 Mg Capsule, 1 TAB PO BID Prescribed by: BUCK ORTIZ on 11/11/19 0912 [place]-3 Fatty Acids 1,000 Mg Capsule, 1,000 MG PO BID, (Reported) Oxycodone HCl/Acetaminophen 1 Each Tablet, 1 TAB PO Q4H Prescribed by: IMTIAZ WYATT on 08/22/19 2204 Phenazopyridine HCl 100 Mg Tablet, 100 MG PO TID PRN for PAIN-MILD (1-4) For bladder pain or spasms Prescribed by: BUCK ORTIZ on 11/11/19 09 Patient Home Medication List Home Medication List Reviewed: Yes (IMTIAZ WYATT APRN) Review of Systems Review of Systems Constitutional: see HPI, chills EENTM: see HPI Respiratory: no symptoms reported Cardiovascular: no symptoms reported Genitourinary: see HPI; denies dysuria; flank pain, hematuria Musculoskeletal: no symptoms reported Skin: no symptoms reported Psychiatric/Neurological: No Symptoms Reported (IMTIAZ WYATT APRN) Past Vgbjnbu-Tdppxs-Jwbvrp Hx Patient Social History Type Used: Cigarettes Former Smoker, Quit: Jul 26, 1979 2nd Hand Smoke Exposure: No Recent Hopitalizations: No (IMTIAZ WYATT APRN) Immunizations Up To Date Tetanus Booster (TDap): Less than 5yrs Date of Pneumonia Vaccine: May 26, 2011 Date of Influenza Vaccine: May 17, 2014 (IMTIAZ WYATT APRN) Seasonal Allergies Seasonal Allergies: No (IMTIAZ WYATT APRN) Past Medical History Surgeries: Yes (CATARACTS/LENS IMPLANT, COLONOSCOPY, R elbow) Adenoidectomy, Cardiac, CABG, Eye Surgery, Gallbladder, Orthopedic, Tonsillectomy Respiratory: Yes Pneumonia Currently Using CPAP: No Currently Using BIPAP: No Cardiac: Yes Atrial Fibrillation, Coronary Artery Disease, High Cholesterol, Hypertension Neurological: No 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 CONSTIPATION AND DIARRHEA) Gastroesophageal Reflux, Obstructive Bowel, Chronic Constipation, Diverticulosi s, Chronic Diarrhea, Irritable Bowel Musculoskeletal: Yes Rheumatoid Arthritis, Chronic Back Pain Endocrine: No HEENT: Yes Macular Degeneration Cancer: No Psychosocial: Yes (POST DEPRESSION) Integumentary: No Blood Disorders: No Adverse Reaction/Blood Tranf: No (IMTIAZ WYATT APRN) Family Medical History Abdominal aortic aneurysm G8 BROTHER Angina pectoris 19 MOTHER Completed stroke G8 BROTHER FH: brain aneurysm 19 MOTHER Hypercholesterolemia G8 SISTER Hypertension G8 SISTER Osteoporosis G8 SISTER Physical Exam Vital Signs Vital Signs - First Documented 01/17/21 13:32 Temp 36.2 Pulse 80 Resp 16 B/P (MAP) 148/107 (121) Pulse Ox 95 O2 Delivery Room Air (BUCK RAMIREZ MD) Vital Signs Capillary Refill : (IMTIAZ WYATT APRN) Height, Weight, BMI Height: 5'5.00" Weight: 119lbs. 0.0oz. 53.899957kq; 19.00 BMI Method:Stated General Appearance: WD/WN, no apparent distress, thin, other (Alert and oriented no distress very pleasant) HEENT: PERRL/EOMI, normal ENT inspection Neck: non-tender, full range of motion Respiratory: normal breath sounds, no respiratory distress, no accessory muscle use Gastrointestinal: normal bowel sounds, soft, tenderness (Left lower quadrant) Back: CVA tenderness (L) Extremities: other (Chronically enlarged joints over the wrists and IP joints of the fingers from her rheumatoid arthritis) Neurologic/Psychiatric: alert, normal mood/affect, oriented x 3 Skin: normal color, warm/dry (IMTIAZ WYATT APRN) Focused Exam Lactate Level 01/17/21 13:40: Lactic Acid Level 0.72 (BUCK RAMIREZ MD) Progress/Results/Core Measures Suspected Sepsis SIRS Temperature: Pulse: Respiratory Rate: Laboratory Tests 01/17/21 13:40: White Blood Count 5.3 Blood Pressure / Mean: 01/17/21 13:40: Lactic Acid Level 0.72 Laboratory Tests 01/17/21 13:40: Creatinine 0.71, Platelet Count 146, Total Bilirubin 0.4 (IMTIAZ WYATT APRN) Results/Orders Lab Results Laboratory Tests Test 01/17/21 13:30 01/17/21 13:40 Range/Units Urine Color YELLOW Urine Clarity CLEAR Urine pH 6.0 5-9 Urine Specific Lynn 1.015 L 1.016-1.022 Urine Protein NEGATIVE NEGATIVE Urine Glucose (UA) NEGATIVE NEGATIVE Urine Ketones NEGATIVE NEGATIVE Urine Nitrite NEGATIVE NEGATIVE Urine Bilirubin NEGATIVE NEGATIVE Urine Urobilinogen 0.2 < = 1.0 MG/DL Urine Leukocyte Esterase NEGATIVE NEGATIVE Urine RBC (Auto) TRACE-I NEGATIVE Urine RBC 2-5 H /HPF Urine WBC 0-2 /HPF Urine Squamous Epithelial Cells 0-2 /HPF Urine Crystals NONE /LPF Urine Bacteria TRACE /HPF Urine Casts NONE /LPF Urine Mucus SMALL H /LPF Urine Culture Indicated NO White Blood Count 5.3 4.3-11.0 10^3/uL Red Blood Count 4.42 3.80-5.11 10^6/uL Hemoglobin 15.3 11.5-16.0 g/dL Hematocrit 48 35-52 % Mean Corpuscular Volume 109 H 80-99 fL Mean Corpuscular Hemoglobin 35 H 25-34 pg Mean Corpuscular Hemoglobin Concent 32 32-36 g/dL Red Cell Distribution Width 13.5 10.0-14.5 % Platelet Count 146 130-400 10^3/uL Mean Platelet Volume 10.8 9.0-12.2 fL Immature Granulocyte % (Auto) 1 % Neutrophils (%) (Auto) 69 42-75 % Lymphocytes (%) (Auto) 22 12-44 % Monocytes (%) (Auto) 9 0-12 % Eosinophils (%) (Auto) 0 0-10 % Basophils (%) (Auto) 0 0-10 % Neutrophils # (Auto) 3.6 1.8-7.8 10^3/uL Lymphocytes # (Auto) 1.1 1.0-4.0 10^3/uL Monocytes # (Auto) 0.5 0.0-1.0 10^3/uL Eosinophils # (Auto) 0.0 0.0-0.3 10^3/uL Basophils # (Auto) 0.0 0.0-0.1 10^3/uL Immature Granulocyte # (Auto) 0.0 0.0-0.1 10^3/uL Sodium Level 141 135-145 MMOL/L Potassium Level 3.9 3.6-5.0 MMOL/L Chloride Level 99 98-107 MMOL/L Carbon Dioxide Level 28 21-32 MMOL/L Anion Gap 14 5-14 MMOL/L Blood Urea Nitrogen 13 7-18 MG/DL Creatinine 0.71 0.60-1.30 MG/DL Estimat Glomerular Filtration Rate > 60 BUN/Creatinine Ratio 18 Glucose Level 83 70-105 MG/DL Lactic Acid Level 0.72 0.50-2.00 MMOL/L Calcium Level 9.3 8.5-10.1 MG/DL Corrected Calcium 9.1 8.5-10.1 MG/DL Total Bilirubin 0.4 0.1-1.0 MG/DL Aspartate Amino Transf (AST/SGOT) 94 H 5-34 U/L Alanine Aminotransferase (ALT/SGPT) 202 H 0-55 U/L Alkaline Phosphatase 102 40-136 U/L Total Protein 8.3 H 6.4-8.2 GM/DL Albumin 4.3 3.2-4.5 GM/DL (BUCK RAMIREZ MD) My Orders Orders - BUCK RAMIREZ MD Ua Culture If Indicated (01/17/21 13:30) (BUCK RAMIREZ MD) Vital Signs/I&O 01/18/21 00:00 Intake Total 500 ml Balance 500 ml (BUCK RAMIREZ MD) Vital Signs/I&O Capillary Refill : (IMTIAZ WYATT APRN) Departure Communication (Admissions) NAME: BRENTON [facility]ANCOURT [facility] REC#: [id number] PT STATUS: REG ER : 1935 PHYSICIAN: IMTIAZ WYATT APRN ADMIT DATE: 01/17/21/ER Draft Date of Exam:01/17/21 CT ABD/PELVIS WO(KIDNEY STONE) PROCEDURE: CT urinary tract, rule out kidney stone. TECHNIQUE: Multiple contiguous axial images were obtained through the abdomen and pelvis without the use of intravenous contrast. Auto Exposure Controls were utilized during the CT exam to meet ALARA standards for radiation dose reduction. INDICATION: Left flank pain and hematuria. Comparison is made with prior CT from 01/07/2010. Lung bases are free of acute infiltrates. There are some interstitial fibrotic changes noted in the lung bases. Liver is unremarkable. Gallbladder is surgically absent. There is no biliary ductal dilatation. Pancreas and spleen are unremarkable. No adrenal mass is detected. No renal calculi or hydronephrosis is identified. Aorta is calcified but nonaneurysmal. Bowel loops demonstrate moderate stool throughout the colon. There are some fluid-filled small bowel loops throughout the abdomen and pelvis but no focal transition is seen. There is no free fluid or fluid collection. There is no free air. No inflammatory changes are seen. The uterus and bladder are unremarkable. Old fracture deformity of the left pubic body is seen. There are numerous injection granulomas identified in subcutaneous tissues of the gluteal regions bilaterally. IMPRESSION: There is moderate stool suggesting constipation. No acute feature in abdomen or pelvis is identified. No definite urinary tract calculi or obstruction is detected. Dictated on workstation # [id number] Dict: 01/17/21 1431 Trans: 01/17/21 1451 [facility] [id number] Interpreted by: LOUISE GANDARA MD Electronically signed by: (IMTIAZ WYATT APRN) Impression Primary Impression: Acute constipation Additional Impressions: Left lower quadrant abdominal pain Left flank pain Disposition: HOME, SELF-CARE Condition: Stable Departure-Patient Inst. Decision time for Depature: 14:55 (IMTIAZ WYATT APRN) Referrals: TERRI ORTA DO (PCP/Family) Primary Care Physician Patient Instructions: Flank Pain, Constipation, Adult ED Add. Discharge Instructions: 1. Return to ER for any concerns 2. Take the MiraLAX as directed. 1 capful or packet (depending on which type you by) twice a day for the next 3 days along with increased fluid intake. I do not find anything infectious on labs. CT also has a normal appearance other than the constipation. All discharge instructions reviewed with patient and/or family. Voiced understanding. ATTENDING PHYSICIAN NOTE: I was physically present as attending physician in the emergency department during the care of this patient, but I was not directly involved in the decision making or delivery of care for this patient. (BUCK RAMIREZ MD) IMTIAZ WYATT APRN Jan 17, 2021 13:40 BUCK RAMIREZ MD Jan 18, 2021 06:34
[2021-01-17] MEDS ORDERED: NS IV 500 ML 500 ML IV SCH (13:45)
[2021-01-17] MEDS ORDERED: KETOROLAC 30 MG/ML VIAL IVP ONE (13:45)
[2021-01-17 13:47] LABS: BASOPHILS % (AUTO) 0 % (0-10); EOSINOPHILS % (AUTO) 0 % (0-10); HEMATOCRIT 48 % (35-52); HEMOGLOBIN 15.3 g/dL (11.5-16.0); LYMPHOCYTES # (AUTO) 1.1 10^3/uL (1.0-4.0); LYMPHOCYTES % (AUTO) 22 % (12-44); MEAN CORPUSCULAR HEMOGLOBIN 35 pg (25-34); MEAN CORPUSCULAR HGB CONC 32 g/dL (32-36); MEAN CORPUSCULAR VOLUME 109 fL (80-99); MEAN PLATELET VOLUME 10.8 fL (9.0-12.2); MONOCYTES # (AUTO) 0.5 10^3/uL (0.0-1.0); MONOCYTES % (AUTO) 9 % (0-12); NEUTROPHILS # (AUTO) 3.6 10^3/uL (1.8-7.8); NEUTROPHILS % (AUTO) 69 % (42-75); PLATELET COUNT 146 10^3/uL (130-400); WHITE BLOOD COUNT 5.3 10^3/uL (4.3-11.0)
[2021-01-17 14:03] LABS: ALBUMIN 4.3 GM/DL (3.2-4.5); CHLORIDE 99 MMOL/L (98-107); POTASSIUM 3.9 MMOL/L (3.6-5.0); SODIUM 141 MMOL/L (135-145)
[2021-01-17 14:04] LABS: CALCIUM 9.3 MG/DL (8.5-10.1)
[2021-01-17 14:05] LABS: GLUCOSE 83 MG/DL (70-105); TOTAL PROTEIN 8.3 GM/DL (6.4-8.2)
[2021-01-17 14:06] LABS: CARBON DIOXIDE 28 MMOL/L (21-32)
[2021-01-17 14:07] LABS: BILIRUBIN,TOTAL 0.4 MG/DL (0.1-1.0)
[2021-01-17 14:08] LABS: ALKALINE PHOSPHATASE 102 U/L (40-136)
[2021-01-17 14:09] LABS: CREATININE SERUM 0.71 MG/DL (0.60-1.30); GFR ESTIMATED > 60
[2021-01-17 14:10] LABS: BUN/CREATININE RATIO 18
[2021-01-17 14:12] LABS: ALANINE AMINOTRANSFERASE 202 U/L (0-55)
[2021-01-17] MEDS ORDERED: ACETAMINOPHEN 325 MG TABLET PO ONE (14:15)
[2021-01-17 14:30] LABS: BILIRUBIN,URINE NEGATIVE (NEGATIVE); CLARITY,URINE CLEAR; COLOR,URINE YELLOW; GLUCOSE, URINE (UA) NEGATIVE (NEGATIVE); KETONES,URINE NEGATIVE (NEGATIVE); LEUKOCYTE ESTERASE ,URINE NEGATIVE (NEGATIVE); NITRITE,URINE NEGATIVE (NEGATIVE); PROTEIN,URINE NEGATIVE (NEGATIVE)
[2021-01-17 14:42] LABS: BACTERIA,URINE TRACE /HPF; SQUAMOUS EPITHELIAL CELL,UR 0-2 /HPF; WBC,URINE 0-2 /HPF
--- NOTE | 2021-01-17 14:52 | Diagnostic Imaging Report ---
PROCEDURE: CT urinary tract, rule out kidney stone. TECHNIQUE: Multiple contiguous axial images were obtained through the abdomen and pelvis without the use of intravenous contrast. Auto Exposure Controls were utilized during the CT exam to meet ALARA standards for radiation dose reduction. INDICATION: Left flank pain and hematuria. Comparison is made with prior CT from 01/07/2010. Lung bases are free of acute infiltrates. There are some interstitial fibrotic changes noted in the lung bases. Liver is unremarkable. Gallbladder is surgically absent. There is no biliary ductal dilatation. Pancreas and spleen are unremarkable. No adrenal mass is detected. No renal calculi or hydronephrosis is identified. Aorta is calcified but nonaneurysmal. Bowel loops demonstrate moderate stool throughout the colon. There are some fluid-filled small bowel loops throughout the abdomen and pelvis but no focal transition is seen. There is no free fluid or fluid collection. There is no free air. No inflammatory changes are seen. The uterus and bladder are unremarkable. Old fracture deformity of the left pubic body is seen. There are numerous injection granulomas identified in subcutaneous tissues of the gluteal regions bilaterally. IMPRESSION: There is moderate stool suggesting constipation. No acute feature in abdomen or pelvis is identified. No definite urinary tract calculi or obstruction is detected. Dictated by: Dictated on workstation # [id number]
[2021-01-17 15:05] VITALS: BP 131/64
== END 2021-01-17 15:05 | disposition home or self-care (01) ==
LOC: EDUNIT# 13:24 → ER 13:27
DX: K59.00 Constipation, unspecified (principal); R10.32 Left lower quadrant pain; G89.29 Other chronic pain; I48.91 Unspecified atrial fibrillation; I10 Essential (primary) hypertension; M54.9 Dorsalgia, unspecified; Z87.891 Personal history of nicotine dependence; Z79.01 Long term (current) use of anticoagulants; Z79.891 Long term (current) use of opiate analgesic
CPT/HCPCS: 36415; 74176; 80053; 81000; 83605; 85025; 87040

== ENCOUNTER → 2021-01-20 | Outpatient (CLI) | payer MEDICARE, OTHER | LOC: LABNPT 08:34 | PROVIDERS: ATTEND Internal Medicine Cardiovascular Disease | DX: U07.1 COVID-19 (principal) | CPT/HCPCS: 87635 ==

== ENCOUNTER 2021-01-23 09:12 | Outpatient (CLI) | payer MEDICARE, OTHER ==
[~2021-01-23] VITALS: Ht 162.6 cm; Wt 52.2 kg
[2021-01-23 09:05] VITALS: BP 114/52
[2021-01-23] MEDS ORDERED: EPINEPHrine INJECTION 1 MG/ML AMP IM PRN (09:30)
[2021-01-23] MEDS ORDERED: CASIRIVIMAB/IMDEVIMAB 1,200 MG in NS (IVPB) 250 ML IV ONE (09:30)
[2021-01-23] MEDS ORDERED: diphenhydrAMINE 50 MG/ML INJ (BENADRYL) IV PRN (09:30)
[2021-01-23 10:24] VITALS: BP 114/52
== END 2021-01-23 11:10 | disposition home or self-care (01) ==
LOC: INFUSION 09:12
PROVIDERS: ATTEND Family Medicine
DX: Z23 Encounter for immunization (principal); U07.1 COVID-19

== ENCOUNTER → 2021-04-21 | Outpatient (CLI) | payer MEDICARE, OTHER ==
--- NOTE | 2021-04-21 14:26 | Diagnostic Imaging Report ---
PROCEDURE: US right lower extremity venous. TECHNIQUE: Multiple real-time grayscale images were obtained over the right lower extremity in various projections. Additional spectral analysis and color Doppler duplex images were also obtained. INDICATION: Pain and swelling and redness to the right lower extremity. FINDINGS: There is no evidence of right lower extremity DVT. Right lower extremity deep venous system shows normal compressibility with normal response to augmentation and Valsalva. No fluid collection or mass is detected. IMPRESSION: No evidence of right lower extremity DVT. Dictated by: Dictated on workstation # [id number]
== END ==
LOC: RAD 13:13
PROVIDERS: ATTEND Family Medicine
DX: M79.89 Other specified soft tissue disorders (principal); M79.604 Pain in right leg

== ENCOUNTER 2021-04-22 11:07 | Emergency (ER) | payer MEDICARE, OTHER ==
[~2021-04-22] VITALS: Ht 162 cm; Wt 52.0 kg
[2021-04-22] MEDS ORDERED: PIPERACILLIN SODIUM/TAZOBACTAM 4.5 GM in NS (IVPB) 100 ML IV ONE (11:15)
--- NOTE | 2021-04-22 11:55 | ED Lower Extremity ---
General Stated Complaint: R LEG SWELLING Source: patient Exam Limitations: no limitations (IMTIAZ WYATT APRN) History of Present Illness Date Seen by Provider: Apr 22, 2021 Time Seen by Provider: 11:52 Initial Comments To ER with right leg redness and swelling for about 1 week. She takes weekly subcu injections of Enbrel and daily methotrexate for rheumatoid arthritis. She has been seen by Dr. Orta for this redness and swelling and has been on Bactrim and Omnicef since , 04/17/2021 without any improvement in the redness or swelling. No fevers or chills. She then had an outpatient ultrasound done yesterday which showed no evidence of DVT. She presented today and was noted to have failure of any improvement and was recommended come to the emergency room for IV antibiotic. Onset: last week Severity: moderate Pain/Injury Location: right leg Modifying Factors: Worse With Movement (IMTIAZ WYATT APRN) Allergies and Home Medications Allergies Coded Allergies: tetanus toxoid, adsorbed (Unverified Allergy, Unknown, 08/17/14) tramadol (Verified Allergy, Unknown, Hives, 11/16/18) Patient Home Medication List Home Medication List Reviewed: Yes (IMTIAZ WYATT APRN) Acetaminophen (Tylenol) 325 Mg Tablet, 500 MG PO HS, (Reported) Entered as Reported by: JANES HARRIS on 08/17/14 1017 Apixaban (Eliquis Tablet) 5 Mg Tablet, 5 MG PO BID Prescribed by: WALTER MARQUEZ on 11/19/14 0913 Cefuroxime Axetil (Cefuroxime) 250 Mg Tablet, 250 MG PO BID Prescribed by: IMTIAZ WYATT on 06/13/20 1421 Cephalexin (Keflex) 500 Mg Capsule, 500 MG PO BID Prescribed by: AMANDA LU on 08/14/19 1653 Cephalexin (Keflex) 500 Mg Capsule, 500 MG PO TID Prescribed by: BUCK ORTIZ on 06/24/20 2227 Cyclobenzaprine Hcl (Flexeril Tablet) 10 Mg Tablet, 2.5 MG PO HS, (Reported) Entered as Reported by: JANES HARRIS on 08/17/14 1014 Denosumab (Prolia) 60 Mg/1 Ml Disp.syrin, 60 MG SQ UD, (Reported) Entered as Reported by: JANES HARRIS on 08/17/14 1014 Digoxin (Digoxin 125 Mcg) 125 Mcg Tablet, 1 EACH PO DAILY Prescribed by: WALTER MARQUEZ on 11/19/14 0913 Doxycycline Hyclate (Doxycycline Hyclate) 100 Mg Tablet, 100 MG PO BID Prescribed by: IMTIAZ WYATT on 09/22/19 1812 Doxycycline Hyclate (Doxycycline Hyclate) 100 Mg Tablet, 100 MG PO BID Prescribed by: IMTIAZ WYATT on 04/22/21 1242 Etanercept (Enbrel) 50 Mg/1 Ml Pen.injctr, 50 MG SQ UD, (Reported) Entered as Reported by: KAYLYN LU on 11/02/08 09 Fluticasone Propionate (Flonase Allergy Relief) 9.9 Ml Graham.susp, 9.9 ML NS, (Reported) Entered as Reported by: REYNALDO TREVINO on 08/06/17 212 Folic Acid (Folic Acid) 1 Mg Tab, 1 MG PO BID, (Reported) Entered as Reported by: KAYLYN LU on 11/02/08 09 Hydrocodone/Acetaminophen (Hydrocodone/Acetaminophen 5 MG/325 MG TAB) 1 Each Tablet, 1 TAB PO Q4-6HR Prescribed by: IMTIAZ WYATT on 08/17/19 1702 Melatonin/Pyridoxine Hcl (Melatonin 1 Mg Tablet) 1 Each Tablet, 1 EACH PO HS, (Reported) Entered as Reported by: JANES HARRIS on 08/17/14 1014 Methotrexate (Methotrexate) 2.5 Mg Tab, 20 MG PO UD, (Reported) Entered as Reported by: KAYLYN LU on 11/02/08 09 Metoprolol Succinate (Metoprolol Succinate Xl 50 Mg) 50 Mg Tab.sr.24h, 50 MG PO HS, (Reported) Entered as Reported by: CYNTHIA TUCKER on 02/23/12 1507 Multivitamins (Multivitamins) 1 Each Capsule, 1 EACH PO DAILY, (Reported) Entered as Reported by: LEEANNE PATEL on 01/08/10 0155 Nitrofurantoin Monohyd/M-Cryst (Macrobid 100 mg Capsule) 100 Mg Capsule, 1 TAB PO BID Prescribed by: BUCK ORTIZ on 11/11/19 0912 Herndon-3 Fatty Acids (Herndon-3) 1,000 Mg Capsule, 1,000 MG PO BID, (Reported) Entered as Reported by: CYNTHIA TUCKER on 02/23/12 1507 Oxycodone HCl/Acetaminophen (Percocet 5-325 mg Tablet) 1 Each Tablet, 1 TAB PO Q4H Prescribed by: IMTIAZ WYATT on 08/22/19 2204 Phenazopyridine HCl (Pyridium) 100 Mg Tablet, 100 MG PO TID PRN for PAIN-MILD (1-4) Prescribed by: BUCK ORTIZ on 11/11/19 0912 Review of Systems Constitutional: see HPI; No chills, No fever EENTM: see HPI Respiratory: no symptoms reported Cardiovascular: no symptoms reported Genitourinary: no symptoms reported Musculoskeletal: see HPI Skin: no symptoms reported Psychiatric/Neurological: No Symptoms Reported (IMTIAZ WYATT APRN) Past Ebqntqo-Whyzga-Vqdozf Hx Immunizations Up To Date Tetanus Booster (TDap): Less than 5yrs (IMTIAZ WYATT APRN) Seasonal Allergies Seasonal Allergies: No (IMTIAZ WYATT APRN) Past Medical History Surgeries: Yes (CATARACTS/LENS IMPLANT, COLONOSCOPY, R elbow) Adenoidectomy, Cardiac, CABG, Eye Surgery, Gallbladder, Orthopedic, Tonsillectomy Respiratory: Yes Pneumonia Currently Using CPAP: No Currently Using BIPAP: No Cardiac: Yes Atrial Fibrillation, Coronary Artery Disease, High Cholesterol, Hypertension Neurological: No Reproductive Disorders: No 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 CONSTIPATION AND DIARRHEA) Gastroesophageal Reflux, Obstructive Bowel, Chronic Constipation, Diverticulosis, Chronic Diarrhea, Irritable Bowel Musculoskeletal: Yes Rheumatoid Arthritis, Chronic Back Pain Endocrine: No HEENT: Yes Macular Degeneration Cancer: No Psychosocial: Yes (POST DEPRESSION) Integumentary: No Blood Disorders: No Adverse Reaction/Blood Tranf: No (IMTIAZ WYATT APRN) Family Medical History Abdominal aortic aneurysm G8 BROTHER Angina pectoris 19 MOTHER Completed stroke G8 BROTHER FH: brain aneurysm 19 MOTHER Hypercholesterolemia G8 SISTER Hypertension G8 SISTER Osteoporosis G8 SISTER Physical Exam Vital Signs Vital Signs - First Documented 04/22/21 11:29 Temp 36.7 Pulse 69 Resp 18 B/P (MAP) 131/79 (96) Pulse Ox 99 O2 Delivery Room Air (BRUEGGEMANN,BUCK T MD) Vital Signs Capillary Refill : (IMTIAZ WYATT APRN) Height, Weight, BMI Height: 5'5.00" Weight: 119lbs. 0.0oz. [id number]; 19.00 BMI Method:Stated General Appearance: WD/WN, no apparent distress, thin (Alert and oriented very pleasant no distress hemodynamically stable with a blood pressure of 131/74.) Neck: non-tender, full range of motion Respiratory: normal breath sounds, no respiratory distress, no accessory muscle use Hips: bilateral hip non-tender, bilateral hip normal inspection, bilateral hip normal range of motion Legs: right leg other (Right leg from the knee down has some blanching erythema, swelling and tenderness to palpation.) Knees: bilateral knee non-tender, bilateral knee normal inspection, bilateral knee normal range of motion Ankles: bilateral ankle non-tender, bilateral ankle normal inspection, bilateral ankle normal range of motion Feet: bilateral foot non-tender, bilateral foot normal inspection, bilateral foot normal range of motion Neurologic/Psychiatric: alert, normal mood/affect, oriented x 3 Skin: normal color, warm/dry (IMTIAZ WYATT APRN) Progress/Results/Core Measures Results/Orders Lab Results Laboratory Tests Test 04/22/21 11:48 Range/Units White Blood Count 5.2 4.3-11.0 10^3/uL Red Blood Count 3.82 3.80-5.11 10^6/uL Hemoglobin 12.9 11.5-16.0 g/dL Hematocrit 40 35-52 % Mean Corpuscular Volume 105 H 80-99 fL Mean Corpuscular Hemoglobin 34 25-34 pg Mean Corpuscular Hemoglobin Concent 32 32-36 g/dL Red Cell Distribution Width 13.8 10.0-14.5 % Platelet Count 181 130-400 10^3/uL Mean Platelet Volume 10.4 9.0-12.2 fL Immature Granulocyte % (Auto) 1 % Neutrophils (%) (Auto) 58 42-75 % Lymphocytes (%) (Auto) 26 12-44 % Monocytes (%) (Auto) 12 0-12 % Eosinophils (%) (Auto) 2 0-10 % Basophils (%) (Auto) 0 0-10 % Neutrophils # (Auto) 3.0 1.8-7.8 10^3/uL Lymphocytes # (Auto) 1.4 1.0-4.0 10^3/uL Monocytes # (Auto) 0.6 0.0-1.0 10^3/uL Eosinophils # (Auto) 0.1 0.0-0.3 10^3/uL Basophils # (Auto) 0.0 0.0-0.1 10^3/uL Immature Granulocyte # (Auto) 0.0 0.0-0.1 10^3/uL Prothrombin Time 15.1 H 12.2-14.7 SEC INR Comment 1.1 0.8-1.4 Sodium Level 138 135-145 MMOL/L Potassium Level 4.0 3.6-5.0 MMOL/L Chloride Level 103 98-107 MMOL/L Carbon Dioxide Level 26 21-32 MMOL/L Anion Gap 9 5-14 MMOL/L Blood Urea Nitrogen 14 7-18 MG/DL Creatinine 0.74 0.60-1.30 MG/DL Estimat Glomerular Filtration Rate 75 BUN/Creatinine Ratio 19 Glucose Level 75 70-105 MG/DL Lactic Acid Level 0.96 0.50-2.00 MMOL/L Calcium Level 9.1 8.5-10.1 MG/DL Corrected Calcium 9.3 8.5-10.1 MG/DL Total Bilirubin 0.4 0.1-1.0 MG/DL Aspartate Amino Transf (AST/SGOT) 23 5-34 U/L Alanine Aminotransferase (ALT/SGPT) 17 0-55 U/L Alkaline Phosphatase 69 40-136 U/L Total Protein 7.3 6.4-8.2 GM/DL Albumin 3.8 3.2-4.5 GM/DL (BUCK RAMIREZ MD) Micro Results Microbiology 04/22/21 Blood Culture - Preliminary, Resulted No growth 04/22/21 Blood Culture - Preliminary, Resulted No growth (BUCK RAMIREZ MD) Vital Signs/I&O 04/22/21 04/22/21 11:29 14:27 Temp 36.7 Pulse 69 68 Resp 18 18 B/P (MAP) 131/79 (96) 142/66 Pulse Ox 99 96 O2 Delivery Room Air Room Air (BUCK RAMIREZ MD) Departure Communication (Admissions) Spoke with Dr. Waddell. He would like to change Bactrim to doxycycline and discharge home. I spoke with Dr. Orta, he will see her in follow-up this at 11 AM. (IMTIAZ WYATT APRN) Impression Primary Impression: Cellulitis of right lower extremity Additional Impression: Failure of outpatient antibiotics Disposition: ADMITTED INPATIENT Condition: Stable Departure-Patient Inst. Decision time for Depature: 12:41 (IMTIAZ WYATT APRN) Referrals: TERRI ORTA DO (PCP/Family) Primary Care Physician Patient Instructions: Cellulitis (Skin Infection), Adult ED Add. Discharge Instructions: 1. Stop the Bactrim and change to doxycycline. Continue the Omnicef. You will see Dr. Orta this at 11 AM. Scripts Doxycycline Hyclate (Doxycycline Hyclate) 100 Mg Tablet 100 MG PO BID, #14 TAB 0 Refills Prov: IMTIAZ WYATT APRN 04/22/21 ATTENDING PHYSICIAN NOTE: I was physically present as attending physician in the emergency department during the care of this patient, but I was not directly involved in the decision making or delivery of care for this patient. (BUCK RAMIREZ MD) Copy Copies To 1: TERRI ORTA PETER J APRN Apr 22, 2021 11:54 BUCK RAMIREZ MD Apr 24, 2021 12:43
[2021-04-22 12:01] LABS: BASOPHILS % (AUTO) 0 % (0-10); EOSINOPHILS # (AUTO) 0.1 10^3/uL (0.0-0.3); EOSINOPHILS % (AUTO) 2 % (0-10); HEMATOCRIT 40 % (35-52); HEMOGLOBIN 12.9 g/dL (11.5-16.0); LYMPHOCYTES # (AUTO) 1.4 10^3/uL (1.0-4.0); LYMPHOCYTES % (AUTO) 26 % (12-44); MEAN CORPUSCULAR HEMOGLOBIN 34 pg (25-34); MEAN CORPUSCULAR HGB CONC 32 g/dL (32-36); MEAN CORPUSCULAR VOLUME 105 fL (80-99); MEAN PLATELET VOLUME 10.4 fL (9.0-12.2); MONOCYTES # (AUTO) 0.6 10^3/uL (0.0-1.0); MONOCYTES % (AUTO) 12 % (0-12); NEUTROPHILS % (AUTO) 58 % (42-75); PLATELET COUNT 181 10^3/uL (130-400); WHITE BLOOD COUNT 5.2 10^3/uL (4.3-11.0)
[2021-04-22 12:14] LABS: ALBUMIN 3.8 GM/DL (3.2-4.5)
[2021-04-22 12:15] LABS: INR 1.1 (0.8-1.4); PROTHROMBIN TIME PATIENT 15.1 SEC (12.2-14.7)
[2021-04-22 12:16] LABS: CALCIUM 9.1 MG/DL (8.5-10.1)
[2021-04-22 12:17] LABS: TOTAL PROTEIN 7.3 GM/DL (6.4-8.2)
[2021-04-22 12:19] LABS: BILIRUBIN,TOTAL 0.4 MG/DL (0.1-1.0)
[2021-04-22 12:21] LABS: CREATININE SERUM 0.74 MG/DL (0.60-1.30)
[2021-04-22] MEDS ORDERED: DOXY100T2 PO (12:42)
[2021-04-22] MEDS ORDERED: VANCOMYCIN INJECTION 1,000 MG in NS (IVPB) 250 ML IV ONE (12:45)
[2021-04-22 14:27] VITALS: BP 142/66
== END 2021-04-22 14:19 | disposition other institution (70) ==
LOC: EDUNIT# 11:07 → ER 11:09
DX: L03.115 Cellulitis of right lower limb (principal); I10 Essential (primary) hypertension; G89.29 Other chronic pain; M54.9 Dorsalgia, unspecified; I48.91 Unspecified atrial fibrillation; Z79.01 Long term (current) use of anticoagulants; Z79.891 Long term (current) use of opiate analgesic; Z79.899 Other long term (current) drug therapy
CPT/HCPCS: 36415; 80053; 83605; 85025; 85610; 87040

== ENCOUNTER → 2021-08-01 | Outpatient (CLI) | payer MEDICARE, OTHER ==
--- NOTE | 2021-08-01 14:13 | Diagnostic Imaging Report ---
EXAMINATION: CT abdomen and pelvis without contrast. TECHNIQUE: Multiple contiguous axial images were obtained through the abdomen and pelvis without the use of intravenous contrast. All CT scans use one or more of the following dose optimizing techniques: automated exposure control, MA and/or KvP adjustment based on patient size and exam type or iterative reconstruction. HISTORY: BLOOD IN URINE COMPARISON: 01/17/2021 FINDINGS: Lung bases: There are patchy ground glass opacities and reticulation within the lung bases. Solid organs: The liver is normal. The gallbladder is surgically absent. There is no biliary ductal dilation. Pancreas is normal. Spleen is normal. Adrenal glands are normal. The kidneys are normal without visualized calculus or hydronephrosis. Bowel: The stomach and small bowel are normal without obstruction. There is scattered colonic diverticulosis. The appendix is normal. Peritoneum: There is no intraperitoneal free fluid or free air. No suspicious lymphadenopathy. Vasculature: Calcification of the aorta without aneurysm. Musculoskeletal: Degenerative changes of the spine without suspicious osseous lesion or compression fracture. Grade 1 anterolisthesis of L4 on L5. Chronic healed left pubic ramus fracture. Soft tissue calcifications within the bilateral flanks. Pelvis: The uterus and adnexa are normal. The urinary bladder is normal. IMPRESSION: 1. No acute abnormality in the abdomen or pelvis. No visualized renal calculus or hydronephrosis. 2. Patchy groundglass opacities and reticulation lung bases which is concerning for atypical infection/atelectasis. 3. Colonic diverticulosis without findings of diverticulitis. Dictated by: Dictated on workstation # [id number]
== END ==
LOC: RAD 13:30
PROVIDERS: ATTEND Family Medicine
DX: K57.30 Diverticulosis of large intestine without perforation or abscess without bleeding (principal); R31.9 Hematuria, unspecified; R91.8 Other nonspecific abnormal finding of lung field; Z90.49 Acquired absence of other specified parts of digestive tract
CPT/HCPCS: 74176

== ENCOUNTER → 2021-08-22 | Outpatient (CLI) | payer MEDICARE, OTHER ==
--- NOTE | 2021-08-22 13:01 | Diagnostic Imaging Report ---
INDICATION: Coronary artery disease, pulmonary toxic drug therapy. COMPARISON: 12/25/2019. FINDINGS: Frontal and lateral views of the chest demonstrate chronic interstitial changes in the lung bases, which appear stable. The heart is prominent without pulmonary edema. There is no pneumothorax or effusion. The lung volumes are unchanged. Sternal wires are midline. Osseous structures are age appropriate. IMPRESSION: Chronic interstitial changes, primarily in the lower lung zones. Dictated by: Dictated on workstation # [id number]
== END ==
LOC: RAD 11:50
PROVIDERS: ATTEND Internal Medicine Rheumatology
DX: I25.10 Atherosclerotic heart disease of native coronary artery without angina pectoris (principal); Z79.899 Other long term (current) drug therapy
CPT/HCPCS: 71046

== ENCOUNTER → 2021-09-26 | Outpatient (CLI) | payer MEDICARE, OTHER | LOC: LABNPT 05:58 | PROVIDERS: ATTEND Emergency Medicine | DX: Z01.812 Encounter for preprocedural laboratory examination (principal); Z20.822 Contact with and (suspected) exposure to COVID-19 | CPT/HCPCS: 87636 ==

== ENCOUNTER 2022-04-01 15:46 | Inpatient (IN) | payer MEDICARE, OTHER ==
[~2022-04-01] VITALS: Ht 180 cm; Wt 54.2 kg
[2022-04-01] MEDS ORDERED: NS IV 1000 ML 1,000 ML IV STA (16:08)
--- NOTE | 2022-04-01 16:08 | ED General ---
General Chief Complaint: Altered Mental Status Stated Complaint: AMS Source of Information: Patient, EMS Exam Limitations: Physical Impairments History of Present Illness Date Seen by Provider: Apr 01, 2022 Time Seen by Provider: 15:55 Initial Comments Here by EMS with report of altered mental status today. Apparently had epidural injection or injection in the low back yesterday. Was having pain in not acting right this morning. Had a hydrocodone today and has had altered mental status throughout the afternoon. Unknown last well time. She does feel hot. Patient is moaning and is able to say her name but otherwise not able to give any meaningful answers. She does follow some simple commands but otherwise we are unable to get much history out of her. She does appear quite dry. Timing/Duration: 12-24 Hours Severity: Moderate Allergies and Home Medications Allergies Coded Allergies: tetanus toxoid, adsorbed (Unverified Allergy, Unknown, 08/17/14) tramadol (Verified Allergy, Unknown, Hives, 11/16/18) Patient Home Medication List Home Medication List Reviewed: Yes Acetaminophen (Tylenol) 325 Mg Tablet, 500 MG PO HS, (Reported) Entered as Reported by: JANES HARRIS on 08/17/14 1017 Apixaban (Eliquis Tablet) 5 Mg Tablet, 5 MG PO BID Prescribed by: WALTER MARQUEZ on 11/19/14 09 Cefuroxime Axetil (Cefuroxime) 250 Mg Tablet, 250 MG PO BID Prescribed by: IMTIAZ WYATT on 06/13/20 1421 Cephalexin (Keflex) 500 Mg Capsule, 500 MG PO BID Prescribed by: AMANDA LU on 08/14/19 1653 Cephalexin (Keflex) 500 Mg Capsule, 500 MG PO TID Prescribed by: BUCK ORTIZ on 06/24/20 2227 Cyclobenzaprine Hcl (Flexeril Tablet) 10 Mg Tablet, 2.5 MG PO HS, (Reported) Entered as Reported by: JANES HARRIS on 08/17/14 1014 Denosumab (Prolia) 60 Mg/1 Ml Disp.syrin, 60 MG SQ UD, (Reported) Entered as Reported by: JANES HARRIS on 08/17/14 1014 Digoxin (Digoxin 125 Mcg) 125 Mcg Tablet, 1 EACH PO DAILY Prescribed by: WALTER MARQUEZ on 11/19/14 09 Doxycycline Hyclate (Doxycycline Hyclate) 100 Mg Tablet, 100 MG PO BID Prescribed by: IMTIAZ WYATT on 09/22/19 181 Doxycycline Hyclate (Doxycycline Hyclate) 100 Mg Tablet, 100 MG PO BID Prescribed by: IMTIAZ WYATT on 04/22/21 1242 Etanercept (Enbrel) 50 Mg/1 Ml Pen.injctr, 50 MG SQ UD, (Reported) Entered as Reported by: KAYLYN LU on 11/02/08 09 Fluticasone Propionate (Flonase Allergy Relief) 9.9 Ml [place].susp, 9.9 ML NS, (Reported) Entered as Reported by: REYNALDO TREVINO on 08/06/17 212 Folic Acid (Folic Acid) 1 Mg Tab, 1 MG PO BID, (Reported) Entered as Reported by: KAYLYN LU on 11/02/08 0915 Hydrocodone/Acetaminophen (Hydrocodone/Acetaminophen 5 MG/325 MG TAB) 1 Each Tablet, 1 TAB PO Q4-6HR Prescribed by: IMTIAZ WYATT on 08/17/19 170 Melatonin/Pyridoxine Hcl (Melatonin 1 Mg Tablet) 1 Each Tablet, 1 EACH PO HS, (Reported) Entered as Reported by: JANES HARRIS on 08/17/14 1014 Methotrexate (Methotrexate) 2.5 Mg Tab, 20 MG PO UD, (Reported) Entered as Reported by: KAYLYN LU on 11/02/08 0918 Metoprolol Succinate (Metoprolol Succinate Xl 50 Mg) 50 Mg Tab.sr.24h, 50 MG PO HS, (Reported) Entered as Reported by: CYNTHIA TUCKER on 02/23/12 1507 Multivitamins (Multivitamins) 1 Each Capsule, 1 EACH PO DAILY, (Reported) Entered as Reported by: LEEANNE PATEL on 01/08/10 0155 Nitrofurantoin Monohyd/M-Cryst (Macrobid 100 mg Capsule) 100 Mg Capsule, 1 TAB PO BID Prescribed by: BUCK ORTIZ on 11/11/19 0912 Holder-3 Fatty Acids (Holder-3) 1,000 Mg Capsule, 1,000 MG PO BID, (Reported) Entered as Reported by: CYNTHIA TUCKER on 02/23/12 1507 Oxycodone HCl/Acetaminophen (Percocet 5-325 mg Tablet) 1 Each Tablet, 1 TAB PO Q4H Prescribed by: IMTIAZ WYATT on 08/22/192203 Phenazopyridine HCl (Pyridium) 100 Mg Tablet, 100 MG PO TID PRN for PAIN-MILD (1-4) Prescribed by: BUCK ORTIZ on 11/11/19 0912 Review of Systems Review of Systems Constitutional: see HPI, weakness Unable to complete review of systems due to altered mental status and clinical condition. 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 CONSTIPATION AND DIARRHEA) Gastroesophageal Reflux, Obstructive Bowel, Chronic Constipation, Diverticulosis, Chronic Diarrhea, Irritable Bowel Musculoskeletal: Yes Rheumatoid Arthritis, Chronic Back Pain Endocrine: No HEENT: Yes Macular Degeneration Cancer: No Psychosocial: Yes (POST DEPRESSION) Integumentary: No Blood Disorders: No Adverse Reaction/Blood Tranf: No Family Medical History Reviewed Nursing Family Hx Abdominal aortic aneurysm G8 BROTHER Angina pectoris 19 MOTHER Completed stroke G8 BROTHER FH: brain aneurysm 19 MOTHER Hypercholesterolemia G8 SISTER Hypertension G8 SISTER Osteoporosis G8 SISTER Social, medical and surgical history per old records as patient has altered mental status and is unable to answer questions. Physical Exam-Suspected Sepsis Physical Exam Vital Signs Vital Signs - First Documented 04/01/22 15:46 Temp 37.4 Pulse 101 Resp 22 B/P (MAP) 142/75 (97) Pulse Ox 96 O2 Delivery Room Air Capillary Refill : Height, Weight, BMI Height: 5'5.00" Weight: 119lbs. 0.0oz. 53.568913ue; 19.00 BMI Method:Stated General Appearance: Mild Distress, Thin HEENT: PERRL/EOMI, Other (Mucous membranes dry) Neck: Normal Inspection, Non Tender, Supple Respiratory: Lungs Clear, Normal Breath Sounds Cardiovascular: No Murmur, Tachycardia Gastrointestinal: Non Tender, Soft Back: No CVA Tenderness, No Vertebral Tenderness, Other (Band-Aid over the right SI joint but no central puncture spots noted.) Extremity: Normal Range of Motion, Non Tender Neurologic/Psychiatric: Disoriented (X3 but is able to state her name sometimes.), Other (Arouses to verbal. Answers her name and follows simple commands occasionally.) Skin: normal color, warm/dry Focused Exam Lactate Level 04/01/22 16:00: Lactic Acid Level 1.57 Lactic Acid Level Laboratory Tests Test 04/01/22 16:00 Lactic Acid Level 1.57 MMOL/L (0.50-2.00) Progress/Results/Core Measures Suspected Sepsis SIRS Temperature: Pulse: Respiratory Rate: Laboratory Tests 04/01/22 16:00: White Blood Count 19.3H Blood Pressure / Mean: 04/01/22 16:00: Lactic Acid Level 1.57 Laboratory Tests 04/01/22 16:00: Creatinine 0.66, INR Comment 1.0, Platelet Count 185, Total Bilirubin 1.1H Results/Orders Lab Results Laboratory Tests Test 04/01/22 16:00 04/01/22 16:27 04/01/22 17:40 Range/Units White Blood Count 19.3 H 4.3-11.0 10^3/uL Red Blood Count 4.27 3.80-5.11 10^6/uL Hemoglobin 14.8 11.5-16.0 g/dL Hematocrit 44 35-52 % Mean Corpuscular Volume 102 H 80-99 fL Mean Corpuscular Hemoglobin 35 H 25-34 pg Mean Corpuscular Hemoglobin Concent 34 32-36 g/dL Red Cell Distribution Width 13.5 10.0-14.5 % Platelet Count 185 130-400 10^3/uL Mean Platelet Volume 10.2 9.0-12.2 fL Immature Granulocyte % (Auto) 1 % Neutrophils (%) (Auto) 92 H 42-75 % Lymphocytes (%) (Auto) 2 L 12-44 % Monocytes (%) (Auto) 5 0-12 % Eosinophils (%) (Auto) 0 0-10 % Basophils (%) (Auto) 0 0-10 % Neutrophils # (Auto) 17.7 H 1.8-7.8 10^3/uL Lymphocytes # (Auto) 0.4 L 1.0-4.0 10^3/uL Monocytes # (Auto) 1.0 0.0-1.0 10^3/uL Eosinophils # (Auto) 0.0 0.0-0.3 10^3/uL Basophils # (Auto) 0.1 0.0-0.1 10^3/uL Immature Granulocyte # (Auto) 0.1 0.0-0.1 10^3/uL Neutrophils % (Manual) 88 % Lymphocytes % (Manual) 2 % Monocytes % (Manual) 2 % Band Neutrophils 8 % Microcytosis SLIGHT Prothrombin Time 13.8 12.2-14.7 SEC INR Comment 1.0 0.8-1.4 Activated Partial Thromboplast Time 30 24-35 SEC D-Dimer 0.56 H 0.00-0.49 UG/ML Sodium Level 139 135-145 MMOL/L Potassium Level 3.3 L 3.6-5.0 MMOL/L Chloride Level 100 98-107 MMOL/L Carbon Dioxide Level 29 21-32 MMOL/L Anion Gap 10 5-14 MMOL/L Blood Urea Nitrogen 11 7-18 MG/DL Creatinine 0.66 0.60-1.30 MG/DL Estimat Glomerular Filtration Rate 86 BUN/Creatinine Ratio 17 Glucose Level 147 H 70-105 MG/DL Lactic Acid Level 1.57 0.50-2.00 MMOL/L Calcium Level 9.2 8.5-10.1 MG/DL Corrected Calcium 8.9 8.5-10.1 MG/DL Total Bilirubin 1.1 H 0.1-1.0 MG/DL Aspartate Amino Transf (AST/SGOT) 24 5-34 U/L Alanine Aminotransferase (ALT/SGPT) 15 0-55 U/L Alkaline Phosphatase 54 40-136 U/L Troponin I 0.214 H <0.028 NG/ML C-Reactive Protein High Sensitivity 1.10 H 0.00-0.50 MG/DL B-Type Natriuretic Peptide 237.3 H <100.0 PG/ML Total Protein 7.6 6.4-8.2 GM/DL Albumin 4.4 3.2-4.5 GM/DL Procalcitonin 1.68 H <0.10 NG/ML Influenza Type A (RT-PCR) Not Detected Not Detecte Influenza Type B (RT-PCR) Not Detected Not Detecte SARS-CoV-2 RNA (RT-PCR) Not Detected Not Detecte Urine Color YELLOW Urine Clarity CLEAR Urine pH 8.0 5-9 Urine Specific [place] 1.015 L 1.016-1.022 Urine Protein NEGATIVE NEGATIVE Urine Glucose (UA) NEGATIVE NEGATIVE Urine Ketones NEGATIVE NEGATIVE Urine Nitrite NEGATIVE NEGATIVE Urine Bilirubin NEGATIVE NEGATIVE Urine Urobilinogen 0.2 < = 1.0 MG/DL Urine Leukocyte Esterase NEGATIVE NEGATIVE Urine RBC (Auto) TRACE-I H NEGATIVE Urine RBC 0-2 /HPF Urine WBC NONE /HPF Urine Squamous Epithelial Cells NONE /HPF Urine Crystals NONE /LPF Urine Bacteria NEGATIVE /HPF Urine Casts NONE /LPF Urine Mucus NEGATIVE /LPF Urine Culture Indicated NO My Orders Orders - ALTAGRACIA VINES MD Cbc With Automated Diff (04/01/22 15:59) Comprehensive Metabolic Panel (04/01/22 15:59) Blood Culture (04/01/22 15:59) Sputum Culture (04/01/22 15:59) Urinalysis (04/01/22 15:59) Urine Culture (04/01/22 15:59) Protime With Inr (04/01/22 15:59) Partial Thromboplastin Time (04/01/22 15:59) Chest 1 View, Ap/Pa Only (04/01/22 15:59) Ed Iv/Invasive Line Start (04/01/22 15:59) Ed Iv/Invasive Line Start (04/01/22 15:59) Troponin I [place] (04/01/22 15:59) Vital Signs Adult Sepsis Patie Q15M (04/01/22 15:59) O2 (04/01/22 15:59) Remove Rings In Anticipation O (04/01/22 15:59) Lactic Acid Analyzer (04/01/22 15:59) Influenza A And B By Pcr (04/01/22 15:59) Fibrin Degradation Products (04/01/22 15:59) Catheter(Urinary) Insert & Ass 03,15 (04/01/22 15:59) Nothing By Mouth (04/01/22 Dinner) Vital Signs Stroke Patient Q15M (04/01/22 15:59) Ct Head Wo-R/O Stroke (04/01/22 15:59) Intake & Output 06,14,22 (04/01/22 15:59) Monitor-Rhythm Ecg Trace Only (04/01/22 15:59) Dysphagia Screening Tool [id number] (04/01/22 15:59) Lipid Panel (04/02/22 06:00) Covid 19 Inhouse Test (04/01/22 15:59) Hs C Reactive Protein (04/01/22 15:59) Procalcitonin (Pct) (04/01/22 15:59) Ns Iv 1000 Ml (Sodium Chloride 0.9%) (04/01/22 16:08) Manual Differential (04/01/22 16:00) Bnp [place] (04/01/22 16:44) Fentanyl Inj (Sublimaze Injection) (04/01/22 17:56) Cefepime Injection (Maxipime Injection) (04/01/22 18:15) Acyclovir Injection (Zovirax Injection) (04/01/22 18:24) Vancomycin Injection (Vancomycin Injecti (04/01/22 18:30) Medications Given in ED Current Medications Medications Dose Ordered Sig/Cody Route Start Time Stop Time Status Last Admin Dose Admin Cefepime HCl 1000 mg/Sodium Chloride 50 ml @ 100 mls/hr ONCE ONCE IV 04/01/22 18:15 04/01/22 18:44 DC 04/01/22 18:23 100 MLS/HR Vital Signs/I&O 04/01/22 15:46 Temp 37.4 Pulse 101 Resp 22 B/P (MAP) 142/75 (97) Pulse Ox 96 O2 Delivery Room Air Capillary Refill : Progress Note : Progress Note Seen and evaluated. IV, labs, UA, Ventura catheter due to concern for significant illness and the need for monitoring. Had sepsis and stroke order set initiated. We will check flu and COVID as well. Normal saline 1 L bolus ordered. Patient has last known well time of early this morning or last night and would be outside of timeframe for tPA. Patient also on Eliquis and would not meet indication due to anticoagulant use as well. Patient does have fever currently. Monitor patient. 1824: We did ultimately get urine via cath UA. All labs reviewed. Given the elevated white count and elevated procalcitonin, bacterial infection suspected and I believe this is likely pneumonia given negative findings on UA. I did discuss all of this with Dr. Momin. Given that she apparently actually did have lumbar epidural injection and is on immune modulators, we will treat both bacterial and viral. I have ordered and we have initiated cefepime 1 g IV. We will add an vancomycin 1 g IV as well as acyclovir 10 mg/kg IV every 8 hours and standard dosing on the other antibiotics. She accepts the patient for admission, inpatient status to the ICU. Patient's family agrees with plan. Patient did receive fentanyl 50 mcg IV for what appeared to be persistent pain and she seems calmer now. Blood pressure remained stable throughout the ED visit. No indication for septic shock and no indication for high-volume fluid resuscitation. She did receive normal saline 1 L bolus. Orders written by me. Dr. Momin to call eICU team. Diagnostic Imaging Diagonstic Imaging: CT Plain Films/CT/US/NM/MRI: head Comments [facility], [place] NAME: BRENTON BETANCOURT [facility] REC#: [id number] PT STATUS: REG ER : 1935 PHYSICIAN: ALTAGRACIA VINES MD ADMIT DATE: 04/01/22/ER Signed Date of Exam:04/01/22 CT HEAD WO-R/O STROKE PROCEDURE: CT head without contrast. TECHNIQUE: Multiple contiguous axial images were obtained through the brain without the use of intravenous contrast. Auto Exposure Controls were utilized during the CT exam to meet ALARA standards for radiation dose reduction. DATE: April 01, 2022. COMPARISON: CT head December 25, 2017. INDICATION: 86-year-old female, altered mental status. FINDINGS: There are areas of low-attenuation in the periventricular and subcortical white matter which are nonspecific but most likely reflect findings of chronic small vessel ischemic disease. There is a probable remote prior lacunar infarct in the region of the right caudate which appears unchanged since the comparison exam. There is mild cerebral volume loss. There is no mass effect or midline shift. There is no acute intracranial hemorrhage. There is no abnormal extra-axial fluid collection. There is a small amount of fluid layering in the left sphenoid sinus. IMPRESSION: 1. No identified acute intracranial abnormality. 2. Chronic findings as above. 3. Air-fluid level in the left sphenoid sinus. Recommend correlation for possible acute sinusitis. Dictated by: Dictated on workstation # [id number] Dict: 04/01/22 1628 Trans: 04/01/22 1656 [facility] [id number] Interpreted by: ROMA BUTLER MD Electronically signed by: ROMA BUTLER MD 04/01/22 1656 Diagonstic Imaging: Xray Plain Films/CT/US/NM/MRI: chest Comments [facility] [place] NAME: BRENTON BETANCOURT [facility] REC#: [id number] PT STATUS: REG ER : 1935 PHYSICIAN: ALTAGRACIA VINES MD ADMIT DATE: 04/01/22/ER Draft Date of Exam:04/01/22 CHEST 1 VIEW, AP/PA ONLY INDICATION: Altered mental status. COMPARISON: 08/22/2021. FINDINGS: Single frontal radiographic view of the chest was obtained and shows mild cardiomegaly and mild prominence of pulmonary vasculature. Pulmonary interstitium is also mildly diffusely prominent. There is no focal consolidation, large effusion, nor pneumothorax. Sternotomy wires are noted. Osseous structures show no gross acute abnormalities. IMPRESSION: 1. Mild cardiomegaly with probable sequela of CHF including interstitial pulmonary edema. Dictated on workstation # [id number] Dict: 04/01/22 1624 Trans: 04/01/22 1627 [id number] Interpreted by: GAVIN HOUSTON MD Electronically signed by: Departure Communication (Admissions) Time/Spoke to Admitting Phy: 18:14 Impression Primary Impression: Pneumonia Qualified Codes: J18.9 - Pneumonia, unspecified organism Additional Impression: Altered mental status Qualified Codes: R41.0 - Disorientation, unspecified Disposition: ADMITTED INPATIENT Condition: Stable Admissions Decision to Admit Reason: Admit from ER (General) Decision to Admit/Date: Apr 01, 2022 Time/Decision to Admit Time: 18:14 Departure-Patient Inst. Referrals: TERRI ORTA DO (PCP/Family) Primary Care Physician ALTAGRACIA VINES MD Apr 01, 2022 16:08
[2022-04-01 16:11] LABS: BASOPHILS # (AUTO) 0.1 10^3/uL (0.0-0.1); BASOPHILS % (AUTO) 0 % (0-10); EOSINOPHILS % (AUTO) 0 % (0-10); HEMATOCRIT 44 % (35-52); HEMOGLOBIN 14.8 g/dL (11.5-16.0); LYMPHOCYTES # (AUTO) 0.4 10^3/uL (1.0-4.0); LYMPHOCYTES % (AUTO) 2 % (12-44); MEAN CORPUSCULAR HEMOGLOBIN 35 pg (25-34); MEAN CORPUSCULAR HGB CONC 34 g/dL (32-36); MEAN CORPUSCULAR VOLUME 102 fL (80-99); MEAN PLATELET VOLUME 10.2 fL (9.0-12.2); MONOCYTES % (AUTO) 5 % (0-12); NEUTROPHILS # (AUTO) 17.7 10^3/uL (1.8-7.8); NEUTROPHILS % (AUTO) 92 % (42-75); PLATELET COUNT 185 10^3/uL (130-400); WHITE BLOOD COUNT 19.3 10^3/uL (4.3-11.0)
[2022-04-01 16:24] LABS: ALBUMIN 4.4 GM/DL (3.2-4.5); POTASSIUM 3.3 MMOL/L (3.6-5.0)
[2022-04-01 16:25] LABS: CALCIUM 9.2 MG/DL (8.5-10.1)
[2022-04-01 16:27] LABS: TOTAL PROTEIN 7.6 GM/DL (6.4-8.2)
[2022-04-01 16:28] LABS: BILIRUBIN,TOTAL 1.1 MG/DL (0.1-1.0)
--- NOTE | 2022-04-01 16:28 | Diagnostic Imaging Report ---
INDICATION: Altered mental status. COMPARISON: 08/22/2021. FINDINGS: Single frontal radiographic view of the chest was obtained and shows mild cardiomegaly and mild prominence of pulmonary vasculature. Pulmonary interstitium is also mildly diffusely prominent. There is no focal consolidation, large effusion, nor pneumothorax. Sternotomy wires are noted. Osseous structures show no gross acute abnormalities. IMPRESSION: 1. Mild cardiomegaly with probable sequela of CHF including interstitial pulmonary edema. Dictated by: Dictated on workstation # [id number]
[2022-04-01 16:30] LABS: CREATININE SERUM 0.66 MG/DL (0.60-1.30)
[2022-04-01 16:34] LABS: FIBRIN DEGRADATION PRODUCTS 0.56 UG/ML (0.00-0.49); PROTHROMBIN TIME PATIENT 13.8 SEC (12.2-14.7)
--- NOTE | 2022-04-01 16:37 | Diagnostic Imaging Report ---
PROCEDURE: CT head without contrast. TECHNIQUE: Multiple contiguous axial images were obtained through the brain without the use of intravenous contrast. Auto Exposure Controls were utilized during the CT exam to meet ALARA standards for radiation dose reduction. DATE: April 01, 2022. COMPARISON: CT head December 25, 2017. INDICATION: 86-year-old female, altered mental status. FINDINGS: There are areas of low-attenuation in the periventricular and subcortical white matter which are nonspecific but most likely reflect findings of chronic small vessel ischemic disease. There is a probable remote prior lacunar infarct in the region of the right caudate which appears unchanged since the comparison exam. There is mild cerebral volume loss. There is no mass effect or midline shift. There is no acute intracranial hemorrhage. There is no abnormal extra-axial fluid collection. There is a small amount of fluid layering in the left sphenoid sinus. IMPRESSION: 1. No identified acute intracranial abnormality. 2. Chronic findings as above. 3. Air-fluid level in the left sphenoid sinus. Recommend correlation for possible acute sinusitis. Dictated by: Dictated on workstation # [id number]
[2022-04-01 16:52] LABS: BAND NEUTROPHILS 8 %; LYMPHOCYTES % (MANUAL) 2 %; MICROCYTOSIS SLIGHT; MONOCYTES % (MANUAL) 2 %; NEUTROPHILS % (MANUAL) 88 %
[2022-04-01 17:50] LABS: BILIRUBIN,URINE NEGATIVE (NEGATIVE); CLARITY,URINE CLEAR; COLOR,URINE YELLOW; GLUCOSE, URINE (UA) NEGATIVE (NEGATIVE); KETONES,URINE NEGATIVE (NEGATIVE); LEUKOCYTE ESTERASE ,URINE NEGATIVE (NEGATIVE); NITRITE,URINE NEGATIVE (NEGATIVE); PROTEIN,URINE NEGATIVE (NEGATIVE)
[2022-04-01] MEDS ORDERED: fentaNYL INJ 100 MCG/2 ML AMP IVP STA (17:56)
[2022-04-01 17:58] LABS: BACTERIA,URINE NEGATIVE /HPF; RBC,URINE 0-2 /HPF
[2022-04-01] MEDS ORDERED: CEFEPIME INJECTION 1,000 MG in NS (IVPB) 50 ML IV ONE (18:15)
[2022-04-01] MEDS ORDERED: ACYCLOVIR IV STA (18:24)
[2022-04-01] MEDS ORDERED: D5W IV STA (18:24)
[2022-04-01] MEDS ORDERED: VANCOMYCIN INJECTION 1,000 MG in NS (IVPB) 250 ML IV ONE (18:30)
[2022-04-01] MEDS ORDERED: AMPICILLIN FOR IV USE 2,000 MG in WATER (STERILE) FOR INJECTION 14.8 ML IV SCH (19:30)
--- NOTE | 2022-04-01 19:46 | Tele-ICU Progress Note ---
Subjective Date Seen by a Provider: Apr 01, 2022 Time Seen by a Provider: 19:00 Subjective/Events-last exam This virtual visit was conducted using real time audio/video. Thank you for asking us to see this patient for distress due to AMS, SIRS, pna in a heavily immunosuppresed pt. Received epidural injection yesterday. Recd 1 L IVF in ER. PMH: RA, CAD, HL, HTN, Afib, GERD SH: smoking history unknown FH: Non-contributory ROS: limited by patient's clinical condition. PE: Mild distress. Cachectic. VSS. O2 sat 96% on RA HEENT: No obvious masses, adenopathy or JVD. Chest: clear to auscultation. CV: irreg S1 S2 No murmur or added sounds. Abd: Non-tender. Bowel sounds Y. : Unremarkable. Ventura Y. 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 Extremities: No edema. Capillary refill < 3 seconds. Skin: unremarkable. Results: Elevated WCC 19.3. Decreased . BG: K 3.3. CXR: Hyperinflated, cardiomeg., interstitial changes.. Available chart/ vitals / labs / images reviewed. Video assessment done using teleICU camera, rest of exam as per RN. A/P: Critical Care: critically ill immunosuppresed patient. Cont.IVF, abx, antiviral. LP in AM. Discussed with DAVIAN Blanco. Asked RN to reach out to eICU if any questions or concerns later. Time spent with patient/coordination of care with other health professionals (nd ns): 40 Sepsis Event Evaluation Height, Weight, BMI Height: 5'5.00" Weight: 119lbs. 0.0oz. 53.938377lu; 18.00 BMI Method:Stated Focused Exam Lactate Level 04/01/22 16:00: Lactic Acid Level 1.57 Lactic Acid Level Laboratory Tests Test 04/01/22 16:00 Lactic Acid Level 1.57 MMOL/L (0.50-2.00) Exam Exam Patient acknowledged, consented, and participated in this virtual visit which was conducted using real time audio/video Vital Signs Date Time Temp Pulse Resp B/P (MAP) Pulse Ox O2 Delivery O2 Flow Rate FiO2 04/01/22 15:46 37.4 101 22 142/75 (97) 96 Room Air Height & Weight Height: 5'5.00" Weight: 119lbs. 0.0oz. 53.498742mq; 18.00 BMI Method:Stated General Appearance: Mild Distress, Thin HEENT: PERRL/EOMI, Other (Mucous membranes dry) Neck: Normal Inspection, Non Tender, Supple Respiratory: Lungs Clear, Normal Breath Sounds Cardiovascular: No Murmur, Tachycardia Extremity: Normal Range of Motion, Non Tender Neurologic/Psychiatric: Disoriented (X3 but is able to state her name sometimes.), Other (Arouses to verbal. Answers her name and follows simple commands occasionally.) Results Lab Laboratory Tests 04/01/22 16:00 Assessment/Plan Assessment/Plan See free text. Critical Care: Critically Ill Patient RIA JACOBO MD Apr 01, 2022 19:46
[2022-04-01] MEDS ORDERED: fentaNYL INJ 100 MCG/2 ML AMP ONE (20:03)
[2022-04-01] MEDS ORDERED: fentaNYL INJ 100 MCG/2 ML AMP IVP PRN ×3 (20:15→21:00)
[2022-04-01] MEDS ORDERED: fentaNYL DRIP PRE-MIX 250 ML IV ONE (20:29)
[2022-04-01] MEDS: fentaNYL DRIP PRE-MIX 250 ML IV SCH (20:34)
[2022-04-01] MEDS ORDERED: NS IV 500 ML 500 ML IV PRN (21:15)
[2022-04-01] MEDS ORDERED: POTASSIUM CL 10MEQ/50ML IVPB 200 ML IV ONE (21:17)
[2022-04-01] MEDS: POTASSIUM CL 10MEQ/50ML IVPB 50 ML IV SCH ×3 (21:18→23:06)
[2022-04-01] MEDS: AMPICILLIN 2,000 MG/NS 100 ML IVPB IV SCH ×2 (22:03)
[2022-04-01] MEDS: NS IV SCH (22:08)
[2022-04-01] MEDS: ACYCLOVIR IV SCH (22:08)
[2022-04-01] MEDS: VASOPRESSIN INJECTION 20 UNIT in NS (IVPB) 100 ML IV SCH (23:22)
[2022-04-01] MEDS ORDERED: ONDANSETRON 4 MG/2 ML (SDV) Z0FRAN IV PRN (23:30)
[2022-04-01] MEDS: NS IV 1000 ML 1,000 ML IV SCH (23:30)
[2022-04-01] MEDS ORDERED: NOREPINEPHRINE 8 MG/250 ML 250 ML IV SCH (23:30)
[2022-04-01] MEDS ORDERED: EPINEPHrine 1 MG INJECTION 4 MG in NS (IVPB) 248 ML IV SCH (23:30)
[2022-04-01] MEDS ORDERED: DexMEDEtomidine 250 ML DRIP 250 ML IV ONE (23:43)
[2022-04-01] MEDS ORDERED: DexMEDEtomidine 250 ML DRIP 250 ML IV SCH (23:45)
[2022-04-02] MEDS: CEFEPIME 1,000 MG/NS 50 ML IVPB IV SCH ×4 (00:06→05:54)
[2022-04-02] MEDS: POTASSIUM CL 10MEQ/50ML IVPB 50 ML IV SCH (00:06)
[2022-04-02] MEDS: AMPICILLIN 2,000 MG/NS 100 ML IVPB IV SCH ×4 (01:22→05:04)
[2022-04-02 05:10] VITALS: BP 115/54
[2022-04-02] MEDS: fentaNYL DRIP PRE-MIX 250 ML IV SCH (05:10)
[2022-04-02 05:33] LABS: BASOPHILS # (AUTO) 0.1 10^3/uL (0.0-0.1); BASOPHILS % (AUTO) 0 % (0-10); EOSINOPHILS % (AUTO) 0 % (0-10); HEMATOCRIT 42 % (35-52); LYMPHOCYTES # (AUTO) 1.2 10^3/uL (1.0-4.0); LYMPHOCYTES % (AUTO) 5 % (12-44); MEAN CORPUSCULAR HEMOGLOBIN 35 pg (25-34); MEAN CORPUSCULAR HGB CONC 33 g/dL (32-36); MEAN CORPUSCULAR VOLUME 105 fL (80-99); MONOCYTES # (AUTO) 1.6 10^3/uL (0.0-1.0); MONOCYTES % (AUTO) 7 % (0-12); NEUTROPHILS # (AUTO) 21.1 10^3/uL (1.8-7.8); NEUTROPHILS % (AUTO) 87 % (42-75); PLATELET COUNT 145 10^3/uL (130-400); WHITE BLOOD COUNT 24.3 10^3/uL (4.3-11.0)
[2022-04-02 05:52] LABS: ALBUMIN 3.8 GM/DL (3.2-4.5); POTASSIUM 5.4 MMOL/L (3.6-5.0)
[2022-04-02 05:53] LABS: CALCIUM 8.2 MG/DL (8.5-10.1)
[2022-04-02 05:54] LABS: TOTAL PROTEIN 7.4 GM/DL (6.4-8.2)
[2022-04-02 05:56] LABS: BILIRUBIN,TOTAL 0.8 MG/DL (0.1-1.0)
[2022-04-02 05:57] LABS: PHOSPHORUS 2.9 MG/DL (2.3-4.7)
[2022-04-02 05:58] LABS: CREATININE SERUM 0.64 MG/DL (0.60-1.30)
[2022-04-02] MEDS ORDERED: POTASSIUM CL 10MEQ/50ML IVPB 50 ML IV SCH (06:00)
[2022-04-02] MEDS ORDERED: VANCOMYCIN 1 GM/NS 250 ML IVPB IV SCH ×2 (06:00)
[2022-04-02] MEDS ORDERED: MAGNESIUM 1 GM/100 ML IVPB 100 ML IV SCH (06:00)
[2022-04-02] MEDS ORDERED: KCL 20 MEQ TAB (K-DUR) PO SCH (06:00)
[2022-04-02 06:01] LABS: MAGNESIUM 1.9 MG/DL (1.6-2.4)
--- NOTE | 2022-04-02 09:05 | History & Physical-Hospitalist ---
History of Present Illness HPI/Chief Complaint Pt is a 86yoCF with a PMH of RA on chronic immune suppression who presented to the ER due to pain and confusion. She is currently on a fentanyl gtt and precedex gtt and unable to provide any history. Apparently she has chronic back pain and underwent an LESI at [address] 2 days ago. She woke up yesterday morning with a severe headache and throughout the day progressed to becoming more and more altered. Her family elected to bring her in given her worsening pain and increasing confusion. In the emergency department CT head was done and was negative. There was concern for sepsis and possible pneumonia by the emergency room and she was admitted due to her encephalopathy. I discussed with a midlevel from [address] yesterday and confirmed that she did have an epidural injection. Elected to start her on empiric antibiotics for bacterial meningitis. There is no family at bedside during my exam this morning to supplement the history. RN reports she has been objectively in pain and has finally calmed down with the fentanyl and Precedex. Source: patient Date Seen 04/02/22 Time Seen by a Provider: 07:45 Attending Physician Joey Connolly DO PCP Admitting Physician: Yue Reeves MD Attending Physician: Yue Reeves MD Referring Physician Date of Admission Apr 01, 2022 at 18:30 Home Medications & Allergies Home Medications Reviewed patient Home Medication Reconciliation performed by pharmacy medication reconciliations aircraft engine technician and/or nursing. Patients Allergies have been reviewed. Allergies Allergies Coded Allergies tetanus toxoid, adsorbed (Unverified Allergy, Unknown, 08/17/14) tramadol (Verified Allergy, Unknown, Hives, 11/16/18) Past Sbqwdfg-Ehsmzv-Blghuo Hx Patient Social History Marrital Status: Employed/Student: retired Tobacco Use?: No Use of E-Cig and/or Vaping dev: No Substance use?: No Alcohol Use?: No Pt feels they are or have been: No Immunizations Up To Date Date of Influenza Vaccine: May 17, 2014 First/Initial COVID19 Vaccinat: 2020 Second COVID19 Vaccination Rigo: 2020 Date of Pneumonia Vaccine: May 26, 2011 Seasonal Allergies Seasonal Allergies: No Current Status Advance Directives: No Communicates: Verbally Primary Language: Danish Preferred Spoken Language: Danish Is interpretation needed?: No Sensory deficits: Hearing impairment Implanted or Applied Medical D: None Past Medical History Surgeries: Adenoidectomy, Cardiac, CABG, Eye Surgery, Gallbladder, Orthopedic, Tonsillectomy Pneumonia Currently Using CPAP: No Currently Using BIPAP: No Atrial Fibrillation, Coronary Artery Disease, High Cholesterol, 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 Sexually Transmitted Disease: No Kidney Infection, Bladder Infection Gastroesophageal Reflux, Obstructive Bowel, Chronic Constipation, Diverticulosis, Chronic Diarrhea, Irritable Bowel Rheumatoid Arthritis, Chronic Back Pain Macular Degeneration Blood Disorders: No Adverse Reaction/Blood Tranf: No Family Medical History Reviewed Nursing Family Hx Abdominal aortic aneurysm G8 BROTHER Angina pectoris 19 MOTHER Completed stroke G8 BROTHER FH: brain aneurysm 19 MOTHER Hypercholesterolemia G8 SISTER Hypertension G8 SISTER Osteoporosis G8 SISTER Social, medical and surgical history per old records as patient has altered mental status and is unable to answer questions. Review of Systems Constitutional: see HPI Physical Exam Physical Exam Vital Signs Capillary Refill : Less Than 3 Seconds Height, Weight, BMI Height: 5'5.00" Weight: 119lbs. 0.0oz. 53.061858zb; 16.72 BMI Method:Stated General Appearance: Anxious, Mild Distress, Thin HEENT: PERRL/EOMI, Other (dry mucous membranes) Neck: Normal Inspection, Supple Respiratory: Lungs Clear, No Accessory Muscle Use, No Respiratory Distress Cardiovascular: Regular Rate, Rhythm, No Murmur Gastrointestinal: Normal Bowel Sounds, Non Tender, Soft Genital/Rectal: Other (catheter in place) Extremity: Normal Capillary Refill, No Calf Tenderness, No Pedal Edema Neurologic/Psychiatric: Alert, Disoriented Results Results/Procedures Labs Patient resulted labs reviewed. Imaging: Reviewed Imaging Report Imaging [facility], [place], [place] NAME: BRENTON BETANCOURT [facility] REC#: [id number] PT STATUS: ADM IN : 1935 PHYSICIAN: ALTAGRACIA VINES MD ADMIT DATE: 04/01/22/ICU Signed Date of Exam:04/01/22 CHEST 1 VIEW, AP/PA ONLY INDICATION: Altered mental status. COMPARISON: 08/22/2021. FINDINGS: Single frontal radiographic view of the chest was obtained and shows mild cardiomegaly and mild prominence of pulmonary vasculature. Pulmonary interstitium is also mildly diffusely prominent. There is no focal consolidation, large effusion, nor pneumothorax. Sternotomy wires are noted. Osseous structures show no gross acute abnormalities. IMPRESSION: 1. Mild cardiomegaly with probable sequela of CHF including interstitial pulmonary edema. Dictated by: Dictated on workstation # [id number] Dict: 04/01/22 1624 Trans: 04/02/22 0809 [id number] [id number] Interpreted by: GAVIN HOUSTON MD Electronically signed by: GAVIN HOUSTON MD 04/02/2209 [facility], [place] NAME: BRENTON BETANCOURT [facility] REC#: [id number] PT STATUS: REG ER : 1935 PHYSICIAN: ALTAGRACIA VINES MD ADMIT DATE: 04/01/22/ER Signed Date of Exam:04/01/22 CT HEAD WO-R/O STROKE PROCEDURE: CT head without contrast. TECHNIQUE: Multiple contiguous axial images were obtained through the brain without the use of intravenous contrast. Auto Exposure Controls were utilized during the CT exam to meet ALARA standards for radiation dose reduction. DATE: April 01, 2022. COMPARISON: CT head December 25, 2017. INDICATION: 86-year-old female, altered mental status. FINDINGS: There are areas of low-attenuation in the periventricular and subcortical white matter which are nonspecific but most likely reflect findings of chronic small vessel ischemic disease. There is a probable remote prior lacunar infarct in the region of the right caudate which appears unchanged since the comparison exam. There is mild cerebral volume loss. There is no mass effect or midline shift. There is no acute intracranial hemorrhage. There is no abnormal extra-axial fluid collection. There is a small amount of fluid layering in the left sphenoid sinus. IMPRESSION: 1. No identified acute intracranial abnormality. 2. Chronic findings as above. 3. Air-fluid level in the left sphenoid sinus. Recommend correlation for possible acute sinusitis. 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
[2022-04-02] MEDS: NS IV SCH (09:28)
[2022-04-02] MEDS: ACYCLOVIR IV SCH (09:28)
[2022-04-02] MEDS: NS IV 1000 ML 1,000 ML IV SCH (09:31)
[2022-04-02] MEDS: VASOPRESSIN INJECTION 20 UNIT in NS (IVPB) 100 ML IV SCH (09:32)
[2022-04-02] MEDS ORDERED: GADOTERATE 0.5 MMOL/ML (CLARISCAN) 15 ML VIAL IV NR (10:00)
--- NOTE | 2022-04-02 11:30 | Tele-ICU Progress Note ---
Subjective Date Seen by a Provider: Apr 02, 2022 Time Seen by a Provider: 11:30 Subjective/Events-last exam (Tele-ICU Physician , Progress Note ) Available chart/ vitals / labs / Images reviewed Video assessment done using teleICU camera, rest of exam as per RN Discussed with RN Events overnight : febrile 37.4 hemodynamically stable Respiratory - 2l I/O = Drips: NS 100 Pressors- no Consultants: Hospital course: 86yoCF with a PMH of RA on chronic immune suppression who presented to the ER due to pain and confusion A/P Fever ( neg covid and flu 04/01) -epidural injection on 03/31 and immune suppressed state 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 current RA - on MTX , Embel -CTchest 2017 - chronci parenchimal changes Lines : , (Central Line Necessity Reviewed) [place]: 03/31 OG: Nutrition: NPO Analgesia: Anxiety/ delirium VTE Prophylaxis: SCD Stress Ulcer Prophylaxis: na Plans in collaboration with bedside consultants and IM MDs. Discussed with RN to reach out if any questions or concerns A total of 31 minutes of critical care time was devoted to this patient today, required to treat and/or prevent further deterioration of critical care condition ( as above ) . Sepsis Event Evaluation Height, Weight, BMI Height: 5'5.00" Weight: 119lbs. 0.0oz. 53.113570zf; 16.72 BMI Method:Stated Focused Exam Lactate Level 04/01/22 16:00: Lactic Acid Level 1.57 Exam Exam Patient acknowledged, consented, and participated in this virtual visit which was conducted using real time audio/video Vital Signs Date Time Temp Pulse Resp B/P (MAP) Pulse Ox O2 Delivery O2 Flow Rate FiO2 04/02/22 10:00 65 11 118/55 (76) 98 Nasal Cannula 2.00 04/02/22 10:00 65 11 113/62 (79) 98 Nasal Cannula 2.00 04/02/22 09:12 98 Nasal Cannula 2.00 04/02/22 09:00 64 31 128/70 (89) 99 Nasal Cannula 2.00 04/02/22 08:14 36.2 04/02/22 08:00 99 Nasal Cannula 2.00 04/02/22 08:00 66 13 126/59 (81) 98 Nasal Cannula 2.00 04/02/22 07:00 65 04/02/22 07:00 65 19 122/51 (74) 98 Nasal Cannula 2.00 04/02/22 06:00 67 12 112/55 (74) 97 Nasal Cannula 2.00 04/02/22 05:15 68 16 140/78 (101) 96 Nasal Cannula 2.00 04/02/22 05:10 68 115/54 04/02/22 04:00 99 Nasal Cannula 2.00 04/02/22 04:00 70 10 107/53 (70) 96 Nasal Cannula 2.00 04/02/22 03:50 37.0 Nasal Cannula 2.00 04/02/22 03:48 70 107/53 04/02/22 03:00 73 35 110/65 (74) 99 Nasal Cannula 2.00 04/02/22 02:00 74 13 119/51 (73) 99 Nasal Cannula 2.00 04/02/22 01:00 77 103/61 (88) 97 Nasal Cannula 2.00 04/02/22 01:00 77 04/02/22 00:07 87 115/56 04/02/22 00:00 89 16 115/56 (75) 98 Nasal Cannula 2.00 04/01/22 23:48 91 125/60 04/01/22 23:15 97 Nasal Cannula 2.00 04/01/22 23:10 36.9 Nasal Cannula 2.00 04/01/22 23:00 89 14 124/59 (89) 91 Nasal Cannula 2.00 04/01/22 22:00 90 138/57 (78) 100 Nasal Cannula 2.00 04/01/22 21:20 Nasal Cannula 2.00 04/01/22 21:08 Nasal Cannula 4.00 04/01/22 21:00 87 28 137/71 (77) 95 Room Air 04/01/22 20:51 93 24 156/77 (101) Room Air 04/01/22 20:34 85 141/69 04/01/22 20:30 89 34 141/69 (107) 89 Room Air 04/01/22 20:15 89 19 130/58 (81) 91 Room Air 04/01/22 20:00 85 27 138/63 (72) 96 Room Air 04/01/22 19:53 37.5 85 28 147/53 (84) 95 Room Air 04/01/22 19:50 89 04/01/22 19:38 99 Room Air 04/01/22 19:32 89 33 140/65 96 Room Air 04/01/22 15:46 37.4 101 22 142/75 (97) 96 Room Air I & O 04/02/22 07:00 Intake Total 906.4 ml Output Total 1475 ml Balance -568.6 ml Height & Weight Height: 5'5.00" Weight: 119lbs. 0.0oz. 53.389396bo; 16.72 BMI Method:Stated General Appearance: Anxious, Mild Distress, Thin HEENT: PERRL/EOMI, Other (dry mucous membranes) Neck: Normal Inspection, Supple Respiratory: Lungs Clear, No Accessory Muscle Use, No Respiratory Distress Cardiovascular: Regular Rate, Rhythm, No Murmur Capillary Refill: Less Than 3 Seconds Extremity: Normal Capillary Refill, No Calf Tenderness, No Pedal Edema Neurologic/Psychiatric: Alert, Disoriented Results Lab Laboratory Tests 04/01/22 16:00 04/02/22 05:00 Assessment/Plan Assessment/Plan 1 LIZETT MUSA MD Apr 02, 2022 11:30
[2022-04-02] MEDS ORDERED: AMPICILLIN 2,000 MG/NS 100 ML IVPB IV SCH ×2 (12:00)
--- NOTE | 2022-04-02 14:40 | Diagnostic Imaging Report ---
PROCEDURE: MRI lumbar spine. TECHNIQUE: Multiplanar, multisequence MRI of the lumbar spine was performed without contrast. INDICATION: Back pain This study could not be completed due to patient discomfort. Only T2 fat-saturated and T2 sagittal series could be obtained. The previous MRI lumbar spine exam of 09/15/2013 noted a grade 2 spondylolisthesis of L4 with respect to L5 and narrowing of the L4-L5 disc space. There was also moderate central canal stenosis at this level. On this exam, those findings are again evident and do not seem to have progressed significantly. There still no high-grade central stenosis identified but there is narrowing of the neural foramina bilaterally. The remainder of the lumbar spine is unremarkable for a high-grade central stenosis or any significant neuroforaminal narrowing. There is no abnormal signal arising from the cord or otherwise to indicate an acute abnormality. IMPRESSION: 1. There is no acute abnormality identified on this limited exam. 2. The degenerative disc and bony disease at the L4-L5 level seen previously is again evident and does not appear to have progressed significantly. 3. There is no new area of spinal stenosis or nerve root encroachment identified. Dictated by: Dictated on workstation # [id number]
[2022-04-02] MEDS ORDERED: MELA1TAB51 PO (15:36)
[2022-04-02] MEDS ORDERED: CYCL10TA25 PO (15:36)
[2022-04-02] MEDS ORDERED: LOTE5GEL OP (15:36)
[2022-04-02] MEDS ORDERED: MAGN400T39 PO (15:36)
[2022-04-02] MEDS ORDERED: ETAN50SY (15:36)
[2022-04-02] MEDS ORDERED: MULT-1136 PO (15:36)
[2022-04-02] MEDS ORDERED: METH2.5T PO (15:36)
[2022-04-02] MEDS ORDERED: ACET-2267 PO (15:36)
[2022-04-02] MEDS ORDERED: DENO60DI SQ (15:36)
[2022-04-02] MEDS ORDERED: GABA-486 PO (15:36)
[2022-04-02] MEDS ORDERED: MTP25TSR PO ×2 (15:36)
[2022-04-02] MEDS ORDERED: FOLI1TAB33 PO (15:36)
[2022-04-02] MEDS ORDERED: OMEG10005 PO (15:36)
[2022-04-02] MEDS ORDERED: APIX2.5T PO (15:36)
[2022-04-02] MEDS ORDERED: LORA10TA7 PO (15:36)
[2022-04-02] MEDS ORDERED: DIGO125T3 PO (15:36)
[2022-04-02] MEDS ORDERED: CHOL10007 PO (15:37)
[2022-04-02] MEDS ORDERED: CEFEPIME 2,000 MG/NS 50 ML IVPB IV SCH ×2 (18:00)
[2022-04-02] MEDS ORDERED: ACYCLOVIR IV SCH (22:00)
[2022-04-02] MEDS ORDERED: NS IV SCH (22:00)
[2022-04-03] MEDS ORDERED: TROUGH ORDER-PHARMACY XX ONE (05:00)
--- NOTE | 2022-04-03 11:03 | Physician Query Clarification ---
PQ-Intro New Diagnosis Admission/Discharge Admission Date: Apr 01, 2022 at 18:30 Discharge Date: Apr 02, 2022 at 16:35 Dr. Momin, The medical record reflects the following clinical scenario: History/Risk Factors: pneumonia, AMS Clinical Findings: WBC 19.3, Lactic acid 1.57, T 37.4, P 101, R 33, AMS, preliminary blood culture enterococus species Treatment: IV Cefepime, IV Acyclovir, IV Vancomycin, IV Ampicillin Question: What condition best reflects the above clinical scenario? Please document a response in the Progress Noter or Discharge Summary. 1. strep enterococcus Sepsis 2. strep enterococcus bacteremia No sepsis 3. Other, with explanation of the clinical findings. 4. Clinically undetermined, no explanation for the clinical findings. PHYSICIAN RESPONSE What condition reflects above: Other, explanation/clinical finding Explanation of clincal finding strep enterococcus bacteremia with sepsis both present on arrival In responding to this query, please exercise your independent professional judgment. The purpose of this communication is to more accurately reflect the complexity of your patients condition. The fact that a question is asked does not imply that any particular answer is desired or expected. Thank you for your timely response to this clarification. Requestors name: Jenifer THIS PHYSICIAN QUERY FORM IS A PERMANENT PART OF THE MEDICAL RECORD JENIFER RICO Apr 03, 2022 11:03 YUE MOMIN MD Apr 13, 2022 14:14
--- NOTE | 2022-04-14 10:07 | Physician Query Clarification ---
PQ-Link Infection to Dev/Proc Admission/Discharge Admission Date: Apr 01, 2022 at 18:30 Discharge Date: Apr 02, 2022 at 16:35 Dr. Momin, The medical record reflects the following clinical scenario: History/Risk Factors: epidural injection 03/31, immunosuppression d/t RA, streptococcal sepsis Clinical Findings: encephalopathy, WBC 19.3, Blood culture strep enterococcus, severe OH Treatment: IV Cefepime, IV Vancomycin, IV Ampicillin, IV Acyclovir Question: Can you specify if the infection is due to/associated with epidural injection? Please document a response in Progress Note or Discharge Summary. 1. Yes - infection is due to/associated with epidural injection. 2. No - infection is due to/associated with epidural injection. 3. Other, with explanation of the clinical findings. 4. Clinically undetermined, no explanation for the clinical findings. PHYSICIAN RESPONSE Specify if infection: 1 In responding to this query, please exercise your independent professional judgment. The purpose of this communication is to more accurately reflect the complexity of your patients condition. The fact that a question is asked does not imply that any particular answer is desired or expected. Thank you for your timely response to this clarification. Requestors name: Jenifer THIS PHYSICIAN QUERY FORM IS A PERMANENT PART OF THE MEDICAL RECORD JENIFER RICO Apr 14, 2022 10:07 YUE MOMIN MD Apr 14, 2022 15:53
--- NOTE | 2022-04-14 10:18 | Physician Query Clarification ---
PQ-Uncertain Diagnosis Admission/Discharge Admission Date: Apr 01, 2022 at 18:30 Discharge Date: Apr 02, 2022 at 16:35 The medical record reflects the following clinical scenario: History/Risk Factors: epidural injection 03/31, immuno suppresion d/t RA Clinical Findings: T 37.4, WBC 19.3, severe OH, 04/01 CXR - Mild cardiomegaly with probable sequela of CHF including interstitial pulmonary edema., Respiratory: Lungs Clear, Normal Breath Sounds Treatment: IV Cefepime IV Vancomycin, IV Ampicillin, IV Acylovir Question: Is pneumonia a clinically valid diagnosis? Pneumonia was documented in the ER record with no further documentation in the medical record. Please document a response in Progress Note or Discharge Summary. 1. Yes, clinically valid, condition resolved. 2. No, condition ruled out. 3. Other, with explanation of clinical findings. 4. Undetermined, no explanation for clinical findings. PHYSICIAN RESPONSE Diagnosis clinically valid: No, conditon ruled out In responding to this query, please exercise your independent professional judgment. The purpose of this communication is to more accurately reflect the complexity of your patients condition. The fact that a question is asked does not imply that any particular answer is desired or expected. Thank you for your timely response to this clarification. Requestors name: Jenifer THIS PHYSICIAN QUERY FORM IS A PERMANENT PART OF THE MEDICAL RECORD JENIFER RICO Apr 14, 2022 10:17 YUE REEVES MD Apr 14, 2022 15:53
== END 2022-04-02 16:35 | disposition short-term general hospital (02) | DRG 867 ==
LOC: EDUNIT# 15:46 → ER 15:47 → ICU 18:30
PROVIDERS: ADMIT Family Medicine; ATTEND Family Medicine
DX: T80.29XA Infection following other infusion, transfusion and therapeutic injection, initial encounter (principal); A40.8 Other streptococcal sepsis; G00.9 Bacterial meningitis, unspecified; G93.49 Other encephalopathy; I48.91 Unspecified atrial fibrillation; I25.10 Atherosclerotic heart disease of native coronary artery without angina pectoris; E78.00 Pure hypercholesterolemia, unspecified; I10 Essential (primary) hypertension; K21.9 Gastro-esophageal reflux disease without esophagitis; M06.9 Rheumatoid arthritis, unspecified; H35.30 Unspecified macular degeneration; I27.20 Pulmonary hypertension, unspecified; E87.5 Hyperkalemia; Z79.01 Long term (current) use of anticoagulants; Z95.1 Presence of aortocoronary bypass graft; Z20.822 Contact with and (suspected) exposure to COVID-19; Z88.5 Allergy status to narcotic agent; Z88.7 Allergy status to serum and vaccine; Z82.49 Family history of ischemic heart disease and other diseases of the circulatory system
CPT/HCPCS: 36415; 51702; 70450; 71045; 72148; 80053; 80061; 81000; 83605; 83735; 83880; 84100; 84145; 84484; 85007; 85025; 85027; 85379; 85610; 85730; 86141; 87040; 87077; 87081; 87088; 87186; 87636; 93041; 96361; 96365; 96367; 96375

== ENCOUNTER → 2022-04-13 | Outpatient (CLI) ==
[~2022-04-13] MED LIST changes: +ACET-2267 PO; +APIX2.5T PO; +CHOL10007 PO; +CYCL10TA25 PO; +DIGO125T3 PO; +ETAN50SY; +FOLI1TAB33 PO; +GABA-486 PO; +LORA10TA7 PO; +LOTE5GEL OP; +MAGN400T39 PO; +MELA1TAB51 PO; +METH2.5T PO; +MTP25TSR PO; +MULT-1136 PO
== END ==
LOC: MERGE 17:44 → LABNPT 17:44
PROVIDERS: ATTEND Internal Medicine Infectious Disease
DX: Z01.89 Encounter for other specified special examinations (principal)

== ENCOUNTER → 2022-04-13 | Outpatient (CLI) | payer MEDICARE, OTHER ==
[2022-04-13 18:19] LABS: POTASSIUM 4.3 MMOL/L (3.6-5.0)
[2022-04-13 18:20] LABS: CALCIUM 9.2 MG/DL (8.5-10.1)
[2022-04-13 18:25] LABS: CREATININE SERUM 3.8 MG/DL (0.60-1.30)
[2022-04-14 08:19] LABS: VANCOMYCIN,TROUGH 59.2 UG/ML (10.0-20.0)
== END ==
LOC: LABNPT 17:51
PROVIDERS: ATTEND Internal Medicine Infectious Disease
DX: G04.2 Bacterial meningoencephalitis and meningomyelitis, not elsewhere classified (principal); D72.829 Elevated white blood cell count, unspecified
CPT/HCPCS: 80048; 80202

== ENCOUNTER → 2022-04-15 | Outpatient (CLI) | payer MEDICARE, OTHER ==
[2022-04-15 09:37] LABS: HEMATOCRIT 34 % (35-52); HEMOGLOBIN 10.9 g/dL (11.5-16.0); MEAN CORPUSCULAR HEMOGLOBIN 34 pg (25-34); MEAN CORPUSCULAR HGB CONC 32 g/dL (32-36); MEAN CORPUSCULAR VOLUME 105 fL (80-99); MEAN PLATELET VOLUME 10.5 fL (9.0-12.2); PLATELET COUNT 322 10^3/uL (130-400); WHITE BLOOD COUNT 6.3 10^3/uL (4.3-11.0)
[2022-04-15 09:58] LABS: POTASSIUM 4.8 MMOL/L (3.6-5.0)
[2022-04-15 10:04] LABS: CREATININE SERUM 4.02 MG/DL (0.60-1.30)
[2022-04-15 10:42] LABS: VANCOMYCIN,TROUGH 51.7 UG/ML (10.0-20.0)
== END ==
LOC: HH 09:28
PROVIDERS: ATTEND Family Medicine
DX: G00.9 Bacterial meningitis, unspecified (principal); N28.9 Disorder of kidney and ureter, unspecified
CPT/HCPCS: 80048; 80162; 80202; 83880; 85027

== ENCOUNTER 2022-05-03 20:28 | Observation (INO) | payer MEDICARE, OTHER ==
[~2022-05-03] VITALS: Ht 162 cm; Wt 52.7 kg
[~2022-05-03 20:28] MED LIST changes: -LOTE5GEL OP; +LOTE5GEL OU
--- NOTE | 2022-05-03 20:50 | ED Cardiac General ---
History of Present Illness General Chief Complaint: Cardiac/General Problems Stated Complaint: HYPERTENSION Nursing Triage Note: EMS advised that the patient has not been feeling well x 2 days. [facility] staff advised that the patients bp was 200s/90s after outing with family. Source: patient Exam Limitations: no limitations (MATEUSZ GROSS) History of Present Illness Date Seen by Provider: May 03, 2022 Time Seen by Provider: 20:30 Initial Comments This is an 86 y/o female who presents via EMS from [place] with weakness, head ache, and elevated blood pressures. The patient reports a general malaise for the past few days. Last night she states she experienced SOA. This morning the patient states she was able to ambulate independently with her walker to the restroom but began to experience progressive weakness throughout the day. The patient also reports headache and intolerance to cold. After dinner time her b lood pressure was elevated and EMS was contacted. The patient has been living at [facility] for approximately 10 days after being discharged from the hospital s/p treatment for bacterial meningitis. A diffuse tremor attributed to the meningitis is apparent and the patient states the tremor is worse in her left extremities versus her right. The patient's past cardiac history is significant for coronary bypass x3. Patient reports Dr. Davis is her electronic publications specialist. Timing/Duration: 2-3 days Severity: moderate Activities at Onset: none Associated Systoms: No Chest Pain, No Cough; Headaches; No Shortness of Air; Weakness (MATEUSZ GROSS) Initial Comments Patient was interviewed by me and examined by me along with MS 4. Review of her chart notes that she was admitted to this facility April 01, 2022 and transferred April 02 for further treatment of bacterial meningitis. She was transferred to [facility] for higher level of care. She had developed bacterial meningitis after an epidural injection. It was noted that she had an elevated troponin at that time. I do not know what cardiac evaluation was performed at [facility]. Patient does have a history of atrial fibrillation, coronary artery disease, and CABG. Her last cath performed here was in 2018. There was extensive disease noted but nothing was amenable to interventions at that time. An echocardiogram performed in September 2020 showed an EF of 55 to 65%. There was grade 1 diastolic dysfunction. Her primary care provider is Dr. Orta and her electronic publications specialist is Dr. Davis. Patient denies any chest pain yesterday or today. On additional review of patient's chart, it is noted she had a creatinine of 4 on home health labs drawn April 15. (BUCK MALDONADO MD) Allergies and Home Medications Allergies Coded Allergies: tetanus toxoid, adsorbed (Unverified Allergy, Unknown, 08/17/14) tramadol (Verified Allergy, Unknown, Hives, 11/16/18) Patient Home Medication List Home Medication List Reviewed: Yes (MATEUSZ GROSS) Acetaminophen (Tylenol Extra Strength) 500 Mg Tablet, 500 MG PO Q4H PRN for PAIN-MILD (1-4), (Reported) Entered as Reported by: SAMANTHA TAYLOR on 04/02/221535 Apixaban (Eliquis) 2.5 Mg Tablet, 2.5 MG PO BID, (Reported) Entered as Reported by: SAMANTHA TAYLOR on 04/02/221535 Cholecalciferol (Vitamin D3) (Vitamin D3) 25 Mcg (1000 Unit) Capsule, 25 MCG PO DAILY, (Reported) Entered as Reported by: SAMANTHA TAYLOR on 04/02/221536 Cyclobenzaprine HCl (Cyclobenzaprine HCl) 10 Mg Tablet, 5 MG PO TID PRN for MUSCLE SPASMS, (Reported) Entered as Reported by: SAMANTHA TAYLOR on 04/02/221535 Denosumab (Prolia) 60 Mg/Ml Disp.syrin, 60 MG SQ EVERY 6 MONTHS, (Reported) Entered as Reported by: SAMANTHA TAYLOR on 04/02/221535 Digoxin (Digoxin) 125 Mcg (0.125 Mg) Tablet, 125 MCG PO DAILY, (Reported) Entered as Reported by: SAMANTHA TAYLOR on 04/02/221535 Etanercept (Enbrel) 50 Mg/Ml (1 Ml) Syringe, UD, (Reported) Entered as Reported by: SAMANTHA TAYLOR on 04/02/221535 Folic Acid (Folic Acid) 1 Mg Tablet, 1 MG PO BID, (Reported) Entered as Reported by: SAMANTHA TAYLOR on 04/02/221535 Gabapentin (Gabapentin) 100 Mg Capsule, 200 MG PO HS, (Reported) Entered as Reported by: SAMANTHA TAYLOR on 04/02/221535 Loratadine (Loratadine) 10 Mg Tablet, 10 MG PO DAILY, (Reported) Entered as Reported by: SAMANTHA TAYLOR on 04/02/221535 Loteprednol Etabonate (Lotemax) 0.5 % Drops.gel, 1-2 DROPS OP QID, (Reported) Entered as Reported by: SAMANTHA TAYLOR on 04/02/221535 Magnesium Oxide (Magnesium) 400 Mg Magnesium Tablet, 400 MG PO DAILY, (Reported) Entered as Reported by: SAMANTHA TAYLOR on 04/02/221535 Melatonin (Melatonin) 1 Mg Tablet, 1 MG PO HS PRN for SLEEP, (Reported) Entered as Reported by: SAMANTHA TAYLOR on 04/02/221535 Methotrexate Sodium (Methotrexate) 2.5 Mg Tablet, 20 MG PO WEEK, (Reported) Entered as Reported by: SAMANTHA TAYLOR on 04/02/221535 Metoprolol Succinate (Metoprolol Succinate) 25 Mg Tab.er.24h, 25 MG PO HS, (Reported) Entered as Reported by: SAMANTHA TAYLOR on 04/02/221535 Metoprolol Succinate (Metoprolol Succinate) 25 Mg Tab.er.24h, 12.5 MG PO DAILY, (Reported) Entered as Reported by: SAMANTHA TAYLOR on 04/02/221535 Multivitamin (Multivitamin) 1 Each Tablet, 1 EACH PO DAILY, (Reported) Entered as Reported by: SAMANTHA TAYLOR on 04/02/221535 [place]-3 Fatty Acids ([place]-3) 1,000 Mg Capsule, 1,000 MG PO TID, (Reported) Entered as Reported by: SAMANTHA TAYLOR on 04/02/221535 Review of Systems Review of Systems Constitutional: weakness EENTM: No Symptoms Reported Respiratory: No Symptoms Reported; Denies Shortness of Air (SOA yesterday but none today) Cardiovascular: No Symptoms Reported Gastrointestinal: No Symptoms Reported Genitourinary: Frequency Musculoskeletal: no symptoms reported Skin: no symptoms reported Psychiatric/Neurological: Headache Endocrine: Intolerance to Cold Hematologic/Lymphatic: No Symptoms Reported (MATEUSZ GROSS) All Other Systems Reviewed Negative Unless Noted: Yes (MATEUSZ GROSS) Past Xnaotfg-Iovfbz-Lsopqd Hx Patient Social History Tobacco Use?: No Substance use?: No Alcohol Use?: No (MATEUSZ GROSS) Immunizations Up To Date Tetanus Booster (TDap): Less than 5yrs First/Initial COVID19 Vaccinat: 2020 Second COVID19 Vaccination [place]: 2020 Third COVID19 Vaccination Date: 2020 (MATEUSZ GROSS) Seasonal Allergies Seasonal Allergies: No (MATEUSZ GROSS) Past Medical History Surgery/Hospitalization HX: CABG Surgeries: Yes (CATARACTS/LENS IMPLANT, COLONOSCOPY, R elbow) Adenoidectomy, Cardiac, CABG, Eye Surgery, Gallbladder, Orthopedic, Tonsillectomy Respiratory: Yes Pneumonia Currently Using CPAP: No Currently Using BIPAP: No Cardiac: Yes Atrial Fibrillation, Coronary Artery Disease, High Cholesterol, Hypertension Neurological: No Reproductive Disorders: No 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 CONSTIPATION AND DIARRHEA) Gastroesophageal Reflux, Obstructive Bowel, Chronic Constipation, Diverticulosis, Chronic Diarrhea, Irritable Bowel Musculoskeletal: Yes Rheumatoid Arthritis, Chronic Back Pain Endocrine: No HEENT: Yes Macular Degeneration Cancer: No Psychosocial: Yes (POST DEPRESSION) Integumentary: No Blood Disorders: No Adverse Reaction/Blood Tranf: No (MATEUSZ GROSS) Family Medical History Abdominal aortic aneurysm G8 BROTHER Angina pectoris 19 MOTHER Completed stroke G8 BROTHER FH: brain aneurysm 19 MOTHER Hypercholesterolemia G8 SISTER Hypertension G8 SISTER Osteoporosis G8 SISTER Social, medical and surgical history per old records as patient has altered mental status and is unable to answer questions. (MATEUSZ GROSS) Physical Exam Vital Signs Vital Signs - First Documented (BUCK MALDONADO MD) Vital Signs Capillary Refill : Less Than 3 Seconds (MATEUSZ GROSS) Height, Weight, BMI Height: 5'5.00" Weight: 119lbs. 0.0oz. [id number]; 19.00 BMI Method:Stated General Appearance: Other (tremor and shivering) HEENT: Normal ENT Inspection Respiratory: Chest Non Tender, No Accessory Muscle Use, No Respiratory Distress, Crackles (fine crackles in right base) Cardiovascular: No Edema, Systolic Murmur (coarse systolic murmur) Gastrointestinal: Non Tender, Soft Extremity: No Pedal Edema Neurologic/Psychiatric: Alert, Oriented x3, Other (diffuse tremor) Skin: Normal Color, Warm/Dry Lymphatic: No Adenopathy Other comments This exam was performed by Dr. Maldonado and dictated to me. (MATEUSZ GROSS) Other comments Exam was performed by me and dictated to MS4. (BUCK MALDONADO MD) Progress/Results/Core Measures Results/Orders Lab Results Laboratory Tests Test 05/03/22 20:58 05/03/22 22:30 Range/Units White Blood Count 6.0 4.3-11.0 10^3/uL Red Blood Count 3.18 L 3.80-5.11 10^6/uL Hemoglobin 10.6 L 11.5-16.0 g/dL Hematocrit 33 L 35-52 % Mean Corpuscular Volume 103 H 80-99 fL Mean Corpuscular Hemoglobin 33 25-34 pg Mean Corpuscular Hemoglobin Concent 33 32-36 g/dL Red Cell Distribution Width 13.2 10.0-14.5 % Platelet Count 191 130-400 10^3/uL Mean Platelet Volume 11.2 9.0-12.2 fL Immature Granulocyte % (Auto) 0 % Neutrophils (%) (Auto) 56 42-75 % Lymphocytes (%) (Auto) 32 12-44 % Monocytes (%) (Auto) 11 0-12 % Eosinophils (%) (Auto) 1 0-10 % Basophils (%) (Auto) 1 0-10 % Neutrophils # (Auto) 3.4 1.8-7.8 10^3/uL Lymphocytes # (Auto) 1.9 1.0-4.0 10^3/uL Monocytes # (Auto) 0.6 0.0-1.0 10^3/uL Eosinophils # (Auto) 0.0 0.0-0.3 10^3/uL Basophils # (Auto) 0.0 0.0-0.1 10^3/uL Immature Granulocyte # (Auto) 0.0 0.0-0.1 10^3/uL Prothrombin Time 16.3 H 12.2-14.7 SEC INR Comment 1.3 0.8-1.4 Activated Partial Thromboplast Time 33 24-35 SEC Sodium Level 142 135-145 MMOL/L Potassium Level 4.3 3.6-5.0 MMOL/L Chloride Level 108 H 98-107 MMOL/L Carbon Dioxide Level 20 L 21-32 MMOL/L Anion Gap 14 5-14 MMOL/L Blood Urea Nitrogen 33 H 7-18 MG/DL Creatinine 1.48 H 0.60-1.30 MG/DL Estimat Glomerular Filtration Rate 34 BUN/Creatinine Ratio 22 Glucose Level 126 H 70-105 MG/DL Calcium Level 8.7 8.5-10.1 MG/DL Corrected Calcium 9.0 8.5-10.1 MG/DL Magnesium Level 1.8 1.6-2.4 MG/DL Total Bilirubin 0.4 0.1-1.0 MG/DL Aspartate Amino Transf (AST/SGOT) 21 5-34 U/L Alanine Aminotransferase (ALT/SGPT) 25 0-55 U/L Alkaline Phosphatase 69 40-136 U/L Myoglobin 35.2 10.0-92.0 NG/ML Troponin I 0.043 H <0.028 NG/ML C-Reactive Protein High Sensitivity 0.33 0.00-0.50 MG/DL B-Type Natriuretic Peptide 783.6 H <100.0 PG/ML Total Protein 6.9 6.4-8.2 GM/DL Albumin 3.6 3.2-4.5 GM/DL Thyroid Stimulating Hormone (TSH) 3.83 0.35-4.94 UIU/ML Free Thyroxine 1.11 0.70-1.48 NG/DL Digoxin Level 1.36 0.80-2.00 NG/ML Influenza Type A (RT-PCR) Not Detected Not Detecte Influenza Type B (RT-PCR) Not Detected Not Detecte SARS-CoV-2 RNA (RT-PCR) Not Detected Not Detecte (BUCK MALDONADO MD) My Orders Orders - BUCK MALDONADO MD Ct Head Wo (05/03/22 20:46) Cbc With Automated Diff (05/03/22 20:47) Magnesium (05/03/22 20:47) Chest 1 View, Ap/Pa Only (05/03/22 20:47) Ekg Tracing (05/03/22 20:47) Comprehensive Metabolic Panel (05/03/22 20:47) Myoglobin Serum (05/03/22 20:47) Protime With Inr (05/03/22 20:47) Partial Thromboplastin Time (05/03/22 20:47) O2 (05/03/22 20:47) Monitor-Rhythm Ecg Trace Only (05/03/22 20:47) Ed Iv/Invasive Line Start (05/03/22 20:47) Bnp Miguel (05/03/22 20:47) Troponin I Miguel (05/03/22 20:47) Hs C Reactive Protein (05/03/22 20:47) Thyroid Stimulating Hormone (05/03/22 20:47) Free T4 (Free Thyroxine) (05/03/22 20:47) Digoxin (05/03/22 20:47) Covid 19 Inhouse Test (05/03/22 20:47) Influenza A And B By Pcr (05/03/22 20:47) Nitroglycerin Ointment (Nitrobid Ointme (05/03/22 21:30) Ua Culture If Indicated (05/03/22 21:55) Gabapentin Capsule/Tablet (Neurontin Cap (05/03/22 22:14) Amiodarone Tablet (Cordarone Tablet) (05/03/22 22:35) Amlodipine Tablet (Norvasc Tablet) (05/03/22 22:45) Aspirin Chewable Tablet (Baby Aspirin Ch (05/03/22 22:45) (BUCK MALDONADO MD) Medications Given in ED Current Medications Medications Dose Ordered Sig/Cody Route Start Time Stop Time Status Last Admin Dose Admin Amlodipine Besylate 5 mg ONCE ONCE PO 05/03/22 22:45 05/03/22 22:46 DC 05/03/22 23:43 5 MG Aspirin 324 mg ONCE ONCE PO 05/03/22 22:45 05/03/22 22:46 DC 05/03/22 23:37 324 MG Nitroglycerin 1 inch ONCE ONCE TOP 05/03/22 21:30 05/03/22 21:31 DC 05/03/22 21:48 1 INCH (BUCK MALDONADO MD) Vital Signs/I&O 05/03/22 05/03/22 20:31 20:31 Temp 36.8 Pulse 60 Resp 18 B/P (MAP) 119/70 (86) Pulse Ox 97 96 O2 Delivery Room Air Room Air (BUCK MALDONADO MD) Blood Pressure Mean: 86 Progress Progress Note : Progress Note Patient was interviewed and examined. There were no significant exam findings. CT of the head was unremarkable. Patient did have a minor elevation in troponin. This was discussed with Dr. Ponce. He recommended patient remain n.p.o. until determination about further testing in the morning can be decided. Patient initially had a decent response to nitroglycerin paste. However, her hy pertension rebounded. She was given 2 doses of amlodipine 5 mg. I discussed CODE STATUS with the patient. She was rather uncomfortable with this conversation but would like to remain full code for now. She will discuss further with her family and inform staff if she wishes to change her mind. Left bundle branch block was also noted on EKG and not seen on prior. This was discu ssed with Dr. Ponce. (BUCK MALDONADO MD) Initial ECG Impression Date: May 03, 2022 Initial ECG Impression Time: 21:00 Initial ECG Rate: 53 Initial ECG Rhythm: S.Twin Comment Sinus bradycardia with a left bundle branch block. ST depression noted in multiple leads. Left axis deviation. No ST elevation. (BUCK MALDONADO MD) Diagnostic Imaging Diagonstic Imaging: CT Plain Films/CT/US/NM/MRI: head Comments CT head viewed by me and report reviewed. See report below: NAME: BRENTON BETANCOURT [facility] REC#: [id number] PT STATUS: REG ER : 1935 PHYSICIAN: BUCK MALDONADO MD ADMIT DATE: 05/03/22/ER Draft Date of Exam:05/03/22 CT HEAD WO PROCEDURE: CT head without contrast. TECHNIQUE: Multiple contiguous axial images were obtained through the brain without the use of intravenous contrast. Auto Exposure Controls were utilized during the CT exam to meet ALARA standards for radiation dose reduction. INDICATION: Headache, hypertension, on anticoagulation. COMPARISON: 04/01/2022. FINDINGS: The ventricles and cortical sulci are prominent. There is no midline shift or mass effect. No acute intracranial hemorrhage is seen. Areas of decreased attenuation are seen in the subcortical and periventricular white matter. These likely represent chronic microvascular disease. No CT evidence of acute territorial ischemia is seen. The calvarium is intact. The visible paranasal sinuses are clear. IMPRESSION: 1. No acute intracranial hemorrhage. No CT evidence of acute territorial ischemia. 2. Generalized parenchymal volume loss and findings of chronic microvascular disease. Dictated on workstation # [id number] Dict: 05/03/222201 Trans: 05/03/222208 [facility] [id number] Interpreted by: OMAIRA COKER MD (BUCK MALDONADO MD) Departure Communication (Admissions) Time/Spoke to Admitting Phy: 22:56 Dr. Momin Time/Spoke to Consulting Phy: 22:31 Dr. Ponce (BUCK MALDONADO MD) Impression Primary Impression: Hypertensive urgency Additional Impressions: Elevated troponin Generalized weakness Renal insufficiency Left bundle branch block Disposition: ADMITTED INPATIENT Condition: Improved Admissions Decision to Admit Reason: Admit from ER (General) Decision to Admit/Date: May 03, 2022 Time/Decision to Admit Time: 22:31 (BUCK MALDONADO MD) Departure-Patient Inst. Referrals: TERRI ORTA DO (PCP/Family) Primary Care Physician MATEUSZ GROSS May 03, 2022 20:50 BUCK MALDONADO MD May 03, 2022 21:39
[2022-05-03 21:07] LABS: BASOPHILS % (AUTO) 1 % (0-10); EOSINOPHILS % (AUTO) 1 % (0-10); HEMATOCRIT 33 % (35-52); HEMOGLOBIN 10.6 g/dL (11.5-16.0); LYMPHOCYTES # (AUTO) 1.9 10^3/uL (1.0-4.0); LYMPHOCYTES % (AUTO) 32 % (12-44); MEAN CORPUSCULAR HEMOGLOBIN 33 pg (25-34); MEAN CORPUSCULAR HGB CONC 33 g/dL (32-36); MEAN CORPUSCULAR VOLUME 103 fL (80-99); MEAN PLATELET VOLUME 11.2 fL (9.0-12.2); MONOCYTES # (AUTO) 0.6 10^3/uL (0.0-1.0); MONOCYTES % (AUTO) 11 % (0-12); NEUTROPHILS # (AUTO) 3.4 10^3/uL (1.8-7.8); NEUTROPHILS % (AUTO) 56 % (42-75); PLATELET COUNT 191 10^3/uL (130-400)
[2022-05-03 21:23] LABS: INR 1.3 (0.8-1.4); PROTHROMBIN TIME PATIENT 16.3 SEC (12.2-14.7)
[2022-05-03 21:26] LABS: ALBUMIN 3.6 GM/DL (3.2-4.5); BILIRUBIN,TOTAL 0.4 MG/DL (0.1-1.0); CALCIUM 8.7 MG/DL (8.5-10.1); CREATININE SERUM 1.48 MG/DL (0.60-1.30); MAGNESIUM 1.8 MG/DL (1.6-2.4); POTASSIUM 4.3 MMOL/L (3.6-5.0); TOTAL PROTEIN 6.9 GM/DL (6.4-8.2)
[2022-05-03] MEDS ORDERED: NITROGLYCERIN 2% OINT 1 GM UNIT DOSE PACKET TOP ONE (21:30)
[2022-05-03 21:52] LABS: FREE T4 (FREE THYROXINE) 1.11 NG/DL (0.70-1.48)
--- NOTE | 2022-05-03 22:09 | Diagnostic Imaging Report ---
PROCEDURE: CT head without contrast. TECHNIQUE: Multiple contiguous axial images were obtained through the brain without the use of intravenous contrast. Auto Exposure Controls were utilized during the CT exam to meet ALARA standards for radiation dose reduction. INDICATION: Headache, hypertension, on anticoagulation. COMPARISON: 04/01/2022. FINDINGS: The ventricles and cortical sulci are prominent. There is no midline shift or mass effect. No acute intracranial hemorrhage is seen. Areas of decreased attenuation are seen in the subcortical and periventricular white matter. These likely represent chronic microvascular disease. No CT evidence of acute territorial ischemia is seen. The calvarium is intact. The visible paranasal sinuses are clear. IMPRESSION: 1. No acute intracranial hemorrhage. No CT evidence of acute territorial ischemia. 2. Generalized parenchymal volume loss and findings of chronic microvascular disease. Dictated by: Dictated on workstation # [id number]
--- NOTE | 2022-05-03 22:12 | Diagnostic Imaging Report ---
HISTORY: Chest pain. TECHNIQUE: Frontal view of the chest. COMPARISON: 04/01/2022. FINDINGS: There is stable cardiomegaly. There is elevation of the left hemidiaphragm with a small left pleural effusion. There is chronic scarring and atelectasis in the right lung base. No new consolidation is seen. There is no pneumothorax. Sternotomy wires and post-CABG changes are seen. IMPRESSION: 1. Cardiomegaly with small left pleural effusion. 2. Chronic basilar atelectasis and scarring. No new consolidation is seen. Dictated by: Dictated on workstation # [id number]
[2022-05-03] MEDS ORDERED: GABAPENTIN 100 MG (NEURONTIN) CAP PO STA (22:14)
[2022-05-03] MEDS ORDERED: AMIODARONE 200 MG (CORDARONE) TAB PO STA (22:35)
[2022-05-03] MEDS ORDERED: ASPIRIN 81 MG CHEW (CHILDREN'S ASA) PO ONE (22:45)
[2022-05-03] MEDS ORDERED: amLODIPine 5 MG (NORVASC) TAB PO ONE (22:45)
[2022-05-03 23:03] LABS: BILIRUBIN,URINE NEGATIVE (NEGATIVE); CLARITY,URINE CLEAR; COLOR,URINE YELLOW; GLUCOSE, URINE (UA) NEGATIVE (NEGATIVE); KETONES,URINE NEGATIVE (NEGATIVE); LEUKOCYTE ESTERASE ,URINE NEGATIVE (NEGATIVE); NITRITE,URINE NEGATIVE (NEGATIVE); PROTEIN,URINE NEGATIVE (NEGATIVE)
[2022-05-03] MEDS ORDERED: ACETAMINOPHEN 500 MG TAB (TYLENOL) PO ONE (23:30)
[2022-05-03 23:32] LABS: BACTERIA,URINE TRACE /HPF; RBC,URINE 0-2 /HPF; SQUAMOUS EPITHELIAL CELL,UR 0-2 /HPF
[2022-05-04] MEDS ORDERED: amLODIPine 5 MG (NORVASC) TAB PO ONE (00:15)
[2022-05-04] MEDS ORDERED: NS IV 500 ML 500 ML IV PRN (01:00)
[2022-05-04] MEDS ORDERED: niCARdipine IV (Pyxis drip kit 50 MG in NS (IVPB) 230 ML IV SCH (01:00)
[2022-05-04] MEDS ORDERED: ONDANSETRON 4 MG/2 ML (SDV) Z0FRAN IV PRN (01:45)
[2022-05-04 02:45] VITALS: BP 120/46
[2022-05-04 04:12] LABS: BASOPHILS % (AUTO) 1 % (0-10); EOSINOPHILS # (AUTO) 0.1 10^3/uL (0.0-0.3); EOSINOPHILS % (AUTO) 1 % (0-10); HEMATOCRIT 33 % (35-52); HEMOGLOBIN 10.7 g/dL (11.5-16.0); LYMPHOCYTES # (AUTO) 1.9 10^3/uL (1.0-4.0); LYMPHOCYTES % (AUTO) 28 % (12-44); MEAN CORPUSCULAR HEMOGLOBIN 33 pg (25-34); MEAN CORPUSCULAR HGB CONC 33 g/dL (32-36); MEAN CORPUSCULAR VOLUME 101 fL (80-99); MONOCYTES # (AUTO) 0.8 10^3/uL (0.0-1.0); MONOCYTES % (AUTO) 12 % (0-12); NEUTROPHILS # (AUTO) 3.8 10^3/uL (1.8-7.8); NEUTROPHILS % (AUTO) 57 % (42-75); PLATELET COUNT 180 10^3/uL (130-400); WHITE BLOOD COUNT 6.7 10^3/uL (4.3-11.0)
[2022-05-04 04:33] LABS: CALCIUM 8.9 MG/DL (8.5-10.1); CREATININE SERUM 1.32 MG/DL (0.60-1.30); MAGNESIUM 1.7 MG/DL (1.6-2.4); PHOSPHORUS 3.7 MG/DL (2.3-4.7); POTASSIUM 3.7 MMOL/L (3.6-5.0)
[2022-05-04] MEDS: ACETAMINOPHEN 500 MG TAB (TYLENOL) PO PRN ×3 (05:42→22:20)
[2022-05-04] MEDS: MAGNESIUM 1 GM/100 ML IVPB 100 ML IV SCH ×3 (06:00→07:39)
[2022-05-04] MEDS: CATHETER FLUSH 10 ML SYR IVP SCH ×3 (06:00→21:09)
[2022-05-04] MEDS: KCL 20 MEQ TAB (K-DUR) PO SCH (06:00)
[2022-05-04] MEDS: POTASSIUM CL 10MEQ/50ML IVPB 50 ML IV SCH (06:00)
[2022-05-04] MEDS: NITROGLYCERIN 2% OINT 1 GM UNIT DOSE PACKET TOP SCH ×4 (06:00→22:21)
[2022-05-04] MEDS ORDERED: FLU QUAD HIGH DOSE 240 MCG/0.7 ML 2022-23 (FLUZONE) IM ONE (07:00)
[2022-05-04] MEDS ORDERED: ENOXAPARIN INJECTION 30 MG/0.3 ML SYR SC SCH (09:00)
[2022-05-04] MEDS ORDERED: APIXABAN 5 MG (ELIQUIS) TABLET PO SCH (09:15)
--- NOTE | 2022-05-04 09:19 | Consultation-Cardiology ---
HPI-Cardiology Cardiology Consultation Date of Consultation 05/04/22 Date of Admission Time Seen by Provider: 09:13 Indication: Hypertensive urgency HPI 86-year-old lady with history of coronary artery disease, paroxysmal atrial fibrillation and recurrent palpitation. Reporting episodes of weakness and loss of energy and increasing shortness of breath recently. [place] EMS [place] with generalized weakness and hypertensive urgency. She denied any chest pain. No fever or chills. Reporting headache. Blood pressure is better today on Cardene drip. Still having generalized weakness and loss of energy Home Medications & Allergies Allergies: Coded Allergies: tetanus toxoid, adsorbed (Unverified Allergy, Unknown, 08/17/14) tramadol (Verified Allergy, Unknown, Hives, 11/16/18) Home Medication List Reviewed: Yes OWN-Xldreo-Dlgzgj Hx Patient Social History Marital Status: Employed/Student: retired Smoking Status: Former Smoker Former smoker/When Quit: Jul 26, 1984 Type Used: Cigarettes 2nd Hand Smoke Exposure: No Recent Hopitalizations: No Have you traveled recently?: No Alcohol Use?: No Immunizations Up To Date Tetanus Booster (TDap): Less than 5yrs Date of Pneumonia Vaccine: May 26, 2011 Date of Influenza Vaccine: May 17, 2014 Past Medical History Discussed below Family Medical History Family History: Abdominal aortic aneurysm G8 BROTHER Angina pectoris 19 MOTHER Completed stroke G8 BROTHER FH: brain aneurysm 19 MOTHER Hypercholesterolemia G8 SISTER Hypertension G8 SISTER Osteoporosis G8 SISTER Review of Systems-General Review of Systems Constitutional: see HPI, malaise, weakness EENTM: see HPI, no symptoms reported Respiratory: see HPI; No cough, No dyspnea on exertion, No hemoptysis, No orthopnea, No phlegm; short of breath; No stridor, No wheezing, No other Cardiovascular: see HPI; No chest pain, No edema, No Hx of Intervention, No palpitations, No syncope, No vascular heart diseas, No other Gastrointestinal: no symptoms reported, see HPI Genitourinary: no symptoms reported, see HPI Musculoskeletal: no symptoms reported, see HPI Skin: no symptoms reported, see HPI Psychiatric/Neurological: See HPI, Headache All Other Systems Reviewed Negative Unless Noted: Yes Reviewed Test Results Reviewed Test Results Lab Laboratory Tests Test 05/03/22 20:58 05/03/22 22:30 05/03/22 22:58 05/04/22 04:02 Range/Units White Blood Count 6.0 6.7 4.3-11.0 10^3/uL Red Blood Count 3.18 L 3.26 L 3.80-5.11 10^6/uL Hemoglobin 10.6 L 10.7 L 11.5-16.0 g/dL Hematocrit 33 L 33 L 35-52 % Mean Corpuscular Volume 103 H 101 H 80-99 fL Mean Corpuscular Hemoglobin 33 33 25-34 pg Mean Corpuscular Hemoglobin Concent 33 33 32-36 g/dL Red Cell Distribution Width 13.2 13.1 10.0-14.5 % Platelet Count 191 180 130-400 10^3/uL Mean Platelet Volume 11.2 11.0 9.0-12.2 fL Immature Granulocyte % (Auto) 0 1 % Neutrophils (%) (Auto) 56 57 42-75 % Lymphocytes (%) (Auto) 32 28 12-44 % Monocytes (%) (Auto) 11 12 0-12 % Eosinophils (%) (Auto) 1 1 0-10 % Basophils (%) (Auto) 1 1 0-10 % Neutrophils # (Auto) 3.4 3.8 1.8-7.8 10^3/uL Lymphocytes # (Auto) 1.9 1.9 1.0-4.0 10^3/uL Monocytes # (Auto) 0.6 0.8 0.0-1.0 10^3/uL Eosinophils # (Auto) 0.0 0.1 0.0-0.3 10^3/uL Basophils # (Auto) 0.0 0.0 0.0-0.1 10^3/uL Immature Granulocyte # (Auto) 0.0 0.0 0.0-0.1 10^3/uL Prothrombin Time 16.3 H 12.2-14.7 SEC INR Comment 1.3 0.8-1.4 Activated Partial Thromboplast Time 33 24-35 SEC Sodium Level 142 143 135-145 MMOL/L Potassium Level 4.3 3.7 3.6-5.0 MMOL/L Chloride Level 108 H 108 H 98-107 MMOL/L Carbon Dioxide Level 20 L 21 21-32 MMOL/L Anion Gap 14 14 5-14 MMOL/L Blood Urea Nitrogen 33 H 28 H 7-18 MG/DL Creatinine 1.48 H 1.32 H 0.60-1.30 MG/DL Estimat Glomerular Filtration Rate 34 40 BUN/Creatinine Ratio 22 21 Glucose Level 126 H 90 70-105 MG/DL Calcium Level 8.7 8.9 8.5-10.1 MG/DL Corrected Calcium 9.0 8.5-10.1 MG/DL Magnesium Level 1.8 1.7 1.6-2.4 MG/DL Total Bilirubin 0.4 0.1-1.0 MG/DL Aspartate Amino Transf (AST/SGOT) 21 5-34 U/L Alanine Aminotransferase (ALT/SGPT) 25 0-55 U/L Alkaline Phosphatase 69 40-136 U/L Myoglobin 35.2 10.0-92.0 NG/ML Troponin I 0.043 H 0.058 H <0.028 NG/ML C-Reactive Protein High Sensitivity 0.33 0.00-0.50 MG/DL B-Type Natriuretic Peptide 783.6 H <100.0 PG/ML Total Protein 6.9 6.4-8.2 GM/DL Albumin 3.6 3.2-4.5 GM/DL Thyroid Stimulating Hormone (TSH) 3.83 0.35-4.94 UIU/ML Free Thyroxine 1.11 0.70-1.48 NG/DL Digoxin Level 1.36 0.80-2.00 NG/ML Influenza Type A (RT-PCR) Not Detected Not Detecte Influenza Type B (RT-PCR) Not Detected Not Detecte SARS-CoV-2 RNA (RT-PCR) Not Detected Not Detecte Urine Color YELLOW Urine Clarity CLEAR Urine pH 7.0 5-9 Urine Specific [place] 1.020 1.016-1.022 Urine Protein NEGATIVE NEGATIVE Urine Glucose (UA) NEGATIVE NEGATIVE Urine Ketones NEGATIVE NEGATIVE Urine Nitrite NEGATIVE NEGATIVE Urine Bilirubin NEGATIVE NEGATIVE Urine Urobilinogen 0.2 < = 1.0 MG/DL Urine Leukocyte Esterase NEGATIVE NEGATIVE Urine RBC (Auto) TRACE-I H NEGATIVE Urine RBC 0-2 /HPF Urine WBC 2-5 /HPF Urine Squamous Epithelial Cells 0-2 /HPF Urine Crystals NONE /LPF Urine Bacteria TRACE /HPF Urine Casts NONE /LPF Urine Mucus NEGATIVE /LPF Urine Culture Indicated NO Phosphorus Level 3.7 2.3-4.7 MG/DL Physical Exam Physical Exam Vital Signs Vital Signs - First Documented 05/04/22 00:48 O2 Flow Rate 2.00 Capillary Refill : Less Than 3 Seconds Height, Weight, BMI Height: 5'5.00" Weight: 119lbs. 0.0oz. [age]yo; 19.47 BMI Method:Stated General Appearance: Other (tremor and shivering) Eyes: Bilateral Eye Normal Inspection, Bilateral Eye PERRL, Bilateral Eye EOMI HEENT: Normal ENT Inspection Neck: Full Range of Motion, Normal Inspection, Non Tender, Supple, Carotid Bruit Respiratory: Chest Non Tender, No Accessory Muscle Use, No Respiratory Distress, Crackles (fine crackles in right base) Cardiovascular: Regular Rate, Rhythm, No Edema, Systolic Murmur (coarse systolic murmur) Gastrointestinal: Non Tender, Soft Back: Normal Inspection, No CVA Tenderness, No Vertebral Tenderness Extremity: No Pedal Edema Neurologic/Psychiatric: Alert, Oriented x3, Other (diffuse tremor) Skin: Normal Color, Warm/Dry Lymphatic: No Adenopathy A/P-Cardiology Admission Diagnosis Hypertensive urgency Paroxysmal atrial fibrillation Non-ST elevation myocardial infarction Coronary artery disease Assessment/Plan Hypertensive urgency, elevated blood pressure with headache and generalized weakness Blood pressure responded to Cardene drip, I will try to wean her off the drip Restart Toprol-XL 25 mg daily and continue on the amlodipine that was started in the emergency room Continue to monitor blood pressure and evaluate 2D echo Non-ST elevation myocardial infarction, mild elevation in troponin level. Had extensive coronary artery disease by cardiac catheterization in 2019, conservative management is recommended. Generalized weakness and loss of energy. Starting physical therapy Acute renal insufficiency, continue to monitor renal function. Coronary artery disease, History of CABG 3 done in 2008 using SAMUEL to LAD, vein graft to the proximal LAD, vein graft to the right PDA. Cardiac catheterization in October 2018 after having an abnormal stress test showed severe stenosis at the left main, ostial circumflex and LAD, the LAD is corrected by vein graft to the mid portion, the circumflex is small not amendable to intervention and not bypassed, SAMUEL to the distal LAD is atretic with sluggish flow probably due to competitive flow through the vein graft to the mid LAD, mild to moderate disease in the right coronary artery that is a large dominant artery, patent vein graft to the right coronary artery. Has elevation in troponin probably due to small vessel disease. Non-ST elevation myocardial infarction, conservative management is recommended. Adding aspirin 81 mg daily. 2D echo was done on October 16, 2020 showing normal LV size with EF 55 to 65%, grade 1 diastolic dysfunction, mild mitral regurgitation, PA pressure 40 to 45 mm, repeat 2D echocardiogram Paroxysmal atrial fibrillation, currently in sinus rhythm. Maintained on digoxin as an outpatient, restart and continue to monitor [id number] score is 5, yearly risk risk of stroke without oral anticoagulation is 6.7 percent, restart Eliquis 2.5 mg daily Recurrent palpitation, reporting improvement. Continue to monitor Hyperlipidemia, intolerant to statins and Zetia. Lipid profile was done on November 11, 2021 showing total cholesterol 212, HDL 65, triglyceride 119, LDL 123. Continue to monitor History of rheumatoid arthritis, maintained on methotrexate. Doing well at this time. Continue to monitor. History of back pain. Premature atrial contractions, premature ventricular contractions, palpitation, continue to monitor Mild bilateral carotid stenosis, nonobstructive disease, followed by heart and vascular care. Continue to monitor. WALTER MARQUEZ MD May 04, 2022 09:19
[2022-05-04] MEDS ORDERED: APIXABAN 2.5 MG (ELIQUIS) TABLET PO SCH (09:30)
[2022-05-04] MEDS: ASPIRIN E.C. 81 MG (ECOTRIN) TAB PO SCH (09:45)
--- NOTE | 2022-05-04 10:05 | Tele-ICU Progress Note ---
Subjective Date Seen by a Provider: May 04, 2022 Time Seen by a Provider: 10:05 Subjective/Events-last exam (Tele-ICU Physician , Progress Note ) Available chart/ vitals / labs / Images reviewed Video assessment done using teleICU camera, rest of exam as per RN Discussed with RN Events overnight : Afebrile hemodynamically stable Consultants: Hospital course: (05/04) Admitted a 86 y/o with hypertensive urgency, elevated trops and renal insufficiency A/P Hypertensive urgency/ NSTEMI/ CAD - on cardene drip = OFF now - cards consulted -Echo pending ZAC - slightly improved - follow Non-ST elevation myocardial infarction, mild elevation in troponin level. Had extensive coronary artery disease by cardiac catheterization in 2019, conservative management is recommended. Pulm HTN - echo 2020 - PA pressure 40 to 45 mm PAF - in sinus now - AC with eliquis RA - on methotrexate HO - CTH neg on admission Lines : , (Central Line Necessity Reviewed) [place]: OG: Nutrition: Analgesia: Anxiety/ delirium VTE Prophylaxis: eliquis Stress Ulcer Prophylaxis: na Plans in collaboration with bedside consultants and IM MDs. Discussed with RN to reach out if any questions or concerns A total of 10 minutes of critical care time was devoted to this patient today, required to treat and/or prevent further deterioration of critical care condition ( as above ) . I am remotely monitoring this patient from another state. I am unable to do the bedside exam, and history/physical and pertinent information is taken from other notes in the computer and bedside staff. I cannot take responsibility for the accuracy of this information. Sepsis Event Evaluation Height, Weight, BMI Height: 5'5.00" Weight: 119lbs. 0.0oz. 53.288331xq; 19.47 BMI Method:Stated Exam Exam Patient acknowledged, consented, and participated in this virtual visit which was conducted using real time audio/video Vital Signs Date Time Temp Pulse Resp B/P (MAP) Pulse Ox O2 Delivery O2 Flow Rate FiO2 05/04/22 08:05 99 Nasal Cannula 2.00 05/04/22 08:00 54 14 119/52 (74) 99 Nasal Cannula 2.00 05/04/22 07:20 59 05/04/22 07:00 62 16 134/55 (81) 96 Nasal Cannula 2.00 05/04/22 06:00 59 15 118/53 (81) 99 Nasal Cannula 2.00 05/04/22 05:38 64 19 115/58 (77) 99 Nasal Cannula 2.00 05/04/22 04:45 64 14 128/84 (99) 96 Nasal Cannula 2.00 05/04/22 04:00 96 Nasal Cannula 2.00 05/04/22 04:00 60 16 150/60 (90) 100 Nasal Cannula 2.00 05/04/22 03:45 60 26 139/57 (84) 100 Nasal Cannula 2.00 05/04/22 03:30 61 21 145/58 (89) 100 Nasal Cannula 2.00 05/04/22 03:15 69 23 157/62 (115) Nasal Cannula 2.00 05/04/22 03:00 58 22 124/53 (82) 92 Nasal Cannula 2.00 05/04/22 02:45 54 15 120/46 (78) 92 Nasal Cannula 2.00 05/04/22 02:45 53 120/46 05/04/22 02:30 53 14 119/52 (75) 93 Nasal Cannula 2.00 05/04/22 02:15 52 15 137/46 (87) 95 Nasal Cannula 2.00 05/04/22 02:00 53 19 180/61 (104) 86 Nasal Cannula 2.00 05/04/22 01:45 55 15 180/61 (119) 92 Nasal Cannula 2.00 05/04/22 01:45 62 184/62 05/04/22 01:30 54 17 158/57 (107) 92 Nasal Cannula 2.00 05/04/22 01:30 89 Room Air 05/04/22 01:17 56 18 176/55 (109) 91 Nasal Cannula 2.00 05/04/22 01:00 56 05/04/22 01:00 56 20 162/56 (98) 91 Nasal Cannula 2.00 05/04/22 00:48 36.0 102 14 197/139 (151) 99 Nasal Cannula 2.00 05/04/22 00:27 63 18 217/82 96 Room Air 05/03/22 20:31 96 Room Air 05/03/22 20:31 36.8 60 18 119/70 (86) 97 Room Air I & O 05/04/22 07:00 Intake Total 0 ml Output Total 400 ml Balance -400 ml Height & Weight Height: 5'5.00" Weight: 119lbs. 0.0oz. 53.721244hz; 19.47 BMI Method:Stated General Appearance: Other (tremor and shivering) HEENT: Normal ENT Inspection Neck: Full Range of Motion, Normal Inspection, Non Tender, Supple, Carotid Bruit Respiratory: Chest Non Tender, No Accessory Muscle Use, No Respiratory Distress, Crackles (fine crackles in right base) Cardiovascular: Regular Rate, Rhythm, No Edema, Systolic Murmur (coarse sys tolic murmur) Capillary Refill: Less Than 3 Seconds Extremity: No Pedal Edema Neurologic/Psychiatric: Alert, Oriented x3, Other (diffuse tremor) Skin: Normal Color, Warm/Dry Lymphatic: No Adenopathy Results Lab Laboratory Tests 05/03/22 20:58 05/04/22 04:02 Assessment/Plan Assessment/Plan 1 LIZETT MUSA MD May 04, 2022 10:05
[2022-05-04] MEDS ORDERED: ACET-2267 PO (10:31)
[2022-05-04] MEDS ORDERED: AMIO200T65 PO (10:31)
[2022-05-04] MEDS ORDERED: CALC355O18 PO (10:31)
[2022-05-04] MEDS ORDERED: ONDA4TAB11 SL (10:31)
[2022-05-04] MEDS ORDERED: ASCO-262 PO (10:31)
[2022-05-04] MEDS ORDERED: METO50TA15 PO (10:31)
[2022-05-04] MEDS ORDERED: MAGN200T8 PO (10:31)
[2022-05-04] MEDS ORDERED: ZINC50TA51 PO (10:31)
[2022-05-04] MEDS ORDERED: AMIO400T5 PO (10:35)
[2022-05-04] MEDS ORDERED: CHOL10007 PO (10:35)
[2022-05-04] MEDS ORDERED: ZINC50TA11 PO (10:35)
[2022-05-04] MEDS ORDERED: amLODIPine 5 MG (NORVASC) TAB PO NR (12:00)
--- NOTE | 2022-05-04 12:02 | Physical Therapy Evaluation ---
PT Evaluation-General Medical Diagnosis Admission Date May 03, 2022 at 22:47 Medical Diagnosis: HTN urgency/weakness Onset Date: May 03, 2022 Therapy Diagnosis Therapy Diagnosis: generalized weakness/debility Height/Weight Height (Feet): 5 Height (Inches): 5.00 Weight (Pounds): 119 Weight (Ounces): 0.0 Precautions Precautions/Isolations: Fall Prevention, Standard Precautions Weight Bear Status Right Lower Extremity: Right Weight Bearing/Tolerated Left Lower Extremity: Left Weight Bearing/Tolerated Referral Physician: Susan Reason for Referral: Evaluation/Treatment Medical History Pertinent Medical History: Atrial Fib, CABG, CAD, HTN, Rheumatoid Arthritis Additional Medical History bacterial meningitis Current History EMS from [place] secondary to elevated BP and "not feeling well", [place] Reviewed History: Yes Social History Home: [facility] Prior Prior Level of Function SCALE: Activities may be completed with or without assistive devices. 7-Nvhntqworm-dduevyr completes the activity by him/herself with no assistance from a helper. 5-Set-up or Clean-up Assistance-helper sets up or cleans up; patient completes a ctivity. [place] assists only prior to or following the activity. 4-Supervision or Touching Assistance-helper provides verbal cues and/or touching/steadying and/or contact guard assistance as patient completes activity. Assistance may be provided throughout the activity or intermittently. 3-Partial/Moderate Assistance-helper does LESS THAN HALF the effort. [place] lifts, holds or supports trunk or limbs, but provides less than half the effort. 2-Substantial/Maximal Assistance-helper does MORE THAN HALF the effort. [place] lifts or holds trunk or limbs and provides more than half the effort. 3-Nqhqnfjvu-zrnncd does ALL the effort. Patient does none of the effort to complete the activity. Or, the assistance of 2 or more helpers is required for the patient to complete the activity. If activity was not attempted, code reason: 7-Patient Refused. 9-Not Applicable-not attempted and the patient did not perform the activity before the current illness, exacerbation or injury. 10-Not Attempted due to Environmental Limitations-(lack of equipment, weather restraints, etc.). 88-Not Attempted due to Medical Conditions or Safety Concerns. Bed Mobility: 6 Transfers (B,C,W/C): 4 Gait: 4 Indoor Mobility (Ambulation): Needed Some Help Stairs: Not Applicalbe Prior Devices Use: Walker (4WW ) PT Evaluation-Current Subjective Patient agrees to PT. Pain Numeric Pain Scale: 0-No Pain Location: No Pain Reported Objective Patient Orientation: Person, Time, Situation ROM/Strength ROM Lower Extremities bilateral LE WFL Strength Lower Extremities 3/5 grossly bilateral LE all planes Integumentary/Posture Integumentary refer to nursing notes Bowel Incontinence: No Bladder Incontinence: No Posture slightly kyphotic Neuromuscular (Tone, Coordination, Reflexes) noted tremors bilateral UE/slightly ataxic with mobility Sensory Vision: macular de Hearing: Functional Transfers Sit to Stand (QC): 4 Chair/Gxb-mx-Rekce Xfer(QC): 4 Toilet Transfer (QC): 4 Gait Mode of Locomotion: Walk Anticipated Mode of Locomotion: Walk Walk 10 feet (QC): 4 Walk 50 ft with 2 Turns(QC): 4 Walk 150 ft (QC): 4 Distance: 200' Gait Assistive Device: FWW Comments/Gait Description CGA for safety Balance Sitting Static: Normal Sitting Dynamic: Normal Standing Static: Fair Standing Dynamic: Fair Assessment/Needs 86 y.o. female, will be seen by skilled PT to address functional strength and mobility to improve current LOF to safely return to NH or [place] at maximum LOF. Rehab Potential: Fair PT Dial Painter Goals Dial Painter Goals PT Dial Painter Goals Time Frame: May 16, 2022 Roll Left & Right (QC): 6 Sit to Lying (QC): 6 Lying-Sitting on Side/Bed(QC): 6 Sit to Stand (QC): 5 Chair/Tyd-ye-Glbor Xfer(QC): 5 Toilet Transfer (QC): 5 Walk 10 feet (QC): 5 Walk 50ft with 2 Turns (QC): 5 Walk 150 ft (QC): 5 PT Plan Problem List Problem List: Activity Tolerance, Functional Strength, Safety, Balance, Gait, Transfer, Bed Mobility Treatment/Plan Treatment Plan: Continue Plan of Care Treatment Plan: Bed Mobility, Education, Functional Activity [place], Functional Strength, Gait, Safety, Therapeutic Exercise, Transfers Treatment Duration: May 16, 2022 Frequency: 6 times per week Estimated Hrs Per Day: .25 hour per day Patient and/or Family Agrees t: Yes Time/GCodes Time In: 1125 Time Out: 1138 Total Billed Treatment Time: 13 Total Billed Treatment 1 visit EVMod 13 min MARYBEL DENNIS PT May 04, 2022 12:02
--- NOTE | 2022-05-04 14:07 | Occ Therapy Progress Note ---
Therapy Progress Note OT orders received and chart reviewed. OT attempted evaluation x2 this afternoon, but pt is having a procedure/imaging at bedside. OT will attempt evaluation next available time. ILA BROWN OT May 04, 2022 14:07
--- NOTE | 2022-05-04 19:35 | History & Physical-Hospitalist ---
History of Present Illness HPI/Chief Complaint Rowan Barreto is an 86 year old female with PMH HTN, HLD, AFib, CAD, GERD, RA, who presented from [facility] with weakness. She also had a headache. She was found to have elevated blood pressure readings. She denies fevers and chills. She denies chest pain and palpitaitons. She denies shortness of breath and palpitaitons. She denies abdominal pain, nausea, vomiting, diarrhea, and constipation. She denies dysuria. She has not been taking any medication for her RA for the past month due to worsened renal function. She was started on Amiodarone recently for afib and her family has attrubuted this to her weakness. Source: patient, family Exam Limitations: no limitations Date Seen 05/04/22 Time Seen by a Provider: 10:00 Attending Physician Joey Connolly DO PCP Admitting Physician: Elisha Momin MD Attending Physician: Elisha Momin MD Referring Physician Date of Admission May 03, 2022 at 22:47 Home Medications & Allergies Home Medications Reviewed patient Home Medication Reconciliation performed by pharmacy medication reconciliations electrical instrumentation technician and/or nursing. Patients Allergies have been reviewed. Allergies Allergies Coded Allergies tetanus toxoid, adsorbed (Unverified Allergy, Unknown, 08/17/14) tramadol (Verified Allergy, Unknown, Hives, 11/16/18) Past Quigsav-Fpyyck-Hjsszx Hx Patient Social History Marrital Status: Employed/Student: retired Tobacco Use?: No Smoking Status: Former Smoker Smokeless Tobacco Frequency: Never a User Use of E-Cig and/or Vaping dev: No Substance use?: No Alcohol Use?: No Pt feels they are or have been: No Immunizations Up To Date Date of Influenza Vaccine: May 17, 2014 First/Initial COVID19 Vaccinat: 2020 Second COVID19 Vaccination [place]: 2020 Tetanus Booster (TDap): More Than 5 Years Hepatitis A: No Hepatitis B: No Date of Pneumonia Vaccine: May 26, 2011 Seasonal Allergies Seasonal Allergies: No Current Status status: No status: No Advance Directives: Yes Advance Directive Location: Home Communicates: Verbally Primary Language: Ukrainian Preferred Spoken Language: Ukrainian Is interpretation needed?: No Past Medical History Surgeries: Adenoidectomy, Cardiac, CABG, Eye Surgery, Gallbladder, Orthopedic, Tonsillectomy Pneumonia Currently Using CPAP: No Currently Using BIPAP: No Atrial Fibrillation, Coronary Artery Disease, High Cholesterol, Hypertension 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 Sexually Transmitted Disease: No Kidney Infection, Bladder Infection Gastroesophageal Reflux, Obstructive Bowel, Chronic Constipation, D iverticulosis, Chronic Diarrhea, Irritable Bowel Rheumatoid Arthritis, Chronic Back Pain Macular Degeneration Blood Disorders: No Adverse Reaction/Blood Tranf: No Family Medical History Abdominal aortic aneurysm G8 BROTHER Angina pectoris 19 MOTHER Completed stroke G8 BROTHER FH: brain aneurysm 19 MOTHER Hypercholesterolemia G8 SISTER Hypertension G8 SISTER Osteoporosis G8 SISTER Social, medical and surgical history per old records as patient has altered mental status and is unable to answer questions. Review of Systems Constitutional: weakness Respiratory: no symptoms reported Cardiovascular: no symptoms reported Gastrointestinal: no symptoms reported Physical Exam Physical Exam Vital Signs Vital Signs - First Documented 05/04/22 00:48 O2 Flow Rate 2.00 Capillary Refill : Less Than 3 Seconds Height, Weight, BMI Height: 5'5.00" Weight: 119lbs. 0.0oz. 53.065428ka; 19.47 BMI Method:Stated General Appearance: No Apparent Distress, Chronically ill, Thin HEENT: PERRL/EOMI, Pharynx Normal Neck: Normal Inspection, Supple Respiratory: Lungs Clear, No Respiratory Distress Cardiovascular: Regular Rate, Rhythm, Systolic Murmur Gastrointestinal: Normal Bowel Sounds, Non Tender, Soft Extremity: Normal Inspection, No Pedal Edema Neurologic/Psychiatric: Alert, Normal Mood/Affect Skin: Normal Color, Warm/Dry Results Results/Procedures Labs Laboratory Tests 05/03/22 20:58 05/04/22 04:02 Patient resulted labs reviewed. Imaging: Reviewed Imaging Report Assessment/Plan Admission Diagnosis HTN urgency Admission Status: Observation Assessment and Plan HTN urgency Elevated troponin Essential HTN HLD AFib CAD Cardiology consulted TeleICU consulted Started on IV Cardene BP improved Transitioning off drip this morning Started on Amlodipine Continue Metoprolol Stop Amiodarone Continue Digoxin Continue decreased dose Eliquis Conservative management recommended for known CAD Diagnosis/Problems Diagnosis/Problems (1) Hypertensive urgency Status: Acute (2) Elevated troponin Status: Acute (3) Renal insufficiency Status: Acute RJ HOFFMAN MD May 04, 2022 19:35
[2022-05-04] MEDS: APIXABAN 2.5 MG (ELIQUIS) TABLET PO SCH ×2 (20:31→21:09)
[2022-05-05] MEDS ORDERED: GABAPENTIN 100 MG (NEURONTIN) CAP ONE (01:05)
[2022-05-05] MEDS: MAGNESIUM 1 GM/100 ML IVPB 100 ML IV SCH (05:06)
[2022-05-05] MEDS: POTASSIUM CL 10MEQ/50ML IVPB 50 ML IV SCH (05:06)
[2022-05-05] MEDS: KCL 20 MEQ TAB (K-DUR) PO SCH (05:07)
[2022-05-05] MEDS: CATHETER FLUSH 10 ML SYR IVP SCH (05:07)
[2022-05-05 05:14] LABS: BASOPHILS % (AUTO) 1 % (0-10); EOSINOPHILS # (AUTO) 0.1 10^3/uL (0.0-0.3); EOSINOPHILS % (AUTO) 2 % (0-10); HEMATOCRIT 29 % (35-52); HEMOGLOBIN 9.7 g/dL (11.5-16.0); LYMPHOCYTES # (AUTO) 1.8 10^3/uL (1.0-4.0); LYMPHOCYTES % (AUTO) 34 % (12-44); MEAN CORPUSCULAR HEMOGLOBIN 33 pg (25-34); MEAN CORPUSCULAR HGB CONC 33 g/dL (32-36); MEAN CORPUSCULAR VOLUME 101 fL (80-99); MEAN PLATELET VOLUME 11.1 fL (9.0-12.2); MONOCYTES # (AUTO) 0.7 10^3/uL (0.0-1.0); MONOCYTES % (AUTO) 13 % (0-12); NEUTROPHILS # (AUTO) 2.8 10^3/uL (1.8-7.8); NEUTROPHILS % (AUTO) 51 % (42-75); PLATELET COUNT 186 10^3/uL (130-400); WHITE BLOOD COUNT 5.4 10^3/uL (4.3-11.0)
[2022-05-05 05:35] LABS: ALBUMIN 3.3 GM/DL (3.2-4.5); BILIRUBIN,TOTAL 0.5 MG/DL (0.1-1.0); CALCIUM 8.6 MG/DL (8.5-10.1); CREATININE SERUM 1.37 MG/DL (0.60-1.30); MAGNESIUM 2.1 MG/DL (1.6-2.4); PHOSPHORUS 4.3 MG/DL (2.3-4.7); POTASSIUM 4.2 MMOL/L (3.6-5.0)
[2022-05-05] MEDS: ASPIRIN E.C. 81 MG (ECOTRIN) TAB PO SCH (08:14)
[2022-05-05] MEDS: APIXABAN 2.5 MG (ELIQUIS) TABLET PO SCH (08:14)
--- NOTE | 2022-05-05 08:37 | Cardiology Progress Note ---
Subjective Date Seen by Provider: May 05, 2022 Time Seen by Provider: 08:35 Subjective/Events-last exam Patient was seen at bedside, sitting in a chair, feeling better today Still in sinus rhythm Review of Systems General: No Chills, No Night Sweats; Fatigue, Malaise; No Appetite, No Other HEENT: No Head Aches, No Visual Changes, No Eye Pain, No Ear Pain, No Dysphas ia, No Sinus Congestion, No Post Nasal Drip, No Sore Throat, No Other Pulmonary: No Dyspnea, No Cough, No Pleuritic Chest Pain, No Other Cardiovascular: No: Chest Pain, Palpitations, Orthopnea, Paroxysmal Noc. Dyspnea, Edema, Lt Headedness, Other Objective-Cardiology Exam Last Set of Vital Signs Vital Signs 05/05/22 05/05/22 05/05/22 06:00 07:35 08:23 Temp 37.0 Pulse 63 Resp 11 B/P (MAP) 123/52 (69) Pulse Ox 93 O2 Delivery Nasal Cannula O2 Flow Rate 2.00 I&O Intake and Output 05/05/22 00:00 Intake Total 820 ml Output Total 1250 ml Balance -430 ml Intake Oral 620 ml IV Total 200 ml Output Urine Total 1250 ml # Voids 7 Daily Weight Change No General: Alert, Oriented X3, Cooperative HEENT: Atraumatic, PERRLA Neck: Supple, No JVD, No Thyromegaly Lungs: Clear to Auscultation, Normal Air Movement Heart: Regular Rate, Normal S1, Normal S2, Other (Systolic murmur at the left sternal border) Abdomen: Normal Bowel Sounds, Soft, No Tenderness, No Hepatosplenomegaly, No Masses Extremities: No Clubbing, No Cyanosis, No Edema, Normal Pulses, No Tenderness/Swelling Skin: No Rashes, No Breakdown, No Significant Lesion Neuro: Normal Speech, Normal Tone, Sensation Intact Psych/Mental Status: Mental Status NL, Mood NL Results Lab Laboratory Tests 05/05/22 04:45 A/P-Cardiology Admission Diagnosis Hypertensive urgency Paroxysmal atrial fibrillation Non-ST elevation myocardial infarction Coronary artery disease Assessment/Plan Hypertensive urgency, elevated blood pressure with headache and generalized weakness Blood pressure responded to Cardene drip, currently off the drip Started on Toprol and amlodipine and tolerating them well. Continue to monitor Non-ST elevation myocardial infarction, mild elevation in troponin level. Had extensive coronary artery disease by cardiac catheterization in 2019, conservative management is recommended. Generalized weakness and loss of energy. Starting physical therapy Acute renal insufficiency, continue to monitor renal function. Coronary artery disease, History of CABG 3 done in 2008 using SAMUEL to LAD, vein graft to the proximal LAD, vein graft to the right PDA. Cardiac catheterization in October 2018 after having an abnormal stress test showed severe stenosis at the left main, ostial circumflex and LAD, the LAD is corrected by vein graft to the mid portion, the circumflex is small not amendable to intervention and not bypassed, SAMUEL to the distal LAD is atretic with sluggish flow probably due to competitive flow through the vein graft to the mid LAD, mild to moderate disease in the right coronary artery that is a large dominant artery, patent vein graft to the right coronary artery. Has elevation in troponin probably due to small vessel disease. Non-ST el evation myocardial infarction, conservative management is recommended. Adding aspirin 81 mg daily. 2D echo was done on October 16, 2020 showing normal LV size with EF 55 to 65%, grade 1 diastolic dysfunction, mild mitral regurgitation, PA pressure 40 to 45 mm, repeat 2D echocardiogram Paroxysmal atrial fibrillation, currently in sinus rhythm. Intolerant to amiodarone due to nausea and generalized weakness. Tolerating digoxin well. Continue to monitor [id number] score is 5, yearly risk risk of stroke without oral anticoagulation is 6.7 percent, maintained on Eliquis 2.5 mg twice daily Recurrent palpitation, reporting improvement. Continue to monitor Hyperlipidemia, intolerant to statins and Zetia. Lipid profile was done on November 11, 2021 showing total cholesterol 212, HDL 65, triglyceride 119, LDL 123. Continue to monitor History of rheumatoid arthritis, maintained on methotrexate. Doing well at this time. Continue to monitor. History of back pain. Premature atrial contractions, premature ventricular contractions, palpitation, continue to monitor Mild bilateral carotid stenosis, nonobstructive disease, followed by heart and vascular care. Continue to monitor. WALTER MARQUEZ MD May 05, 2022 08:37
[2022-05-05] MEDS ORDERED: DIGOXIN 0.125 MG (LANOXIN) TAB PO SCH (09:00)
[2022-05-05] MEDS ORDERED: amLODIPine 5 MG (NORVASC) TAB PO SCH (09:00)
--- NOTE | 2022-05-05 09:59 | Physical Therapy Daily Note ---
PT Daily Note-Current Subjective Patient agrees to PT. Pain Section J - Health Conditions 1. Rarely or not at all 2. Occasionally 3. Frequently 4. Almost constantly 8. Unable to answer Pain Effect on Sleep: 1 Pain Interference with Therapy: 1 Pain Interference w/Day-to-Day: 1 Mental Status Patient Orientation: Normal For Age Transfers SCALE: Activities may be completed with or without assistive devices. 3-Xhepkwotkj-gypmafu completes the activity by him/herself with no assistance from a helper. 5-Set-up or Clean-up Assistance-helper sets up or cleans up; patient completes activity. [place] assists only prior to or following the activity. 4-Supervision or Touching Assistance-helper provides verbal cues and/or touching/steadying and/or contact guard assistance as patient completes activity. Assistance may be provided throughout the activity or intermittently. 3-Partial/Moderate Assistance-helper does LESS THAN HALF the effort. [place] lifts, holds or supports trunk or limbs, but provides less than half the effort. 2-Substantial/Maximal Assistance-helper does MORE THAN HALF the effort. [place] lifts or holds trunk or limbs and provides more than half the effort. 8-Fxiogdutr-noqprl does ALL the effort. Patient does none of the effort to complete the activity. Or, the assistance of 2 or more helpers is required for the patient to complete the activity. If activity was not attempted, code reason: 7-Patient Refused. 9-Not Applicable-not attempted and the patient did not perform the activity before the current illness, exacerbation or injury. 10-Not Attempted due to Environmental Limitations-(lack of equipment, weather restraints, etc.). 88-Not Attempted due to Medical Conditions or Safety Concerns. Lying to Sitting/Side of Bed(Q: 6 Sit to Stand (QC): 4 Chair/Irz-cx-Cxwdg Xfer(QC): 4 Toilet Transfer (QC): 4 Weight Bearing Right Lower Extremity: Right Weight Bearing/Tolerated Left Lower Extremity: Left Weight Bearing/Tolerated Gait Training Distance: 400' Walk 10 feet (QC): 4 Walk 50 ft with 2 Turns(QC): 4 Walk 150 ft (QC): 4 Gait Assistive Device: FWW slightly unsteady with self correct/improved with increase in distance. Exercises Seated Therapy Exercises: Ankle pumps, Long arc quads Seated Reps: 15 Assessment Patient tolerates minimal activity and is up in recliner with needs met. Plan to dismiss to NH for continued skilled stay. PT Security System Analyst Goals Longterm Goals PT Security System Analyst Goals Time Frame: May 16, 2022 Roll Left & Right (QC): 6 Sit to Lying (QC): 6 Lying-Sitting on Side/Bed(QC): 6 Sit to Stand (QC): 5 Chair/Joq-vb-Pynka Xfer(QC): 5 Toilet Transfer (QC): 5 Walk 10 feet (QC): 5 Walk 50ft with 2 Turns (QC): 5 Walk 150 ft (QC): 5 PT Plan Treatment/Plan Treatment Plan: Continue Plan of Care Treatment Plan: Bed Mobility, Education, Functional Activity [place], Functional Strength, Gait, Safety, Therapeutic Exercise, Transfers Treatment Duration: May 16, 2022 Frequency: 6 times per week Estimated Hrs Per Day: .25 hour per day Patient and/or Family Agrees t: Yes Time/GCodes Time In: 730 Time Out: 744 Total Billed Treatment Time: 14 Total Billed Treatment 1 visit FA 14 min MARYBEL DENNIS PT May 05, 2022 09:59
[2022-05-05] MEDS: ACETAMINOPHEN 500 MG TAB (TYLENOL) PO PRN (10:37)
[2022-05-05] MEDS ORDERED: ASPI-1238 PO (11:16)
[2022-05-05] MEDS ORDERED: AMLO-250 PO (11:16)
--- NOTE | 2022-05-05 11:24 | Discharge Summary ---
Discharge Summary Reconcile Patient Problems Problems Reviewed?: Yes Instructions for Patient Via [employer], Assessment/Instructions Take medications as prescribed. Follow up with your PCP. Return with worsening headaches, weakness, or if you feel like you are getting worse. Physician to follow Patient: Mohsen Discharge Diet for Home: Low Sodium Diet Hospital Course Date of Admission: May 03, 2022 at 22:47 Admission Diagnosis : HTN urgency Family Physician/Provider: Joey Connolly DO Date of Discharge: 05/05/22 Discharge Diagnosis: HTN urgency Hospital Course: Rowan Barreto is an 86 year old female with PMH HTN, HLD, AFib, CAD, RA, who presented with headache and was admitted with hypertensive urgency. She was admitted to the ICU on IV Cardene. Her BP improved. She was transitioned to Metoprolol and Amlodipine. Her BP remained well controlled. Cardiology was consulted and assisted with her care. Her Amiodarone was discontinued due to side effects of weakness thought to be due to medication. She was continued on Digoxin and low dose Eliquis. She worked with PT/OT. She was discharged home with home health care in stable condition. Labs and Pending Lab Test: Laboratory Tests 05/05/22 04:45: White Blood Count 5.4, Red Blood Count 2.91L, Hemoglobin 9.7L, Hematocrit 29L, Mean Corpuscular Volume 101H, Mean Corpuscular Hemoglobin 33, Mean Corpuscular Hemoglobin Concent 33, Red Cell Distribution Width 13.2, Platelet Count 186, Mean Platelet Volume 11.1, Immature Granulocyte % (Auto) 1, Neutrophils (%) (Auto) 51, Lymphocytes (%) (Auto) 34, Monocytes (%) (Auto) 13H, Eosinophils (%) (Auto) 2, Basophils (%) (Auto) 1, Neutrophils # (Auto) 2.8, Lymphocytes # (Auto) 1.8, Monocytes # (Auto) 0.7, Eosinophils # (Auto) 0.1, Basophils # (Auto) 0.0, Immature Granulocyte # (Auto) 0.0, Sodium Level 140, Potassium Level 4.2, Chloride Level 107, Carbon Dioxide Level 21, Anion Gap 12, Blood Urea Nitrogen 27H, Creatinine 1.37H, Estimat Glomerular Filtration Rate 38, BUN/Creatinine Ratio 20, Glucose Level 87, Calcium Level 8.6, Corrected Calcium 9.2, Phosphorus Level 4.3, Magnesium Level 2.1, Total Bilirubin 0.5, Aspartate Amino Transf (AST/SGOT) 15, Alanine Aminotransferase (ALT/SGPT) 19, Alkaline Phosphatase 61, Total Protein 6.0L, Albumin 3.3 Microbiology 05/04/22 MRSA Screen - Final, Complete MRSA not isolated Home Meds Active Aspirin EC (Aspirin) 81 Mg Tablet.dr 81 Mg PO DAILY 30 Days Amlodipine Besylate 5 Mg Tablet 5 Mg PO DAILY 30 Days Reported Vitamin D3 (Cholecalciferol (Vitamin D3)) 25 Mcg (1000 Unit) Capsule 25 Mcg PO DAILY Zinc (Zinc Gluconate) 50 Mg Tablet 50 Mg PO DAILY Amiodarone HCl 400 Mg Tablet 400 Mg PO Q12H Tylenol Extra Strength (Acetaminophen) 500 Mg Tablet 500 Mg PO Q6H PRN Ondansetron Odt (Ondansetron) 4 Mg Tab.rapdis 4 Mg SL TID PRN Mylanta Coat-Cool 1,200-270-80 (Calcium Carb/Mag Hydrox/Simeth) 1,200 Mg-270 Mg- 80 Mg/10 Ml Oral.susp 10 Ml PO TID PRN Vitamin C (Ascorbate Calcium) 500 Mg Tablet 1,000 Mg PO DAILY Metoprolol Tartrate 50 Mg Tablet 50 Mg PO BID Mag-Oxide (Magnesium Oxide) 200 Mg Magnesium Tablet 200 Mg PO DAILY Lotemax (Loteprednol Etabonate) 0.5 % Drops.gel 1 Drops OU DAILY Melatonin 1 Mg Tablet 1 Mg PO HS Folic Acid 1 Mg Tablet 1 Mg PO DAILY Cyclobenzaprine HCl 10 Mg Tablet 5 Mg PO HS PRN TAKES OF A 10MG TAB Digoxin 125 Mcg (0.125 Mg) Tablet 125 Mcg PO DAILY HOLD FOR PULSE UNDER 50 Gabapentin 100 Mg Capsule 200 Mg PO HS TAKES 2 (100MG) CAPS Eliquis (Apixaban) 2.5 Mg Tablet 2.5 Mg PO BID Loratadine 10 Mg Tablet 10 Mg PO DAILY Consulations Cardiology Patient Allergies: Coded Allergies: tetanus toxoid, adsorbed (Unverified Allergy, Unknown, 08/17/14) tramadol (Verified Allergy, Unknown, Hives, 11/16/18) Height (Feet): 5 Height (Inches): 5.00 Weight (Pounds): 119 Weight (Ounces): 0.0 Home Health Need/Face to Face Date of Face to Face: May 05, 2022 Clinical Findings: Generalized weakness and fatigue, Instability, Muscle weakness, Unsteady gait I have seen Pt xmyx-yf-elbj: Yes Discharged To: Home Diagnosis/Conditions: HTN HLD CAD AFib Debility RA CKD 3b Problems/Diagnosis/Condition: (1) HTN (hypertension) (2) HLD (hyperlipidemia) (3) CAD (coronary artery disease) (4) Afib (5) Rheumatoid arthritis (6) Debility (7) Renal insufficiency Patient is Homebound due to: Isa fall risk due to instabilty, Muscle weakness Homebound Status Due to the above stated illness, injury or surgical procedure (medical condition or diagnosis) and associated clinical findings, the patient is homebound because of his/her inability to leave home except with aid of a supportive device and/or person AND leaving the home requires a considerable and taxing effort or is medically contraindicated. Pt req the following assistanc: Aid of another person, Walker Home Health Nursing Orders Home Health Services Order: Nursing Services, Dynamics Ax Technical Architect-Evaluate & Treat, Physical Therapy-Evaluate & Treat Home Health Infusion Therapy Line Start Date: May 04, 2022 Therapy Orders Therapy Orders: OT (must have SN or PT order), Physical Therapy Therapy Specific Orders: Eval assistive deivces, Teach enviro modific ations/safety, Gait training, Increase strength/endurance Certify Stmt I certify that this patient is under my care and that I, a nurse practitioner or a physician; a agency sales management assistant working with me, had a face to face encounter that -meets the physician face to face encounter requirements with this patient as dated. Discharge Physical Exam General: Alert, No Acute Distress HEENT: Atraumatic, EOMI, Mucous Memb Moist/[place] Lungs: Clear to Auscultation, Normal Air Movement Heart: Regular Rate, No Murmurs Abdomen: Normal Bowel Sounds, Soft, No Tenderness Extremities: No Edema, No Tenderness/Swelling Skin: No Rashes, No Significant Lesion Neuro: Normal Speech, Normal Tone Psych/Mental Status: Mental Status NL, Mood NL RJ HOFFMAN MD May 05, 2022 11:24
--- NOTE | 2022-05-05 12:00 | Occupational Therapy Eval ---
OT Evaluation-General/PLF Medical Diagnosis Admission Date May 03, 2022 at 22:47 Medical Diagnosis: HTN urgency/weakness Onset Date: May 03, 2022 Therapy Diagnosis Therapy Diagnosis: decreased ADL status Height/Weight Height (Feet): 5 Height (Inches): 5.00 Weight (Pounds): 119 Weight (Ounces): 0.0 Precautions Precautions/Isolations: Fall Prevention, Standard Precautions Referral Physician: Susan Referral Reason: Evaluation/Treatment Medical History Pertinent Medical History: Atrial Fib, CABG, CAD, HTN, Rheumatoid Arthritis Additional Medical History CABG, PNA, afib, CAD, HTN, GERD, RA, macular degeneration Current History ED from [facility] with weakness, headache and elevated BP Social History Home: Long Term Prior to stay at [facility], pt lived at home with her spouse. She plans to return home with spouse who has moved to [facility]. ADL-Prior Level of Function SCALE: Activities may be completed with or without assistive devices. 4-Ekkfzcevea-fenirye completes the activity by him/herself with no assistance from a helper. 5-Set-up or Clean-up Assistance-helper sets up or cleans up; patient completes activity. [place] assists only prior to or following the activity. 4-Supervision or Touching Assistance-helper provides verbal cues and/or touching/steadying and/or contact guard assistance as patient completes activity. Assistance may be provided throughout the activity or intermittently. 3-Partial/Moderate Assistance-helper does LESS THAN HALF the effort. [place] lifts, holds or supports trunk or limbs, but provides less than half the effort. 2-Substantial/Maximal Assistance-helper does MORE THAN HALF the effort. [place] lifts or holds trunk or limbs and provides more than half the effort. 2-Oonwwtnjf-brovel does ALL the effort. Patient does none of the effort to complete the activity. Or, the assistance of 2 or more helpers is required for the patient to complete the activity. If activity was not attempted, code reason: 7-Patient Refused. 9-Not Applicable-not attempted and the patient did not perform the activity before the current illness, exacerbation or injury. 10-Not Attempted due to Environmental Limitations-(lack of equipment, weather restraints, etc.). 88-Not Attempted due to Medical Conditions or Safety Concerns. ADL PLOF Comments Prior to recent [place] stay, pt required supervision with shower, but able to complete shower and dressing without physical assistance. Pt unclear on level of assistance provided at [facility]. Pt's apartment has a walk in shower with SC. Self Care: Needed Some Help OT Current Status Subjective Pt on BSC upon OT arrival, OT instructed pt to use call light when done. Daught er present and joined during tx. Mental Status/Objective Patient Orientation: Person, Place, Situation Current Upper Extremity ROM WFL Upper Extremity Strength grossly 3/5 ADL-Treatment Toileting Hygiene (QC): 4 (supervision due to lines/leads) Other Treatments Pt on BSC upon OT arrival, OT instructed pt to use call light when done, and stepped outside room. Pt's daughter left room a minute later, stating pt was done, but transferred herself back to recliner prior to daughter being able to get therapist. Per daughter and pt report, pt able to complete hygiene and clothing management, but required supervision due to lines/leads. Pt informs OT she is planning on discharging home with home health today. OT and pt talked about home management, activity modifications, and safety aspects with returning home, including having someone present while she showers for safety, she verbalized understanding. Pt indicates her daughter is staying with her this weekend, then she has another daughter in the area who could assist. Pt also lives with her who can provide some assistance. Pt and family state no concerns with her ability to complete ADLS upon returning home. Post tx, pt in recliner, call light in reach and alll needs met. Education OT Patient Education: Correct positioning, Modified ADL techniques, Progress toward Goal/Update tx plan, Purpose of tx/functional activities, Rehab process Teaching Recipient: Patient Teaching Methods: Discussion Response to Teaching: Verbalize Understanding OT Box Stamper Goals Fdc Goals Time Frame: May 13, 2022 Eating (QC): 6 Oral Hygiene (QC): 6 Toileting Hygiene (QC): 6 Shower/Bathe Self (QC): 4 Upper Body Dressing (QC): 5 Lower Body Dressing (QC): 5 On/Off Footwear (QC): 5 Additional Goals: 1-Demonstrate ADL Tasks, 2-Verbalize Understanding, 3-ImproveStrength/[place]unn[place] 1=Demonstrate adherence to instructed precautions during ADL tasks. 2=Patient will verbalize/demonstrate understanding of assistive devices/modifications for ADL. 3=Patient will improve strength/tolerance for activity to enable patient to perform ADL's. OT Education/Plan Problem List/Assessment Assessment: Decreased Activ Tolerance, Decreased UE Strength, Impaired I ADL's Discharge Recommendations Plan/Recommendations: Continue POC Treatment Plan/Plan of Care Patient would benefit from OT for education, treatment and training to promote independence in ADL's, mobility, safety and/or upper extremity function for ADL's. Plan of Care: ADL Retraining, Functional Mobility, UE Funct Exercise/Act Treatment Duration: May 13, 2022 Frequency: 3 times per week (3-5 times per week) Estimated Hrs Per Day: .25 hour per day Rehab Potential: Fair Time/GCodes Start Time: 11:20 Stop Time: 11:32 Total Time Billed (hr/min): 12 Billed Treatment Time 1, ILA CHAUDHARY OT May 05, 2022 12:00
[2022-05-05] MEDS ORDERED: GABAPENTIN 100 MG (NEURONTIN) CAP PO SCH (21:00)
== END 2022-05-05 12:00 | disposition home health service (06) ==
LOC: EDUNIT# 20:28 → ER 20:29 → ICU 22:47 → ER 23:54
PROVIDERS: ADMIT Family Medicine; ATTEND Internal Medicine
DX: I16.0 Hypertensive urgency (principal); I10 Essential (primary) hypertension; I21.4 Non-ST elevation (NSTEMI) myocardial infarction; I12.9 Hypertensive chronic kidney disease with stage 1 through stage 4 chronic kidney disease, or unspecified chronic kidney disease; N18.32 Chronic kidney disease, stage 3b; N17.9 Acute kidney failure, unspecified; I25.10 Atherosclerotic heart disease of native coronary artery without angina pectoris; I48.0 Paroxysmal atrial fibrillation; Z20.822 Contact with and (suspected) exposure to COVID-19; E78.5 Hyperlipidemia, unspecified; I49.1 Atrial premature depolarization; I49.3 Ventricular premature depolarization; I27.20 Pulmonary hypertension, unspecified; M06.9 Rheumatoid arthritis, unspecified; K21.9 Gastro-esophageal reflux disease without esophagitis; I65.23 Occlusion and stenosis of bilateral carotid arteries; R25.1 Tremor, unspecified; R53.1 Weakness; Z95.1 Presence of aortocoronary bypass graft; I44.7 Left bundle-branch block, unspecified; Z82.49 Family history of ischemic heart disease and other diseases of the circulatory system
CPT/HCPCS: 70450; 71045; 80048; 80053 ×2; 80162; 81000; 83735 ×3; 83874; 83880; 84100 ×2; 84439; 84443; 84484 ×2; 85025 ×3; 85610; 85730; 86141; 87081; 87636; 93005; 93041; 96366; 96372; 96375; 97162; 97165; 97530; 99284; C8929; G0378; 36415; 93306

== ENCOUNTER → 2022-06-24 | Outpatient (CLI) | payer MEDICARE, OTHER ==
[~2022-06-24] MED LIST changes: +AMIO200T65 PO; +AMIO400T5 PO; +AMLO-250 PO; +ASCO-262 PO; +ASPI-1238 PO; +CALC355O18 PO; +MAGN200T8 PO; +METO50TA15 PO; +ZINC50TA11 PO; +ZINC50TA51 PO
--- NOTE | 2022-06-24 21:47 | Diagnostic Imaging Report ---
INDICATION: Postmenopausal. COMPARISON: None. FINDINGS: The bone density of the spine, the hips and the femoral necks was measured. The total T score for the spine is -1.4. The total T score for the left hip is -2.2. These values indicate osteopenia. The total T score for the right hip is -3.0. This would be consistent with osteoporosis. The T score for the left femoral neck is -0.7. This value is within normal limits. The T score for the right femoral neck is -1.7. This also indicates osteopenia. [BMD (g/cm2): 1.032] [T-Score: -1.4] [Z-Score: 1.1] [BMD Previous: na] [BMD % Change: na] LT Hip Neck: [BMD (g/cm2): 0.942] [T-Score: -0.7] [Z-Score: 2.1] LT Hip Total: [BMD (g/cm2):0.730] [T-Score:-2.2] [Z-Score: 0.5] [BMD Previous: na] [BMD % Change: na] RT Hip Neck: [BMD (g/cm2):0.796] [T-Score:-1.7] [Z-Score:1.0] RT Hip Total: [BMD (g/cm2):0.629] [T-score:-3.0] [Z-Score:-0.3] [BMD Previous:na] [BMD % Change:na] *Indicates significant change from prior examination based on 95% confidence level. World Health Organization criteria for BMD interpretation classify patients as Normal (T-score at or above -1.0), Osteopenic (T-score between -1.0 and -2.5) or Osteoporotic (T-score at or below -2.5). LIMITATIONS AND MODIFICATION: None. FRACTURE RISK (FRAX SCORE): The ten year probability of (%): Major Osteoporotic Fracture: [20.3] Hip Fracture: [6.5] IMPRESSION: 1. There is osteopenia of the spine, the left hip and the right femoral neck. 2. There is osteoporosis of the right hip. 3. The bone mineral density of the left femoral neck is within normal limits. 3. See below National Osteoporosis Foundation guidelines on when to potentially initiate pharmacologic therapy. Based on the National Osteoporosis Foundation Guidelines, pharmacologic treatment should be initiated in any of the following, unless clinical conditions suggest otherwise: * Any patient with prior fragility fracture of the hip or vertebrae. A spine fracture indicates 5X risk for subsequent spine fracture and 2X risk for subsequent hip fracture. * Osteoporosis (T-score <-2.5). * Postmenopausal women and men age 50 and older with low bone mass/osteopenia (T-score between -1.0 and -2.5) by DXA and 10-year major osteoporotic fracture greater than 20% or a 10-year probability of hip fracture greater than 3%. These fracture risks are supplied above in the FRAX score, if applicable. * Clinician judgement and/or patient preferences may indicate treatment for people with 10-year fracture probabilities above or below these levels. Dictated by: Dictated on workstation # [id number]
== END ==
LOC: RAD 13:46
DX: M81.0 Age-related osteoporosis without current pathological fracture (principal); M05.7A Rheumatoid arthritis with rheumatoid factor of other specified site without organ or systems involvement; M85.89 Other specified disorders of bone density and structure, multiple sites; Z78.0 Asymptomatic menopausal state; Z79.899 Other long term (current) drug therapy
CPT/HCPCS: 77080

== ENCOUNTER 2022-07-04 12:32 | Emergency (ER) | payer MEDICARE, OTHER ==
[~2022-07-04] VITALS: Ht 162.5 cm; Wt 47.6 kg
--- NOTE | 2022-07-04 13:02 | ED Lower Extremity ---
General Chief Complaint: Lower Extremity Stated Complaint: LEFT FOOT PAIN Nursing Triage Note: PT AMB TO TRIAGE WITH COMPLAINT OF LEFT FOOT PAIN. STATES DROPPED A CASSEROLE DISH ON FOOT WEDNESDAY Source: patient Exam Limitations: no limitations History of Present Illness Date Seen by Provider: Jul 04, 2022 Time Seen by Provider: 12:59 Initial Comments Patient is an 86-year-old female who presents to the emergency department with a chief complaint of dorsal left foot pain. Patient states that she dropped a large casserole dish on top of her foot on Wednesday of last week, 5 days ago. She has been taking Tylenol for pain. She has not iced the foot. She states that she is able to walk but it is painful. History of heart disease on chronic anticoagulation as well as rheumatoid arthritis. No other complaints of recent illness or injury. All other review of systems reviewed and negative except as stated Onset: last week Pain/Injury Location: left foot Method of Injury: direct blow Modifying Factors: Worse With Movement Allergies and Home Medications Allergies Coded Allergies: tetanus toxoid, adsorbed (Unverified Allergy, Unknown, 08/17/14) tramadol (Verified Allergy, Unknown, Hives, 11/16/18) Patient Home Medication List Home Medication List Reviewed: Yes Acetaminophen (Tylenol Extra Strength) 500 Mg Tablet, 500 MG PO Q6H PRN for PAIN-MILD (1-4), (Reported) Entered as Reported by: SAMANTHA TAYLOR on 05/04/22 1031 Amlodipine Besylate (Amlodipine Besylate) 5 Mg Tablet, 5 MG PO DAILY Prescribed by: RJ HOFFMAN on 05/05/22 1116 Apixaban (Eliquis) 2.5 Mg Tablet, 2.5 MG PO BID, (Reported) Entered as Reported by: SAMANTHA TAYLOR on 04/02/22 1536 Ascorbate Calcium (Vitamin C) 500 Mg Tablet, 1,000 MG PO DAILY, (Reported) Entered as Reported by: SAMANTHA TAYLOR on 05/04/22 1031 Aspirin (Aspirin EC) 81 Mg Tablet.dr, 81 MG PO DAILY Prescribed by: RJ HOFFMAN on 05/05/22 1116 Calcium Carb/Mag Hydrox/Simeth (Mylanta Coat-Cool 1,200-270-80) 1,200 Mg-270 Mg- 80 Mg/10 Ml Oral.susp, 10 ML PO TID PRN for GAS, (Reported) Entered as Reported by: SAMANTHA TAYLOR on 05/04/22 103 Cholecalciferol (Vitamin D3) (Vitamin D3) 25 Mcg (1000 Unit) Capsule, 25 MCG PO DAILY, (Reported) Entered as Reported by: SAMANTHA TAYLOR on 05/04/22 103 Cyclobenzaprine HCl (Cyclobenzaprine HCl) 10 Mg Tablet, 5 MG PO HS PRN for MUSCLE SPASMS, (Reported) Entered as Reported by: SAMANTHA TAYLOR on 04/02/22 153 Digoxin (Digoxin) 125 Mcg (0.125 Mg) Tablet, 125 MCG PO DAILY, (Reported) Entered as Reported by: SAMANTHA TAYLOR on 04/02/22 153 Folic Acid (Folic Acid) 1 Mg Tablet, 1 MG PO DAILY, (Reported) Entered as Reported by: SAMANTHA TAYLOR on 04/02/22 153 Gabapentin (Gabapentin) 100 Mg Capsule, 200 MG PO HS, (Reported) Entered as Reported by: SAMANTHA TAYLOR on 04/02/22 153 Loratadine (Loratadine) 10 Mg Tablet, 10 MG PO DAILY, (Reported) Entered as Reported by: SAMANTHA TAYLOR on 04/02/22 153 Loteprednol Etabonate (Lotemax) 0.5 % Drops.gel, 1 DROPS OU DAILY, (Reported) Entered as Reported by: SAMANTHA TAYLOR on 04/02/22 153 Magnesium Oxide (Mag-Oxide) 200 Mg Magnesium Tablet, 200 MG PO DAILY, (Reported) Entered as Reported by: SAMANTHA TAYLOR on 05/04/22 103 Melatonin (Melatonin) 1 Mg Tablet, 1 MG PO HS, (Reported) Entered as Reported by: SAMANTHA TAYLOR on 04/02/22 153 Metoprolol Tartrate (Metoprolol Tartrate) 50 Mg Tablet, 50 MG PO BID, (Reported) Entered as Reported by: SAMANTHA TAYLOR on 05/04/22 103 Ondansetron (Ondansetron Odt) 4 Mg Tab.rapdis, 4 MG SL TID PRN for NAUSEA/VOMITING-1ST LINE, (Reported) Entered as Reported by: SAMANTHA TAYLOR on 05/04/22 103 Zinc Gluconate (Zinc) 50 Mg Tablet, 50 MG PO DAILY, (Reported) Entered as Reported by: SAMANTHA TAYLOR on 05/04/22 1035 Review of Systems Constitutional: see HPI Musculoskeletal: joint pain (top of left foot) Skin: change in color (bruising and swelling to left foot) Past Vdnapav-Rhtobp-Cqiwrn Hx Patient Social History Tobacco Use?: No Use of E-Cig and/or Vaping dev: No Substance use?: No Alcohol Use?: No Pt feels they are or have been: No Immunizations Up To Date Tetanus Booster (TDap): Less than 5yrs First/Initial COVID19 Vaccinat: 2020 Second COVID19 Vaccination Rigo: 2020 Third COVID19 Vaccination Date: 2020 Seasonal Allergies Seasonal Allergies: No Past Medical History Surgery/Hospitalization HX: 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/R ELBOW FRACTURE/MRSA/SKIN GRAFT/TONSILLECTOMY/BACTERIAL MENINGITIS Surgeries: Yes (CATARACTS/LENS IMPLANT, COLONOSCOPY, R elbow) Adenoidectomy, Cardiac, CABG, Eye Surgery, Gallbladder, Orthopedic, Tonsill ectomy Respiratory: Yes Pneumonia Currently Using CPAP: No Currently Using BIPAP: No Cardiac: Yes Atrial Fibrillation, Coronary Artery Disease, High Cholesterol, Hypertension Neurological: No Reproductive Disorders: No [employer] History: Menopausal Sexually Transmitted Disease: No Genitourinary: Yes Kidney Infection, Bladder Infection Gastrointestinal: Yes ("STOMACH PROBLEMS" SINCE CABG--?IBS? CONSTIPATION AND DIARRHEA) Gastroesophageal Reflux, Obstructive Bowel, Chronic Constipation, Diverticulosis, Chronic Diarrhea, Irritable Bowel Musculoskeletal: Yes Rheumatoid Arthritis, Chronic Back Pain Endocrine: No HEENT: Yes Macular Degeneration Cancer: No Psychosocial: Yes (POST DEPRESSION) Integumentary: No Blood Disorders: No Adverse Reaction/Blood Tranf: No Family Medical History Abdominal aortic aneurysm G8 BROTHER Angina pectoris 19 MOTHER Completed stroke G8 BROTHER FH: brain aneurysm 19 MOTHER Hypercholesterolemia G8 SISTER Hypertension G8 SISTER Osteoporosis G8 SISTER Social, medical and surgical history per old records as patient has altered mental status and is unable to answer questions. Physical Exam Vital Signs Vital Signs - First Documented 07/04/22 12:41 Pulse 75 Resp 16 B/P (MAP) 162/84 (110) Pulse Ox 96 O2 Delivery Room Air Capillary Refill : Less Than 3 Seconds Height, Weight, BMI Height: 5'5.00" Weight: 119lbs. 0.0oz. 53.376169ic; 18.00 BMI Method:Stated General Appearance: WD/WN, no apparent distress Respiratory: no respiratory distress, no accessory muscle use Hips: bilateral hip non-tender, bilateral hip normal inspection, bilateral hip normal range of motion, bilateral hip no evidence of injury Legs: left leg non-tender, left leg normal inspection, left leg normal range of motion, left leg no evidence of injury Knees: left knee non-tender, left knee normal inspection, left knee normal range of motion, left knee no evidence of injury Ankles: left ankle soft tissue tenderness, left ankle swelling Feet: left foot pain (over the corsum, proxima to the great toe), left foot soft tissue tenderness, left foot swelling, left foot other (ecchymoses (mild) over the foot/laterally; increased warmth; no significant erythema) Neurologic/Psychiatric: no motor/sensory deficits, alert, normal mood/affect, oriented x 3 Skin: normal color, warm/dry Progress/Results/Core Measures Results/Orders My Orders Orders - MICK PIPER MD Foot, Left, 3 Views (07/04/22 13:02) Vital Signs/I&O 07/04/22 12:41 Pulse 75 Resp 16 B/P (MAP) 162/84 (110) Pulse Ox 96 O2 Delivery Room Air Blood Pressure Mean: 110 Diagnostic Imaging Diagonstic Imaging: Xray Comments left foot xray: no fracture or dislocation - interpreted by ar [facility], [place] NAME: BRENTON BETANCOURT [facility] REC#: [id number] PT STATUS: REG ER : 1935 PHYSICIAN: MICK PIPER MD ADMIT DATE: 07/04/22/ER Draft Date of Exam:07/04/22 FOOT, LEFT, 3 VIEWS INDICATION: Foot pain. FINDINGS: The bones are markedly osteoporotic. Alignment is normal. There is no identified cortical disruption or fracture. There may be some mild dorsal soft tissue swelling. There is no soft tissue foreign body. IMPRESSION: Marked low bone mineral density without findings of an acute fracture or malalignment. There is dorsal soft tissue swelling without foreign body. Dictated on workstation # [id number] Dict: 07/04/22 1337 Trans: 07/04/22 1344 CVB [id number] Interpreted by: ADA VILLALOBOS MD Electronically signed by: Departure Impression Primary Impression: Contusion of foot, left Qualified Codes: S90.32XA - Contusion of left foot, initial encounter Disposition: 01 HOME, SELF-CARE Condition: Stable Departure-Patient Inst. Decision time for Depature: 13:42 Referrals: TERRI ORTA DO (PCP/Family) Primary Care Physician Patient Instructions: Minor Contusion ED Add. Discharge Instructions: Keep the foot elevated to reduce swelling. Ice packs 20min at a time 3-4 times a day to also keep swelling down. Extra Strength Tylenol 2 pills every 6 hours as needed for pain. Follow up with your primary care doctor as needed. MICK PIPER MD Jul 04, 2022 13:02
--- NOTE | 2022-07-04 13:45 | Diagnostic Imaging Report ---
INDICATION: Foot pain. FINDINGS: The bones are markedly osteoporotic. Alignment is normal. There is no identified cortical disruption or fracture. There may be some mild dorsal soft tissue swelling. There is no soft tissue foreign body. IMPRESSION: Marked low bone mineral density without findings of an acute fracture or malalignment. There is dorsal soft tissue swelling without foreign body. Dictated by: Dictated on workstation # [id number]
[2022-07-04 13:54] VITALS: BP 162/84
== END 2022-07-04 13:54 | disposition home or self-care (01) ==
LOC: EDUNIT# 12:32 → ER 12:35
DX: S90.32XA Contusion of left foot, initial encounter (principal); W20.8XXA Other cause of strike by thrown, projected or falling object, initial encounter
CPT/HCPCS: 73630

== ENCOUNTER → 2023-01-20 | Outpatient (CLI) | payer MEDICARE, OTHER | LOC: CARD 09:17 | PROVIDERS: ATTEND Internal Medicine Cardiovascular Disease | DX: I10 Essential (primary) hypertension (principal) | CPT/HCPCS: 93306 ==

== ENCOUNTER → 2023-04-05 | Outpatient (CLI) | payer MEDICARE, OTHER ==
[~2023-04-05] MED LIST changes: +REGADENOSON 0.4 MG/5 ML SYR IV ONE
[2023-04-05] MEDS: CATHETER FLUSH 10 ML SYR IVP PRN ×2 (07:35→09:02)
[2023-04-05 09:01] VITALS: BP 158/72
--- NOTE | 2023-04-05 11:44 | Cardiology Stress Test Report ---
Stress Test Report Date of Procedure/Referring: Date of Procedure: Apr 05, 2023 PCP Joey Orta DO Admitting Physician Admitting Physician: Attending Physician: Jt Davis MD Baseline Heart Rate: 69 Baseline Blood Pressure: Blood Pressure Systolic: 158 Blood Pressure Diastolic: 72 Baseline Vitals Vital Signs Date Time Temp Pulse Resp B/P (MAP) Pulse Ox O2 Delivery O2 Flow Rate FiO2 04/05/23 09:01 93 16 158/72 (100) 95 Room Air Baseline EKG: Baseline EKG: LBBB Summary After explaining the procedure to the patient, she signed a consent and then brought to the stress nuclear laboratory. Patient received 0.4 mg Lexiscan for stress test, ECG, heart rate and blood pressure were monitored continuously. Resting and stress dose of radio tracer were injected, imaging was acquired and reviewed in short axis, horizontal long axis and vertical long axis views. TID: 1.17 SSS: 11 SDS: 6 EF: 55 Patient tolerated Lexiscan well Baseline left bundle branch block persisted during test Large area of ischemia involving the whole lateral wall anterior lateral and inferolateral wall Normal left ventricular size, ejection fraction 55% Copy Copies To 1: JOEY ORTA BASHAR J MD Apr 05, 2023 11:44
== END ==
LOC: CARD 07:15
PROVIDERS: ATTEND Internal Medicine Cardiovascular Disease
DX: I10 Essential (primary) hypertension (principal); I25.10 Atherosclerotic heart disease of native coronary artery without angina pectoris
CPT/HCPCS: 78452; 93017; A9502

== ENCOUNTER 2023-04-28 10:24 | Inpatient (IN) | payer MEDICARE, OTHER ==
[~2023-04-28] VITALS: Ht 162 cm; Wt 50.9 kg
[~2023-04-28 10:24] MED LIST changes: -REGADENOSON 0.4 MG/5 ML SYR IV ONE
[2023-04-28 11:25] LABS: BASOPHILS % (AUTO) 0 % (0-10); EOSINOPHILS # (AUTO) 0.1 10^3/uL (0.0-0.3); EOSINOPHILS % (AUTO) 1 % (0-10); HEMATOCRIT 42 % (35-52); HEMOGLOBIN 13.6 g/dL (11.5-16.0); LYMPHOCYTES # (AUTO) 1.6 10^3/uL (1.0-4.0); LYMPHOCYTES % (AUTO) 21 % (12-44); MEAN CORPUSCULAR HEMOGLOBIN 34 pg (25-34); MEAN CORPUSCULAR HGB CONC 33 g/dL (32-36); MEAN CORPUSCULAR VOLUME 106 fL (80-99); MEAN PLATELET VOLUME 10.4 fL (9.0-12.2); MONOCYTES # (AUTO) 0.7 10^3/uL (0.0-1.0); MONOCYTES % (AUTO) 8 % (0-12); NEUTROPHILS # (AUTO) 5.5 10^3/uL (1.8-7.8); NEUTROPHILS % (AUTO) 70 % (42-75); PLATELET COUNT 188 10^3/uL (130-400); WHITE BLOOD COUNT 7.9 10^3/uL (4.3-11.0)
[2023-04-28] MEDS ORDERED: fentaNYL INJECTION 100 MCG/2 ML VIAL IVP ONE ×2 (11:30→15:00)
[2023-04-28 11:31] LABS: ALBUMIN 4.2 GM/DL (3.2-4.5)
[2023-04-28 11:32] LABS: CHLORIDE 104 MMOL/L (98-107); POTASSIUM 4.3 MMOL/L (3.6-5.0); SODIUM 140 MMOL/L (135-145)
[2023-04-28 11:33] LABS: CALCIUM 9.3 MG/DL (8.5-10.1)
[2023-04-28 11:34] LABS: GLUCOSE 108 MG/DL (70-105); TOTAL PROTEIN 7.1 GM/DL (6.4-8.2)
[2023-04-28 11:35] LABS: CARBON DIOXIDE 25 MMOL/L (21-32)
[2023-04-28 11:36] LABS: BILIRUBIN,TOTAL 0.6 MG/DL (0.1-1.0)
[2023-04-28 11:37] LABS: ALKALINE PHOSPHATASE 54 U/L (40-136)
[2023-04-28 11:38] LABS: GFR ESTIMATED 72
[2023-04-28 11:39] LABS: BUN/CREATININE RATIO 24
[2023-04-28 11:40] LABS: ALANINE AMINOTRANSFERASE 22 U/L (0-55); MAGNESIUM 2.4 MG/DL (1.6-2.4)
[2023-04-28 11:47] LABS: INR 1.1 (0.8-1.4); PROTHROMBIN TIME PATIENT 14.1 SEC (12.2-14.7)
--- NOTE | 2023-04-28 11:50 | Diagnostic Imaging Report ---
PROCEDURE: CT head and CT cervical spine without contrast. TECHNIQUE: Multiple contiguous axial images were obtained through the brain and cervical spine without the use of intravenous contrast. Sagittal and coronal reformations through the cervical spine were then performed. Auto Exposure Controls were utilized during the CT exam to meet ALARA standards for radiation dose reduction. INDICATION: Fall with laceration to the top of the head as well as head and neck pain. Correlation is made with prior head CT from 05/03/2022. CT HEAD: Ventricular size and sulcal pattern are prominent consistent with cerebral volume loss. There is moderate periventricular low-attenuation consistent with chronic microvascular ischemia. No sulcal effacement or midline shift is identified. No acute intra-axial or extra-axial hemorrhage is detected. Cisterns are patent. Visualized paranasal sinuses are clear. IMPRESSION: Chronic and senescent changes. No acute intracranial process is detected. CT CERVICAL SPINE: There is some reversal of the normal cervical lordotic curvature. There is a minimal anterolisthesis of C4 on C5. There is significant degenerative disc disease C5-C6 and C6-C7 levels as well as C7-T1, with significant disc space narrowing and marginal spurring. There is multilevel facet arthropathy as well. No fractures are identified. Prevertebral tissues are within normal limits. Odontoid appears intact. IMPRESSION: Cervical spondylosis with reversal of the normal cervical curvature as well as anterolisthesis of C4 on C5. No acute bony abnormality is detected. Dictated by: Dictated on workstation # [id number]
--- NOTE | 2023-04-28 11:50 | Diagnostic Imaging Report ---
EXAMINATION: Chest 1 view HISTORY: Chest pain COMPARISON: 05/03/2022 FINDINGS: Heart is enlarged. There is mild edema. Left hemidiaphragm is elevated. No pneumothorax. Median sternotomy wires are aligned. IMPRESSION: 1. Enlarged heart and mild edema. Dictated by: Dictated on workstation # [id number]
--- NOTE | 2023-04-28 12:21 | ED Fall/Injury ---
General Chief Complaint: Trauma-Non Activation Stated Complaint: FALL | HEAD INJ | LT HIP PAIN Nursing Triage Note: PT ARRIVES TO ER VIA POV WITH FAMILY. 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 PT DENIES LOC, PT DOES TAKE ELIQUIS FOR HER A-FIB. PT REPORTS THINKS HER HR WAS LOW AND CONTRIBUTED TO THE FALL. PT C/O PAIN TO L HIP AND SMALL LACERATION NOTED TO L SIDE OF HEAD, BLEEDING CONTROLLED. Source: patient, family Exam Limitations: no limitations History of Present Illness Date Seen by Provider: Apr 28, 2023 Time Seen by Provider: 10:50 Initial Comments Patient is a very pleasant 87yo who presents to the Emergency Department with a chief complaint of syncope (near syncope). She was outside on her porch and became light headed and "went down". She doesnt (and her doesnt) think she went all the was unconscious. She did hit her head and landed on her left hip/leg. Her and daughter are present with her. She is on eliquis for afib. She has a history of CAD. Dr Davis is her extractions technologist. She denies CP, SOB, nausea. SHe has mild headache. No vision changes. No numbness or pain down the left leg. She can move the LLE at the hip but it is "sore". She has never had anything like this before. Location Injury Occurred: HOME Occurred: just prior to arrival Severity: moderate Injuries/Pain Location: lower extremity Context: lightheaded Loss of Consciousness: brief (seconds) ((possibly)) Associated Symptoms (Fall): Vision Changes (leg pain, headache, laceration to head) Allergies and Home Medications Allergies Coded Allergies: tetanus toxoid, adsorbed (Unverified Allergy, Unknown, 08/17/14) tramadol (Verified Allergy, Unknown, Hives, 11/16/18) Patient Home Medication List Home Medication List Reviewed: Yes Acetaminophen (Tylenol Extra Strength) 500 Mg Tablet, 500-1,000 MG PO Q6H PRN for PAIN-MILD (1-4), (Reported) Entered as Reported by: SAMANTHA TAYLOR on 05/04/22 1031 Last Action: Held Amlodipine Besylate (Amlodipine Besylate) 5 Mg Tablet, 5 MG PO HS, (Reported) Entered as Reported by: SAMANTHA TAYLOR on 04/29/23 1021 Last Action: Held Apixaban (Eliquis) 2.5 Mg Tablet, 2.5 MG PO BID Prescribed by: YUE MOMIN on 04/30/23 1103 Ascorbate Calcium (Vitamin C) 500 Mg Tablet, 500 MG PO DAILY, (Reported) Entered as Reported by: SAMANTHA TAYLOR on 05/04/22 103 Last Action: Held Cholecalciferol (Vitamin D3) (Vitamin D3) 25 Mcg (1000 Unit) Capsule, 25 MCG PO DAILY, (Reported) Entered as Reported by: SAMANTHA TAYLOR on 05/04/22 103 Last Action: Held Cyclobenzaprine HCl (Cyclobenzaprine HCl) 5 Mg Tablet, 2.5 MG PO HS, (Reported) Entered as Reported by: SAMANTHA TAYLOR on 04/29/231020 Last Action: Converted Cyclobenzaprine HCl (Cyclobenzaprine HCl) 5 Mg Tablet, 2.5 MG PO HS PRN for MUSCLE SPASMS, (Reported) Entered as Reported by: SAMANTHA TAYLOR on 04/29/23 102 Last Action: Converted Etanercept (Enbrel) 50 Mg/Ml (1 Ml) Syringe, 50 MG INJ UBALDO, (Reported) Entered as Reported by: SAMANTHA TAYLOR on 04/29/23 102 Last Action: Held Folic Acid (Folic Acid) 1 Mg Tablet, 1 MG PO BID, (Reported) Entered as Reported by: SAMANTHA TAYLOR on 04/02/221535 Last Action: Continued Gabapentin (Gabapentin) 100 Mg Capsule, 300 MG PO HS, (Reported) Entered as Reported by: SAMANTHA TAYLOR on 04/02/22 153 Last Action: Continued Hydrocodone/Acetaminophen (Hydrocodone-Acetamin 5-325 mg) 5 Mg-325 Mg Tablet, 0.25 EA PO HS PRN for PAIN-MODERATE (5-7), (Reported) Entered as Reported by: SAMANTHA TAYLOR on 04/29/23 102 Last Action: Held Loratadine (Loratadine) 10 Mg Tablet, 10 MG PO DAILY, (Reported) Entered as Reported by: SAMANTHA TAYLOR on 04/02/22 153 Last Action: Continued Loteprednol Etabonate (Loteprednol Etabonate) 0.5 % Drops.gel, 1 DROP OU HS, (Reported) Entered as Reported by: SAMANTHA TAYLOR on 04/29/23 1021 Last Action: Converted Magnesium Oxide (Mag-Oxide) 200 Mg Magnesium Tablet, 200 MG PO BID, (Reported) Entered as Reported by: SAMANTHA TAYLOR on 05/04/22 103 Last Action: Converted Melatonin (Melatonin) 1 Mg Tablet, 1 MG PO HS, (Reported) Entered as Reported by: SAMANTHA TAYLOR on 04/02/22 1536 Last Action: Converted Methotrexate Sodium (Methotrexate) 2.5 Mg Tablet, 20 MG PO TUE, (Reported) Entered as Reported by: SAMANTHA TAYLOR on 04/29/23 1021 Last Action: Held Metoprolol Succinate (Metoprolol Succinate) 25 Mg Tab.er.24h, 12.5 MG PO DAILY, (Reported) Entered as Reported by: SAMANTHA TAYLOR on 04/29/23 102 Last Action: Held Metoprolol Succinate (Metoprolol Succinate) 25 Mg Tab.er.24h, 25 MG PO HS, (Reported) Entered as Reported by: SAMANTHA TAYLOR on 04/29/23 102 Last Action: Held Papaya (Papaya Enzyme) 1 Each Tablet, 1 EACH PO TID PRN for DIGESTION AID, (Reported) Entered as Reported by: SAMANTHA TAYLOR on 04/29/23 102 Last Action: Held Zinc Gluconate (Zinc) 50 Mg Tablet, 50 MG PO DAILY, (Reported) Entered as Reported by: SAMANTHA TAYLOR on 05/04/22 1035 Last Action: Held Discontinued Medications Amlodipine Besylate (Amlodipine Besylate) 5 Mg Tablet, 5 MG PO DAILY Discontinued Reason: No Longer Taking Prescribed by: RJ HOFFMAN on 05/05/22 111 Last Action: Discontinued Aspirin (Aspirin EC) 81 Mg Tablet.dr, 81 MG PO DAILY Discontinued Reason: No Longer Taking Prescribed by: RJ HOFFMAN on 05/05/22 1116 Last Action: Discontinued Calcium Carb/Mag Hydrox/Simeth (Mylanta Coat-Cool 1,200-270-80) 1,200 Mg-270 Mg- 80 Mg/10 Ml Oral.susp, 10 ML PO TID PRN for GAS, (Reported) Discontinued Reason: No Longer Taking Entered as Reported by: SAMANTHA TAYLOR on 05/04/22 103 Last Action: Discontinued Cyclobenzaprine HCl (Cyclobenzaprine HCl) 10 Mg Tablet, 5 MG PO HS PRN for MUSCLE SPASMS, (Reported) Discontinued Reason: No Longer Taking Entered as Reported by: SAMANTHA TAYLOR on 04/02/221535 Last Action: Discontinued Digoxin (Digoxin) 125 Mcg (0.125 Mg) Tablet, 125 MCG PO DAILY, (Reported) Discontinued Reason: No Longer Taking Entered as Reported by: SAMANTHA TAYLOR on 04/02/221535 Last Action: Discontinued Loteprednol Etabonate (Lotemax) 0.5 % Drops.gel, 1 DROPS OU DAILY, (Reported) Discontinued Reason: No Longer Taking Entered as Reported by: SAMANTHA TAYLOR on 04/02/221535 Last Action: Discontinued Metoprolol Tartrate (Metoprolol Tartrate) 50 Mg Tablet, 50 MG PO BID, (Reported) Discontinued Reason: No Longer Taking Entered as Reported by: SAMANTHA TAYLOR on 05/04/22 1031 Last Action: Discontinued Ondansetron (Ondansetron Odt) 4 Mg Tab.rapdis, 4 MG SL TID PRN for NAUSEA/VOMITING-1ST LINE, (Reported) Discontinued Reason: No Longer Taking Entered as Reported by: SAMANTHA TAYLOR on 05/04/22 103 Last Action: Discontinued Review of Systems Review of Systems Constitutional: see HPI Eyes: No Symptoms Reported Ears, Nose, Mouth, Throat: no symptoms reported Respiratory: no symptoms reported Cardiovascular: no symptoms reported Gastrointestinal: no symptoms reported Genitourinary: no symptoms reported Musculoskeletal: joint pain (left hip) Skin: other (laceration) Psychiatric/Neurological: Headache All Other Systems Reviewed Negative Unless Noted: Yes Past Qebkdgo-Vqjjhv-Ojtfsj Hx Patient Social History Tobacco Use?: No Use of E-Cig and/or Vaping dev: No Substance use?: No Alcohol Use?: No Pt feels they are or have been: No Immunizations Up To Date Tetanus Booster (TDap): Less than 5yrs First/Initial COVID19 Vaccinat: RECEIVED, UNK WHEN Second COVID19 Vaccination Rigo: RECEIVED, UNK WHEN Third COVID19 Vaccination Date: RECEIVED, UNK WHEN COVID19 Vaccine Rivet Sorter: UNK Seasonal Allergies Seasonal Allergies: No Past Medical History Surgery/Hospitalization HX: CABG-2007/R ELBOW FRACTURE/MRSA/SKIN GRAFT/TONSILLECTOMY/BACTERIAL MENINGITIS Surgeries: Yes (CATARACTS/LENS IMPLANT, COLONOSCOPY, R elbow) Adenoidectomy, Cardiac, CABG, Eye Surgery, Gallbladder, Orthopedic, Tonsillectomy Respiratory: Yes Pneumonia Currently Using CPAP: No Currently Using BIPAP: No Cardiac: Yes Atrial Fibrillation, Coronary Artery Disease, High Cholesterol, Hypertension Neurological: No 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 CONSTIPATION AND DIARRHEA) Gastroesophageal Reflux, Obstructive Bowel, Chronic Constipation, Diverticulosis, Chronic Diarrhea, Irritable Bowel Musculoskeletal: Yes Rheumatoid Arthritis, Chronic Back Pain Endocrine: No HEENT: Yes Macular Degeneration Cancer: No Psychosocial: Yes (POST DEPRESSION) Integumentary: No Blood Disorders: No Adverse Reaction/Blood Tranf: No Family Medical History Abdominal aortic aneurysm G8 BROTHER Angina pectoris 19 MOTHER Completed stroke G8 BROTHER FH: brain aneurysm 19 MOTHER Hypercholesterolemia G8 SISTER Hypertension G8 SISTER Osteoporosis G8 SISTER Social, medical and surgical history per old records as patient has altered mental status and is unable to answer questions. Physical Exam Vital Signs Vital Signs - First Documented Capillary Refill : Height, Weight, BMI Height: 5'5.00" Weight: 119lbs. 0.0oz. 53.078724kq; 18.00 BMI Method:Stated General Appearance: WD/WN, no apparent distress HEENT: PERRL/EOMI, TMs normal, pharynx normal Neck: non-tender, full range of motion Cardiovascular: regular rate, rhythm, bradycardia (40's) Respiratory: lungs clear, normal breath sounds, no respiratory distress, no accessory muscle use Gastrointestinal: normal bowel sounds, non tender, soft Extremities: normal inspection, normal capillary refill, pelvis stable, other (decreased ROM left hip due to discomfort; normal pulses left DP; nontender knee) Neurologic/Psychiatric: hide salter II-XII nml as tested, no motor/sensory deficits, alert, normal mood/affect, oriented x 3 Skin: normal color, warm/dry, other (left parietal scalp laceration 3cm, no active bleeding) Joselyn Coma Score Best Eye Response: (4) Open Spontaneously Best Verbal Response: (5) Oriented Best Motor Response: (6) Obeys Commands Procedures/Interventions Wound Location: Scalp Other Wound Location left parietal scalp Wound Length (cm): 3 Wound's Depth, Shape: linear, sub Q Wound Explored: clean Irrigated w/ Saline (ccs): 250 Anesthesia: Lidocaine w/ Epi Volume Anesthetic (ccs): 3 Staple Repair: Stapler 35W (x5) Progress/Results/Core Measures Results/Orders Lab Results Laboratory Tests Test 04/28/23 10:47 04/28/23 14:16 Range/Units White Blood Count 7.9 4.3-11.0 10^3/uL Red Blood Count 3.97 3.80-5.11 10^6/uL Hemoglobin 13.6 11.5-16.0 g/dL Hematocrit 42 35-52 % Mean Corpuscular Volume 106 H 80-99 fL Mean Corpuscular Hemoglobin 34 25-34 pg Mean Corpuscular Hemoglobin Concent 33 32-36 g/dL Red Cell Distribution Width 14.2 10.0-14.5 % Platelet Count 188 130-400 10^3/uL Mean Platelet Volume 10.4 9.0-12.2 fL Immature Granulocyte % (Auto) 1 % Neutrophils (%) (Auto) 70 42-75 % Lymphocytes (%) (Auto) 21 12-44 % Monocytes (%) (Auto) 8 0-12 % Eosinophils (%) (Auto) 1 0-10 % Basophils (%) (Auto) 0 0-10 % Neutrophils # (Auto) 5.5 1.8-7.8 10^3/uL Lymphocytes # (Auto) 1.6 1.0-4.0 10^3/uL Monocytes # (Auto) 0.7 0.0-1.0 10^3/uL Eosinophils # (Auto) 0.1 0.0-0.3 10^3/uL Basophils # (Auto) 0.0 0.0-0.1 10^3/uL Immature Granulocyte # (Auto) 0.0 0.0-0.1 10^3/uL Prothrombin Time 14.1 12.2-14.7 SEC INR Comment 1.1 0.8-1.4 Activated Partial Thromboplast Time 31 24-35 SEC Sodium Level 140 135-145 MMOL/L Potassium Level 4.3 3.6-5.0 MMOL/L Chloride Level 104 98-107 MMOL/L Carbon Dioxide Level 25 21-32 MMOL/L Anion Gap 11 5-14 MMOL/L Blood Urea Nitrogen 19 H 7-18 MG/DL Creatinine 0.80 0.60-1.30 MG/DL Estimat Glomerular Filtration Rate 72 BUN/Creatinine Ratio 24 Glucose Level 108 H 70-105 MG/DL Calcium Level 9.3 8.5-10.1 MG/DL Corrected Calcium 9.1 8.5-10.1 MG/DL Magnesium Level 2.4 1.6-2.4 MG/DL Total Bilirubin 0.6 0.1-1.0 MG/DL Aspartate Amino Transf (AST/SGOT) 29 5-34 U/L Alanine Aminotransferase (ALT/SGPT) 22 0-55 U/L Alkaline Phosphatase 54 40-136 U/L Troponin I < 0.028 <0.028 NG/ML Total Protein 7.1 6.4-8.2 GM/DL Albumin 4.2 3.2-4.5 GM/DL Digoxin Level < 0.30 L 0.80-2.00 NG/ML Lactic Acid Level 0.86 0.50-2.00 MMOL/L Micro Results Microbiology 04/28/23 Blood Culture - Preliminary, Resulted 04/28/23 Blood Culture - Preliminary, Resulted My Orders Orders - MICK PIPER MD Ekg Tracing (04/28/23 10:41) Cbc And Automated Diff (04/28/23 11:16) Magnesium (04/28/23 11:16) Chest 1 View, Ap/Pa Only (04/28/23 11:16) Comprehensive Metabolic Panel (04/28/23 11:16) Protime With Inr (04/28/23 11:16) Partial Thromboplastin Time (04/28/23 11:16) O2 (04/28/23 11:16) Monitor-Rhythm Ecg Trace Only (04/28/23 11:16) Lipid Panel (04/29/23 06:00) Ed Iv/Invasive Line Start (04/28/23 11:16) Troponin I Miguel (04/28/23 11:16) Ct Head/Cervical Spine Wo (04/28/23 11:16) Pelvis With Left Hip 2-3 Views (04/28/23 11:16) Fentanyl Injection (Fentanyl Injection (04/28/23 11:30) Digoxin (04/28/23 11:40) Ns Iv 1000 Ml (Ns Iv 1000 Ml) (04/28/23 14:16) Blood Culture (04/28/23 14:26) Lactic Acid Analyzer (04/28/23 14:26) Ns Iv 1000 Ml (Ns Iv 1000 Ml) (04/28/23 14:30) Blood Culture (04/28/23 14:20) Fentanyl Injection (Fentanyl Injection (04/28/23 15:00) Ed Admission (Communication) (04/28/23 15:43) Medications Given in ED Vital Signs/I&O 04/28/23 04/28/23 04/28/23 04/28/23 10:35 10:35 13:52 15:29 Temp 36.9 36.9 Pulse 44 44 41 44 Resp 16 16 16 B/P (MAP) 144/67 (92) 144/67 (92) 110/54 (72) 128/53 Pulse Ox 97 97 95 94 O2 Delivery Room Air Room Air Room Air Blood Pressure Mean: 92 Progress Progress Note : Time: 12:35 Progress Note Patient seen and evaluated by me. Evaluation today includes physical exam and "chest pain protocol" - to include CBC, CMP, Mg, Trop, Coags, dig level, EKG, CXR, pelvis and hip x-rays, CT head and cervical spine without contrast and then later lactic acid and blood cultures per Dr. Davis. Pertinent physical exam findings well-developed well-nourished elderly female in no acute distress. HEENT exam pertinent for a 3 cm laceration to the left parietal scalp with no active bleeding. Midline cervical spine is nontender. No other concerning findings. Heart is bradycardic and regular. Lungs are clear. Abdomen is soft. She has some tenderness to the left posterior hip but intact range of motion, neurovascularly intact to the bilateral lower extremities. No lower extremity edema. Rest of her neurologic exam is also nonfocal. She is noted on telemetry during my assessment to have what appears to be third-degree heart block. Differential diagnosis includes syncope due to bradycardia/heart block, hip fracture, intracranial hemorrhage Labs independently interpreted by me. CBC is normal, magnesium is 2.4/normal. Comprehensive metabolic panel is normal. Her coags are within normal limits. Troponin is undetectable. Dig level is undetectable. Patient later tells me that Dr. Davis has taken her off digoxin. Her chest x-ray shows a slightly enlarged heart with mild edema per the radiologist. Her pelvis and hip x-ray on the left are negative for any acute fracture. Her head CT and cervical spine CT show no acute abnormalities. EKG shows a bradycardic rhythm with third-degree heart block. She is treated with IV fluids, fentanyl 25 mcg for pain. I discussed the case with Dr. Davis who states to keep the patient n.p.o. and then indicated he would like the blood cultures and lactic acid. I also discussed the case with Dr. Momin who is on-call for the hospitalist service. Patient will be admitted to the cardiac stepdown unit, kept n.p.o. pending pacemaker placement. Initial ECG Impression Date: Apr 28, 2023 Initial ECG Impression Time: 10:50 Initial ECG Rate: 46 Comment 3rd degree heart block rate of 46; no ST elevation or depression Diagnostic Imaging Diagonstic Imaging: [facility] [place] [place] NAME: ASIABRENTON Aquilino MED REC#: [id number] PT STATUS: REG ER : 1935 PHYSICIAN: MICK PIPER MD ADMIT DATE: 04/28/23/ER Signed Date of Exam:04/28/23 CHEST 1 VIEW, AP/PA ONLY EXAMINATION: Chest 1 view HISTORY: Chest pain COMPARISON: 05/03/2022 FINDINGS: Heart is enlarged. There is mild edema. Left hemidiaphragm is elevated. No pneumothorax. Median sternotomy wires are aligned. IMPRESSION: 1. Enlarged heart and mild edema. Dictated by: Dictated on workstation # [id number] Dict: 04/28/23 1149 Trans: 04/28/[address] [facility] [id number] Interpreted by: ALEXEI ESPITIA MD Electronically signed by: ALEXEI ESPITIA MD 04/28/23 1152 Diagonstic Imaging: CT Comments [facility] [place] [place] NAME: ASIABRENTON Aquilino MED REC#: [id number] PT STATUS: REG ER : 1935 PHYSICIAN: MICK PIPER MD ADMIT DATE: 04/28/23/ER Draft Date of Exam:04/28/23 CT HEAD/CERVICAL SPINE WO PROCEDURE: CT head and CT cervical spine without contrast. TECHNIQUE: Multiple contiguous axial images were obtained through the brain and cervical spine without the use of intravenous contrast. Sagittal and coronal reformations through the cervical spine were then performed. Auto Exposure Controls were utilized during the CT exam to meet ALARA standards for radiation dose reduction. INDICATION: Fall with laceration to the top of the head as well as head and neck pain. Correlation is made with prior head CT from 05/03/2022. CT HEAD: Ventricular size and sulcal pattern are prominent consistent with cerebral volume loss. There is moderate periventricular low-attenuation consistent with chronic microvascular ischemia. No sulcal effacement or midline shift is identified. No acute intra-axial or extra-axial hemorrhage is detected. Cisterns are patent. Visualized paranasal sinuses are clear. IMPRESSION: Chronic and senescent changes. No acute intracranial process is detected. CT CERVICAL SPINE: There is some reversal of the normal cervical lordotic curvature. There is a minimal anterolisthesis of C4 on C5. There is significant degenerative disc disease C5-C6 and C6-C7 levels as well as C7-T1, with significant disc space narrowing and marginal spurring. There is multilevel facet arthropathy as well. No fractures are identified. Prevertebral tissues are within normal limits. Odontoid appears intact. IMPRESSION: Cervical spondylosis with reversal of the normal cervical curvature as well as anterolisthesis of C4 on C5. No acute bony abnormality is detected. Dictated on workstation # [id number] Dict: 04/28/23 1142 Trans: 04/28/[address] [facility] [id number] Interpreted by: LOUISE GANDARA MD Electronically signed by: Diagonstic Imaging: Xray Comments [facility] [place] [place] NAME: BRENTON BETANCOURT [facility] REC#: [id number] PT STATUS: REG ER : 1935 PHYSICIAN: MICK PIPER MD ADMIT DATE: 04/28/23/ER Signed Date of Exam:04/28/23 PELVIS WITH LEFT HIP 2-3 VIEWS EXAMINATION: Left hip unilateral 2 or 3 views (w/pelvis when done). HISTORY: Pelvic pain. COMPARISON: None available. FINDINGS: There is an old healed fracture of the left pubic symphysis. No fracture or dislocation. There are soft tissue calcifications in both buttocks. IMPRESSION: No acute fracture. Dictated by: Dictated on workstation # [id number] Dict: 04/28/23 1258 Trans: 04/28/23 1345 [id number] Interpreted by: ALEXEI ESPITIA MD Electronically signed by: ALEXEI ESPITIA MD 04/28/23 1345 Focused Exam Lactate Level 04/28/23 14:16: Lactic Acid Level 0.86 Lactic Acid Level Laboratory Tests Test 04/28/23 14:16 Lactic Acid Level 0.86 MMOL/L (0.50-2.00) Critical Care Note Critical Care Start Time: 10:50 Stop Time: 12:28 Total Time (minutes) 40 minutes critical care time in the evaluation and management of this patient with third-degree heart block. Time includes initial evaluation, review and interpretation of labs, imaging. Administration of IV fluids, review of prior medical records. Discussion with extractions technologist as well as admitting provider. Also discussions with family, serial reevaluations. Departure Communication (Admissions) Time/Spoke to Admitting Phy: 12:[address] Momin hospitalist, accepts patient for admission to ICU Time/Spoke to Consulting Phy: 12:[address] Davis, cardiology, please keep n.p.o. Impression Primary Impression: Syncope Qualified Codes: R55 - Syncope and collapse Additional Impressions: Third degree heart block Contusion of left hip Qualified Codes: S70.02XA - Contusion of left hip, initial encounter Chronic anticoagulation Scalp laceration Qualified Codes: S01.01XA - Laceration without foreign body of scalp, initial encounter Disposition: ADMITTED INPATIENT Condition: Critical Admissions Decision to Admit Reason: Admit from ER (General) Decision to Admit/Date: Apr 28, 2023 Time/Decision to Admit Time: 12:27 Departure-Patient Inst. Referrals: TERRI ORTA DO (PCP/Family) Primary Care Physician Scripts Apixaban (Eliquis) 2.5 Mg Tablet 2.5 MG PO BID for 30 Days, TAB Resume 05/01 Prov: YUE MOMIN MD 04/30/23 Copy Copies To 1: TERRI ORTA DO; WALTER DAVIS MD, KATHRYN M MD Apr 28, 2023 12:20
--- NOTE | 2023-04-28 12:33 | History & Physical-Hospitalist ---
History of Present Illness Source: patient Date Seen 04/28/23 Attending Physician Joey Connolly DO PCP Admitting Physician: Attending Physician: Referring Physician Date of Admission Home Medications & Allergies Home Medications Reviewed patient Home Medication Reconciliation performed by pharmacy medication reconciliations mixing technician and/or nursing. Patients Allergies have been reviewed. Allergies Allergies Coded Allergies tetanus toxoid, adsorbed (Unverified Allergy, Unknown, 08/17/14) tramadol (Verified Allergy, Unknown, Hives, 11/16/18) Past Ccwwvgr-Mapvcl-Umyqes Hx Patient Social History Tobacco Use?: No Use of E-Cig and/or Vaping dev: No Substance use?: No Alcohol Use?: No Pt feels they are or have been: No Immunizations Up To Date Date of Influenza Vaccine: May 17, 2014 First/Initial COVID19 Vaccinat: RECEIVED, UNK WHEN Second COVID19 Vaccination Rigo: RECEIVED, UNK WHEN Tetanus Booster (TDap): More Than 5 Years Hepatitis A: No Hepatitis B: No Date of Pneumonia Vaccine: May 26, 2011 Seasonal Allergies Seasonal Allergies: No Current Status Communicates: Verbally Primary Language: Guatemalan Preferred Spoken Language: Guatemalan Is interpretation needed?: No Past Medical History Surgeries: Adenoidectomy, Cardiac, CABG, Eye Surgery, Gallbladder, Orthopedic, Tonsillectomy Pneumonia Currently Using CPAP: No Currently Using BIPAP: No Atrial Fibrillation, Coronary Artery Disease, High Cholesterol, Hypertension 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 Sexually Transmitted Disease: No Kidney Infection, Bladder Infection Gastroesophageal Reflux, Obstructive Bowel, Chronic Constipation, Diverticulosis , Chronic Diarrhea, Irritable Bowel Rheumatoid Arthritis, Chronic Back Pain Macular Degeneration Blood Disorders: No Adverse Reaction/Blood Tranf: No Family Medical History Abdominal aortic aneurysm G8 BROTHER Angina pectoris 19 MOTHER Completed stroke G8 BROTHER FH: brain aneurysm 19 MOTHER Hypercholesterolemia G8 SISTER Hypertension G8 SISTER Osteoporosis G8 SISTER Social, medical and surgical history per old records as patient has altered mental status and is unable to answer questions. Physical Exam Physical Exam Vital Signs Vital Signs - First Documented Capillary Refill : Height, Weight, BMI Height: 5'5.00" Weight: 119lbs. 0.0oz. 53.118935rb; 18.00 BMI Method:Stated Results Results/Procedures Labs Laboratory Tests 04/28/23 10:47 Patient resulted labs reviewed. YUE REEVES MD Apr 28, 2023 12:33
--- NOTE | 2023-04-28 13:02 | Diagnostic Imaging Report ---
EXAMINATION: Left hip unilateral 2 or 3 views (w/pelvis when done). HISTORY: Pelvic pain. COMPARISON: None available. FINDINGS: There is an old healed fracture of the left pubic symphysis. No fracture or dislocation. There are soft tissue calcifications in both buttocks. IMPRESSION: No acute fracture. Dictated by: Dictated on workstation # [id number]
--- NOTE | 2023-04-28 13:49 | Consultation-Cardiology ---
HPI-Cardiology Cardiology Consultation Date of Consultation 04/28/23 Date of Admission Time Seen by Provider: 13:44 Indication: Complete heart block HPI 87-year-old lady with history of coronary artery disease, hypertension, paroxysmal atrial fibrillation, had an episode of dizziness followed by syncopal episode sustained a fall and injury to her head and back and leg. Came into the emergency room and noted to be in complete heart block with bradycardia. Patient is on low-dose beta-blockers with metoprolol 12.5 mg twice daily. She is known to have paroxysmal atrial fibrillation, intolerant to amiodarone with nausea in the past. Tend to have episodes of tachycardia with atrial fibrillation Still borderline hypotensive and bradycardic with a heart rate in the 40s and blood pressure in the 90s Home Medications & Allergies Allergies: Coded Allergies: tetanus toxoid, adsorbed (Unverified Allergy, Unknown, 08/17/14) tramadol (Verified Allergy, Unknown, Hives, 11/16/18) Home Medication List Reviewed: Yes LHH-Ietilc-Ejheek Hx Patient Social History Marital Status: single Former smoker/When Quit: Jul 26, 1984 Type Used: Cigarettes 2nd Hand Smoke Exposure: No Recent Hopitalizations: No Alcohol Use?: No Immunizations Up To Date Tetanus Booster (TDap): Less than 5yrs Date of Pneumonia Vaccine: May 26, 2011 Date of Influenza Vaccine: May 17, 2014 Past Medical History Discussed below Family Medical History Significant Family History: No Pertinent Family Hx Family History: Abdominal aortic aneurysm G8 BROTHER Angina pectoris 19 MOTHER Completed stroke G8 BROTHER FH: brain aneurysm 19 MOTHER Hypercholesterolemia G8 SISTER Hypertension G8 SISTER Osteoporosis G8 SISTER Review of Systems-General Review of Systems Constitutional: see HPI, malaise, weakness EENTM: see HPI, no symptoms reported Respiratory: no symptoms reported, see HPI Cardiovascular: see HPI, syncope Gastrointestinal: no symptoms reported, see HPI Genitourinary: no symptoms reported, see HPI Musculoskeletal: no symptoms reported, see HPI, back pain, joint pain Skin: no symptoms reported, see HPI Psychiatric/Neurological: No Symptoms Reported, See HPI Reviewed Test Results Reviewed Test Results Lab Laboratory Tests Test 04/28/23 10:47 Range/Units White Blood Count 7.9 4.3-11.0 10^3/uL Red Blood Count 3.97 3.80-5.11 10^6/uL Hemoglobin 13.6 11.5-16.0 g/dL Hematocrit 42 35-52 % Mean Corpuscular Volume 106 H 80-99 fL Mean Corpuscular Hemoglobin 34 25-34 pg Mean Corpuscular Hemoglobin Concent 33 32-36 g/dL Red Cell Distribution Width 14.2 10.0-14.5 % Platelet Count 188 130-400 10^3/uL Mean Platelet Volume 10.4 9.0-12.2 fL Immature Granulocyte % (Auto) 1 % Neutrophils (%) (Auto) 70 42-75 % Lymphocytes (%) (Auto) 21 12-44 % Monocytes (%) (Auto) 8 0-12 % Eosinophils (%) (Auto) 1 0-10 % Basophils (%) (Auto) 0 0-10 % Neutrophils # (Auto) 5.5 1.8-7.8 10^3/uL Lymphocytes # (Auto) 1.6 1.0-4.0 10^3/uL Monocytes # (Auto) 0.7 0.0-1.0 10^3/uL Eosinophils # (Auto) 0.1 0.0-0.3 10^3/uL Basophils # (Auto) 0.0 0.0-0.1 10^3/uL Immature Granulocyte # (Auto) 0.0 0.0-0.1 10^3/uL Prothrombin Time 14.1 12.2-14.7 SEC INR Comment 1.1 0.8-1.4 Activated Partial Thromboplast Time 31 24-35 SEC Sodium Level 140 135-145 MMOL/L Potassium Level 4.3 3.6-5.0 MMOL/L Chloride Level 104 98-107 MMOL/L Carbon Dioxide Level 25 21-32 MMOL/L Anion Gap 11 5-14 MMOL/L Blood Urea Nitrogen 19 H 7-18 MG/DL Creatinine 0.80 0.60-1.30 MG/DL Estimat Glomerular Filtration Rate 72 BUN/Creatinine Ratio 24 Glucose Level 108 H 70-105 MG/DL Calcium Level 9.3 8.5-10.1 MG/DL Corrected Calcium 9.1 8.5-10.1 MG/DL Magnesium Level 2.4 1.6-2.4 MG/DL Total Bilirubin 0.6 0.1-1.0 MG/DL Aspartate Amino Transf (AST/SGOT) 29 5-34 U/L Alanine Aminotransferase (ALT/SGPT) 22 0-55 U/L Alkaline Phosphatase 54 40-136 U/L Troponin I < 0.028 <0.028 NG/ML Total Protein 7.1 6.4-8.2 GM/DL Albumin 4.2 3.2-4.5 GM/DL Digoxin Level < 0.30 L 0.80-2.00 NG/ML Physical Exam Physical Exam Vital Signs Vital Signs - First Documented Capillary Refill : Height, Weight, BMI Height: 5'5.00" Weight: 119lbs. 0.0oz. [id number]; 18.00 BMI Method:Stated General Appearance: No Apparent Distress, WD/WN Eyes: Bilateral Eye Normal Inspection, Bilateral Eye PERRL, Bilateral Eye EOMI HEENT: PERRL/EOMI, TMs Normal, Normal ENT Inspection, Pharynx Normal, Moist Mucous Membranes Neck: Full Range of Motion, Normal Inspection, Non Tender, Supple, Carotid Bruit Respiratory: Chest Non Tender, Normal Breath Sounds, No Accessory Muscle Use, No Respiratory Distress Cardiovascular: Regular Rate, Rhythm, No Edema, No Gallop, No JVD, No Murmur, Normal Peripheral Pulses Gastrointestinal: Normal Bowel Sounds, No Organomegaly, No Pulsatile Mass, Non Tender, Soft Back: Normal Inspection, No CVA Tenderness, No Vertebral Tenderness Extremity: Normal Capillary Refill, Normal Inspection, Normal Range of Motion, Non Tender, No Calf Tenderness, No Pedal Edema Neurologic/Psychiatric: Alert, Oriented x3, No Motor/Sensory Deficits, Normal Mood/Affect Skin: Normal Color, Warm/Dry Lymphatic: No Adenopathy A/P-Cardiology Admission Diagnosis Syncope Complete heart block Paroxysmal atrial fibrillation Coronary artery disease Assessment/Plan Syncope, sustained a fall with injury to her head and back secondary to severe bradycardia and hypotension Patient is in complete heart block, will require dual-chamber pacemaker implant I will proceed with the procedure today Sinus node dysfunction, complete heart block, symptomatic Planning to proceed with pacemaker implant History of paroxysmal atrial fibrillation with episodes of tachycardia Maintained on digoxin 0.125 mg daily and metoprolol 12.5 mg twice daily Has history of episodes of tachycardia History of recurrent palpitation, reporting improvement at this time. [id number] score of 5, maintained on Eliquis 2.5 mg twice daily Coronary artery disease, History of CABG 3 done in 2008 using SAMUEL to LAD, vein graft to the proximal LAD, vein graft to the right PDA. Cardiac catheterization in October 2018 after having an abnormal stress test showed severe stenosis at the left main, ostial circumflex and LAD, the LAD is corrected by vein graft to the mid portion, the circumflex is small not amendable to intervention and not bypassed, SAMUEL to the distal LAD is atretic with sluggish flow probably due to competitive flow through the vein graft to the mid LAD, mild to moderate disease in the right coronary artery that is a large dominant artery, patent vein graft to the right coronary artery. Stress test was done on April 05, 2023 with large reversible ischemia involving the whole lateral wall anterior lateral and inferolateral wall with stress score 11, SDS 6, EF 55% Patient is asymptomatic, she has severe stenosis at the left main and ostial circumflex artery and the circumflex artery is a small artery and not corrected by bypass. The SAMUEL to the LAD is atretic due to the competitive flow through the vein graft to the mid LAD. We discussed conservative management and will consider cardiac catheterization if she becomes symptomatic 2D echo was done on October 16, 2020 showing normal LV size with EF 55 to 65%, grade 1 diastolic dysfunction, mild mitral regurgitation, PA pressure 40 to 45 mm 2D echo was done in December 2022 with mild LVH, EF 55 to 65%. Hypertension, Hospitalization in April 2022 for hypertensive urgency. Currently hypotensive due to the bradycardia Having labile blood pressure Maintained on amlodipine 5 mg daily, metoprolol ER 12.5 mg twice daily Planning for pacemaker then we will adjust her blood pressure medications Hyperlipidemia, intolerant to statins and Zetia. I will evaluate lipid profile History of rheumatoid arthritis, maintained on methotrexate. Doing well at this time. Continue to monitor. History of back pain. Premature atrial contractions, premature ventricular contractions, palpitation, feeling better on the current medication. Continue to monitor. Mild bilateral carotid stenosis, nonobstructive disease, last ultrasound done in December 2022. Continue to monitor Status post hospitalization for bacterial meningitis after epidural injection, doing better. Following with WALTER Burton MD Apr 28, 2023 13:49
[2023-04-28] MEDS ORDERED: NS IV 1000 ML 1,000 ML ONE ×2 (14:16→14:55)
[2023-04-28] MEDS: NS IV 1000 ML 1,000 ML IV SCH ×2 (14:24→21:44)
--- NOTE | 2023-04-28 14:45 | History & Physical-Hospitalist ---
MAURICE GAN 04/28/23 1445: History of Present Illness HPI/Chief Complaint 87F with a PMH of Gopal who is on Eliquis presents after feeling dizzy and havin g a syncopal episode while passing through a doorway on the way to a . Pt believes she only lost consciousness very briefly and then was awake on the floor for 5-10 minutes while she waited to be helped up. Pt bumped the back of her head on the left side and has a laceration that was stapled in the ED. Pt also bumped her hip, which was negative for a fracture on X-ray. Pt states her HR was taken by a nurse at the scene and shown to be 44. Pt denies N/V, SOB, chest pain, and visual changes. Source: patient Exam Limitations: no limitations Date Seen 04/28/23 Attending Physician Joey Connolly DO PCP Admitting Physician: Attending Physician: Referring Physician Date of Admission Home Medications & Allergies Home Medications Reviewed patient Home Medication Reconciliation performed by pharmacy medication reconciliations tree trimming line technician and/or nursing. Patients Allergies have been reviewed. Allergies Allergies Coded Allergies tetanus toxoid, adsorbed (Unverified Allergy, Unknown, 08/17/14) tramadol (Verified Allergy, Unknown, Hives, 11/16/18) Past Ghadqoy-Wrvytr-Ldclpe Hx Patient Social History Tobacco Use?: No Use of E-Cig and/or Vaping dev: No Substance use?: No Alcohol Use?: No Pt feels they are or have been: No Immunizations Up To Date Date of Influenza Vaccine: May 17, 2014 First/Initial COVID19 Vaccinat: RECEIVED, UNK WHEN Second COVID19 Vaccination Rigo: RECEIVED, UNK WHEN Tetanus Booster (TDap): More Than 5 Years Hepatitis A: No Hepatitis B: No Date of Pneumonia Vaccine: May 26, 2011 Seasonal Allergies Seasonal Allergies: No Current Status status: No Communicates: Verbally Primary Language: Icelandic Preferred Spoken Language: Icelandic Is interpretation needed?: No Past Medical History Surgeries: Adenoidectomy, Cardiac, CABG, Eye Surgery, Gallbladder, Orthopedic (right elbow), Tonsillectomy Pneumonia Currently Using CPAP: No Currently Using BIPAP: No Atrial Fibrillation, Coronary Artery Disease, High Cholesterol, Hypertension APPLICATION SUPPORT DEVELOPER History: Menopausal Sexually Transmitted Disease: No Kidney Infection, Bladder Infection Gastroesophageal Reflux, Obstructive Bowel, Chronic Constipation, Diverticulosis, Chronic Diarrhea, Irritable Bowel Rheumatoid Arthritis, Scoliosis, Chronic Back Pain Macular Degeneration Loss of Vision: Bilateral Hearing Impairment: Hard of Hearing Blood Disorders: No Adverse Reaction/Blood Tranf: No Family Medical History Abdominal aortic aneurysm G8 BROTHER Angina pectoris 19 MOTHER Completed stroke G8 BROTHER FH: brain aneurysm 19 MOTHER Hypercholesterolemia G8 SISTER Hypertension G8 SISTER Osteoporosis G8 SISTER AAA (brother), Heart Disease (brother), Cerebral Aneurysm (mom), Hypertension (sister), Stroke (dad) Social, medical and surgical history per old records as patient has altered mental status and is unable to answer questions. Review of Systems Constitutional: No chills, No fever EENTM: No blurred vision, No double vision Respiratory: No cough, No short of breath Cardiovascular: No chest pain, No palpitations Gastrointestinal: No abdominal pain; constipation (chronic); No nausea, No vomiting Skin: lesions (back of head on left), other (laceration back of left head stapled) Psychiatric/Neurological: Headache; Denies Numbness Physical Exam Physical Exam Vital Signs Vital Signs - First Documented Capillary Refill : Height, Weight, BMI Height: 5'5.00" Weight: 119lbs. 0.0oz. 53.080125nz; 18.00 BMI Method:Stated Results Results/Procedures Labs Laboratory Tests 04/28/23 10:47 Patient resulted labs reviewed. Assessment/Plan Assessment and Plan Sick Sinus Syndrome Consult cardiology for pacemaker implantation Hold Eliquis Prophylactic Cefazolin CAD Triple bypass in 2008 HTN Hold Metoprolol Hold Amlodipine Hyperlipidemia Scoliosis w/ chronic back pain Gabapentin 200 mg PO RA Methotrexate 2.5 mg tablets PO YUE MOMIN MD 04/28/23 1519: History of Present Illness Time Seen by a Provider: 13:45 Past Qjqlfno-Uqjcpi-Evjfqq Hx Family Medical History Abdominal aortic aneurysm G8 BROTHER Angina pectoris 19 MOTHER Completed stroke G8 BROTHER FH: brain aneurysm 19 MOTHER Hypercholesterolemia G8 SISTER Hypertension G8 SISTER Osteoporosis G8 SISTER Assessment/Plan Admission Diagnosis Complete heart block Admission Status: Inpatient Order (span 2 midnights) Reason for Inpatient Admission: see below Assessment and Plan pt is an 87-year-old female known to me from previous admissions who presented to the emergency department due to syncopal episode. She was getting ready to go to a and walking through doorway when she passed out. She was down for maybe 5 to 10 minutes before she was able to get up. She denied any previous episodes similar to this or any prodromal symptoms. Following it she felt like her heart was not beating right was brought to the emergency department for evaluation. Trauma imaging was done as she is on anticoagulation and was negative for intracranial hemorrhage or fractures. She did have an abrasion to the back of her head that was stapled by the emergency department. She was found to be bradycardic with rates as low as the 30s. EKG confirmed this to be a complete heart block. Cardiology was consulted and plan was to peggy ce pacemaker this afternoon. Other than having a headache the patient has no complaints. Supervisory-Addendum Brief Verification & Attestation Participated in pt care: history, MDM, physical Personally performed: exam, history, MDM, supervision of care Care discussed with: Medical Student Procedures: n/a Results interpretation: Verified all documentation Verification and Attestation of Medical Student E/M Service A medical student performed and documented this service in my presence. I reviewed and verified all information documented by the medical student and made modifications to such information, when appropriate. I personally performed the physical exam and medical decision making. Yue Momin, Apr 28, 2023,15:17 MAURICE GAN Apr 28, 2023 14:45 YUE MOMIN MD Apr 28, 2023 15:19
[2023-04-28] MEDS ORDERED: HEParin (CATH LAB) 1,000 ML IV ONE (14:55)
[2023-04-28] MEDS ORDERED: LIDOCAINE 1% INJ 20 ML VIAL ONE (14:55)
[2023-04-28] MEDS ORDERED: ceFAZolin INJECTION 1,000 MG ONE (14:56)
--- NOTE | 2023-04-28 15:54 | Cardiac Procedure Note-CS/ASA ---
Pre-Procedure Note Pre-Op Procedure Note Date of Available H&P: Apr 28, 2023 Date H&P Reviewed: Apr 28, 2023 Time H&P Reviewed: 15:54 History & Physical: H&P Reviewed, Patient Examed, No changes noted Pre-Operative Diagnosis: CHB Moderate Sedation PreProcedure Time 15:54 ASA Score 3 Airway Lungs Heart ASA score ASA 1: a normal healthy patient ASA 2: a patient with a mild systemic disease (mid diabetes, controlled hypertension, obesity ASA 3: a patient with a severe systemic disease that limits activity (angina, COPD, prior Myocardial infarction) ASA 4: a patient with an incapacitating disease that is a constant threat to life (CHF, renal failure) ASA 5: a moribund patient not expected to survive 24 hrs. (ruptured aneurysm) ASA 6: a declared brain- patient whose organs are being harvested. For emergent operations, add the letter E after the classification Mallampati Classification Grade 3 Sedation Plan Analgesia, Amnesia, Plan communicated to team members, Discussed options with patient/fam, Discussed risks with patient/fam The patient is an appropriate candidate to undergo the planned procedure, sedation, and anesthesia. The patient immediately re-assessed prior to indication. WALTER MARQUEZ MD Apr 28, 2023 15:54
[2023-04-28] MEDS ORDERED: ANTACID SUSPENSION 30 ML UDC PO PRN (16:00)
[2023-04-28] MEDS ORDERED: NS IV 1000 ML 1,000 ML IV SCH ×2 (16:00→18:00)
[2023-04-28] MEDS ORDERED: CALCIUM CARBONATE 500 MG CHEW TABLET PO PRN (16:00)
[2023-04-28] MEDS ORDERED: MELATONIN 3 MG TABLET PO PRN (16:00)
[2023-04-28] MEDS ORDERED: ONDANSETRON INJECTION 4 MG/2 ML (SDV) IV PRN (16:00)
[2023-04-28] MEDS ORDERED: BISACODYL 10 MG SUPPOSITORY PR PRN (16:00)
[2023-04-28] MEDS ORDERED: fentaNYL INJECTION 100 MCG/2 ML VIAL ONE ×2 (16:01→17:09)
[2023-04-28] MEDS ORDERED: MIDAZOLAM INJ 5 MG/5 ML VIAL ONE (16:01)
[2023-04-28 16:38] VITALS: BP 152/57
[2023-04-28] MEDS ORDERED: RT-ALBUTEROL SULF 2.5 MG/3 ML PRE-MIX VIAL INH PRN (16:45)
[2023-04-28] MEDS ORDERED: ATROPINE 1 MG/10 ML EMERGENCY SYRINGE ONE (17:05)
[2023-04-28] MEDS ORDERED: meTOprolol INJECTION 5 MG/5 ML VIAL ONE (17:43)
[2023-04-28] MEDS ORDERED: PATIENT MAY USE OWN MEDS, ALL PO SCH (18:00)
--- NOTE | 2023-04-28 18:02 | Permanent Pacemaker Implant ---
Dual Chamber Pacemaker Implant PROCEDURE PHYSICIAN: Walter Davis DUAL CHAMBER PACEMAKER IMPLANTATION: DATE OF PROCEDURE: 04/28/23 REFERRING PHYSICIAN: Dr. Joey Connolly INDICATION: Syncope, complete heart block PREOPERATIVE DIAGNOSIS: Complete heart block POSTOPERATIVE DIAGNOSIS: Complete heart block HISTORY: Dual-chamber permanent pacemaker was recommended. PROCEDURE PERFORMED: 1. Dual-chamber permanent pacemaker implantation. 2. Fluoroscopy. 3. Central venous access. ANESTHESIA: Local anesthesia, conscious sedation. COMPLICATIONS: None. ESTIMATED BLOOD LOSS:20 mL. SPECIMENS: None. ORAL ANTICOAGULATION: None. FLUOROSCOPY TIME: FLUOROSCOPY DOSE: CONTRAST DOSE: PROCEDURE DETAILS: The patient is a 87 female admitted through the emergency room with syncope, was noted to have severe bradycardia with complete heart block, cardiac pacemaker was advised. And after all of the patients questions were answered, the patient was brought to the EP Lab. The patient's left chest was prepped and draped in sterile fashion. A 2 inch horizontal incision was made 1 cm below the clavicle and dissection carried down to the pectoralis fascia. Using the modified Seldinger technique and under fluoroscopy guidance, the anterior aspect of the left axillary vein was accessed 2 times. The J wires were secured to the drapes with a mosquito clamp. A 7-Gibraltarian sheath was introduced over one of the J-wires. The RV lead was then inserted. The RV lead was directed across the tricuspid valve to the apical septal portion of the right ventricle. The position was checked in SCOTTISH and DONALDSON views. The screw was deployed and the lead connected to the sas programmer remote. Close sensing and pacing thresholds were obtained. Diaphragmatic pacing was ruled out. The lead was secured with 2-0 silk ties to the underlying muscle and fascia. Next, a 7-Gibraltarian sheath was introduced through the remaining J-wire. An atrial lead was then introduced and guided to the level of the right appendage. The screw was deployed and the lead was connected to the interrogator. Good sensing and pacing thresholds were obtained. Diaphragmatic pacing was ruled out. The leads were secured with 2-0 silk ties to the underlying muscle and fascia. The leads were connected to the device in a hermetic fashion. The device and leads were placed in the pocket. Aggressive irrigation with saline solution was done. The device was secured to the underlying muscle and fascia with a 2-0 silk tie. interrogation of the device revealed good integrity of all the leads and good connections. The wound was then closed using 2 layers. The first layer was interrupted 2-0 absorbable Vicryl suture. The last layer was a single subcuticular layer with 4- 0 Vicryl suture. Half inch Steri-Strips and a small dressing were then applied to the wound. The patient tolerated the procedure well and was returned to the recovery room in stable condition with stable vital signs. DEVICE INFORMATION: YEHUDA XT DR MRI [id number] RA LEAD: [id number] RV LEAD: [id number] PER-OPERATIVE DEVICE INTERROGATION: Good sensing and capture activity IMMEDIATE POSTOPERATIVE DEVICE INTERROGATION: Right atrium, bipolar, threshold 0.4 ms at 1.5 V, impedance 646, P wave 1.9 mV Right ventricle bipolar, threshold 0.4 ms at 0.625 V, impedance 684, no escape R waves noted. Unable to measure R wave PLAN: The patient transferred to the ICU. We will continue with two more doses of IV antibiotics. We will check a chest x-ray and interrogate the device in the morning. The patient will continue on oral antibiotics for 5 days. CONCLUSION: Successful dual-chamber pacemaker implantation with no complication WALTER DAVIS MD Apr 28, 2023 18:02
--- NOTE | 2023-04-28 19:00 | Diagnostic Imaging Report ---
Indication: Pacemaker insertion Portable chest 6:14 PM There are postoperative changes from CABG surgery. There is a dual-chamber pacemaker. There is left apical pneumothorax measuring 1.4 cm at the apex. Lungs are clear. Heart size is normal. There are no effusions. IMPRESSION: Small pneumothorax following pacemaker insertion. Critical finding Report was called to [facility] ICU-1 Naty, nurse by peter at 7:00PM. Dictated by: Dictated on workstation # [id number]
[2023-04-28] MEDS: ACETAMINOPHEN 325 MG TABLET PO PRN (21:44)
[2023-04-28] MEDS: ceFAZolin INJECTION 1,000 MG in NS (IVPB) 50 ML 50 ML IV SCH (21:44)
[2023-04-28] MEDS ORDERED: NS IV 500 ML 500 ML IV PRN (22:30)
[2023-04-29 04:52] LABS: HEMATOCRIT 37 % (35-52); HEMOGLOBIN 12.2 g/dL (11.5-16.0); MEAN CORPUSCULAR HEMOGLOBIN 34 pg (25-34); MEAN CORPUSCULAR HGB CONC 33 g/dL (32-36); MEAN CORPUSCULAR VOLUME 104 fL (80-99); MEAN PLATELET VOLUME 10.4 fL (9.0-12.2); PLATELET COUNT 155 10^3/uL (130-400); WHITE BLOOD COUNT 9.2 10^3/uL (4.3-11.0)
[2023-04-29 04:56] LABS: POTASSIUM 3.7 MMOL/L (3.6-5.0)
[2023-04-29 04:58] LABS: CALCIUM 7.9 MG/DL (8.5-10.1)
[2023-04-29 05:02] LABS: CREATININE SERUM 0.62 MG/DL (0.60-1.30)
[2023-04-29] MEDS: POTASSIUM CHLORIDE 20 MEQ TABLET PO SCH (05:12)
[2023-04-29] MEDS: POTASSIUM CL 10MEQ/50ML IVPB 50 ML IV SCH (05:12)
[2023-04-29] MEDS: MAGNESIUM 1 GM/100 ML IVPB 100 ML IV SCH ×3 (05:31→07:40)
[2023-04-29] MEDS: ACETAMINOPHEN 325 MG TABLET PO PRN ×2 (05:36→11:25)
[2023-04-29] MEDS: ceFAZolin INJECTION 1,000 MG in NS (IVPB) 50 ML 50 ML IV SCH ×2 (05:40→14:59)
[2023-04-29] MEDS ORDERED: POTASSIUM CHLORIDE 20 MEQ TABLET PO ONE (06:00)
[2023-04-29] MEDS: amLODIPine 5 MG TABLET PO SCH (08:30)
--- NOTE | 2023-04-29 08:34 | Diagnostic Imaging Report ---
EXAMINATION: Chest 1 view HISTORY: Pneumothorax COMPARISON: 04/28/2023 FINDINGS: A moderate left pneumothorax has increased in size. No edema or pneumonia. There is pneumopericardium. Median sternotomy wires are aligned. IMPRESSION: 1. A moderate left pneumothorax is increased in size. 2. Pneumopericardium Dictated by: Dictated on workstation # [id number]
[2023-04-29] MEDS ORDERED: MTP25TSR PO ×2 (10:21)
[2023-04-29] MEDS ORDERED: PAPA1TAB10 PO (10:21)
[2023-04-29] MEDS ORDERED: METH2.5T PO (10:21)
[2023-04-29] MEDS ORDERED: ACHD5005 PO (10:21)
[2023-04-29] MEDS ORDERED: CYCL5TAB PO (10:21)
[2023-04-29] MEDS ORDERED: AMLO-250 PO (10:21)
[2023-04-29] MEDS ORDERED: LOTE5DRO OU (10:21)
[2023-04-29] MEDS ORDERED: ETAN50SY INJ (10:21)
--- NOTE | 2023-04-29 11:24 | Physical Therapy Evaluation ---
PT Evaluation-General Medical Diagnosis Admission Date Apr 28, 2023 at 16:00 Medical Diagnosis: A-Fib, Dizzy, Syncope, Scalp laceration Onset Date: Apr 28, 2023 Therapy Diagnosis Therapy Diagnosis: Gait deficit, strength deficit Height/Weight Height (Feet): 5 Height (Inches): 5.00 Weight (Pounds): 119 Weight (Ounces): 0.0 Precautions Precautions/Isolations: Fall Prevention, Standard Precautions Weight Bear Status Right Lower Extremity: Right Weight Bearing/Tolerated Left Lower Extremity: Left Weight Bearing/Tolerated Referral Physician: Dr. Momin Reason for Referral: Evaluation/Treatment Medical History Pertinent Medical History: Atrial Fib, CABG, CAD, HTN, Rheumatoid Arthritis Social History Home: Assisted Living Current Living Status: Spouse Entry Into Home: Level Entry Prior Prior Level of Function SCALE: Activities may be completed with or without assistive devices. 2-Xssdfervxf-ukipozq completes the activity by him/herself with no assistance from a helper. 5-Set-up or Clean-up Assistance-helper sets up or cleans up; patient completes activity. Bennett assists only prior to or following the activity. 4-Supervision or Touching Assistance-helper provides verbal cues and/or touching/steadying and/or contact guard assistance as patient completes activity. Assistance may be provided throughout the activity or intermittently. 3-Partial/Moderate Assistance-helper does LESS THAN HALF the effort. Bennett lifts, holds or supports trunk or limbs, but provides less than half the effort. 2-Substantial/Maximal Assistance-helper does MORE THAN HALF the effort. Bennett lifts or holds trunk or limbs and provides more than half the effort. 9-Ysmoczcth-vdamgi does ALL the effort. Patient does none of the effort to complete the activity. Or, the assistance of 2 or more helpers is required for the patient to complete the activity. If activity was not attempted, code reason: 7-Patient Refused. 9-Not Applicable-not attempted and the patient did not perform the activity before the current illness, exacerbation or injury. 10-Not Attempted due to Environmental Limitations-(lack of equipment, weather restraints, etc.). 88-Not Attempted due to Medical Conditions or Safety Concerns. Bed Mobility: 6 Transfers (B,C,W/C): 6 Gait: 6 Stairs: 6 Indoor Mobility (Ambulation): Independent Stairs: Independent Prior Devices Use: Walker PT Evaluation-Current Subjective Patient sitting in chair upon PT arrival, in the room, patient agreeable to treatment. Patient rates pain at 8/10 currently in her left arm due to the pacemaker and in her back. Objective Patient Orientation: Person, Place, Time, Situation Attachments: IV ROM/Strength ROM Lower Extremities WFLs BLEs all planes Strength Lower Extremities 3+/5 BLEs all planes Sensory Vision: Blind Legally Hearing: Functional Sensation Right Lower Extremit: Intact Sensation Left Lower Extremity: Intact Transfers Sit to Stand (QC): 3 Chair/Xeo-yx-Aeiif Xfer(QC): 3 Gait Does the Patient Walk?: Yes Mode of Locomotion: Walk Anticipated Mode of Locomotion: Walk Walk 10 feet (QC): 3 Distance: 20' Gait Assistive Device: None Balance Sitting Static: Fair Sitting Dynamic: Fair Standing Static: Poor Standing Dynamic: Poor Assessment/Needs 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 Patient performed all observed transfers with Min/mod A. Patient ambulates 20 feet with no AD, with min/mod a and verbal cues for safety, progression, posture and balance. Patient will benefit from use of cane or sarita-walker until she is able to bear weight through left UE. Patient in chair post treatment with all needs met, nursing notified, call light in hand, and daughter in the room. 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 Professor Goals Senior Care Goals PT Modern Greek Studies Professor Goals Time Frame: May 22, 2023 Roll Left & Right (QC): 6 Sit to Lying (QC): 6 Lying-Sitting on Side/Bed(QC): 6 Sit to Stand (QC): 6 Chair/Yvq-di-Oasha Xfer(QC): 6 Toilet Transfer (QC): 6 Walk 10 feet (QC): 5 Walk 50ft with 2 Turns (QC): 5 Walk 150 ft (QC): 5 1 Step (curb) (QC): 4 4 Steps (QC): 4 PT Plan Problem List Problem List: Activity Tolerance, Functional Strength, Safety, Balance, Gait, Transfer, Bed Mobility, ROM Treatment/Plan Treatment Plan: Continue Plan of Care Treatment Plan: Bed Mobility, Education, Functional Activity Sunni, Functional Strength, Group Therapy, Gait, Safety, Therapeutic Exercise, Transfers Treatment Duration: Jun 19, 2023 Frequency: 6 times per week Estimated Hrs Per Day: .25 hour per day Patient and/or Family Agrees t: Yes Safety Risks/Education Patient Education: Gait Training, Transfer Techniques Teaching Recipient: Patient, Family Teaching Methods: Demonstration, Discussion Response to Teaching: Reinforcement Needed Time Time In: 1015 Time Out: 1040 DATE: Apr 29, 2023 Total Billed Treatment Time: 25 Total Billed Treatment Visit, JORDON LACEY JOHN A PT Apr 29, 2023 11:24
--- NOTE | 2023-04-29 11:48 | Progress Note - Hospitalist ---
MAURICE GAN 04/29/23 1148: Subjective HPI/CC On Admission 87F with a PMH of Gopal who is on Eliquis presents after feeling dizzy and having a syncopal episode while passing through a doorway on the way to a . Pt believes she only lost consciousness very briefly and then was awake on the floor for 5-10 minutes while she waited to be helped up. Pt bumped the back of her head on the left side and has a laceration that was stapled in the ED. Pt also bumped her hip, which was negative for a fracture on X-ray. Pt states her HR was taken by a nurse at the scene and shown to be 44. Pt denies N/V, SOB, chest pain, and visual changes. Subjective/Events-last exam Pt is post pacemaker insertion complicated by a small pneumothorax. Pt reports feeling fine except for soreness in her head, back, and the left side of her body from the fall. Pt did not sleep very well but says the Tylenol is helping. Pt is eating a normal diet. Pt denies chest pain, palpitations, dizziness, SOB, visual changes, N/V. Review of Systems General: No Chills, No Night Sweats HEENT: Head Aches; No Visual Changes Pulmonary: No Dyspnea, No Cough Cardiovascular: No: Chest Pain, Palpitations Gastrointestinal: Constipation; No: Nausea, Vomiting, Abdominal Pain Genitourinary: No Dysuria, No Frequency Musculoskeletal: shoulder pain (left), arm pain (left), back pain Neurological: Weakness; No: Numbness, Confusion Focused Exam Lactate Level 04/28/23 14:16: Lactic Acid Level 0.86 Objective Exam Vital Signs Vital Signs Date Time Temp Pulse Resp B/P (MAP) Pulse Ox O2 Delivery O2 Flow Rate FiO2 04/29/23 11:00 65 22 119/56 (77) 94 Nasal Cannula 1.00 04/29/23 08:00 36.6 04/28/23 16:38 21 Capillary Refill : Less Than 3 Seconds General Appearance: No Apparent Distress, WD/WN HEENT: PERRL/EOMI; No Scleral Icterus (L), No Scleral Icterus (R) Neck: Non Tender; No JVD Respiratory: No Accessory Muscle Use, No Respiratory Distress, Decreased Breath Sounds (Left UL) Cardiovascular: Regular Rate, Rhythm, No Edema, No JVD, No Murmur, Other ( pacemaker) Gastrointestinal: Non Tender, Soft; No Distended, No Guarding Neurologic/Psychiatric: Alert, Oriented x3 Skin: Normal Color, Warm/Dry Results/Procedures Lab Laboratory Tests 04/29/23 04:25 Patient resulted labs reviewed. Assessment/Plan Assessment and Plan Assess & Plan/Chief Complaint Pneumothorax Monitor for resolution on its own Sick Sinus Syndrome Pacemaker inserted Hold Eliquis Continue Cefazolin CAD Triple bypass in 2008 HTN Hold Metoprolol Hold Amlodipine Hyperlipidemia Scoliosis w/ chronic back pain Gabapentin 200 mg PO RA Methotrexate 2.5 mg tablets PO Constipation Continue Dulcolax 2 tablets 1x day PRN Weakness Ambulate w/ PT YUE MOMIN MD 04/29/23 1259: Assessment/Plan Assessment and Plan Assess & Plan/Chief Complaint Pt reports doing ok today but about to go to the bathroom. Having some pain in her leg and back from her fall. Also constipated and normally takes docusate at home so would like to resume that. PT/OT ordered to help with ambulation with new restrictions on arm. Contineu mtoprolol and amlodipine but BP of the soft side so will monitor response. Reviewed imaging and pneumothorax on CXR and ?pneumopericardium. Repeat CXR ordred for [address] Davis. She has no complaints regarding his respiration and is doing well. Updated daughter as I was leaving the room and she requests home health when able to DC home. Supervisory-Addendum Brief Verification & Attestation Participated in pt care: history, MDM, physical Personally performed: exam, history, MDM, supervision of care Care discussed with: Medical Student Procedures: n/a Results interpretation: Verified all documentation Verification and Attestation of Medical Student E/M Service A medical student performed and documented this service in my presence. I reviewed and verified all information documented by the medical student and made modifications to such information, when appropriate. I personally performed the physical exam and medical decision making. Yue Momin, Apr 29, 2023,12:56 MAURICE GAN Apr 29, 2023 11:48 YUE MOMIN MD Apr 29, 2023 12:59
[2023-04-29] MEDS ORDERED: HYDROcodone/ACETAMINOPHEN 5 MG/325 MG TABLET PO PRN (12:00)
--- NOTE | 2023-04-29 12:51 | Cardiology Progress Note ---
Subjective Date Seen by Provider: Apr 29, 2023 Time Seen by Provider: 12:49 Subjective/Events-last exam Patient was seen at bedside, feeling better, sitting at bedside denied any chest pain. Focused Exam Lactate Level 04/28/23 14:16: Lactic Acid Level 0.86 Objective-Cardiology Exam Last Set of Vital Signs Vital Signs 04/28/23 04/29/23 04/29/23 04/29/23 16:38 11:00 12:00 12:34 Temp 37.2 Pulse 86 Resp 22 B/P (MAP) 119/56 (77) Pulse Ox 94 O2 Delivery Nasal Cannula O2 Flow Rate 1.00 FiO2 21 I&O Intake and Output 04/29/23 00:00 Intake Total 1150 ml Output Total 450 ml Balance 700 ml Intake Oral 100 ml IV Total 1050 ml Output Urine Total 450 ml Daily Weight Change Unsure General: Alert, Oriented X3, Cooperative HEENT: Atraumatic, PERRLA Neck: Supple, No JVD, No Thyromegaly Lungs: Clear to Auscultation, Normal Air Movement Heart: Regular Rate, Normal S1, Normal S2, No Murmurs Abdomen: Normal Bowel Sounds, Soft, No Tenderness, No Hepatosplenomegaly, No Masses Extremities: No Clubbing, No Cyanosis, No Edema, Normal Pulses, No Tenderness/Swelling Skin: No Rashes, No Breakdown, No Significant Lesion Neuro: Normal Gait, Normal Speech, Strength at 5/5 X4 Ext, Normal Tone, Sensation Intact Psych/Mental Status: Mental Status NL, Mood NL Results Lab Laboratory Tests 04/29/23 04:25 A/P-Cardiology Admission Diagnosis Syncope Complete heart block Paroxysmal atrial fibrillation Coronary artery disease Assessment/Plan Syncope, sustained a fall with injury to her head and back secondary to severe bradycardia and hypotension Patient is in complete heart block, will require dual-chamber pacemaker implant Status post dual chamber pacemaker implantation. Feeling better, heart rate is better. Pneumopericardium, pneumothorax post pacemaker implant Small to moderate in size I will continue monitoring closely We will consider the use of chest tube if needed, I will try to avoid it due to her history of recurrent infection. Sinus node dysfunction, complete heart block, symptomatic Status post pacemaker implant History of paroxysmal atrial fibrillation with episodes of tachycardia Maintained on digoxin 0.125 mg daily and metoprolol 12.5 mg twice daily Has history of episodes of tachycardia History of recurrent palpitation, reporting improvement at this time. [id number] score of 5, maintained on Eliquis 2.5 mg twice daily Coronary artery disease, History of CABG 3 done in 2008 using SAMUEL to LAD, vein graft to the proximal LAD, vein graft to the right PDA. Cardiac catheterization in October 2018 after having an abnormal stress test showed severe stenosis at the left main, ostial circumflex and LAD, the LAD is corrected by vein graft to the mid portion, the circumflex is small not amendable to intervention and not bypassed, SAMUEL to the distal LAD is atretic with sluggish flow probably due to competitive flow through the vein graft to the mid LAD, mild to moderate disease in the right coronary artery that is a large dominant artery, patent vein graft to the right coronary artery. Stress test was done on April 05, 2023 with large reversible ischemia involving the whole lateral wall anterior lateral and inferolateral wall with stress score 11, SDS 6, EF 55% Patient is asymptomatic, she has severe stenosis at the left main and ostial circumflex artery and the circumflex artery is a small artery and not corrected by bypass. The SAMUEL to the LAD is atretic due to the competitive flow through the vein graft to the mid LAD. We discussed conservative management and will consider cardiac catheterization if she becomes symptomatic 2D echo was done on October 16, 2020 showing normal LV size with EF 55 to 65%, grade 1 diastolic dysfunction, mild mitral regurgitation, PA pressure 40 to 45 mm 2D echo was done in December 2022 with mild LVH, EF 55 to 65%. Hypertension, Hospitalization in April 2022 for hypertensive urgency. Currently hypotensive due to the bradycardia Having labile blood pressure Maintained on amlodipine 5 mg daily, metoprolol ER 12.5 mg twice daily Planning for pacemaker then we will adjust her blood pressure medications Hyperlipidemia, intolerant to statins and Zetia. I will evaluate lipid profile History of rheumatoid arthritis, maintained on methotrexate. Doing well at this time. Continue to monitor. History of back pain. Premature atrial contractions, premature ventricular contractions, palpitation, feeling better on the current medication. Continue to monitor. Mild bilateral carotid stenosis, nonobstructive disease, last ultrasound done in December 2022. Continue to monitor Status post hospitalization for bacterial meningitis after epidural injection, doing better. Following with WALTER Burton MD Apr 29, 2023 12:51
[2023-04-29] MEDS ORDERED: CYCLOBENZAPRINE HCL 2.5 MG PO PRN (13:15)
--- NOTE | 2023-04-29 13:39 | Diagnostic Imaging Report ---
INDICATION: History of pneumopericardium. COMPARISON: 04/29/2023. FINDINGS: Frontal and lateral radiographic views of the chest were obtained and show stable moderate left-sided pneumothorax. There is also stable asymmetric elevation of the left hemidiaphragm. Lungs are otherwise clear. There is no pneumothorax on the right. No large effusion is seen on either side. Pneumopericardium described on exam earlier same day is much less conspicuous. Heart size remains mildly enlarged. Pulmonary vasculature is within normal limits. Sternotomy wires and left-sided dual-lead pacemaker are noted. Osseous structures show no gross acute abnormalities. IMPRESSION: 1. Stable moderate left-sided pneumothorax. 2. Pneumopericardium is now much less conspicuous. 3. Cardiomegaly. Dictated by: Dictated on workstation # [id number]
[2023-04-29] MEDS ORDERED: CYCLOBENZAPRINE 10 MG TABLET PO PRN (13:45)
[2023-04-29] MEDS: NS IV 1000 ML 1,000 ML IV SCH ×2 (16:14→21:13)
[2023-04-29] MEDS: MAGNESIUM OXIDE 400 MG TABLET PO SCH (18:12)
[2023-04-29] MEDS: FOLIC ACID 1 MG TAB PO SCH (20:58)
[2023-04-29] MEDS ORDERED: MAGNESIUM OXIDE 200 MG PO SCH (21:00)
[2023-04-29] MEDS ORDERED: CYCLOBENZAPRINE HCL 2.5 MG PO SCH (21:00)
[2023-04-29] MEDS ORDERED: CYCLOBENZAPRINE 10 MG TABLET PO SCH (21:00)
[2023-04-29] MEDS ORDERED: GABAPENTIN 100 MG CAPSULE PO SCH (21:00)
[2023-04-29] MEDS ORDERED: MELATONIN 3 MG TABLET PO SCH (21:00)
[2023-04-29] MEDS ORDERED: LOTEPREDNOL ETABONATE OU SCH (21:00)
[2023-04-29] MEDS ORDERED: NON-FORMULARY MEDICATION 1 EA EA (Melatonin 1 MG) PO SCH (21:00)
[2023-04-30 05:22] LABS: HEMATOCRIT 39 % (35-52); HEMOGLOBIN 12.7 g/dL (11.5-16.0); MEAN CORPUSCULAR HEMOGLOBIN 34 pg (25-34); MEAN CORPUSCULAR HGB CONC 33 g/dL (32-36); MEAN CORPUSCULAR VOLUME 104 fL (80-99); MEAN PLATELET VOLUME 10.7 fL (9.0-12.2); PLATELET COUNT 161 10^3/uL (130-400); WHITE BLOOD COUNT 7.6 10^3/uL (4.3-11.0)
[2023-04-30] MEDS: NS IV 1000 ML 1,000 ML IV SCH (05:25)
[2023-04-30 05:36] LABS: POTASSIUM 4.1 MMOL/L (3.6-5.0)
[2023-04-30 05:38] LABS: CALCIUM 8.2 MG/DL (8.5-10.1)
[2023-04-30 05:42] LABS: CREATININE SERUM 0.64 MG/DL (0.60-1.30)
[2023-04-30] MEDS: MAGNESIUM 1 GM/100 ML IVPB 100 ML IV SCH (06:32)
[2023-04-30] MEDS: POTASSIUM CL 10MEQ/50ML IVPB 50 ML IV SCH (06:32)
[2023-04-30] MEDS: POTASSIUM CHLORIDE 20 MEQ TABLET PO SCH (06:38)
--- NOTE | 2023-04-30 07:47 | Physical Therapy Daily Note ---
PT Daily Note-Current Subjective Patient agrees to PT. Denies pain. Pain Section J - Health Conditions 1. Rarely or not at all 2. Occasionally 3. Frequently 4. Almost constantly 8. Unable to answer Pain Effect on Sleep: 1 Pain Interference with Therapy: 1 Pain Interference w/Day-to-Day: 1 Mental Status Patient Orientation: Normal For Age Transfers SCALE: Activities may be completed with or without assistive devices. 5-Occiyiphuf-mnazidb completes the activity by him/herself with no assistance from a helper. 5-Set-up or Clean-up Assistance-helper sets up or cleans up; patient completes activity. Curtis assists only prior to or following the activity. 4-Supervision or Touching Assistance-helper provides verbal cues and/or touching/steadying and/or contact guard assistance as patient completes activity. Assistance may be provided throughout the activity or intermittently. 3-Partial/Moderate Assistance-helper does LESS THAN HALF the effort. Curtis lifts, holds or supports trunk or limbs, but provides less than half the effort. 2-Substantial/Maximal Assistance-helper does MORE THAN HALF the effort. Curtis lifts or holds trunk or limbs and provides more than half the effort. 8-Gmxklbciq-pmcvrd does ALL the effort. Patient does none of the effort to complete the activity. Or, the assistance of 2 or more helpers is required for the patient to complete the activity. If activity was not attempted, code reason: 7-Patient Refused. 9-Not Applicable-not attempted and the patient did not perform the activity before the current illness, exacerbation or injury. 10-Not Attempted due to Environmental Limitations-(lack of equipment, weather restraints, etc.). 88-Not Attempted due to Medical Conditions or Safety Concerns. Lying to Sitting/Side of Bed(Q: 3 Sit to Stand (QC): 3 Chair/Zlc-nk-Rbgim Xfer(QC): 3 Weight Bearing Right Lower Extremity: Right Weight Bearing/Tolerated Left Lower Extremity: Left Weight Bearing/Tolerated Gait Training Distance: 150' Walk 10 feet (QC): 3 Walk 50 ft with 2 Turns(QC): 3 Walk 150 ft (QC): 3 Gait Assistive Device: Cane Small Base Quad very unsteady with multiple LOB with PT correct Exercises Seated Therapy Exercises: Ankle pumps, Long arc quads Seated Reps: 15 Assessment Patient normally utilizes FWW for safe ambulation. She currently is unable to use FWW due to recent pacemaker placement and limited left UE use. Patient unsteady with gait on this date and is not safe to return to home due to high fall risk, impaired mobility and weakness. PT Manager Power Goals Usp Goals PT Manager Power Goals Time Frame: May 22, 2023 Roll Left & Right (QC): 6 Sit to Lying (QC): 6 Lying-Sitting on Side/Bed(QC): 6 Sit to Stand (QC): 6 Chair/Pbn-jz-Xpvll Xfer(QC): 6 Toilet Transfer (QC): 6 Walk 10 feet (QC): 5 Walk 50ft with 2 Turns (QC): 5 Walk 150 ft (QC): 5 1 Step (curb) (QC): 4 4 Steps (QC): 4 PT Plan Treatment/Plan Treatment Plan: Continue Plan of Care Treatment Plan: Bed Mobility, Education, Functional Activity Sunni, Functional Strength, Group Therapy, Gait, Safety, Therapeutic Exercise, Transfers Treatment Duration: Jun 19, 2023 Frequency: 6 times per week Estimated Hrs Per Day: .25 hour per day Patient and/or Family Agrees t: Yes Discharge Recommendations Therapy Discharge Recommendati: Post Acute PT Time Time In: 725 Time Out: 740 DATE: Apr 30, 2023 Total Billed Treatment Time: 15 Total Billed Treatment 1 visit GT 15 min MARYBEL DENNIS PT Apr 30, 2023 07:47
[2023-04-30] MEDS: ACETAMINOPHEN 325 MG TABLET PO PRN (08:25)
[2023-04-30] MEDS: MAGNESIUM OXIDE 400 MG TABLET PO SCH (08:25)
[2023-04-30] MEDS: amLODIPine 5 MG TABLET PO SCH (08:25)
[2023-04-30] MEDS: FOLIC ACID 1 MG TAB PO SCH (08:25)
--- NOTE | 2023-04-30 08:35 | Diagnostic Imaging Report ---
EXAMINATION: Chest 2 view HISTORY: Pneumothorax COMPARISON: 04/29/2023 FINDINGS: There is an unchanged small to moderate left pneumothorax. Right lung is clear. Heart size is normal. Median sternotomy wires are aligned. Left subclavian pacemaker is present. IMPRESSION: 1. Unchanged small to moderate left pneumothorax. Dictated by: Dictated on workstation # [id number]
[2023-04-30] MEDS ORDERED: LORATADINE 10 MG TABLET PO SCH (09:00)
--- NOTE | 2023-04-30 10:07 | Cardiology Progress Note ---
Subjective Date Seen by Provider: Apr 30, 2023 Time Seen by Provider: 10:06 Subjective/Events-last exam Patient was seen at bedside, sitting comfortably, feeling better, no shortness of breath, still having some generalized weakness and unsteady gait Review of Systems General: No Chills, No Night Sweats; Fatigue; No Malaise, No Appetite, No Other HEENT: No Head Aches, No Visual Changes, No Eye Pain, No Ear Pain, No Dysphasia, No Sinus Congestion, No Post Nasal Drip, No Sore Throat, No Other Pulmonary: No Dyspnea, No Cough, No Pleuritic Chest Pain, No Other Cardiovascular: No: Chest Pain, Palpitations, Orthopnea, Paroxysmal Noc. Dyspnea, Edema, Lt Headedness, Other Focused Exam Lactate Level 04/28/23 14:16: Lactic Acid Level 0.86 Objective-Cardiology Exam Last Set of Vital Signs Vital Signs 04/28/23 04/29/23 04/30/23 04/30/23 16:38 18:00 07:36 10:00 Temp 36.2 Pulse 78 Resp 20 B/P (MAP) 152/78 (92) Pulse Ox 95 O2 Delivery Room Air O2 Flow Rate 1.00 FiO2 21 I&O Intake and Output 04/30/23 00:00 Intake Total 2880 ml Output Total 3210 ml Balance -330 ml Intake Oral 2580 ml IV Total 300 ml Output Urine Total 3210 ml General: Alert, Oriented X3, Cooperative HEENT: Atraumatic, PERRLA Neck: Supple, No JVD, No Thyromegaly Lungs: Clear to Auscultation, Normal Air Movement Heart: Regular Rate, Normal S1, Normal S2, No Murmurs Abdomen: Normal Bowel Sounds, Soft, No Tenderness, No Hepatosplenomegaly, No Masses Extremities: No Clubbing, No Cyanosis, No Edema, Normal Pulses, No Tenderness/Swelling Skin: No Rashes, No Breakdown, No Significant Lesion Neuro: Normal Gait, Normal Speech, Strength at 5/5 X4 Ext, Normal Tone, Sensation Intact Psych/Mental Status: Mental Status NL, Mood NL Results Lab Laboratory Tests 04/30/23 04:16 04/30/23 04:26 A/P-Cardiology Admission Diagnosis Syncope Complete heart block Paroxysmal atrial fibrillation Coronary artery disease Assessment/Plan Syncope, sustained a fall with injury to her head and back secondary to severe bradycardia and hypotension Patient is in complete heart block, will require dual-chamber pacemaker implant Status post dual chamber pacemaker implantation. Feeling better, heart rate is better. Still having slight unsteady gait and generalized weakness Possible transfer to acute rehab Pneumopericardium, pneumothorax post pacemaker implant Small to moderate in size Repeat chest x-ray showed no deterioration, patient is stable, okay for discharge or transfer to acute rehab from cardiology standpoint Sinus node dysfunction, complete heart block, symptomatic Status post pacemaker implant History of paroxysmal atrial fibrillation with episodes of tachycardia Maintained on digoxin 0.125 mg daily and metoprolol 12.5 mg twice daily Has history of episodes of tachycardia History of recurrent palpitation, reporting improvement at this time. [id number] score of 5, maintained on Eliquis 2.5 mg twice daily Coronary artery disease, History of CABG 3 done in 2008 using SAMUEL to LAD, vein graft to the proximal LAD, vein graft to the right PDA. Cardiac catheterization in October 2018 after having an abnormal stress test showed severe stenosis at the left main, ostial circumflex and LAD, the LAD is corrected by vein graft to the mid portion, the circumflex is small not amendable to intervention and not bypassed, SAMUEL to the distal LAD is atretic with sluggish flow probably due to competitive flow through the vein graft to the mid LAD, mild to moderate disease in the right coronary artery that is a large dominant artery, patent vein graft to the right coronary artery. Stress test was done on April 05, 2023 with large reversible ischemia involving the whole lateral wall anterior lateral and inferolateral wall with stress score 11, SDS 6, EF 55% Patient is asymptomatic, she has severe stenosis at the left main and ostial circumflex artery and the circumflex artery is a small artery and not corrected by bypass. The SAMUEL to the LAD is atretic due to the competitive flow through the vein graft to the mid LAD. We discussed conservative management and will consider cardiac catheterization if she becomes symptomatic 2D echo was done on October 16, 2020 showing normal LV size with EF 55 to 65%, grade 1 diastolic dysfunction, mild mitral regurgitation, PA pressure 40 to 45 mm 2D echo was done in December 2022 with mild LVH, EF 55 to 65%. Hypertension, Hospitalization in April 2022 for hypertensive urgency. Currently hypotensive due to the bradycardia Having labile blood pressure Maintained on amlodipine 5 mg daily, metoprolol ER 12.5 mg twice daily Planning for pacemaker then we will adjust her blood pressure medications Hyperlipidemia, intolerant to statins and Zetia. I will evaluate lipid profile History of rheumatoid arthritis, maintained on methotrexate. Doing well at this time. Continue to monitor. History of back pain. Premature atrial contractions, premature ventricular contractions, palpitation, feeling better on the current medication. Continue to monitor. Mild bilateral carotid stenosis, nonobstructive disease, last ultrasound done in December 2022. Continue to monitor Status post hospitalization for bacterial meningitis after epidural injection, doing better. Following with WALTER Burton MD Apr 30, 2023 10:07
[2023-04-30] MEDS ORDERED: CEPHALEXIN 250 MG CAPSULE PO SCH (10:15)
[2023-04-30] MEDS ORDERED: DOCUSATE SODIUM 100 MG CAPSULE PO PRN (10:15)
[2023-04-30] MEDS ORDERED: APIX2.5T PO (11:03)
--- NOTE | 2023-04-30 11:20 | Discharge Summary ---
MAURICE GAN 04/30/23 1120: Diagnosis/Chief Complaint Date of Admission Apr 28, 2023 at 16:00 Date of Discharge Admission Diagnosis Complete heart block Primary Care Joey Connolly DO Discharge Summary Discharge Physical Exam Allergies: Coded Allergies: tetanus toxoid, adsorbed (Unverified Allergy, Unknown, 08/17/14) tramadol (Verified Allergy, Unknown, Hives, 11/16/18) Vitals & I&Os Vital Signs Date Time Temp Pulse Resp B/P (MAP) Pulse Ox O2 Delivery O2 Flow Rate FiO2 04/30/23 10:00 78 20 152/78 (92) 95 Room Air 04/30/23 07:36 36.2 04/29/23 18:00 1.00 04/28/23 16:38 21 General Appearance: No Apparent Distress, WD/WN HEENT: PERRL/EOMI; No Scleral Icterus (L), No Scleral Icterus (R) Respiratory: Lungs Clear, No Accessory Muscle Use, No Respiratory Distress, Decreased Breath Sounds (Left UL) Cardiovascular: Regular Rate, Rhythm, No JVD, No Murmur, Other (pacemaker) Gastrointestinal: Non Tender, Soft; No Distended, No Guarding Extremity: No Pedal Edema, Other (left arm sore from fall) Skin: Normal Color, Warm/Dry Neurologic/Psychiatric: Alert, Oriented x3 Hospital Course Rowan Barreto is an 87F who presented with extreme bradycardia and complete heart block due to Sick Sinus Syndrome, CAD, HTN, Hyperlipidemia, Scoliosis w/ chronic back pain, RA, constipation, and weakness. She received a pacemaker and subsequently developed a pneumothorax, which has been monitored for stability and is now stable. She was seen by PT to see if she was ready to go home, and it was determined she would best benefit from inpatient rehab. She will be discharged to inpatient rehab to build her strength so that she can take care of herself, and her orders revolving around her pacemaker and chronic conditions will be managed by cardiology. Labs (last 24 hrs) Laboratory Tests 04/30/23 04:16: Sodium Level 141, Potassium Level 4.1, Chloride Level 109H, Carbon Dioxide Level 24, Anion Gap 8, Blood Urea Nitrogen 8, Creatinine 0.64, Estimat Glomerular Filtration Rate 86, BUN/Creatinine Ratio 13, Glucose Level 102, Calcium Level 8.2L, Magnesium Level 2.5H 04/30/23 04:26: White Blood Count 7.6, Red Blood Count 3.75L, Hemoglobin 12.7, Hematocrit 39, Mean Corpuscular Volume 104H, Mean Corpuscular Hemoglobin 34, Mean Corpuscular Hemoglobin Concent 33, Red Cell Distribution Width 14.2, Platelet Count 161, Mean Platelet Volume 10.7 Microbiology 04/28/23 Blood Culture - Preliminary, Resulted Patient resulted labs reviewed. Pending Labs Laboratory Tests 04/30/23 04:16: Sodium Level 141, Potassium Level 4.1, Chloride Level 109, Carbon Dioxide Level 24, Anion Gap 8, Blood Urea Nitrogen 8, Creatinine 0.64, Estimat Glomerular Filtration Rate 86, BUN/Creatinine Ratio 13, Glucose Level 102, Calcium Level 8.2, Magnesium Level 2.5 04/30/23 04:26: White Blood Count 7.6, Red Blood Count 3.75, Hemoglobin 12.7, Hematocrit 39, Mean Corpuscular Volume 104, Mean Corpuscular Hemoglobin 34, Mean Corpuscular Hemoglobin Concent 33, Red Cell Distribution Width 14.2, Platelet Count 161, Mean Platelet Volume 10.7 Discharge Home Medications: Active Scripts Active Reported Papaya Enzyme (Papaya) 1 Each Tablet 1 Each PO TID PRN Cyclobenzaprine HCl 5 Mg Tablet 2.5 Mg PO HS PRN THIS IS TAKEN IN THE MIDDLE OF THE NIGHT IF NEEDED TAKES OF A 5MG TAB Cyclobenzaprine HCl 5 Mg Tablet 2.5 Mg PO HS TAKES OF A 5MG TAB Enbrel (Etanercept) 50 Mg/Ml (1 Ml) Syringe 50 Mg INJ UBALDO Methotrexate (Methotrexate Sodium) 2.5 Mg Tablet 20 Mg PO TUE TAKES 8 (2.5MG) TABS Amlodipine Besylate 5 Mg Tablet 5 Mg PO HS Metoprolol Succinate 25 Mg Tab.er.24h 25 Mg PO HS Metoprolol Succinate 25 Mg Tab.er.24h 12.5 Mg PO DAILY TAKES OF A 25MG TAB Hydrocodone-Acetamin 5-325 mg (Hydrocodone/Acetaminophen) 5 Mg-325 Mg Tablet 0.25 Ea PO HS PRN TAKES OF A TAB Loteprednol Etabonate 0.5 % Drops.gel 1 Drop OU HS Vitamin D3 (Cholecalciferol (Vitamin D3)) 25 Mcg (1000 Unit) Capsule 25 Mcg PO DAILY Zinc (Zinc Gluconate) 50 Mg Tablet 50 Mg PO DAILY Tylenol Extra Strength (Acetaminophen) 500 Mg Tablet 500-1,000 Mg PO Q6H PRN Vitamin C (Ascorbate Calcium) 500 Mg Tablet 500 Mg PO DAILY Mag-Oxide (Magnesium Oxide) 200 Mg Magnesium Tablet 200 Mg PO BID Melatonin 1 Mg Tablet 1 Mg PO HS Folic Acid 1 Mg Tablet 1 Mg PO BID Gabapentin 100 Mg Capsule 300 Mg PO HS TAKES 3 (100MG) CAPS Eliquis (Apixaban) 2.5 Mg Tablet 2.5 Mg PO BID Loratadine 10 Mg Tablet 10 Mg PO DAILY Instructions to patient/family Please see electronic discharge instructions given to patient. YUE MOMIN MD 04/30/23 1451: Discharge Summary Discharge Physical Exam Allergies: Coded Allergies: tetanus toxoid, adsorbed (Unverified Allergy, Unknown, 08/17/14) tramadol (Verified Allergy, Unknown, Hives, 11/16/18) Discussion & Recommendations Discharge Planning: >30 minutes discharge planning Supervisory-Addendum Brief Verification & Attestation Participated in pt care: history, MDM, physical Personally performed: exam, history, MDM, supervision of care Care discussed with: Medical Student Procedures: n/a Results interpretation: Verified all documentation Verification and Attestation of Medical Student E/M Service A medical student performed and documented this service in my presence. I reviewed and verified all information documented by the medical student and made modifications to such information, when appropriate. I personally performed the physical exam and medical decision making. Yue Momin, Apr 30, 2023,14:51 MAURICE GAN Apr 30, 2023 11:20 YEU MOMIN MD Apr 30, 2023 14:51
== END 2023-04-30 13:25 | DRG 243 ==
LOC: EDUNIT# 10:24 → ER 10:27 → ICU 15:46 → OBSVTOIN 16:00 → ICU 04-29 17:22
PROVIDERS: ADMIT Family Medicine; ATTEND Family Medicine
PROC: 0JH606Z Insertion of Pacemaker, Dual Chamber into Chest Subcutaneous Tissue and Fascia, Open Approach (ICD-10-PCS; principal; 2023-04-28)
PROC: 02H63JZ Insertion of Pacemaker Lead into Right Atrium, Percutaneous Approach (ICD-10-PCS; 2023-04-28)
PROC: 02HK3JZ Insertion of Pacemaker Lead into Right Ventricle, Percutaneous Approach (ICD-10-PCS; 2023-04-28)
PROC: 0HQ0XZZ Repair Scalp Skin, External Approach (ICD-10-PCS; 2023-04-28)
DX: I44.2 Atrioventricular block, complete (principal); J95.811 Postprocedural pneumothorax; I49.5 Sick sinus syndrome; I25.10 Atherosclerotic heart disease of native coronary artery without angina pectoris; I10 Essential (primary) hypertension; M41.9 Scoliosis, unspecified; G89.29 Other chronic pain; M54.9 Dorsalgia, unspecified; M06.9 Rheumatoid arthritis, unspecified; Z79.899 Other long term (current) drug therapy; Z95.1 Presence of aortocoronary bypass graft; E78.00 Pure hypercholesterolemia, unspecified; K21.9 Gastro-esophageal reflux disease without esophagitis; G47.33 Obstructive sleep apnea (adult) (pediatric); H35.30 Unspecified macular degeneration; S70.02XA Contusion of left hip, initial encounter; S01.01XA Laceration without foreign body of scalp, initial encounter; Z79.01 Long term (current) use of anticoagulants; K59.00 Constipation, unspecified; R53.1 Weakness; I48.0 Paroxysmal atrial fibrillation; I65.23 Occlusion and stenosis of bilateral carotid arteries; I49.1 Atrial premature depolarization
CPT/HCPCS: 33208; 36415; 70450; 71045; 71046; 72125; 80048; 80053; 80061; 80162; 83605; 83735; 84484; 85025; 85027; 85610; 85730; 87040; 93005; 93041

== ENCOUNTER 2023-04-30 11:15 | Inpatient (IN) | payer MEDICARE, OTHER ==
[~2023-04-30] VITALS: Ht 165 cm; Wt 54.0 kg
[~2023-04-30 11:15] MED LIST changes: +ACHD5005 PO; +CYCL5TAB PO; +ETAN50SY INJ; +LOTE5DRO OU; +PAPA1TAB10 PO
[2023-04-30] MEDS ORDERED: LOPERAMIDE 2 MG CAPSULE PO PRN (12:15)
[2023-04-30] MEDS ORDERED: MELATONIN 3 MG TABLET PO PRN (12:15)
[2023-04-30] MEDS ORDERED: LACTULOSE SYRUP 10GM/15ML 30ML UDC PO PRN (12:15)
[2023-04-30] MEDS ORDERED: DOCUSATE SODIUM 100 MG CAPSULE PO PRN ×2 (12:15→16:15)
[2023-04-30] MEDS ORDERED: ONDANSETRON 4 MG ORAL DISSOLVE TABLET PO PRN (12:15)
[2023-04-30] MEDS ORDERED: ALPRAZolam 0.25 MG TABLET PO PRN (12:15)
[2023-04-30] MEDS ORDERED: Sodium Phosphate/Sodium Biphosphate ADULT enema PR PRN (12:15)
[2023-04-30] MEDS ORDERED: BISACODYL 10 MG SUPPOSITORY PR PRN ×2 (12:15→16:15)
[2023-04-30] MEDS ORDERED: CALCIUM CARBONATE 500 MG CHEW TABLET PO PRN ×2 (12:15→16:15)
[2023-04-30] MEDS ORDERED: diphenhydrAMINE 25 MG TABLET PO PRN (12:15)
[2023-04-30] MEDS ORDERED: guaiFENesin/CODEINE 10ML UDC PO PRN (12:15)
--- NOTE | 2023-04-30 12:16 | PM&R Post Admission Assessment ---
PM&R HP Date of Visit: Apr 30, 2023 Time of Visit: 14:00 History of Present Illness Chief complaint: Sick sinus syndrome HPI: This is an 87yoWF who presented to the ARU following a pacemaker placement after a diagnosis of severe bradycardia with complete heart block. She remains in a sling for her left arm. Her bowels have not moved but she is eating. She is very weak. Her was at ARU in the past. Rowan Barreto is an 87F who presented with extreme bradycardia and complete heart block due to Sick Sinus Syndrome, CAD, HTN, Hyperlipidemia, Scoliosis w/ chronic back pain, RA, constipation, and weakness. She received a pacemaker and subsequently developed a pneumothorax, which has been monitored for stability and is now stable. She was seen by PT to see if she was ready to go home, and it was determined she would best benefit from inpatient rehab. She will be discharged to inpatient rehab to build her strength so that she can take care of herself, and her orders revolving around her pacemaker and chronic conditions will be managed by cardiology. Past [id number] Hx Past Med/Social Hx: Reviewed Nursing Past Med/Soc Hx, Reviewed and Corrections made Patient Social History Marrital Status: single Employed/Student: retired Alcohol Use: Denies Use Smoking Status: Never a Smoker Former Smoker, Quit: Jul 26, 1979 Type Used: Cigarettes 2nd Hand Smoke Exposure: No Recent Hopitalizations: No Immunizations Up To Date Tetanus Booster (TDap): Less than 5yrs Date of Pneumonia Vaccine: May 26, 2011 Date of Influenza Vaccine: May 17, 2014 Seasonal Allergies Seasonal Allergies: No Past Medical History Surgeries: Adenoidectomy, Cardiac, CABG, Eye Surgery, Gallbladder, Orthopedic, Tonsillectomy Currently Using CPAP: No Currently Using BIPAP: No Cardiac: Atrial Fibrillation, Coronary Artery Disease, High Cholesterol, Hypertension Reproductive: No Sexually Transmitted Disease: No Menopausal Genitourinary: Kidney Infection, Bladder Infection Gastrointestinal: Gastroesophageal Reflux, Obstructive Bowel, Chronic Constipation, Diverticulosis, Chronic Diarrhea, Irritable Bowel Musculoskeletal: Rheumatoid Arthritis, Scoliosis, Chronic Back Pain HEENT: Macular Degeneration Loss of Vision: Bilateral Hearing Impairment: Hard of Hearing History of Blood Disorders: No Adverse Reaction to Blood Braxton: No Family History Abdominal aortic aneurysm G8 BROTHER Angina pectoris 19 MOTHER Completed stroke G8 BROTHER FH: brain aneurysm 19 MOTHER Hypercholesterolemia G8 SISTER Hypertension G8 SISTER Osteoporosis G8 SISTER AAA, Heart Disease, Cerebral Aneurysm, Hypertension, Stroke Social, medical and surgical history per old records as patient has altered mental status and is unable to answer questions. PM&R Allergy/Meds/Data Review Allergies Coded Allergies: tetanus toxoid, adsorbed (Unverified Allergy, Unknown, 08/17/14) tramadol (Verified Allergy, Unknown, Hives, 11/16/18) Home Medications Scheduled Amlodipine Besylate (Amlodipine Besylate), 5 MG PO HS, (Reported) Apixaban (Eliquis), 2.5 MG PO BID Ascorbate Calcium (Vitamin C), 500 MG PO DAILY, (Reported) Cholecalciferol (Vitamin D3) (Vitamin D3), 25 MCG PO DAILY, (Reported) Cyclobenzaprine HCl (Cyclobenzaprine HCl), 2.5 MG PO HS, (Reported) Etanercept (Enbrel), 50 MG INJ UBALDO, (Reported) Folic Acid (Folic Acid), 1 MG PO BID, (Reported) Gabapentin (Gabapentin), 300 MG PO HS, (Reported) Loratadine (Loratadine), 10 MG PO DAILY, (Reported) Loteprednol Etabonate (Loteprednol Etabonate), 1 DROP OU HS, (Reported) Magnesium Oxide (Mag-Oxide), 200 MG PO BID, (Reported) Melatonin (Melatonin), 1 MG PO HS, (Reported) Methotrexate Sodium (Methotrexate), 20 MG PO TUE, (Reported) Metoprolol Succinate (Metoprolol Succinate), 12.5 MG PO DAILY, (Reported) Metoprolol Succinate (Metoprolol Succinate), 25 MG PO HS, (Reported) Zinc Gluconate (Zinc), 50 MG PO DAILY, (Reported) Scheduled PRN Acetaminophen (Tylenol Extra Strength), 500-1,000 MG PO Q6H PRN for PAIN-MILD (1-4), (Reported) Cyclobenzaprine HCl (Cyclobenzaprine HCl), 2.5 MG PO HS PRN for MUSCLE SPASMS, (Reported) Hydrocodone/Acetaminophen (Hydrocodone-Acetamin 5-325 mg), 0.25 EA PO HS PRN for PAIN-MODERATE (5-7), (Reported) Papaya (Papaya Enzyme), 1 EACH PO TID PRN for DIGESTION AID, (Reported) Discontinued Medications Amlodipine Besylate (Amlodipine Besylate), 5 MG PO DAILY Discontinued Reason: No Longer Taking Aspirin (Aspirin EC), 81 MG PO DAILY Discontinued Reason: No Longer Taking Calcium Carb/Mag Hydrox/Simeth (Mylanta Coat-Cool 1,200-270-80), 10 ML PO TID PRN for GAS, (Reported) Discontinued Reason: No Longer Taking Cyclobenzaprine HCl (Cyclobenzaprine HCl), 5 MG PO HS PRN for MUSCLE SPASMS, (Reported) Discontinued Reason: No Longer Taking Digoxin (Digoxin), 125 MCG PO DAILY, (Reported) Discontinued Reason: No Longer Taking Loteprednol Etabonate (Lotemax), 1 DROPS OU DAILY, (Reported) Discontinued Reason: No Longer Taking Metoprolol Tartrate (Metoprolol Tartrate), 50 MG PO BID, (Reported) Discontinued Reason: No Longer Taking Ondansetron (Ondansetron Odt), 4 MG SL TID PRN for NAUSEA/VOMITING-1ST LINE, (Reported) Discontinued Reason: No Longer Taking Current Medications Current Medications Reviewed Review of Systems Constitutional: see HPI, dizziness, malaise, weakness EENTM: no symptoms reported Respiratory: no symptoms reported Cardiovascular: no symptoms reported Gastrointestinal: no symptoms reported Genitourinary: no symptoms reported Musculoskeletal: no symptoms reported Skin: no symptoms reported Psychiatric/Neurological: No Symptoms Reported Physical Exam Physical Exam Vital Signs Capillary Refill : Height, Weight, BMI Height: 5'5.00" Weight: 119lbs. 0.0oz. [id number]; 19.39 BMI Method:Stated General Appearance: No Apparent Distress, WD/WN, Chronically ill Eyes: Bilateral Eye Normal Inspection, Bilateral Eye PERRL HEENT: PERRL/EOMI, TMs Normal, Normal ENT Inspection, Pharynx Normal Neck: Full Range of Motion, Normal Inspection, Non Tender, Supple, Carotid Bruit Respiratory: Chest Non Tender, Lungs Clear, Normal Breath Sounds, No Accessory Muscle Use, No Respiratory Distress Cardiovascular: Regular Rate, Rhythm, No Edema, No Gallop, No JVD, No Murmur, Normal Peripheral Pulses Gastrointestinal: Normal Bowel Sounds, No Organomegaly, No Pulsatile Mass, Non Tender, Soft Back: Normal Inspection, No CVA Tenderness, No Vertebral Tenderness Extremity: Normal Capillary Refill, Normal Inspection, Normal Range of Motion (except left arm in sling), Non Tender, No Calf Tenderness, No Pedal Edema Neurologic/Psychiatric: Alert, Oriented x3, No Motor/Sensory Deficits, Normal Mood/Affect, carpenter helper II-XII Norm as Tested, Abnormal Gait, Motor Weakness (left arm) Skin: Normal Color, Warm/Dry Lymphatic: No Adenopathy PM&R Medical Assessment & Plan REHAB/MEDICAL ASSESSMENT AND PLAN: REHAB IMPAIRMENT GROUP: Sick sinus syndrome ETIOLOGIC DIAGNOSIS: Sick sinus syndrome The comorbidities that impact the patients function and/or functional outcome by: SSS, fall risk, frail status, advanced age, HTN, left sided PTX REHAB PLAN: The patient is being admitted to our comprehensive inpatient rehabilitation facility and can tolerate the intensity of service consisting of at least: 180 minutes of therapy a day, 5 out of 7 days a week Rehab treatment will consist of: PT OT will focus on regaining function with the use of AD in order to support left arm s/p pacemaker and prevent falls and increase stamina The patient/family has a good understanding of our discharge process and will benefit from an interdisciplinary inpatient rehabilitation program. The patient has potential to make improvement and is in need of at least two of the following multidisciplinary therapies including but not limited to physical, occupational, speech, and prosthetics and orthotics. Additionally the patient will need services from respiratory, nutritional services, wound care, psychology, etc. (Customize this to each patient). Given the patients complex condition and risk of further medical complications, rehabilitation services cannot be safely or effectively provided at a lower level of care such as a [facility] facility. BARRIERS TO DISCHARGE: Frail status ESTIMATED LOS: 7 days DISPOSITION: Home RELEVANT CHANGES SINCE PREADMISSION SCREENING: I have compared the patients medical and functional status at the time of the preadmission screening and there are: no changes PROGNOSIS: Good REHABILITATION GOALS: 1. PT OT will focus on regaining function with the use of AD in order to support left arm s/p pacemaker and prevent falls and increase stamina All the above goals were reviewed with the patient and he/she is in agreement. By signing this document, I acknowledge that I have personally performed a full physical examination on this patient within 24 hours of admission to this inpatient rehabilitation facility and have determined the patient to be able to tolerate the above course of treatment at an intensive level for a reasonable period of time. I will be completing a detailed individualized Plan of Care for this patient by day #4 of the patients stay based upon the Preadmission Screen, the Post-Admission Evaluation, and the therapy evaluations. Admission Dx/Comorbidities: (1) Pacemaker ICD Codes: Z95.0 - Presence of cardiac pacemaker (2) Scalp laceration Status: Acute ICD Codes: S01.01XA - Laceration without foreign body of scalp, initial encounter (3) Third degree heart block Status: Acute ICD Codes: I44.2 - Atrioventricular block, complete (4) Contusion of left hip Status: Acute ICD Codes: S70.02XA - Contusion of left hip, initial encounter (5) Chronic anticoagulation Status: Acute ICD Codes: Z79.01 - care home (current) use of anticoagulants (6) Syncope Status: Acute ICD Codes: R55 - Syncope and collapse (7) Afib ICD Codes: I48.91 - Unspecified atrial fibrillation (8) HLD (hyperlipidemia) ICD Codes: E78.5 - Hyperlipidemia, unspecified (9) HTN (hypertension) ICD Codes: I10 - Essential (primary) hypertension Assessment/Plan Assessment and Plan Assess & Plan/Chief Complaint Assessment: SSS Left sided PTX Pacemaker placement HTN HLP AF Advanced age Plan: Monitor closely Fall risk O2 Left arm sling PT OT DONA ROUSSEAU DO Apr 30, 2023 12:16
--- NOTE | 2023-04-30 13:55 | Physical Therapy Evaluation ---
PT Evaluation-General Medical Diagnosis Admission Date Apr 30, 2023 at 13:26 Medical Diagnosis: SSS s/p pacemaker placement Onset Date: Apr 27, 2023 Therapy Diagnosis Therapy Diagnosis: Weakness, Decrerased functional mobility Height/Weight Height (Feet): 5 Height (Inches): 5.00 Weight (Pounds): 119 Weight (Ounces): 0.0 Precautions Precautions/Isolations: Fall Prevention, Standard Precautions Pacemaker precautions Weight Bear Status Right Lower Extremity: Right Full Weight Bearing Left Lower Extremity: Left Full Weight Bearing Referral Physician: Yoselin Reason for Referral: Evaluation/Treatment Medical History Pertinent Medical History: Atrial Fib, CABG, CAD, HTN, Rheumatoid Arthritis Additional Medical History A-Fib, CAD, High Cholesterol, HTN RA, Scoliosis, GERD Diverticulitis, IBS, Macular degeneration, Current History Pt fell on 04/27/23; Pacemaker placement on 04/28/23; Admitted to ARU on 04/30/23 Reviewed History: Yes Social History Home: Assisted Living Current Living Status: Spouse Entry Into Home: Level Entry PT Steps Into Home: 0 PT Steps Inside Home: 0 Pt lives at [facility] with her spouse; level entry; Walk-in shower with GBs, bench, tall toilet Prior Prior Level of Function SCALE: Activities may be completed with or without assistive devices. 8-Kuucwvgubb-qeerdgj completes the activity by him/herself with no assistance from a helper. 5-Set-up or Clean-up Assistance-helper sets up or cleans up; patient completes activity. [place] assists only prior to or following the activity. 4-Supervision or Touching Assistance-helper provides verbal cues and/or touching/steadying and/or contact guard assistance as patient completes activity. Assistance may be provided throughout the activity or intermittently. 3-Partial/Moderate Assistance-helper does LESS THAN HALF the effort. [place] lifts, holds or supports trunk or limbs, but provides less than half the effort. 2-Substantial/Maximal Assistance-helper does MORE THAN HALF the effort. [place] lifts or holds trunk or limbs and provides more than half the effort. 6-Mgfziqmcl-owjqie does ALL the effort. Patient does none of the effort to complete the activity. Or, the assistance of 2 or more helpers is required for the patient to complete the activity. If activity was not attempted, code reason: 7-Patient Refused. 9-Not Applicable-not attempted and the patient did not perform the activity before the current illness, exacerbation or injury. 10-Not Attempted due to Environmental Limitations-(lack of equipment, weather restraints, etc.). 88-Not Attempted due to Medical Conditions or Safety Concerns. Bed Mobility: 6 Transfers (B,C,W/C): 6 Gait: 6 Stairs: 9 Wheelchair Mobility: 9 Indoor Mobility (Ambulation): Independent Stairs: Independent Prior Devices Use: None At [facility], pt was Mod I with no AD; Has a SPC at home PT Evaluation-Current Subjective Pt is agreeable to PT. Reported L LE pain at 7-8/10 Pain Numeric Pain Scale: 8 Location: Left Location Body Site: Hip Section J - Health Conditions 1. Rarely or not at all 2. Occasionally 3. Frequently 4. Almost constantly 8. Unable to answer Pain Effect on Sleep: 2 Pain Interference with Therapy: 3 Pain Interference w/Day-to-Day: 2 Pt/Family Goals Safely return home with spouse Objective Patient Orientation: Person, Place, Time, Situation L UE sling ROM/Strength ROM Upper Extremities See OT eval ROM Lower Extremities WFL Strength Upper Extremities See OT eval Strength Lower Extremities R LE MMT = 4-/5 grossly L LE MMT = 3+/5 grossly (pain) Integumentary/Posture Integumentary see nurses note Bowel Incontinence: No Bladder Incontinence: No Sensory Vision: Blind Totally Hearing: Hearing Aid/Aides Hand Dominance: Right Sensation Right Upper Extremit: Intact Sensation Left Upper Extremity: Intact Sensation Right Lower Extremit: Intact Sensation Left Lower Extremity: Intact Transfers Roll Left & Right (QC): 4 (SBA ) Sit to Lying (QC): 4 (SBA ) Lying to Sitting/Side of Bed(Q: 4 (SBA ) Sit to Stand (QC): 4 (CGA ) Chair/Mud-zd-Ptxxw Xfer(QC): 4 (CGA ) Toilet Transfer (QC): 4 (CGA ) Car Transfer (QC): 4 (CGA ) Gait Does the Patient Walk?: Yes Mode of Locomotion: Walk Anticipated Mode of Locomotion: Walk Walk 10 feet (QC): 4 (CGA ) Walk 50 ft with 2 Turns(QC): 4 (CGA ) Walk 150 ft (QC): 4 (CGA ) Walking 10ft/uneven surface-QC: 4 (CGA ) Distance: 170ft Gait Assistive Device: Cane Small Base Quad Wheelchair Training Does the Pt Use a Wheelchair?: No Wheel 50 ft with 2 turns (QC): 9 Wheel 150 ft (QC): 9 Type of Wheelchair: N/A Stairs #of Steps: 4 1 Step (curb) (QC): 3 (Min A ) 4 Steps (QC): 3 (Min A ) 12 Steps (QC): 9 (No steps at home ) Walking Assistive Device: Cane Balance Sitting Static: Normal Sitting Dynamic: Good Standing Static: Fair Standing Dynamic: Fair Picking up an Object (QC): 4 (CGA ) Special Test Comments KU standing balance scale = 2+/5 (goal = 4/5) Treatment PT eval completed. PT/OT co-tx due to skill of 2 clinicians required which a rehabilitation clerk could not perform in order to coordinate UE/LEs, decrease fall risk, and due to pt's limitations in strength, mobility, pain, transfers and mobility. PT focused on LE placement, gross overall movement, transfers and mobility. OT focused on ADLS, UE placement, cues for sequencing and safety. Pt completed bed mobility tasks with SBA. Pt completed functional transfers with CGA. Pt completed toilet transfer with CGA. Pt ambulated 170ft and 120ft with the QC and CGA. Pt completed 4 steps with 1 HR and Min A. Pt completed seated B LE and R UE exercises. After treatment session, pt was sitting up in the recliner with call light in reach, family present, and all needs met. Assessment/Needs Pt tolerated PT well with good effort Rehab Potential: Good Post Rehab Potential-Barriers: Pain, Weakness, Endurance, Balance Equipment Needs QC PT Mcfp Goals Civil Service Clerk Goals PT Civil Service Clerk Goals Time Frame: May 14, 2023 Roll Left to Right (QC): 6 (Pt will be Mod I with functional mobility, in order to safely return home with spouse. ) Sit to Lying (QC): 6 (Pt will be Mod I with functional mobility, in order to safely return home with spouse. ) Lying-Sitting on Side/Bed(QC): 6 (Pt will be Mod I with functional mobility, in order to safely return home with spouse. ) Sit to Stand (QC): 6 (Pt will be Mod I with functional mobility, in order to safely return home with spouse. ) Chair/Ymd-zr-Ayald Xfer(QC): 6 (Pt will be Mod I with functional mobility, in order to safely return home with spouse. ) Toilet/Commode Transfer (QC): 6 (Pt will be Mod I with functional mobility, in order to safely return home with spouse. ) Car Transfer (QC): 6 (Pt will be Mod I with functional mobility, in order to safely return home with spouse. ) Does the Patient Walk: Yes Walk 10 feet (QC): 6 (Pt will be Mod I with functional mobility, in order to safely return home with spouse. ) Walk 10ft-Uneven Surface(QC): 6 (Pt will be Mod I with functional mobility, in order to safely return home with spouse. ) Walk 50ft with 2 Turns (QC): 6 (Pt will be Mod I with functional mobility, in order to safely return home with spouse. ) Walk 150 ft (QC): 6 (Pt will be Mod I with functional mobility, in order to safely return home with spouse. ) Does the Pt use WC or Scooter?: No Wheel 50 feet with 2 turns (QC: 9 Type: N/A Wheel 150 feet: 9 Type: N/A 1 Step (curb) (QC): 6 (Pt will be Mod I with functional mobility, in order to safely return home with spouse. ) 4 Steps (QC): 6 (Pt will be Mod I with functional mobility, in order to safely return home with spouse. ) 12 Steps (QC): 9 (level entry at home ) Picking up an Object (QC): 6 KU standing balance scale goal = 4/5 PT Plan Problem List Problem List: Activity Tolerance, Functional Strength, Safety, Balance, Gait, Transfer, Bed Mobility, ROM Treatment/Plan Treatment Plan: Continue Plan of Care Treatment Plan: Bed Mobility, Education, Functional Activity Sunni, Functional Strength, Group Therapy, Gait, Safety, Therapeutic Exercise, Transfers Treatment Duration: May 14, 2023 Frequency: At least 5 of 7 days/Wk (IRF) Estimated Hrs Per Day: 1.5 hours per day Patient and/or Family Agrees t: Yes Safety Risks/Education Patient Education: Gait Training, Transfer Techniques, Steps, Correct Positioning, Safety Issues Teaching Recipient: Patient Teaching Methods: Demonstration, Discussion Response to Teaching: Verbalize Understanding, Return Demonstration, Reinforcement Needed Discharge Recommendations Therapy Discharge Recommendati: Assisted Living, Home & Family, Post Acute PT Equpiment Recommendations-D/C: Quad Cane Discharge Status/Home Program Cont per POC Barriers to Progress Weakness, endurance, pain, balance Target Placement Home with spouse (ILF) Time Time In: 1330 Time Out: 1500 DATE: Apr 30, 2023 Total Billed Treatment Time: 90 Total Billed Treatment 90 min total from 2881-9659; Co-tx for 75 min from 2016-1220 1 visit EVM EX x 1 FA x 2 GT x 2 MARILOU PEDROZA PT Apr 30, 2023 13:55
--- NOTE | 2023-04-30 14:17 | Occupational Therapy Eval ---
OT Evaluation-General/PLF Medical Diagnosis Admission Date Apr 30, 2023 at 13:26 Medical Diagnosis: SSS s/p pacemaker Onset Date: Apr 27, 2023 Therapy Diagnosis Therapy Diagnosis: decreased ADL status Height/Weight Height (Feet): 5 Height (Inches): 5.00 Weight (Pounds): 119 Weight (Ounces): 0.0 Precautions Comments Pacemaker precautions. Per family report: no showering for 5 days post staple placement, or once cleared by physician. Referral Physician: Yoselin Referral Reason: Evaluation/Treatment Medical History Pertinent Medical History: Atrial Fib, CABG, CAD, HTN, Rheumatoid Arthritis Additional Medical History afib, CABG, CAD, HTN, GERD, diverticulosis, irritable bowel, RA, scoliosis, macular degeneration Current History Presents to ED 04/27/23 after syncopal episode resulting in fall and scalp laceration requiring lilian. s/p dual chamber pacemaker placement 04/28/23. Pt transferred to ARU 04/30/23. Social History Home: [facility] Current Living Status: Spouse Entry Into Home: Level Entry Steps Into Home: 0 ADL-Prior Level of Function SCALE: Activities may be completed with or without assistive devices. 5-Rhdxfjhufn-wsxtpqz completes the activity by him/herself with no assistance from a helper. 5-Set-up or Clean-up Assistance-helper sets up or cleans up; patient completes activity. [place] assists only prior to or following the activity. 4-Supervision or Touching Assistance-helper provides verbal cues and/or touching/steadying and/or contact guard assistance as patient completes activity. Assistance may be provided throughout the activity or intermittently. 3-Partial/Moderate Assistance-helper does LESS THAN HALF the effort. [place] lifts, holds or supports trunk or limbs, but provides less than half the effort. 2-Substantial/Maximal Assistance-helper does MORE THAN HALF the effort. [place] lifts or holds trunk or limbs and provides more than half the effort. 8-Tkhmnvwug-juufli does ALL the effort. Patient does none of the effort to complete the activity. Or, the assistance of 2 or more helpers is required for the patient to complete the activity. If activity was not attempted, code reason: 7-Patient Refused. 9-Not Applicable-not attempted and the patient did not perform the activity before the current illness, exacerbation or injury. 10-Not Attempted due to Environmental Limitations-(lack of equipment, weather restraints, etc.). 88-Not Attempted due to Medical Conditions or Safety Concerns. ADL PLOF Comments Pt reports IND with ADLs and functional mobility, no AD. She has a walk in shower with shower bench, GBS, tall toilet with GB on L side. She washes her sheets, but has assistance placing on the bed. She has assistance cleaning the house and medication management due to decreased vision. Self Care: Independent Functional Cognition: Independent DME/Equipment: Bath Bench, Grab Bars, Shower, Tall Toilet OT Current Status Subjective Pt agreeable to OT evaluation and cotreatment with PT. Pt reports 7/10 pain in L side from fall. Mental Status/Objective Patient Orientation: Person, Place, Time, Situation Attachments: Other-See Comments (LUE sling) Current Glasses/Contacts: No (legally blind) Hearing Aids: Yes Dentures/Partials: No Hand Dominance: Right Upper Extremity ROM RUE WFL, shoulder flexion to approx 160 degrees. LUE WFL at elbow/wrist/hand. Shoulder not tested due to pacemaker precautions. Upper Extremity Coordination WFL Upper Extremity Sensation WFL Upper Extremity Strength LUE not tested due to pacemaker precautions. RUE grossly 4/5 ADL-Treatment Eating (QC): 5 Oral Hygiene (QC): 4 Shower/Bathe Self (QC): 3 (Min A) Upper Body Dressing (QC): 4 (SBA) Lower Body Dressing (QC): 3 (Min a with pant hike on L side.) On/Off Footwear (QC): 4 (SBA) Toileting Hygiene (QC): 3 (Min A with pant hike.) Other Treatments OT evaluation complete. OT/PT cotreat due to skill of 2 clinicians required which a rehab trainer could not perform in order to coordinate UE/LEs, decrease fall risk, and due to pt's limtiation in strength, mobility, pain, transfers and mobility. OT focused on ADLS, UE placement, cues for sequencing and safety, PT focused on LE placement, gross overall movement, transfers and mobility. Pt used QC to transfer to toilet. Pt completed toileting, and dressing tasks, then used QC to perform functional mobility and transfers on even and uneven surface, car transfer, picking up object from floor, stairs. Pt able to ambulate 170' using QC, CGA with 1 slight LOB. Pt educated on LUE exercises, including elbow flexion/extension, wrist flexion/extension, pronation/supination, and finger flexion/extension. Pt used QC to perform functional mobility around ARU common area and back to her room, transferring to recliner. Post tx, pt in recliner, call light in reach and all needs met. Bed mobility, SBA. CGA functional transfers and toilet transfer. ambulation 170' & 120' CGA with QC. 4 steps 1 HR min A. Education OT Patient Education: Correct positioning, Energy conservation, Modified ADL techniques, Progress toward Goal/Update tx plan, Purpose of tx/functional activities, Rehab process Teaching Recipient: Patient Teaching Methods: Discussion Response to Teaching: Verbalize Understanding BIMS CAM BIMS Expression of Ideas and Wants: Without Difficulty Understanding Verbal Content: Usually Understands (slight CAHUILLA) Brief Interview/Mental Status: Yes IRF GREG BIMS: IRF GREG BIMS Response (Comments) Value Repitition of Three Words Three 3 Recalls Socks Yes, No Cue Required 2 Recalls Blue Yes, No Cue Required 2 Recalls Bed Yes, After Cueing 1 Year Correct 3 Month Accurate Within 5 Days 2 Day Correct 1 Total 14 Should Staff Asses. Mental [address] No CAM Mental Status Change/Baseline: 0 Inattention: 0 Disorganized thinkin Altered level of consciousness: 0 OT Correction Goals Veneer Puller Goals Time Frame: May 14, 2023 Eating (QC): 6 Oral Hygiene (QC): 6 Toileting Hygiene (QC): 6 Shower/Bathe Self (QC): 6 Upper Body Dressing (QC): 6 Lower Body Dressing (QC): 6 On/Off Footwear (QC): 6 Additional Goals: 1-Demonstrate ADL Tasks, 2-Verbalize Understanding, 3- ImproveStrength/Sunni 1=Demonstrate adherence to instructed precautions during ADL tasks. 2=Patient will verbalize/demonstrate understanding of assistive devices/modifications for ADL. 3=Patient will improve strength/tolerance for activity to enable patient to perform ADL's. OT Education/Plan Problem List/Assessment Assessment: Decreased Activ Tolerance, Decreased UE Strength, Impaired Funct Balance, Impaired I ADL's, Impaired Self-Care Skills Discharge Recommendations Plan/Recommendations: Continue POC Treatment Plan/Plan of Care Treatment,Training & Education: Yes Patient would benefit from OT for education, treatment and training to promote independence in ADL's, mobility, safety and/or upper extremity function for ADL's. Plan of Care: ADL Retraining, Functional Mobility, Group Exercise/Act as Ind, UE Funct Exercise/Act Treatment Duration: May 14, 2023 Frequency: At least 5 of 7 days/Wk (IRF) Estimated Hrs Per Day: 1.5 hours per day Agreement: Yes Rehab Potential: Good Time Start Time: 13:15 ([id number] OT eval) Stop Time: 15:00 ([id number] Cotreat) DATE: Apr 30, 2023 Total Time Billed (hr/min): 90 Billed Treatment Time 1, EVM (15'), ADL 2 (30'), FA 3 (45') ILA BROWN OT Apr 30, 2023 14:17
[2023-04-30] MEDS: ACETAMINOPHEN 325 MG TABLET PO PRN ×2 (14:34→22:54)
[2023-04-30 15:59] VITALS: BP 109/67
[2023-04-30] MEDS ORDERED: ANTACID SUSPENSION 30 ML UDC PO PRN (16:15)
[2023-04-30] MEDS ORDERED: ACETAMINOPHEN 325 MG TABLET PO PRN (16:15)
[2023-04-30] MEDS ORDERED: RT-ALBUTEROL SULF 2.5 MG/3 ML PRE-MIX VIAL INH PRN (16:15)
[2023-04-30] MEDS ORDERED: PATIENT MAY USE OWN MEDS, ALL PO SCH (16:15)
[2023-04-30] MEDS ORDERED: ONDANSETRON INJECTION 4 MG/2 ML (SDV) IV PRN (16:15)
[2023-04-30 16:43] VITALS: BP 109/67
[2023-04-30] MEDS ORDERED: RT-Ipratropium/Albuterol NEB 3 ML VIAL INH PRN (17:00)
[2023-04-30] MEDS: MAGNESIUM OXIDE 400 MG TABLET PO SCH (17:59)
[2023-04-30] MEDS: FOLIC ACID 1 MG TAB PO SCH (20:58)
[2023-04-30] MEDS: GABAPENTIN 100 MG CAPSULE PO SCH (20:58)
[2023-04-30] MEDS: CEPHALEXIN 250 MG CAPSULE PO SCH (20:58)
[2023-04-30] MEDS: MELATONIN 3 MG TABLET PO SCH (20:58)
[2023-04-30] MEDS ORDERED: RT-Ipratropium/Albuterol NEB 3 ML VIAL INH SCH (21:00)
[2023-04-30] MEDS: CYCLOBENZAPRINE 10 MG TABLET PO PRN (21:03)
[2023-04-30] MEDS: SENNA W/DOCUSATE TABLET PO SCH (21:03)
[2023-04-30 21:24] VITALS: BP 146/77
[2023-04-30] MEDS: DOCUSATE SODIUM 100 MG CAPSULE PO SCH (21:29)
[2023-05-01] MEDS: HYDROcodone/ACETAMINOPHEN 5 MG/325 MG TABLET PO PRN (02:44)
[2023-05-01 06:22] LABS: BASOPHILS % (AUTO) 0 % (0-10); EOSINOPHILS # (AUTO) 0.2 10^3/uL (0.0-0.3); EOSINOPHILS % (AUTO) 3 % (0-10); HEMATOCRIT 37 % (35-52); LYMPHOCYTES # (AUTO) 1.8 10^3/uL (1.0-4.0); LYMPHOCYTES % (AUTO) 29 % (12-44); MEAN CORPUSCULAR HEMOGLOBIN 34 pg (25-34); MEAN CORPUSCULAR HGB CONC 33 g/dL (32-36); MEAN CORPUSCULAR VOLUME 103 fL (80-99); MEAN PLATELET VOLUME 10.2 fL (9.0-12.2); MONOCYTES # (AUTO) 0.6 10^3/uL (0.0-1.0); MONOCYTES % (AUTO) 10 % (0-12); NEUTROPHILS # (AUTO) 3.6 10^3/uL (1.8-7.8); NEUTROPHILS % (AUTO) 58 % (42-75); PLATELET COUNT 147 10^3/uL (130-400); WHITE BLOOD COUNT 6.2 10^3/uL (4.3-11.0)
[2023-05-01 06:37] LABS: ALBUMIN 3.3 GM/DL (3.2-4.5); POTASSIUM 4.3 MMOL/L (3.6-5.0)
[2023-05-01 06:38] LABS: CALCIUM 8.3 MG/DL (8.5-10.1)
[2023-05-01 06:39] LABS: TOTAL PROTEIN 5.9 GM/DL (6.4-8.2)
[2023-05-01 06:41] LABS: BILIRUBIN,TOTAL 0.5 MG/DL (0.1-1.0)
[2023-05-01 06:43] LABS: CREATININE SERUM 0.65 MG/DL (0.60-1.30)
[2023-05-01 08:00] VITALS: BP 128/58
[2023-05-01] MEDS: MAGNESIUM OXIDE 400 MG TABLET PO SCH ×2 (08:20→17:29)
[2023-05-01] MEDS: amLODIPine 5 MG TABLET PO SCH (08:20)
[2023-05-01] MEDS: LORATADINE 10 MG TABLET PO SCH (08:20)
[2023-05-01] MEDS: SENNA W/DOCUSATE TABLET PO SCH ×2 (08:20→20:54)
[2023-05-01] MEDS: FOLIC ACID 1 MG TAB PO SCH ×2 (08:20→20:53)
[2023-05-01] MEDS: CEPHALEXIN 250 MG CAPSULE PO SCH ×2 (08:21→20:53)
[2023-05-01] MEDS: ENOXAPARIN 40 MG/0.4 ML SYRINGE SC SCH (08:22)
--- NOTE | 2023-05-01 08:59 | PM&R Progress Note ---
Subjective HPI/CC On Admission Date Seen by Provider: May 01, 2023 Time Seen by Provider: 09:00 Subjective/Events-last exam 05/01/2023: Doing well Pain controlled Reviewed meds and labs Spouse at bedside No falls Review of Systems General: Fatigue, Malaise Objective Exam Vital Signs Vital Signs Date Time Temp Pulse Resp B/P (MAP) Pulse Ox O2 Delivery O2 Flow Rate FiO2 05/01/23 12:29 93 05/01/23 09:00 Room Air 05/01/23 08:00 37.2 18 128/58 (81) 96 Capillary Refill : General Appearance: No Apparent Distress, WD/WN, Chronically ill HEENT: PERRL/EOMI, TMs Normal, Normal ENT Inspection, Pharynx Normal Neck: Full Range of Motion, Normal Inspection, Non Tender, Supple, Carotid Bruit Respiratory: Chest Non Tender, Lungs Clear, Normal Breath Sounds, No Accessory Muscle Use, No Respiratory Distress Cardiovascular: Regular Rate, Rhythm, No Edema, No Gallop, No JVD, No Murmur, Normal Peripheral Pulses Gastrointestinal: Normal Bowel Sounds, No Organomegaly, No Pulsatile Mass, Non Tender, Soft Back: Normal Inspection, No CVA Tenderness, No Vertebral Tenderness Extremity: Normal Capillary Refill, Normal Inspection, Normal Range of Motion (except left arm in sling), Non Tender, No Calf Tenderness, No Pedal Edema Neurologic/Psychiatric: Alert, Oriented x3, No Motor/Sensory Deficits, Normal Mood/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 FIM Transfers Therapy Code Descriptions/Definitions Functional Berger Measure: 0=Not Assessed/NA 4=Minimal Assistance 1=Total Assistance 5=Supervision or Setup 2=Maximal Assistance 6=Modified Berger 3=Moderate Assistance 7=Complete IndependenceSCALE: Activities may be completed with or without assistive devices. 6-Yohdeohibd-brppqhf completes the activity by him/herself with no assistance from a helper. 5-Set-up or Clean-up Assistance-helper sets up or cleans up; patient completes activity. [place] assists only prior to or following the activity. 4-Supervision or Touching Assistance-helper provides verbal cues and/or touching/steadying and/or contact guard assistance as patient completes activity. Assistance may be provided throughout the activity or intermittently. 3-Partial/Moderate Assistance-helper does LESS THAN HALF the effort. [place] lifts, holds or supports trunk or limbs, but provides less than half the effort. 2-Substantial/Maximal Assistance-helper does MORE THAN HALF the effort. [place] lifts or holds trunk or limbs and provides more than half the effort. 5-Vsczxqwau-ytihsl does ALL the effort. Patient does none of the effort to complete the activity. Or, the assistance of 2 or more helpers is required for the patient to complete the activity. If activity was not attempted, code reason: 7-Patient Refused. 9-Not Applicable-not attempted and the patient did not perform the activity before the current illness, exacerbation or injury. 10-Not Attempted due to Environmental Limitations-(lack of equipment, weather restraints, etc.). 88-Not Attempted due to Medical Conditions or Safety Concerns. Roll Left to Right (QC): 4 (SBA ) Sit to Lying (QC): 4 (SBA ) Sit to Stand (QC): 4 (CGA ) Chair/Ogb-kc-Eextf Xfer(QC): 4 (CGA ) Car Transfer (QC): 4 (CGA ) Gait Training Does the Patient Walk?: Yes Walk 10 feet (QC): 4 (CGA ) Walk 50 ft with 2 Turns(QC): 4 (CGA ) Walk 150 ft (QC): 4 (CGA ) Walking 10ft/uneven surface-QC: 4 (CGA ) Gait Assistive Device: Cane Small Base Quad Wheelchair Training Does the Pt Use a Wheelchair?: No Wheel 50 ft with 2 turns (QC): 9 Wheel 150 ft (QC): 9 Type of Wheelchair: N/A Stair Training #of Steps: 4 1 Step (curb) (QC): 3 (Min A ) 4 Steps (QC): 3 (Min A ) 12 Steps (QC): 9 (No steps at home ) Balance Picking up an Object (QC): 4 (CGA ) ADL-Treatment Eating (QC): 5 Oral Hygiene (QC): 4 Shower/Bathe Self (QC): 3 (Min A) Upper Body Dressing (QC): 4 (SBA) Lower Body Dressing (QC): 3 (Min a with pant hike on L side.) On/Off Footwear (QC): 4 (SBA) Toileting Hygiene (QC): 3 (Min A with pant hike.) Assessment/Plan Assessment and Plan Assess & Plan/Chief Complaint Assessment: SSS Left sided PTX Pacemaker placement HTN HLP AF Advanced age Falls Plan: Monitor closely Fall risk O2 Left arm sling PT OT 05/01/2023: Monitor pain BM regimen (1) Pacemaker (2) Scalp laceration Status: Acute (3) Third degree heart block Status: Acute (4) Contusion of left hip Status: Acute (5) Chronic anticoagulation Status: Acute (6) Syncope Status: Acute (7) Afib (8) HLD (hyperlipidemia) (9) HTN (hypertension) DONA ROUSSEAU DO May 01, 2023 08:59
[2023-05-01] MEDS: DOCUSATE SODIUM 100 MG CAPSULE PO SCH ×2 (09:24→19:33)
[2023-05-01] MEDS: ACETAMINOPHEN 325 MG TABLET PO PRN ×2 (11:06→19:12)
[2023-05-01 19:53] VITALS: BP 106/67
[2023-05-01] MEDS: MELATONIN 3 MG TABLET PO SCH (20:53)
[2023-05-01] MEDS: CYCLOBENZAPRINE 10 MG TABLET PO PRN (20:53)
[2023-05-01] MEDS: GABAPENTIN 100 MG CAPSULE PO SCH (20:54)
[2023-05-02] MEDS: ACETAMINOPHEN 325 MG TABLET PO PRN ×2 (03:15→17:03)
[2023-05-02] MEDS: HYDROcodone/ACETAMINOPHEN 5 MG/325 MG TABLET PO PRN (05:00)
[2023-05-02 08:04] VITALS: BP 136/63
[2023-05-02] MEDS: amLODIPine 5 MG TABLET PO SCH (08:05)
[2023-05-02] MEDS: DOCUSATE SODIUM 100 MG CAPSULE PO SCH ×2 (08:06→21:09)
[2023-05-02] MEDS: CEPHALEXIN 250 MG CAPSULE PO SCH ×2 (08:06→21:09)
[2023-05-02] MEDS: MAGNESIUM OXIDE 400 MG TABLET PO SCH ×2 (08:06→17:03)
[2023-05-02] MEDS: ENOXAPARIN 40 MG/0.4 ML SYRINGE SC SCH (08:07)
[2023-05-02] MEDS: LORATADINE 10 MG TABLET PO SCH (08:07)
[2023-05-02] MEDS: SENNA W/DOCUSATE TABLET PO SCH ×2 (08:07→21:10)
[2023-05-02] MEDS: FOLIC ACID 1 MG TAB PO SCH ×2 (08:07→21:09)
--- NOTE | 2023-05-02 12:23 | PM&R Progress Note ---
Subjective HPI/CC On Admission Date Seen by Provider: May 02, 2023 Time Seen by Provider: 12:00 Subjective/Events-last exam 05/02/2023: Doing well at bedside No falls No pain currently 05/01/2023: Doing well Pain controlled Reviewed meds and labs Spouse at bedside No falls Review of Systems General: Fatigue, Malaise Objective Exam Vital Signs Vital Signs Date Time Temp Pulse Resp B/P (MAP) Pulse Ox O2 Delivery O2 Flow Rate FiO2 05/02/23 12:20 86 05/02/23 09:48 Room Air 05/02/23 08:04 36.7 18 136/63 (87) 95 Capillary Refill : General Appearance: No Apparent Distress, WD/WN, Chronically ill HEENT: PERRL/EOMI, TMs Normal, Normal ENT Inspection, Pharynx Normal Neck: Full Range of Motion, Normal Inspection, Non Tender, Supple, Carotid Brui t Respiratory: Chest Non Tender, Lungs Clear, Normal Breath Sounds, No Accessory Muscle Use, No Respiratory Distress Cardiovascular: Regular Rate, Rhythm, No Edema, No Gallop, No JVD, No Murmur, Normal Peripheral Pulses Gastrointestinal: Normal Bowel Sounds, No Organomegaly, No Pulsatile Mass, Non Tender, Soft Back: Normal Inspection, No CVA Tenderness, No Vertebral Tenderness Extremity: Normal Capillary Refill, Normal Inspection, Normal Range of Motion (except left arm in sling), Non Tender, No Calf Tenderness, No Pedal Edema Neurologic/Psychiatric: Alert, Oriented x3, No Motor/Sensory Deficits, Normal Mood/Affect, 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 FIM Transfers Therapy Code Descriptions/Definitions Functional [place] Measure: 0=Not Assessed/NA 4=Minimal Assistance 1=Total Assistance 5=Supervision or Setup 2=Maximal Assistance 6=Modified [place] 3=Moderate Assistance 7=Complete IndependenceSCALE: Activities may be completed with or without assistive devices. 3-Gxjaqlbvhw-xhykshl completes the activity by him/herself with no assistance from a helper. 5-Set-up or Clean-up Assistance-helper sets up or cleans up; patient completes activity. [place] assists only prior to or following the activity. 4-Supervision or Touching Assistance-helper provides verbal cues and/or touching/steadying and/or contact guard assistance as patient completes activity. Assistance may be provided throughout the activity or intermittently. 3-Partial/Moderate Assistance-helper does LESS THAN HALF the effort. [place] lifts, holds or supports trunk or limbs, but provides less than half the effort. 2-Substantial/Maximal Assistance-helper does MORE THAN HALF the effort. [place] lifts or holds trunk or limbs and provides more than half the effort. 4-Mfvngifbj-zguris does ALL the effort. Patient does none of the effort to complete the activity. Or, the assistance of 2 or more helpers is required for the patient to complete the activity. If activity was not attempted, code reason: 7-Patient Refused. 9-Not Applicable-not attempted and the patient did not perform the activity before the current illness, exacerbation or injury. 10-Not Attempted due to Environmental Limitations-(lack of equipment, weather restraints, etc.). 88-Not Attempted due to Medical Conditions or Safety Concerns. Roll Left to Right (QC): 4 (SBA ) Sit to Lying (QC): 4 (SBA ) Sit to Stand (QC): 4 (CGA ) Chair/Rli-ki-Tsibd Xfer(QC): 4 (CGA ) Car Transfer (QC): 4 (CGA ) Gait Training Does the Patient Walk?: Yes Walk 10 feet (QC): 4 (CGA ) Walk 50 ft with 2 Turns(QC): 4 (CGA ) Walk 150 ft (QC): 4 (CGA ) Walking 10ft/uneven surface-QC: 4 (CGA ) Gait Assistive Device: Cane Small Base Quad Wheelchair Training Does the Pt Use a Wheelchair?: No Wheel 50 ft with 2 turns (QC): 9 Wheel 150 ft (QC): 9 Type of Wheelchair: N/A Stair Training #of Steps: 4 1 Step (curb) (QC): 3 (Min A ) 4 Steps (QC): 3 (Min A ) 12 Steps (QC): 9 (No steps at home ) Balance Picking up an Object (QC): 4 (CGA ) ADL-Treatment Eating (QC): 5 Oral Hygiene (QC): 4 Shower/Bathe Self (QC): 3 (Min A) Upper Body Dressing (QC): 4 (SBA) Lower Body Dressing (QC): 3 (Min a with pant hike on L side.) On/Off Footwear (QC): 4 (SBA) Toileting Hygiene (QC): 3 (Min A with pant hike.) Assessment/Plan Assessment and Plan Assess & Plan/Chief Complaint Assessment: SSS Left sided PTX Pacemaker placement HTN HLP AF Advanced age Falls Plan: Monitor closely Fall risk O2 Left arm sling PT OT 05/01/2023: Monitor pain BM regimen 05/02/2023: Lungs are clear (1) Pacemaker (2) Scalp laceration Status: Acute (3) Third degree heart block Status: Acute (4) Contusion of left hip Status: Acute (5) Chronic anticoagulation Status: Acute (6) Syncope Status: Acute (7) Afib (8) HLD (hyperlipidemia) (9) HTN (hypertension) DONA ROUSSEAU DO May 02, 2023 12:23
[2023-05-02 19:42] VITALS: BP 116/59
[2023-05-02] MEDS: MELATONIN 3 MG TABLET PO SCH (21:09)
[2023-05-02] MEDS: GABAPENTIN 100 MG CAPSULE PO SCH (21:09)
[2023-05-02] MEDS: CYCLOBENZAPRINE 10 MG TABLET PO PRN (21:15)
[2023-05-03] MEDS: ACETAMINOPHEN 325 MG TABLET PO PRN ×4 (00:05→20:15)
--- NOTE | 2023-05-03 05:12 | PM&R Progress Note ---
Subjective HPI/CC On Admission Date Seen by Provider: May 03, 2023 Time Seen by Provider: 09:00 Subjective/Events-last exam 05/03/2023: Much improved Overall less pain No falls Pain controlled 05/02/2023: Doing well at bedside No falls No pain currently 05/01/2023: Doing well Pain controlled Reviewed meds and labs Spouse at bedside No falls Review of Systems General: Fatigue, Malaise Objective Exam Vital Signs Vital Signs Date Time Temp Pulse Resp B/P (MAP) Pulse Ox O2 Delivery O2 Flow Rate FiO2 05/03/23 12:51 83 05/03/23 09:00 97 Room Air 05/03/23 08:00 36.6 16 129/60 (83) Capillary Refill : General Appearance: No Apparent Distress, WD/WN, Chronically ill HEENT: PERRL/EOMI, TMs Normal, Normal ENT Inspection, Pharynx Normal Neck: Full Range of Motion, Normal Inspection, Non Tender, Supple, Carotid Bruit Respiratory: Chest Non Tender, Lungs Clear, Normal Breath Sounds, No Accessory Muscle Use, No Respiratory Distress Cardiovascular: Regular Rate, Rhythm, No Edema, No Gallop, No JVD, No Murmur, Normal Peripheral Pulses Gastrointestinal: Normal Bowel Sounds, No Organomegaly, No Pulsatile Mass, Non Tender, Soft Back: Normal Inspection, No CVA Tenderness, No Vertebral Tenderness Extremity: Normal Capillary Refill, Normal Inspection, Normal Range of Motion (except left arm in sling), Non Tender, No Calf Tenderness, No Pedal Edema Neurologic/Psychiatric: Alert, Oriented x3, No Motor/Sensory Deficits, Normal Mood/Affect, 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 FIM Transfers Therapy Code Descriptions/Definitions Functional [place] Measure: 0=Not Assessed/NA 4=Minimal Assistance 1=Total Assistance 5=Supervision or Setup 2=Maximal Assistance 6=Modified [place] 3=Moderate Assistance 7=Complete IndependenceSCALE: Activities may be completed with or without assistive devices. 9-Kjjicfpzts-ezhmkdn completes the activity by him/herself with no assistance from a helper. 5-Set-up or Clean-up Assistance-helper sets up or cleans up; patient completes activity. [place] assists only prior to or following the activity. 4-Supervision or Touching Assistance-helper provides verbal cues and/or touching/steadying and/or contact guard assistance as patient completes activity. Assistance may be provided throughout the activity or intermittently. 3-Partial/Moderate Assistance-helper does LESS THAN HALF the effort. [place] lifts, holds or supports trunk or limbs, but provides less than half the effort. 2-Substantial/Maximal Assistance-helper does MORE THAN HALF the effort. [place] lifts or holds trunk or limbs and provides more than half the effort. 3-Dwovdtabe-bqclvw does ALL the effort. Patient does none of the effort to complete the activity. Or, the assistance of 2 or more helpers is required for the patient to complete the activity. If activity was not attempted, code reason: 7-Patient Refused. 9-Not Applicable-not attempted and the patient did not perform the activity before the current illness, exacerbation or injury. 10-Not Attempted due to Environmental Limitations-(lack of equipment, weather restraints, etc.). 88-Not Attempted due to Medical Conditions or Safety Concerns. Roll Left to Right (QC): 4 (SBA ) Sit to Lying (QC): 4 (SBA ) Sit to Stand (QC): 4 (CGA ) Chair/Jzu-bh-Blsvg Xfer(QC): 4 (CGA ) Car Transfer (QC): 4 (CGA ) Gait Training Does the Patient Walk?: Yes Walk 10 feet (QC): 4 (CGA ) Walk 50 ft with 2 Turns(QC): 4 (CGA ) Walk 150 ft (QC): 4 (CGA ) Walking 10ft/uneven surface-QC: 4 (CGA ) Gait Assistive Device: Cane Small Base Quad Wheelchair Training Does the Pt Use a Wheelchair?: No Wheel 50 ft with 2 turns (QC): 9 Wheel 150 ft (QC): 9 Type of Wheelchair: N/A Stair Training #of Steps: 4 1 Step (curb) (QC): 3 (Min A ) 4 Steps (QC): 3 (Min A ) 12 Steps (QC): 9 (No steps at home ) Balance Picking up an Object (QC): 4 (CGA ) ADL-Treatment Eating (QC): 5 Oral Hygiene (QC): 4 Shower/Bathe Self (QC): 3 (Min A) Upper Body Dressing (QC): 4 (SBA) Lower Body Dressing (QC): 3 (Min a with pant hike on L side.) On/Off Footwear (QC): 4 (SBA) Toileting Hygiene (QC): 3 (Min A with pant hike.) Assessment/Plan Assessment and Plan Assess & Plan/Chief Complaint Assessment: SSS Left sided PTX Pacemaker placement HTN HLP AF Advanced age Falls Plan: Monitor closely Fall risk O2 Left arm sling PT OT 05/01/2023: Monitor pain BM regimen 05/02/2023: Lungs are clear 05/03/2023: Improved overall (1) Pacemaker (2) Scalp laceration Status: Acute (3) Third degree heart block Status: Acute (4) Contusion of left hip Status: Acute (5) Chronic anticoagulation Status: Acute (6) Syncope Status: Acute (7) Afib (8) HLD (hyperlipidemia) (9) HTN (hypertension) DONA ROUSSEAU DO May 03, 2023 05:12
--- NOTE | 2023-05-03 05:13 | Individualized Plan of Care ---
Individualized Plan of Care Rehab Nursing IPOC Order Admission Date Apr 30, 2023 at 13:26 Current Orders Orders Admission Order(Inpt,Obs,Sdc) (04/30/23 12:12) Vital Signs: Per Unit Policy ( 08,16,00 (04/30/23 12:12) Gael Lama ,21 (04/30/23 12:12) Sequential Compression Device [id number] (04/30/23 12:12) Project Management Director-Inpt Rehab Con (04/30/23 12:12) Rehab Nursing Orders-Ipoc (04/30/23 12:12) Physical Therapy Rehab Orders (04/30/23 12:12) Occupational Therapy Rehab Ord (04/30/23 12:12) Speech Therapy Rehab Orders (04/30/23 12:12) Cbc And Automated Diff (05/01/23 06:00) Comprehensive Metabolic Panel (05/01/23 06:00) Precautions (Aru) (04/30/23 12:12) Weekly Weight WEEK (04/30/23 12:12) Rehab-Intensity Of Therapy (04/30/23 12:12) Initiate Admission Nursing Pro .admission (04/30/23 12:12) Alprazolam Tablet (Alprazolam Tablet) (04/30/23 12:15) Calcium Carbonate Chew Tablet (Calcium C (04/30/23 12:15) Diphenhydramine Tablet (Diphenhydramine (04/30/23 12:15) Docusate Sodium Capsule (Docusate Sodium (04/30/23 21:00) Docusate Sodium Capsule (Docusate Sodium (04/30/23 12:15) Bisacodyl Suppository (Bisacodyl Supposi (04/30/23 12:15) Lactulose Oral Solution (Enulose Oral So (04/30/23 12:15) Na Phos/Na Biphos Adult Enema (Na Phos/N (04/30/23 12:15) Guaifenesin/Codeine Syrup (Guaifenesin/C (04/30/23 12:15) Loperamide Capsule (Loperamide Capsule) (04/30/23 12:15) Melatonin Tablet (Melatonin Tablet) (04/30/23 12:15) Polyethylene Glycol Powder (Polyethylen (04/30/23 21:00) Ondansetron Oral Dissolve Tab (Ondanset (04/30/23 12:15) Senna W/Docusate Tablet (Senna W/Docusat (04/30/23 21:00) Acetaminophen Tablet (Acetaminophen Ta (04/30/23 12:15) Initiate Admission Nursing Pro .admission (04/30/23 12:12) Admission Arrival Bed Request (04/30/23 13:26) Sodium 2g (2000 Mg) (04/30/23 Lunch) Code/Resuscitation (04/30/23 13:27) Code/Resuscitation (04/30/23 16:09) Sodium 2g (2000 Mg) (04/30/23 Dinner) Albuterol Pre-Mix Nebs (Rt) (Albuterol (04/30/23 16:15) Cephalexin Capsule (Cephalexin Capsule) (04/30/23 21:00) Cyclobenzaprine Tablet (Cyclobenzaprine (04/30/23 16:15) Docusate Sodium Capsule (Docusate Sodium (04/30/23 16:15) Bisacodyl Suppository (Bisacodyl Supposi (04/30/23 16:15) Folic Acid Tablet (Folic Acid Tablet) (04/30/23 21:00) Gabapentin Capsule (Gabapentin Capsule) (04/30/23 21:00) Hydrocodone/Apap 5/325 Tablet (Hydrocod (04/30/23 16:15) Loratadine Tablet (Loratadine Tablet) (05/01/23 09:00) Magnesium Oxide Tablet (Magnesium Oxide (04/30/23 18:00) Melatonin Tablet (Melatonin Tablet) (04/30/23 21:00) Polyethylene Glycol Powder (Polyethylen (04/30/23 16:15) Antacid Suspension (Antacid Suspension (04/30/23 16:15) Patient May Use Own Meds, All (Patient M (04/30/23 16:15) Calcium Carbonate Chew Tablet (Calcium C (04/30/23 16:15) Acetaminophen Tablet (Acetaminophen Ta (04/30/23 16:15) Ondansetron Injection (Ondansetron Inj (04/30/23 16:15) Amlodipine Tablet (Amlodipine Tablet) (05/01/23 09:00) Metoprolol Succinate (Xl) Tab (Metoprolo (05/01/23 09:00) Consult Cardiology (04/30/23 16:09) Svn Small Volume Nebulizer (04/30/23 16:09) Svn Small Volume Nebulizer (04/30/23 16:09) Iv Convert To [place] (Order) (04/30/23 16:09) Telemetry (04/30/23 16:09) Telemetry Nursing Assessment ( (04/30/23 16:09) Enoxaparin Injection (Enoxaparin Injecti (05/01/23 09:00) Ipratropium/Albuterol Inh Soln (Ipratrop (04/30/23 17:00) Svn Small Volume Nebulizer (04/30/23 16:50) Svn Small Volume Nebulizer (04/30/23 16:50) Mat Initiate Protocol (04/30/23 21:04) (Nf) Loteprednol Etabonate (05/03/23 21:00) Patient Visit (04/30/23 ) Pt Eval Moderate Complexity (04/30/23 ) Exercise Therap, Ea 15 Min (04/30/23 ) Functional Activities, Ea 15 (04/30/23 ) Gait Training, Ea 15 Min (04/30/23 ) Chest 1 View, Ap/Pa Only (05/03/23 08:35) Rehab Nursing Orders: Ongoing Assess. of Cognitive Status, Ongoing Assess. of Function Status, Bladder Management, Bladder Scan, Bladder Training, Bowel Management, Bowel Training, Disease Management & Educaiton, DVT Prophylaxis, Fall Prevention, Fluid/Electrolyte/Nutrition Mgmt, Infection Prevention, Medication Management & Education, Management of Risks & Complications, Management of Skin Intergrity, Nutrition Management, Pain Management, Patient/Family Support, Safety Management, Weight Bearing Precaution, Wound Management Intensity of Therapy to be met Patient to be seen: Min.3h per day/5 of 7d PT IPOC Problem List: Activity Tolerance, Functional Strength, Safety, Balance, Gait, Transfer, Bed Mobility, ROM Treatment Plan: Continue Plan of Care Bed Mobility, Education, Functional Activity [place], Functional Strength, Group Therapy, Gait, Safety, Therapeutic Exercise, Transfers Treatment Duration: May 14, 2023 Frequency: At least 5 of 7 days/Wk (IRF) Estimated Hrs Per Day: 1.5 hours per day OT IPOC Problems: Decreased Activ Tolerance, Decreased UE Strength, Impaired Funct Balance, Impaired I ADL's, Impaired Self-Care Skills OT Treatment, Training and Edu: Yes Plan of Care: ADL Retraining, Functional Mobility, Group Exercise/Act as Ind, UE Funct Exercise/Act Treatment Duration: May 14, 2023 Frequency: At least 5 of 7 days/Wk (IRF) Estimated Hrs Per Day: 1.[address] IPOC Speech Therapy Treatment Plan: Discontinue ST Treatment Duration: May 03, 2023 Frequency: Modified Program (IRF) Estimated Hrs Per Day: Other Project Management Director/Case Mgmt Project Management Director/Case Managemen: Discharge Planning Dietitian/Yeast Washer Dietitian/Yeast Washer to monitor nutritional status and make changes and/or recommendations as needed and work with speech pathology on dietary upgrades as the occur. Physician IPOC Medical Issues being managed closely and that require the 24 hour availability of a physician: Recent syncope and fall with complete heart block requiring pacemaker will need close monitoring for decompensation while preventing falls in order to gain stamina Medical Issues: Bowel/Bladder Function, DVT Prophylaxis, Falls Precautions, Fluid/Electrolyte/Nutrition Balance, Infection Protection, Pain Management, Weight Bearing Precautions, Wound Care Brief Synthesis of Preadmission Screen, Post-Admission Evaluation, and Therapy Evaluations: PT OT will focus on regaining function with use of AD in order to return home to live independently and increase stamina in order to gain strength Medical Prognosis: Good Anticipated Length of Stay: 7 days DONA ROUSSEAU DO May 03, 2023 05:13
[2023-05-03 08:00] VITALS: BP 129/60
[2023-05-03] MEDS: ENOXAPARIN 40 MG/0.4 ML SYRINGE SC SCH (08:06)
[2023-05-03] MEDS: CEPHALEXIN 250 MG CAPSULE PO SCH ×2 (08:09→21:27)
[2023-05-03] MEDS: FOLIC ACID 1 MG TAB PO SCH ×2 (08:09→21:28)
[2023-05-03] MEDS: MAGNESIUM OXIDE 400 MG TABLET PO SCH ×2 (08:09→17:44)
[2023-05-03] MEDS: DOCUSATE SODIUM 100 MG CAPSULE PO SCH ×2 (08:09→21:26)
[2023-05-03] MEDS: amLODIPine 5 MG TABLET PO SCH (08:10)
[2023-05-03] MEDS: LORATADINE 10 MG TABLET PO SCH (08:10)
[2023-05-03] MEDS: SENNA W/DOCUSATE TABLET PO SCH ×2 (08:13→21:27)
--- NOTE | 2023-05-03 09:10 | Cardiology Progress Note ---
Subjective Date Seen by Provider: May 03, 2023 Time Seen by Provider: 09:08 Subjective/Events-last exam Patient was seen at bedside, sitting comfortably, feeling better. No new complain Objective-Cardiology Exam Last Set of Vital Signs Vital Signs 05/03/23 08:00 Temp 36.6 Pulse 73 Resp 16 B/P (MAP) 129/60 (83) Pulse Ox 97 O2 Delivery Room Air I&O Intake and Output 05/03/23 00:00 Intake Total 2120 ml Balance 2120 ml Intake Oral 2120 ml # Voids 15 # Bowel Movements 1 General: Alert, Oriented X3, Cooperative HEENT: Atraumatic, PERRLA Neck: Supple, No JVD, No Thyromegaly Lungs: Clear to Auscultation, Normal Air Movement Heart: Regular Rate, Normal S1, Normal S2, No Murmurs Abdomen: Normal Bowel Sounds, Soft, No Tenderness, No Hepatosplenomegaly, No Masses Extremities: No Clubbing, No Cyanosis, No Edema, Normal Pulses, No Tenderness/Swelling Skin: No Rashes, No Breakdown, No Significant Lesion Neuro: Normal Gait, Normal Speech, Strength at 5/5 X4 Ext, Normal Tone, Sensation Intact Psych/Mental Status: Mental Status NL, Mood NL A/P-Cardiology Admission Diagnosis Sinus node dysfunction Coronary artery disease Hypertension Hyperlipidemia Assessment/Plan Generalized weakness, unsteady gait Receiving PT/OT. Status post syncope, sustained a fall with injury to her head and back secondary to severe bradycardia and hypotension Patient is in complete heart block, will require dual-chamber pacemaker implant Status post dual chamber pacemaker implantation. Feeling better, heart rate is better. Heart rate and blood pressure are stable. DC telemetry. Pneumopericardium, pneumothorax post pacemaker implant Small to moderate in size Repeat chest x-ray showed no deterioration, I will repeat chest x-ray today Sinus node dysfunction, complete heart block, symptomatic Status post pacemaker implant History of paroxysmal atrial fibrillation with episodes of tachycardia Maintained on digoxin 0.125 mg daily and metoprolol 12.5 mg twice daily Has history of episodes of tachycardia History of recurrent palpitation, reporting improvement at this time. [id number] score of 5, maintained on Eliquis 2.5 mg twice daily Coronary artery disease, History of CABG 3 done in 2008 using SAMUEL to LAD, vein graft to the proximal LAD, vein graft to the right PDA. Cardiac catheterization in October 2018 after having an abnormal stress test showed severe stenosis at the left main, ostial circumflex and LAD, the LAD is corrected by vein graft to the mid portion, the circumflex is small not amendable to intervention and not bypassed, SAMUEL to the distal LAD is atretic with sluggish flow probably due to competitive flow through the vein graft to the mid LAD, mild to moderate disease in the right coronary artery that is a large dominant artery, patent vein graft to the right coronary artery. Stress test was done on April 05, 2023 with large reversible ischemia involving the whole lateral wall anterior lateral and inferolateral wall with stress score 11, SDS 6, EF 55% Patient is asymptomatic, she has severe stenosis at the left main and ostial circumflex artery and the circumflex artery is a small artery and not corrected by bypass. The SAMUEL to the LAD is atretic due to the competitive flow through the vein graft to the mid LAD. We discussed conservative management and will consider cardiac catheterization if she becomes symptomatic 2D echo was done on October 16, 2020 showing normal LV size with EF 55 to 65%, grade 1 diastolic dysfunction, mild mitral regurgitation, PA pressure 40 to 45 mm 2D echo was done in December 2022 with mild LVH, EF 55 to 65%. Hypertension, Hospitalization in April 2022 for hypertensive urgency. Currently hypotensive due to the bradycardia Having labile blood pressure Maintained on amlodipine 5 mg daily, metoprolol ER 12.5 mg twice daily Planning for pacemaker then we will adjust her blood pressure medications Hyperlipidemia, intolerant to statins and Zetia. I will evaluate lipid profile History of rheumatoid arthritis, maintained on methotrexate. Doing well at this time. Continue to monitor. History of back pain. Premature atrial contractions, premature ventricular contractions, palpitation, feeling better on the current medication. Continue to monitor. Mild bilateral carotid stenosis, nonobstructive disease, last ultrasound done in December 2022. Continue to monitor Status post hospitalization for bacterial meningitis after epidural injection, doing better. Following with WALTER Burton MD May 03, 2023 09:10
--- NOTE | 2023-05-03 10:30 | Occupational Ther Daily Note ---
OT Current Status-Daily Note Subjective Pt alert, sitting in recliner. Pt agrees to therapy. No c/o pain at this time. Pt is anxious about knowing therapy times. Mental Status/Objective Patient Orientation: Person, Place, Time, Situation Attachments: IV, Telemetry ADL-Treatment Pt has macular degeneration and modifications for vision made throughout session. Pt agrees to shower. Independent with toileting. Pt utilizes shower bench, grabbars and hand held shower while completing shower with supervision for safety. Set up for UBD, LBD and footwear. Independent with oral care standing/sitting at sink. Therapy Code Descriptions/Definitions Functional [place] Measure: 0=Not Assessed/NA 4=Minimal Assistance 1=Total Assistance 5=Supervision or Setup 2=Maximal Assistance 6=Modified [place] 3=Moderate Assistance 7=Complete IndependenceSCALE: Activities may be completed with or without assistive devices. 0-Qsjqkikzxd-wwigffd completes the activity by him/herself with no assistance from a helper. 5-Set-up or Clean-up Assistance-helper sets up or cleans up; patient completes activity. [place] assists only prior to or following the activity. 4-Supervision or Touching Assistance-helper provides verbal cues and/or touching/steadying and/or contact guard assistance as patient completes activity. Assistance may be provided throughout the activity or intermittently. 3-Partial/Moderate Assistance-helper does LESS THAN HALF the effort. [place] lifts, holds or supports trunk or limbs, but provides less than half the effort. 2-Substantial/Maximal Assistance-helper does MORE THAN HALF the effort. [place] lifts or holds trunk or limbs and provides more than half the effort. 0-Axrjbvuhv-oyphos does ALL the effort. Patient does none of the effort to complete the activity. Or, the assistance of 2 or more helpers is required for the patient to complete the activity. If activity was not attempted, code reason: 7-Patient Refused. 9-Not Applicable-not attempted and the patient did not perform the activity before the current illness, exacerbation or injury. 10-Not Attempted due to Environmental Limitations-(lack of equipment, weather restraints, etc.). 88-Not Attempted due to Medical Conditions or Safety Concerns. Oral Hygiene (QC): 6 Shower/Bathe Self (QC): 4 Upper Body Dressing (QC): 5 Lower Body Dressing (QC): 5 On/Off Footwear: 5 Toileting Hygiene (QC): 6 Toilet Transfer (QC): 4 Other Treatment Pt completed dynamic standing tasks utilizing R UE only to adhere to precautions. No LOB noted and pt able to tolerate standing well. Pt then completed 1# hand wt with L UE and 3# R UE bicep/tricep exercises 2 sets 10 reps. After session, pt sitting in recliner with call light/phone in reach. All needs met in room. OT Usp Goals Behavioral Health Tech Goals Time Frame: May 14, 2023 Acute change in mental status: 0 Inattention: 0 Disorganized thinkin Altered level of consciousness: 0 Eating (QC): 6 Oral Hygiene (QC): 6 Toileting Hygiene (QC): 6 Shower/Bathe Self (QC): 6 Upper Body Dressing (QC): 6 Lower Body Dressing (QC): 6 On/Off Footwear (QC): 6 Additional Goals: 1-Demonstrate ADL Tasks, 2-Verbalize Understanding, 3- ImproveStrength/[place] 1=Demonstrate adherence to instructed precautions during ADL tasks. 2=Patient will verbalize/demonstrate understanding of assistive devices/modifications for ADL. 3=Patient will improve strength/tolerance for activity to enable patient to perform ADL's. OT Education/Plan Problem List/Assessment Assessment: Decreased Activ Tolerance, Decreased UE Strength, Impaired Funct Balance, Impaired Self-Care Skills, Restricted Funct UE ROM, Visual-Perceptual Deficit Discharge Recommendations Plan/Recommendations: Continue POC Treatment Plan/Plan of Care Patient would benefit from OT for education, treatment and training to promote independence in ADL's, mobility, safety and/or upper extremity function for ADL's. Plan of Care: ADL Retraining, Functional Mobility, Group Exercise/Act as Ind, UE Funct Exercise/Act Treatment Duration: May 14, 2023 Frequency: At least 5 of 7 days/Wk (IRF) Estimated Hrs Per Day: 1.5 hours per day Agreement: Yes Rehab Potential: Good Time Start Time: 09:00 Stop Time: 10:30 DATE: May 03, 2023 Total Time Billed (hr/min): 90 Billed Treatment Time 1 visit-ADL 3 (45 min) EX 2 (30 min) FA 1 (15 min) KAY SANCHEZ May 03, 2023 10:30
--- NOTE | 2023-05-03 10:31 | Diagnostic Imaging Report ---
INDICATION: Pneumothorax. Followup. COMPARISON: 04/30/2023. FINDINGS: A single frontal radiographic view of the chest was obtained and demonstrates persistent but diminished small left apical pneumothorax. The pneumothorax is now estimated at 10-15% volume. Current mediastinal structures show mild cardiac enlargement. There is no evidence of tension. Pulmonary vasculature is within normal limits. Sternotomy wires and left-sided dual-lead pacemaker are noted. There is also persistent soft tissue emphysema. Note is also made of background chronic interstitial lung changes. IMPRESSION: Persistent but diminished left apical pneumothorax. Dictated by: Dictated on workstation # [id number]
--- NOTE | 2023-05-03 10:34 | Physical Therapy Daily Note ---
PT Daily Note-Current Subjective Pt sitting in recliner upon arrival. Pt agrees to PT. Pt has Nurse and Nursing present. Accounts Executive checks on pt during tx and discontinues Telemetry & IV after Chest Xray. Pain Location: No Pain Reported Section J - Health Conditions 1. Rarely or not at all 2. Occasionally 3. Frequently 4. Almost constantly 8. Unable to answer Pain Effect on Sleep: 2 Pain Interference with Therapy: 3 Pain Interference w/Day-to-Day: 2 Mental Status Patient Orientation: Person, Place, Time, Situation Attachments: Other-See Comments (Telemetry), IV Transfers SCALE: Activities may be completed with or without assistive devices. 6-Wxinynmzuy-uiftyyh completes the activity by him/herself with no assistance from a helper. 5-Set-up or Clean-up Assistance-helper sets up or cleans up; patient completes activity. [place] assists only prior to or following the activity. 4-Supervision or Touching Assistance-helper provides verbal cues and/or touching/steadying and/or contact guard assistance as patient completes ac tivity. Assistance may be provided throughout the activity or intermittently. 3-Partial/Moderate Assistance-helper does LESS THAN HALF the effort. [place] lifts, holds or supports trunk or limbs, but provides less than half the effort. 2-Substantial/Maximal Assistance-helper does MORE THAN HALF the effort. [place] lifts or holds trunk or limbs and provides more than half the effort. 2-Zfegeybsb-msubvx does ALL the effort. Patient does none of the effort to complete the activity. Or, the assistance of 2 or more helpers is required for the patient to complete the activity. If activity was not attempted, code reason: 7-Patient Refused. 9-Not Applicable-not attempted and the patient did not perform the activity before the current illness, exacerbation or injury. 10-Not Attempted due to Environmental Limitations-(lack of equipment, weather restraints, etc.). 88-Not Attempted due to Medical Conditions or Safety Concerns. Sit to Stand (QC): 4 Toilet Transfer (QC): 4 Weight Bearing Right Lower Extremity: Right Full Weight Bearing Left Lower Extremity: Left Full Weight Bearing Gait Training Does the Patient Walk?: Yes Distance: 125', 200' Walk 10 feet (QC): 5 Walk 50 ft with 2 Turns(QC): 5 Walk 150 ft (QC): 5 Gait Assistive Device: Cane Large Base Quad Exercises Seated Therapy Exercises: Ankle pumps, Long arc quads, Hip flexion, Hamstring Curls, Hip abd/add, Glut set Seated Reps: 15 NuStep Minutes: 11 NuStep Workload: 3 Treatments Pt TF to standing and amb to BR. After toileting, pt completes pericare and washes hands. Pt amb in hallway and uses NuStep. Pt completes Seated Ex and amb in hallway before returning to room at end of tx. All needs met, call light in hand. Assessment Current Status: Good Progress Pt still will wobble from time to time but able to self correct w/o assistance. Pt wants to transition to smaller base quad cane [place] [facility] [place] PT Elderly Caregiver Goals Elderly Caregiver Goals PT Elderly Caregiver Goals Time Frame: May 14, 2023 Roll Left & Right (QC): 6 (Pt will be Mod I with functional mobility, in order to safely return home with spouse. ) Sit to Lying (QC): 6 (Pt will be Mod I with functional mobility, in order to safely return home with spouse. ) Lying-Sitting on Side/Bed(QC): 6 (Pt will be Mod I with functional mobility, in order to safely return home with spouse. ) Sit to Stand (QC): 6 (Pt will be Mod I with functional mobility, in order to safely return home with spouse. ) Chair/Lob-qk-Skiid Xfer(QC): 6 (Pt will be Mod I with functional mobility, in order to safely return home with spouse. ) Toilet Transfer (QC): 6 (Pt will be Mod I with functional mobility, in order to safely return home with spouse. ) Car Transfer (QC): 6 (Pt will be Mod I with functional mobility, in order to safely return home with spouse. ) Does the Patient Walk: Yes Walk 10 feet (QC): 6 (Pt will be Mod I with functional mobility, in order to safely return home with spouse. ) Walk 50ft with 2 Turns (QC): 6 (Pt will be Mod I with functional mobility, in order to safely return home with spouse. ) Walk 150 ft (QC): 6 (Pt will be Mod I with functional mobility, in order to safely return home with spouse. ) Walking 10ft on Uneven Surface: 6 (Pt will be Mod I with functional mobility, in order to safely return home with spouse. ) 1 Step (curb) (QC): 6 (Pt will be Mod I with functional mobility, in order to safely return home with spouse. ) 4 Steps (QC): 6 (Pt will be Mod I with functional mobility, in order to safely return home with spouse. ) 12 Steps (QC): 9 (level entry at home ) Picking up an Object (QC): 6 Does the Pt use WC or Scooter?: No Wheel 50 feet with 2 turns (QC: 9 Type: N/A Wheel 150 feet: 9 Type: N/A PT Plan Problem List Problem List: Activity Tolerance Treatment/Plan Treatment Plan: Continue Plan of Care Treatment Plan: Bed Mobility, Education, Functional Activity [place], Functional Strength, Group Therapy, Gait, Safety, Therapeutic Exercise, Transfers Treatment Duration: May 14, 2023 Frequency: At least 5 of 7 days/Wk (IRF) Estimated Hrs Per Day: 1.5 hours per day Patient and/or Family Agrees t: Yes Safety Risks/Education Patient Education: Gait Training, Safety Issues Teaching Recipient: Patient Teaching Methods: Discussion Response to Teaching: Verbalize Understanding Time Time In: 0800 Time Out: 0900 DATE: May 03, 2023 Total Billed Treatment Time: 60 Total Billed Treatment 1, GT x2 (30m), FA (15m) & EX (15m) LEEANNE KRISHNA LICENSED FUNERAL DIRECTOR AND EMBALMER May 03, 2023 10:34
--- NOTE | 2023-05-03 14:17 | ST Cognitive Linguistic Eval ---
Speech Evaluation-General Medical Diagnosis SSS s/p pacemaker placement Onset Date: Apr 27, 2023 Therapy Diagnosis Therapy Diagnosis: fall, s/p pacemaker placement Precautions Precautions/Isolations: Standard Precautions Referral Referring Physician: Dr. Wyatt Reason for Referral: Consult Medical History Pertinent Medical History: Atrial Fib, CABG, CAD, HTN, Macular Degenertion, Rheumatoid Arthritis Current History The pt had a fall at home due to bradycardia, with laceration of scalp. s/p pacemaker placement. Reviewed History: Yes Social History Current Living Status: Spouse Speech PLF-Current Status Prior Level of Function Lives with , assistance with some IADL's due to vision impairment Subjective The pt was alert and appropriate throughout assessment Language Eval: Auditory Follows General Conversations: Functional Language Eval: Verbal Language Completes Spontaneous Greeting: Functional Requests Basic Needs: Functional States Basic Personal Info: Functional Expresses Complex Ideas: Functional Objective Formal/Standardized Tests SLUMS examination Results The pt earned 28/30 on the SLUMS, WFL. Recall was 5/5, calculations and recall of story elements were accurate. Able to name 17 animals in one minute. Clock drawing impaired secondary poor vision, with poor number placement. Oral Motor/Speech Production Speech was clear, oral motor function was WFL. Water screening did not indicate concerns for dysphagia. Speech-Plan Treatment Plan Speech Therapy Treatment Plan: Modify Plan, See Comments (no treatment) Frequency: Modified Program (IRF) (no treatment) Estimated Hrs Per Day: Other (no treatment) Rehab Potential: Good Time Speech Therapy Time In: 13:05 Speech Therapy Time Out: 13:35 DATE: May 03, 2023 Total Billed Time: 30 Billed Treatment Time 1 SPSNDCOMP (30 min) CLAUDIA RAYMOND May 03, 2023 14:17
[2023-05-03 20:22] VITALS: BP 135/73
[2023-05-03] MEDS: CYCLOBENZAPRINE 10 MG TABLET PO PRN (21:26)
[2023-05-03] MEDS: GABAPENTIN 100 MG CAPSULE PO SCH (21:27)
[2023-05-03] MEDS: MELATONIN 3 MG TABLET PO SCH (21:28)
[2023-05-03] MEDS: LOTEPREDNOL 0.5% OU SCH (21:36)
[2023-05-04] MEDS: HYDROcodone/ACETAMINOPHEN 5 MG/325 MG TABLET PO PRN (00:32)
[2023-05-04 07:50] VITALS: BP 155/73
[2023-05-04] MEDS: DOCUSATE SODIUM 100 MG CAPSULE PO SCH ×2 (07:52→21:34)
[2023-05-04] MEDS: SENNA W/DOCUSATE TABLET PO SCH ×3 (07:53→21:34)
[2023-05-04] MEDS: MAGNESIUM OXIDE 400 MG TABLET PO SCH ×2 (08:00→17:40)
[2023-05-04] MEDS: LORATADINE 10 MG TABLET PO SCH (08:01)
[2023-05-04] MEDS: amLODIPine 5 MG TABLET PO SCH (08:01)
[2023-05-04] MEDS: FOLIC ACID 1 MG TAB PO SCH ×2 (08:01→21:24)
[2023-05-04] MEDS: ENOXAPARIN 40 MG/0.4 ML SYRINGE SC SCH (08:02)
[2023-05-04] MEDS: ACETAMINOPHEN 325 MG TABLET PO PRN ×3 (08:02→21:24)
[2023-05-04] MEDS: CEPHALEXIN 250 MG CAPSULE PO SCH ×2 (08:02→21:25)
--- NOTE | 2023-05-04 08:18 | Cardiology Progress Note ---
Subjective Date Seen by Provider: May 04, 2023 Time Seen by Provider: 08:17 Subjective/Events-last exam Patient was seen at bedside, sitting comfortably, feeling better. No new c omplaint Objective-Cardiology Exam Last Set of Vital Signs Vital Signs 05/03/23 05/04/23 20:22 07:50 Temp 36.5 Pulse 78 Resp 20 B/P (MAP) 155/73 (100) Pulse Ox 99 O2 Delivery Room Air I&O Intake and Output 05/04/23 00:00 Intake Total 1160 ml Balance 1160 ml Intake Oral 1160 ml # Voids 18 # Bowel Movements 1 General: Alert, Oriented X3, Cooperative HEENT: Atraumatic, PERRLA Neck: Supple, No JVD, No Thyromegaly Lungs: Clear to Auscultation, Normal Air Movement Heart: Regular Rate, Normal S1, Normal S2, Other (Systolic murmur at the left sternal border) Abdomen: Normal Bowel Sounds, Soft, No Tenderness, No Hepatosplenomegaly, No Masses Extremities: No Clubbing, No Cyanosis, No Edema, Normal Pulses, No Tenderness/Swelling Skin: No Rashes, No Breakdown, No Significant Lesion Neuro: Normal Gait, Normal Speech, Strength at 5/5 X4 Ext, Normal Tone, Sensation Intact Psych/Mental Status: Mental Status NL, Mood NL A/P-Cardiology Admission Diagnosis Sinus node dysfunction Coronary artery disease Hypertension Hyperlipidemia Assessment/Plan Generalized weakness, unsteady gait Receiving PT/OT. Status post syncope, sustained a fall with injury to her head and back secondary to severe bradycardia and hypotension Patient is in complete heart block, will require dual-chamber pacemaker implant Status post dual chamber pacemaker implantation. Feeling better, heart rate is better. Heart rate and blood pressure are stable. DC telemetry. Pneumopericardium, pneumothorax post pacemaker implant Small to moderate in size Repeat chest x-ray showed no deterioration, Asymptomatic, continue to monitor Sinus node dysfunction, complete heart block, symptomatic Status post pacemaker implant History of paroxysmal atrial fibrillation with episodes of tachycardia Maintained on digoxin 0.125 mg daily and metoprolol 12.5 mg twice daily Has history of episodes of tachycardia History of recurrent palpitation, reporting improvement at this time. [id number] score of 5, maintained on Eliquis 2.5 mg twice daily Coronary artery disease, History of CABG 3 done in 2008 using SAMUEL to LAD, vein graft to the proximal LAD, vein graft to the right PDA. Cardiac catheterization in October 2018 after having an abnormal stress test showed severe stenosis at the left main, ostial circumflex and LAD, the LAD is corrected by vein graft to the mid portion, the circumflex is small not amen dable to intervention and not bypassed, SAMUEL to the distal LAD is atretic with sluggish flow probably due to competitive flow through the vein graft to the mid LAD, mild to moderate disease in the right coronary artery that is a large dominant artery, patent vein graft to the right coronary artery. Stress test was done on April 05, 2023 with large reversible ischemia involving the whole lateral wall anterior lateral and inferolateral wall with stress score 11, SDS 6, EF 55% Patient is asymptomatic, she has severe stenosis at the left main and ostial circumflex artery and the circumflex artery is a small artery and not corrected by bypass. The SAMUEL to the LAD is atretic due to the competitive flow through the vein graft to the mid LAD. We discussed conservative management and will consider cardiac catheterization if she becomes symptomatic 2D echo was done on October 16, 2020 showing normal LV size with EF 55 to 65%, grade 1 diastolic dysfunction, mild mitral regurgitation, PA pressure 40 to 45 mm 2D echo was done in December 2022 with mild LVH, EF 55 to 65%. Hypertension, Hospitalization in April 2022 for hypertensive urgency. Having labile blood pressure Maintained on amlodipine 5 mg daily, Toprol-XL 50 mg daily Monitor blood pressure Hyperlipidemia, intolerant to statins and Zetia. Monitor lipids History of rheumatoid arthritis, maintained on methotrexate. Doing well at this time. Continue to monitor. History of back pain. Premature atrial contractions, premature ventricular contractions, palpitation, feeling better on the current medication. Continue to monitor. Mild bilateral carotid stenosis, nonobstructive disease, last ultrasound done in December 2022. Continue to monitor Status post hospitalization for bacterial meningitis after epidural injection, dipak dhillon. Following with WALTER Burton MD May 04, 2023 08:18
--- NOTE | 2023-05-04 08:24 | PM&R Progress Note ---
Subjective HPI/CC On Admission Date Seen by Provider: May 04, 2023 Time Seen by Provider: 12:00 Subjective/Events-last exam 05/04/2023: Patient doing well Reviewed meds and labs No falls Pain controlled 05/03/2023: Much improved Overall less pain No falls Pain controlled 05/02/2023: Doing well at bedside No falls No pain currently 05/01/2023: Doing well Pain controlled Reviewed meds and labs Spouse at bedside No falls Review of Systems General: Fatigue, Malaise Objective Exam Vital Signs Vital Signs Date Time Temp Pulse Resp B/P (MAP) Pulse Ox O2 Delivery O2 Flow Rate FiO2 05/04/23 07:50 36.5 78 20 155/73 (100) 99 Room Air Capillary Refill : General Appearance: No Apparent Distress, WD/WN, Chronically ill HEENT: PERRL/EOMI, TMs Normal, Normal ENT Inspection, Pharynx Normal Neck: Full Range of Motion, Normal Inspection, Non Tender, Supple, Carotid Bruit Respiratory: Chest Non Tender, Lungs Clear, Normal Breath Sounds, No Accessory Muscle Use, No Respiratory Distress Cardiovascular: Regular Rate, Rhythm, No Edema, No Gallop, No JVD, No Murmur, Normal Peripheral Pulses Gastrointestinal: Normal Bowel Sounds, No Organomegaly, No Pulsatile Mass, Non Tender, Soft Back: Normal Inspection, No CVA Tenderness, No Vertebral Tenderness Extremity: Normal Capillary Refill, Normal Inspection, Normal Range of Motion (except left arm in sling), Non Tender, No Calf Tenderness, No Pedal Edema Neurologic/Psychiatric: Alert, Oriented x3, No Motor/Sensory Deficits, Normal Mood/Affect, hair colorist II-XII Norm as Tested, Abnormal Gait, Motor Weakness (left arm) Skin: Normal Color, Warm/Dry Lymphatic: No Adenopathy Results/Procedures Lab Patient resulted labs reviewed. FIM Transfers Therapy Code Descriptions/Definitions Functional [place] Measure: 0=Not Assessed/NA 4=Minimal Assistance 1=Total Assistance 5=Supervision or Setup 2=Maximal Assistance 6=Modified [place] 3=Moderate Assistance 7=Complete IndependenceSCALE: Activities may be completed with or without assistive devices. 1-Vwpsadyias-tsunogj completes the activity by him/herself with no assistance from a helper. 5-Set-up or Clean-up Assistance-helper sets up or cleans up; patient completes activity. [place] assists only prior to or following the activity. 4-Supervision or Touching Assistance-helper provides verbal cues and/or touching/steadying and/or contact guard assistance as patient completes activity. Assistance may be provided throughout the activity or intermittently. 3-Partial/Moderate Assistance-helper does LESS THAN HALF the effort. [place] lifts, holds or supports trunk or limbs, but provides less than half the effort. 2-Substantial/Maximal Assistance-helper does MORE THAN HALF the effort. [place] lifts or holds trunk or limbs and provides more than half the effort. 0-Zdbmqjqey-zsawjt does ALL the effort. Patient does none of the effort to complete the activity. Or, the assistance of 2 or more helpers is required for the patient to complete the activity. If activity was not attempted, code reason: 7-Patient Refused. 9-Not Applicable-not attempted and the patient did not perform the activity be fore the current illness, exacerbation or injury. 10-Not Attempted due to Environmental Limitations-(lack of equipment, weather restraints, etc.). 88-Not Attempted due to Medical Conditions or Safety Concerns. Roll Left to Right (QC): 4 (SBA ) Sit to Lying (QC): 4 (SBA ) Sit to Stand (QC): 4 Chair/Ruu-af-Pkfug Xfer(QC): 4 (CGA ) Car Transfer (QC): 4 (CGA ) Gait Training Does the Patient Walk?: Yes Distance: 125', 200' Walk 10 feet (QC): 5 Walk 50 ft with 2 Turns(QC): 5 Walk 150 ft (QC): 5 Walking 10ft/uneven surface-QC: 4 (CGA ) Gait Assistive Device: Cane Large Base Quad Wheelchair Training Does the Pt Use a Wheelchair?: No Wheel 50 ft with 2 turns (QC): 9 Wheel 150 ft (QC): 9 Type of Wheelchair: N/A Stair Training #of Steps: 4 1 Step (curb) (QC): 3 (Min A ) 4 Steps (QC): 3 (Min A ) 12 Steps (QC): 9 (No steps at home ) Balance Picking up an Object (QC): 4 (CGA ) ADL-Treatment Eating (QC): 5 Oral Hygiene (QC): 6 Shower/Bathe Self (QC): 4 Upper Body Dressing (QC): 5 Lower Body Dressing (QC): 5 On/Off Footwear (QC): 5 Toileting Hygiene (QC): 6 Toilet Transfer (QC): 4 Assessment/Plan Assessment and Plan Assess & Plan/Chief Complaint Assessment: SSS Left sided PTX Pacemaker placement HTN HLP AF Advanced age Falls Plan: Monitor closely Fall risk O2 Left arm sling PT OT 05/01/2023: Monitor pain BM regimen 05/02/2023: Lungs are clear 05/03/2023: Improved overall 05/04/2023: Continue current regimen Appreciate cardiology (1) Pacemaker (2) Scalp laceration Status: Acute (3) Third degree heart block Status: Acute (4) Contusion of left hip Status: Acute (5) Chronic anticoagulation Status: Acute (6) Syncope Status: Acute (7) Afib (8) HLD (hyperlipidemia) (9) HTN (hypertension) DONA ROUSSEAU DO May 04, 2023 08:24
--- NOTE | 2023-05-04 10:43 | Physical Therapy Daily Note ---
PT Daily Note-Current Subjective Pt sitting in recliner upon arrival. Pt agrees to PT. Pain Location: No Pain Reported Section J - Health Conditions 1. Rarely or not at all 2. Occasionally 3. Frequently 4. Almost constantly 8. Unable to answer Pain Effect on Sleep: 2 Pain Interference with Therapy: 3 Pain Interference w/Day-to-Day: 2 Mental Status Patient Orientation: Person, Place, Time, Situation Attachments: Other-See Comments (Sling for L UE) Transfers SCALE: Activities may be completed with or without assistive devices. 6-Ztwiygasic-fhxptfm completes the activity by him/herself with no assistance from a helper. 5-Set-up or Clean-up Assistance-helper sets up or cleans up; patient completes activity. [place] assists only prior to or following the activity. 4-Supervision or Touching Assistance-helper provides verbal cues and/or touching/steadying and/or contact guard assistance as patient completes activity. Assistance may be provided throughout the activity or intermittently. 3-Partial/Moderate Assistance-helper does LESS THAN HALF the effort. [place] lifts, holds or supports trunk or limbs, but provides less than half the effort. 2-Substantial/Maximal Assistance-helper does MORE THAN HALF the effort. [place] lifts or holds trunk or limbs and provides more than half the effort. 3-Yrwyoqofr-bqofvd does ALL the effort. Patient does none of the effort to complete the activity. Or, the assistance of 2 or more helpers is required for the patient to complete the activity. If activity was not attempted, code reason: 7-Patient Refused. 9-Not Applicable-not attempted and the patient did not perform the activity before the current illness, exacerbation or injury. 10-Not Attempted due to Environmental Limitations-(lack of equipment, weather restraints, etc.). 88-Not Attempted due to Medical Conditions or Safety Concerns. Sit to Stand (QC): 5 Toilet Transfer (QC): 5 Weight Bearing Right Lower Extremity: Right Full Weight Bearing Left Lower Extremity: Left Full Weight Bearing Gait Training Does the Patient Walk?: Yes Distance: 500' Walk 10 feet (QC): 5 Walk 50 ft with 2 Turns(QC): 4 Walk 150 ft (QC): 4 Gait Assistive Device: Cane Large Base Quad Wheelchair Training Does the Pt Use a Wheelchair?: No Exercises Seated Therapy Exercises: Ankle pumps, Long arc quads, Hip flexion, Hip abd/add, Glut set Seated Reps: 15 Standing: Hamstring curls, Heel/toe raises, 3 way Ex=Flex, Abd, Ext, Marching, Mini squats Standing Reps: 15 Treatments TF to standing and amb to BR. After toileting, pt completes pericare & washes hands. Pt amb. in hallway, resting in Therapy Gym before Seated Ex. Pt completes Standing EX at //bars w/one RB. Pt amb again before returning to room at end of tx. All needs met, call light in hand. Assessment Current Status: Good Progress Pt is gaining strength and activity tolerance seen in extending distance and Ex during tx. PT Meal Packer Goals Meal Packer Goals PT Meal Packer Goals Time Frame: May 14, 2023 Roll Left & Right (QC): 6 (Pt will be Mod I with functional mobility, in order to safely return home with spouse. ) Sit to Lying (QC): 6 (Pt will be Mod I with functional mobility, in order to safely return home with spouse. ) Lying-Sitting on Side/Bed(QC): 6 (Pt will be Mod I with functional mobility, in order to safely return home with spouse. ) Sit to Stand (QC): 6 (Pt will be Mod I with functional mobility, in order to safely return home with spouse. ) Chair/Ldo-vo-Bzzcw Xfer(QC): 6 (Pt will be Mod I with functional mobility, in order to safely return home with spouse. ) Toilet Transfer (QC): 6 (Pt will be Mod I with functional mobility, in order to safely return home with spouse. ) Car Transfer (QC): 6 (Pt will be Mod I with functional mobility, in order to safely return home with spouse. ) Does the Patient Walk: Yes Walk 10 feet (QC): 6 (Pt will be Mod I with functional mobility, in order to safely return home with spouse. ) Walk 50ft with 2 Turns (QC): 6 (Pt will be Mod I with functional mobility, in order to safely return home with spouse. ) Walk 150 ft (QC): 6 (Pt will be Mod I with functional mobility, in order to safely return home with spouse. ) Walking 10ft on Uneven Surface: 6 (Pt will be Mod I with functional mobility, in order to safely return home with spouse. ) 1 Step (curb) (QC): 6 (Pt will be Mod I with functional mobility, in order to safely return home with spouse. ) 4 Steps (QC): 6 (Pt will be Mod I with functional mobility, in order to safely return home with spouse. ) 12 Steps (QC): 9 (level entry at home ) Picking up an Object (QC): 6 Does the Pt use WC or Scooter?: No Wheel 50 feet with 2 turns (QC: 9 Type: N/A Wheel 150 feet: 9 Type: N/A PT Plan Problem List Problem List: Balance Treatment/Plan Treatment Plan: Continue Plan of Care Treatment Plan: Bed Mobility, Education, Functional Activity [place], Functional Strength, Group Therapy, Gait, Safety, Therapeutic Exercise, Transfers Treatment Duration: May 14, 2023 Frequency: At least 5 of 7 days/Wk (IRF) Estimated Hrs Per Day: 1.5 hours per day Patient and/or Family Agrees t: Yes Safety Risks/Education Patient Education: Gait Training, Correct Positioning, Safety Issues Teaching Recipient: Patient Teaching Methods: Discussion Response to Teaching: Verbalize Understanding Time Time In: 0800 Time Out: 30 DATE: May 04, 2023 Total Billed Treatment Time: 90 Total Billed Treatment 1, GT x2 (30m), EX x3 (45m) & FA (15m) LEEANNE KRISHNA PTA May 04, 2023 10:43
--- NOTE | 2023-05-04 13:25 | Occupational Ther Daily Note ---
OT Current Status-Daily Note Subjective Pt alert, sitting in recliner. Pt agrees to therapy. No c/o pain. Mental Status/Objective Patient Orientation: Person, Place, Time, Situation ADL-Treatment Pt agrees to shower. Independent completing shower using shower bench, grabbar and hand held shower. Set up for all dressing. Independent with oral care standing at sink. Independent with toileting. Pt uses quad cane for ambulation and walks slowly for safety. Therapy Code Descriptions/Definitions Functional [place] Measure: 0=Not Assessed/NA 4=Minimal Assistance 1=Total Assistance 5=Supervision or Setup 2=Maximal Assistance 6=Modified [place] 3=Moderate Assistance 7=Complete IndependenceSCALE: Activities may be completed with or without assistive devices. 6-Stlrojwmyd-zyueiab completes the activity by him/herself with no assistance from a helper. 5-Set-up or Clean-up Assistance-helper sets up or cleans up; patient completes activity. [place] assists only prior to or following the activity. 4-Supervision or Touching Assistance-helper provides verbal cues and/or touching/steadying and/or contact guard assistance as patient completes activity. Assistance may be provided throughout the activity or intermittently. 3-Partial/Moderate Assistance-helper does LESS THAN HALF the effort. [place] lifts, holds or supports trunk or limbs, but provides less than half the effort. 2-Substantial/Maximal Assistance-helper does MORE THAN HALF the effort. [place] lifts or holds trunk or limbs and provides more than half the effort. 9-Rtqvgstio-xhqbpp does ALL the effort. Patient does none of the effort to complete the activity. Or, the assistance of 2 or more helpers is required for the patient to complete the activity. If activity was not attempted, code reason: 7-Patient Refused. 9-Not Applicable-not attempted and the patient did not perform the activity before the current illness, exacerbation or injury. 10-Not Attempted due to Environmental Limitations-(lack of equipment, weather restraints, etc.). 88-Not Attempted due to Medical Conditions or Safety Concerns. Oral Hygiene (QC): 6 Shower/Bathe Self (QC): 6 Upper Body Dressing (QC): 5 Lower Body Dressing (QC): 5 On/Off Footwear: 5 Toileting Hygiene (QC): 6 Toilet Transfer (QC): 6 Other Treatment Pt completed standing/ambulation balance tasks to simulate daily tasks from home environment, 1 LOB and pt able to right self. Pt then completed B UE exercises for strengthening using 1# wt for L UE and 3# wt for R UE, 1 set 10 reps 8 exercises. Resistive clothes pins with each hand 1x to increase enamel cracker/pinch strength. Skilled instructions with all exercises for correct technique and modifications due to precautions. After therapy, pt sitting in recliner with call light/phone in reach. All needs met in room. OT Truck Repair Service Estimator Goals [facility] Goals Time Frame: May 14, 2023 Acute change in mental status: 0 Inattention: 0 Disorganized thinkin Altered level of consciousness: 0 Eating (QC): 6 Oral Hygiene (QC): 6 Toileting Hygiene (QC): 6 Shower/Bathe Self (QC): 6 Upper Body Dressing (QC): 6 Lower Body Dressing (QC): 6 On/Off Footwear (QC): 6 Additional Goals: 1-Demonstrate ADL Tasks, 2-Verbalize Understanding, 3- ImproveStrength/[place] 1=Demonstrate adherence to instructed precautions during ADL tasks. 2=Patient will verbalize/demonstrate understanding of assistive devices/modifications for ADL. 3=Patient will improve strength/tolerance for activity to enable patient to perform ADL's. OT Education/Plan Problem List/Assessment Assessment: Decreased Activ Tolerance, Decreased UE Strength, Impaired Funct Balance, Restricted Funct UE ROM, Visual-Perceptual Deficit Discharge Recommendations Plan/Recommendations: Continue POC Treatment Plan/Plan of Care Patient would benefit from OT for education, treatment and training to promote independence in ADL's, mobility, safety and/or upper extremity function for ADL's. Plan of Care: ADL Retraining, Functional Mobility, Group Exercise/Act as Ind, UE Funct Exercise/Act Treatment Duration: May 14, 2023 Frequency: At least 5 of 7 days/Wk (IRF) Estimated Hrs Per Day: 1.5 hours per day Agreement: Yes Rehab Potential: Good Time Start Time: 10:30 Stop Time: 12:00 DATE: May 04, 2023 Total Time Billed (hr/min): 90 Billed Treatment Time 1 visit-ADL 3 (45 min) EX 3 (45 min) KAY SANCHEZ May 04, 2023 13:25
[2023-05-04 20:47] VITALS: BP 124/66
[2023-05-04] MEDS: GABAPENTIN 100 MG CAPSULE PO SCH (21:24)
[2023-05-04] MEDS: CYCLOBENZAPRINE 10 MG TABLET PO PRN (21:25)
[2023-05-04] MEDS: MELATONIN 3 MG TABLET PO SCH (21:25)
[2023-05-04] MEDS: LOTEPREDNOL 0.5% OU SCH (21:34)
[2023-05-05] MEDS: ACETAMINOPHEN 325 MG TABLET PO PRN ×3 (04:37→22:29)
--- NOTE | 2023-05-05 05:09 | PM&R Progress Note ---
Subjective HPI/CC On Admission Date Seen by Provider: May 05, 2023 Time Seen by Provider: 12:45 Subjective/Events-last exam 05/05/2023: Patient doing a lot better Discharge is planned tomorrow Metoprolol will be managed with cardiology 05/04/2023: Patient doing well Reviewed meds and labs No falls Pain controlled 05/03/2023: Much improved Overall less pain No falls Pain controlled 05/02/2023: Doing well at bedside No falls No pain currently 05/01/2023: Doing well Pain controlled Reviewed meds and labs Spouse at bedside No falls Review of Systems General: Fatigue, Malaise Objective Exam Vital Signs Vital Signs Date Time Temp Pulse Resp B/P (MAP) Pulse Ox O2 Delivery O2 Flow Rate FiO2 05/05/23 20:43 36.5 101 20 133/64 (87) 96 Room Air Capillary Refill : General Appearance: No Apparent Distress, WD/WN, Chronically ill HEENT: PERRL/EOMI, TMs Normal, Normal ENT Inspection, Pharynx Normal Neck: Full Range of Motion, Normal Inspection, Non Tender, Supple, Carotid Bruit Respiratory: Chest Non Tender, Lungs Clear, Normal Breath Sounds, No Accessory Muscle Use, No Respiratory Distress Cardiovascular: Regular Rate, Rhythm, No Edema, No Gallop, No JVD, No Murmur, Normal Peripheral Pulses Gastrointestinal: Normal Bowel Sounds, No Organomegaly, No Pulsatile Mass, Non Tender, Soft Back: Normal Inspection, No CVA Tenderness, No Vertebral Tenderness Extremity: Normal Capillary Refill, Normal Inspection, Normal Range of Motion (except left arm in sling), Non Tender, No Calf Tenderness, No Pedal Edema Neurologic/Psychiatric: Alert, Oriented x3, No Motor/Sensory Deficits, Normal Mood/Affect, visitor services information assistant II-XII Norm as Tested, Abnormal Gait, Motor Weakness (left arm) Skin: Normal Color, Warm/Dry Lymphatic: No Adenopathy Results/Procedures Lab Patient resulted labs reviewed. FIM Transfers Therapy Code Descriptions/Definitions Functional [place] Measure: 0=Not Assessed/NA 4=Minimal Assistance 1=Total Assistance 5=Supervision or Setup 2=Maximal Assistance 6=Modified [place] 3=Moderate Assistance 7=Complete IndependenceSCALE: Activities may be completed with or without assistive devices. 9-Gtlzrkrmyc-lwvayzi completes the activity by him/herself with no assistance from a helper. 5-Set-up or Clean-up Assistance-helper sets up or cleans up; patient completes activity. [place] assists only prior to or following the activity. 4-Supervision or Touching Assistance-helper provides verbal cues and/or touching/steadying and/or contact guard assistance as patient completes activity. Assistance may be provided throughout the activity or intermittently. 3-Partial/Moderate Assistance-helper does LESS THAN HALF the effort. [place] lifts, holds or supports trunk or limbs, but provides less than half the effort. 2-Substantial/Maximal Assistance-helper does MORE THAN HALF the effort. [place] lifts or holds trunk or limbs and provides more than half the effort. 4-Fcrzqiemj-awibkh does ALL the effort. Patient does none of the effort to complete the activity. Or, the assistance of 2 or more helpers is required for the patient to complete the activity. If activity was not attempted, code reason: 7-Patient Refused. 9-Not Applicable-not attempted and the patient did not perform the activity before the current illness, exacerbation or injury. 10-Not Attempted due to Environmental Limitations-(lack of equipment, weather restraints, etc.). 88-Not Attempted due to Medical Conditions or Safety Concerns. Roll Left to Right (QC): 4 (SBA ) Sit to Lying (QC): 4 (SBA ) Sit to Stand (QC): 5 Chair/Bci-gw-Hceoa Xfer(QC): 4 (CGA ) Car Transfer (QC): 4 (CGA ) Gait Training Does the Patient Walk?: Yes Distance: 500' Walk 10 feet (QC): 5 Walk 50 ft with 2 Turns(QC): 4 Walk 150 ft (QC): 4 Walking 10ft/uneven surface-QC: 4 (CGA ) Gait Assistive Device: Cane Large Base Quad Wheelchair Training Does the Pt Use a Wheelchair?: No Wheel 50 ft with 2 turns (QC): 9 Wheel 150 ft (QC): 9 Type of Wheelchair: N/A Stair Training #of Steps: 4 1 Step (curb) (QC): 3 (Min A ) 4 Steps (QC): 3 (Min A ) 12 Steps (QC): 9 (No steps at home ) Balance Picking up an Object (QC): 4 (CGA ) ADL-Treatment Eating (QC): 5 Oral Hygiene (QC): 6 Shower/Bathe Self (QC): 6 Upper Body Dressing (QC): 5 Lower Body Dressing (QC): 5 On/Off Footwear (QC): 5 Toileting Hygiene (QC): 6 Toilet Transfer (QC): 6 Assessment/Plan Assessment and Plan Assess & Plan/Chief Complaint Assessment: SSS Left sided PTX Pacemaker placement HTN HLP AF Advanced age Falls Plan: Monitor closely Fall risk O2 Left arm sling PT OT 05/01/2023: Monitor pain BM regimen 05/02/2023: Lungs are clear 05/03/2023: Improved overall 05/04/2023: Continue current regimen Appreciate cardiology 05/05/2023: Monitor closely Discharge home tomorrow (1) Pacemaker (2) Scalp laceration Status: Acute (3) Third degree heart block Status: Acute (4) Contusion of left hip Status: Acute (5) Chronic anticoagulation Status: Acute (6) Syncope Status: Acute (7) Afib (8) HLD (hyperlipidemia) (9) HTN (hypertension) DONA ROUSSEAU DO May 05, 2023 05:09
[2023-05-05] MEDS: amLODIPine 5 MG TABLET PO SCH (07:58)
[2023-05-05] MEDS: CEPHALEXIN 250 MG CAPSULE PO SCH (07:58)
[2023-05-05] MEDS: LORATADINE 10 MG TABLET PO SCH (07:58)
[2023-05-05] MEDS: SENNA W/DOCUSATE TABLET PO SCH ×2 (07:58→21:14)
[2023-05-05] MEDS: FOLIC ACID 1 MG TAB PO SCH ×2 (07:59→21:14)
[2023-05-05] MEDS: DOCUSATE SODIUM 100 MG CAPSULE PO SCH ×2 (07:59→21:16)
[2023-05-05] MEDS: MAGNESIUM OXIDE 400 MG TABLET PO SCH ×2 (07:59→17:14)
[2023-05-05 08:00] VITALS: BP 162/74
[2023-05-05] MEDS: ENOXAPARIN 40 MG/0.4 ML SYRINGE SC SCH (08:00)
[2023-05-05 08:43] VITALS: BP 137/67
--- NOTE | 2023-05-05 10:32 | Occupational Ther Daily Note ---
OT Current Status-Daily Note Subjective Pt alert, sitting in recliner. Pt's and daughter present for family training. Pt agrees to therapy. No c/o pain. Mental Status/Objective Patient Orientation: Person, Place, Time, Situation ADL-Treatment Pt agrees to shower. Independent with shower using grabbars, hand held shower and shower bench. Independent with dressing and utilized quadcane to retrieve clothing from closet. Independent standing at sink to complete oral care. Independent with toileting. Independent with eating. Therapy Code Descriptions/Definitions Functional [place] Measure: 0=Not Assessed/NA 4=Minimal Assistance 1=Total Assistance 5=Supervision or Setup 2=Maximal Assistance 6=Modified [place] 3=Moderate Assistance 7=Complete IndependenceSCALE: Activities may be completed with or without assistive devices. 3-Hjqtgcqgsk-jymwbpg completes the activity by him/herself with no assistance from a helper. 5-Set-up or Clean-up Assistance-helper sets up or cleans up; patient completes activity. [place] assists only prior to or following the activity. 4-Supervision or Touching Assistance-helper provides verbal cues and/or touching/steadying and/or contact guard assistance as patient completes activity. Assistance may be provided throughout the activity or intermittently. 3-Partial/Moderate Assistance-helper does LESS THAN HALF the effort. [place] lifts, holds or supports trunk or limbs, but provides less than half the effort. 2-Substantial/Maximal Assistance-helper does MORE THAN HALF the effort. [place] lifts or holds trunk or limbs and provides more than half the effort. 4-Gbqonaewb-xvdimi does ALL the effort. Patient does none of the effort to complete the activity. Or, the assistance of 2 or more helpers is required for the patient to complete the activity. If activity was not attempted, code reason: 7-Patient Refused. 9-Not Applicable-not attempted and the patient did not perform the activity before the current illness, exacerbation or injury. 10-Not Attempted due to Environmental Limitations-(lack of equipment, weather restraints, etc.). 88-Not Attempted due to Medical Conditions or Safety Concerns. Eating (QC): 6 Oral Hygiene (QC): 6 Shower/Bathe Self (QC): 6 Upper Body Dressing (QC): 6 Lower Body Dressing (QC): 6 On/Off Footwear: 6 Toileting Hygiene (QC): 6 Toilet Transfer (QC): 6 Other Treatment Pt completed lap around ARU floor using quadcane, no LOB. Family training completed, pt demonstrated transfers, mobility, stairs, car transfer and ADLs with family present. Family states that they believe that she is doing well. After therapy, pt sitting in recliner with call light/phone in reach. All needs met in room. BIMS CAM BIMS Expression of Ideas and Wants: Without Difficulty Understanding Verbal Content: Understands Brief Interview/Mental Status: Yes IRF GREG BIMS: IRF GREG BIMS Response (Comments) Value Repitition of Three Words Three 3 Recalls Socks Yes, No Cue Required 2 Recalls Blue Yes, No Cue Required 2 Recalls Bed Yes, No Cue Required 2 Year Correct 3 Month Accurate Within 5 Days 2 Day Correct 1 Total 15 Patient Normally Able to Recal: Current Session, Location of own room, Staff Names and faces, That he/she in a hsp Should Staff Asses. Mental St.: No CAM Mental Status Change/Baseline: 0 Inattention: 0 Disorganized thinkin Altered level of consciousness: 0 OT Group Home Goals Battalion Chief Goals Time Frame: May 14, 2023 Acute change in mental status: 0 Inattention: 0 Disorganized thinkin Altered level of consciousness: 0 Eating (QC): 6 (met) Oral Hygiene (QC): 6 (met) Toileting Hygiene (QC): 6 (met) Shower/Bathe Self (QC): 6 (met) Upper Body Dressing (QC): 6 (met) Lower Body Dressing (QC): 6 (met) On/Off Footwear (QC): 6 (met) Additional Goals: 1-Demonstrate ADL Tasks, 2-Verbalize Understanding, 3- ImproveStrength/[place] 1=Demonstrate adherence to instructed precautions during ADL tasks. 2=Patient will verbalize/demonstrate understanding of assistive devices/jennifer fications for ADL. 3=Patient will improve strength/tolerance for activity to enable patient to perform ADL's. OT Education/Plan Problem List/Assessment Assessment: Impaired Funct Balance, Impaired Self-Care Skills, Restricted Funct UE ROM, Visual-Perceptual Deficit Discharge Recommendations Plan/Recommendations: Continue POC Treatment Plan/Plan of Care Patient would benefit from OT for education, treatment and training to promote independence in ADL's, mobility, safety and/or upper extremity function for ADL's. Plan of Care: ADL Retraining, Functional Mobility, Group Exercise/Act as Ind, UE Funct Exercise/Act Treatment Duration: May 14, 2023 Frequency: At least 5 of 7 days/Wk (IRF) Estimated Hrs Per Day: 1.5 hours per day Agreement: Yes Rehab Potential: Good Time Start Time: 09:00 Stop Time: 10:30 DATE: May 05, 2023 Total Time Billed (hr/min): 90 Billed Treatment Time 1 visit-ADL 3 (45 min) EX 2 (30 min) FA 1 (15 min) KAY SANCHEZ May 05, 2023 10:32
--- NOTE | 2023-05-05 14:01 | Cardiology Progress Note ---
Subjective Date Seen by Provider: May 05, 2023 Time Seen by Provider: 14:00 Subjective/Events-last exam Patient was seen at the gym during physical therapy session, has been doing well. No new complain Objective-Cardiology Exam Last Set of Vital Signs Vital Signs 05/05/23 05/05/23 05/05/23 08:00 08:43 09:57 Temp 36.6 Pulse 83 Resp 17 B/P (MAP) 137/67 (90) Pulse Ox 91 O2 Delivery Room Air I&O Intake and Output 05/05/23 00:00 Intake Total 1840 ml Balance 1840 ml Intake Oral 1840 ml # Voids 12 # Bowel Movements 1 General: Alert, Oriented X3, Cooperative HEENT: Atraumatic, PERRLA Neck: Supple, No JVD, No Thyromegaly Lungs: Clear to Auscultation, Normal Air Movement Heart: Regular Rate, Normal S1, Normal S2, Other (Systolic murmur at the left sternal border) Abdomen: Normal Bowel Sounds, Soft, No Tenderness, No Hepatosplenomegaly, No Masses Extremities: No Clubbing, No Cyanosis, No Edema, Normal Pulses, No Tenderness/Swelling Skin: No Rashes, No Breakdown, No Significant Lesion Neuro: Normal Gait, Normal Speech, Strength at 5/5 X4 Ext, Normal Tone, Sensation Intact Psych/Mental Status: Mental Status NL, Mood NL A/P-Cardiology Admission Diagnosis Sinus node dysfunction Coronary artery disease Hypertension Hyperlipidemia Assessment/Plan Generalized weakness, unsteady gait Receiving PT/OT. Status post syncope, sustained a fall with injury to her head and back secondary to severe bradycardia and hypotension Patient is in complete heart block, will require dual-chamber pacemaker implant Status post dual chamber pacemaker implantation. Feeling better, heart rate is better. Heart rate and blood pressure are stable. DC telemetry. Pneumopericardium, pneumothorax post pacemaker implant Small to moderate in size Repeat chest x-ray showed no deterioration, Asymptomatic, continue to monitor Sinus node dysfunction, complete heart block, symptomatic Status post pacemaker implant History of paroxysmal atrial fibrillation with episodes of tachycardia Maintained on digoxin 0.125 mg daily and metoprolol 12.5 mg twice daily Has history of episodes of tachycardia History of recurrent palpitation, reporting improvement at this time. [id number] score of 5, maintained on Eliquis 2.5 mg twice daily Coronary artery disease, History of CABG 3 done in 2008 using SAMUEL to LAD, vein graft to the proximal LAD, vein graft to the right PDA. Cardiac catheterization in October 2018 after having an abnormal stress test showed severe stenosis at the left main, ostial circumflex and LAD, the LAD is corrected by vein graft to the mid portion, the circumflex is small not amendable to intervention and not bypassed, SAMUEL to the distal LAD is atretic with sluggish flow probably due to competitive flow through the vein graft to the mid LAD, mild to moderate disease in the right coronary artery that is a large dominant artery, patent vein graft to the right coronary artery. Stress test was done on April 05, 2023 with large reversible ischemia involving the whole lateral wall anterior lateral and inferolateral wall with stress score 11, SDS 6, EF 55% Patient is asymptomatic, she has severe stenosis at the left main and ostial circumflex artery and the circumflex artery is a small artery and not corrected by bypass. The SAMUEL to the LAD is atretic due to the competitive flow through the vein graft to the mid LAD. We discussed conservative management and will consider cardiac catheterization if she becomes symptomatic 2D echo was done on October 16, 2020 showing normal LV size with EF 55 to 65%, grade 1 diastolic dysfunction, mild mitral regurgitation, PA pressure 40 to 45 mm 2D echo was done in December 2022 with mild LVH, EF 55 to 65%. Hypertension, Hospitalization in April 2022 for hypertensive urgency. Having labile blood pressure Maintained on amlodipine 5 mg daily, Toprol-XL 50 mg daily Monitor blood pressure Hyperlipidemia, intolerant to statins and Zetia. Monitor lipids History of rheumatoid arthritis, maintained on methotrexate. Doing well at this time. Continue to monitor. History of back pain. Premature atrial contractions, premature ventricular contractions, palpitation, feeling better on the current medication. Continue to monitor. Mild bilateral carotid stenosis, nonobstructive disease, last ultrasound done in December 2022. Continue to monitor Status post hospitalization for bacterial meningitis after epidural injection, doing better. Following with WALTER Burton MD May 05, 2023 14:01
--- NOTE | 2023-05-05 15:49 | Physical Therapy Daily Note ---
PT Daily Note-Current Subjective Pt sitting in recliner upon arrival. Pt agrees to PT for QC scoring for anticipated d/c tomorrow. Pain Location: No Pain Reported Section J - Health Conditions 1. Rarely or not at all 2. Occasionally 3. Frequently 4. Almost constantly 8. Unable to answer Pain Effect on Sleep: 2 Pain Interference with Therapy: 2 Pain Interference w/Day-to-Day: 2 Mental Status Patient Orientation: Person, Place, Time, Situation Transfers SCALE: Activities may be completed with or without assistive devices. 1-Ierdvbnyia-hgwzjpz completes the activity by him/herself with no assistance from a helper. 5-Set-up or Clean-up Assistance-helper sets up or cleans up; patient completes activity. [place] assists only prior to or following the activity. 4-Supervision or Touching Assistance-helper provides verbal cues and/or touching/steadying and/or contact guard assistance as patient completes activity. Assistance may be provided throughout the activity or intermittently. 3-Partial/Moderate Assistance-helper does LESS THAN HALF the effort. [place] lifts, holds or supports trunk or limbs, but provides less than half the effort. 2-Substantial/Maximal Assistance-helper does MORE THAN HALF the effort. [place] lifts or holds trunk or limbs and provides more than half the effort. 0-Mywzvlvwv-bkrznf does ALL the effort. Patient does none of the effort to complete the activity. Or, the assistance of 2 or more helpers is required for the patient to complete the activity. If activity was not attempted, code reason: 7-Patient Refused. 9-Not Applicable-not attempted and the patient did not perform the activity before the current illness, exacerbation or injury. 10-Not Attempted due to Environmental Limitations-(lack of equipment, weather restraints, etc.). 88-Not Attempted due to Medical Conditions or Safety Concerns. Roll Left & Right (QC): 6 Sit to Lying (QC): 6 Lying to Sitting/Side of Bed(Q: 6 Sit to Stand (QC): 6 Chair/Ril-gq-Qxagl Xfer(QC): 6 Toilet Transfer (QC): 6 Car Transfer (QC): 6 Weight Bearing Right Lower Extremity: Right Full Weight Bearing Left Lower Extremity: Left Full Weight Bearing Gait Training Does the Patient Walk?: Yes Distance: 500' Walk 10 feet (QC): 6 Walk 50 ft with 2 Turns(QC): 6 Walk 150 ft (QC): 6 Walking 10ft/uneven surface-QC: 6 Gait Assistive Device: Cane Small Base Quad Tried pt's small base quad cane from home today and pt felt comfortable for home. Wheelchair Training Does the Pt Use a Wheelchair?: No Stair Training Stair Training: Handrails/: 2 handrails #of Steps: 12 1 Step (curb) (QC): 6 4 Steps (QC): 6 12 Steps (QC): 6 Stairs: Pattern: Step to Balance Picking up an Object (QC): 6 Treatments Pt completes QC scoring items listed above before returning to room to rest at end of tx. Pt is given a pt belonging bag as requested so she can start packing for home. All needs met, call light in hand. Assessment Current Status: Good Progress Pt regla. tx well and is excited about d/c to home for sp's birthday. PT Shelter Goals Shelter Goals PT Procurement Coordinator Goals Time Frame: May 14, 2023 Roll Left & Right (QC): 6 (Pt will be Mod I with functional mobility, in order to safely return home with spouse. ) Sit to Lying (QC): 6 (Pt will be Mod I with functional mobility, in order to safely return home with spouse. ) Lying-Sitting on Side/Bed(QC): 6 (Pt will be Mod I with functional mobility, in order to safely return home with spouse. ) Sit to Stand (QC): 6 (Pt will be Mod I with functional mobility, in order to safely return home with spouse. ) Chair/Azf-di-Asqji Xfer(QC): 6 (Pt will be Mod I with functional mobility, in order to safely return home with spouse. ) Toilet Transfer (QC): 6 (Pt will be Mod I with functional mobility, in order to safely return home with spouse. ) Car Transfer (QC): 6 (Pt will be Mod I with functional mobility, in order to safely return home with spouse. ) Does the Patient Walk: Yes Walk 10 feet (QC): 6 (Pt will be Mod I with functional mobility, in order to safely return home with spouse. ) Walk 50ft with 2 Turns (QC): 6 (Pt will be Mod I with functional mobility, in order to safely return home with spouse. ) Walk 150 ft (QC): 6 (Pt will be Mod I with functional mobility, in order to safely return home with spouse. ) Walking 10ft on Uneven Surface: 6 (Pt will be Mod I with functional mobility, in order to safely return home with spouse. ) 1 Step (curb) (QC): 6 (Pt will be Mod I with functional mobility, in order to safely return home with spouse. ) 4 Steps (QC): 6 (Pt will be Mod I with functional mobility, in order to safely return home with spouse. ) 12 Steps (QC): 9 (level entry at home ) Picking up an Object (QC): 6 Does the Pt use WC or Scooter?: No Wheel 50 feet with 2 turns (QC: 9 Type: N/A Wheel 150 feet: 9 Type: N/A PT Plan Treatment/Plan Treatment Plan: Continue Plan of Care Treatment Plan: Bed Mobility, Education, Functional Activity [place], Functional Strength, Group Therapy, Gait, Safety, Therapeutic Exercise, Transfers Treatment Duration: May 14, 2023 Frequency: At least 5 of 7 days/Wk (IRF) Estimated Hrs Per Day: 1.5 hours per day Patient and/or Family Agrees t: Yes Time Time In: 1330 Time Out: 1500 DATE: May 05, 2023 Total Billed Treatment Time: 90 Total Billed Treatment 1, GT x2 (30m) & FA x4 (60m) LEEANNE KRISHNA PARIMUTUEL TICKET SELLER May 05, 2023 15:49
[2023-05-05 16:03] VITALS: BP 137/67
[2023-05-05 20:43] VITALS: BP 133/64
[2023-05-05] MEDS: CYCLOBENZAPRINE 10 MG TABLET PO PRN (21:14)
[2023-05-05] MEDS: GABAPENTIN 100 MG CAPSULE PO SCH (21:14)
[2023-05-05] MEDS: MELATONIN 3 MG TABLET PO SCH (21:14)
[2023-05-05] MEDS: LOTEPREDNOL 0.5% OU SCH (21:16)
[2023-05-06] MEDS ORDERED: ACHD5005 PO (05:23)
[2023-05-06] MEDS ORDERED: METO50TA7 PO (05:23)
--- NOTE | 2023-05-06 05:24 | D/C HH Face to Face Order ---
D/C HH Face to Face Orders Reconcile Patient Problems Problems Reviewed?: Yes Instructions for Patient HH Patient Instructions/FollowUp: pcp 1 week Physician to follow Patient: pcp Discharge Diet for Home: No Restrictions Patient Problems: Syncope Pacemaker Patient Data-Allergies,Ht & Wt Patient Allergies: Coded Allergies: tetanus toxoid, adsorbed (Unverified Allergy, Unknown, 08/17/14) tramadol (Verified Allergy, Unknown, Hives, 11/16/18) Height (Feet): 5 Height (Inches): 5.00 Weight (Pounds): 119 Weight (Ounces): 0.0 Home Health Need/Face to Face Date of Face to Face: May 06, 2023 Clinical Findings: Generalized weakness and fatigue, Instability, Muscle w eakness I have seen Pt [id number]: Yes Discharged To: Home Diagnosis/Conditions: pacemaker Patient is Homebound due to: Isa fall risk due to instabilty, Muscle weakness Homebound Status Due to the above stated illness, injury or surgical procedure (medical condition or diagnosis) and associated clinical findings, the patient is homebound because of his/her inability to leave home except with aid of a supportive device and/or person AND leaving the home requires a considerable and taxing effort or is medically contraindicated. Pt req the following assistanc: Walker Home Health Nursing Orders Home Health Services Order: Nursing Services, Outside Food Server-Evaluate & Treat, Physical Therapy-Evaluate & Treat Certify Stmt I certify that this patient is under my care and that I, a nurse practitioner or a physician; a traffic assistant working with me, had a face to face encounter that - meets the physician face to face encounter requirements with this patient as dated. DONA ROUSSEAU DO May 06, 2023 05:24
--- NOTE | 2023-05-06 05:25 | Discharge Summary ---
Diagnosis/Chief Complaint Date of Admission Apr 30, 2023 at 13:26 Date of Discharge Discharge Date: May 06, 2023 Discharge Diagnosis Assessment: SSS Left sided PTX Pacemaker placement HTN HLP AF Advanced age Falls Plan: Monitor closely Fall risk O2 Left arm sling PT OT 05/01/2023: Monitor pain BM regimen 05/02/2023: Lungs are clear 05/03/2023: Improved overall 05/04/2023: Continue current regimen Appreciate cardiology 05/05/2023: Monitor closely Discharge home tomorrow (1) Pacemaker (2) Scalp laceration Status: Acute (3) Third degree heart block Status: Acute (4) Contusion of left hip Status: Acute (5) Chronic anticoagulation Status: Acute (6) Syncope Status: Acute (7) Afib (8) HLD (hyperlipidemia) (9) HTN (hypertension) Discharge Summary Discharge Physical Examination Allergies: Coded Allergies: tetanus toxoid, adsorbed (Unverified Allergy, Unknown, 08/17/14) tramadol (Verified Allergy, Unknown, Hives, 11/16/18) Vitals & I&Os Vital Signs Date Time Temp Pulse Resp B/P (MAP) Pulse Ox O2 Delivery O2 Flow Rate FiO2 05/06/23 10:40 36.6 81 16 137/69 93 Room Air General Appearance: Alert, Oriented X3, Cooperative Respiratory: Clear to Auscultation Cardiovascular: Regular Rate Psych/Mental Status: Mental Status NL Hospital Course Was the Problem List Reviewed?: Yes Uneventful hospital course after she was admitted following a fall with scalp laceration and lilian and noted to have complete heart block requiring pacemaker placement. Labs remained stable. Vitals remained stable. Cardiology maintain consultation services. Overall did very well and was deemed stable for discharge. Labs (last 24 hrs) Laboratory Tests 05/01/23 06:10: White Blood Count 6.2, Red Blood Count 3.57L, Hemoglobin 12.0, Hematocrit 37, Mean Corpuscular Volume 103H, Mean Corpuscular Hemoglobin 34, Mean Corpuscular Hemoglobin Concent 33, Red Cell Distribution Width 14.1, Platelet Count 147, Mean Platelet Volume 10.2, Immature Granulocyte % (Auto) 1, Neutrophils (%) (Auto) 58, Lymphocytes (%) (Auto) 29, Monocytes (%) (Auto) 10, Eosinophils (%) (Auto) 3, Basophils (%) (Auto) 0, Neutrophils # (Auto) 3.6, Lymphocytes # (Auto) 1.8, Monocytes # (Auto) 0.6, Eosinophils # (Auto) 0.2, Basophils # (Auto) 0.0, Immature Granulocyte # (Auto) 0.0, Sodium Level 143, Potassium Level 4.3, Chloride Level 110H, Carbon Dioxide Level 25, Anion Gap 8, Blood Urea Nitrogen 13, Creatinine 0.65, Estimat Glomerular Filtration Rate 86, BUN/Creatinine Ratio 20, Glucose Level 88, Calcium Level 8.3L, Corrected Calcium 8.9, Total Bilirubin 0.5, Aspartate Amino Transf (AST/SGOT) 21, Alanine Aminotransferase (ALT/SGPT) 13, Alkaline Phosphatase 44, Total Protein 5.9L, Albumin 3.3 Pending Labs Laboratory Tests 05/01/23 06:10: White Blood Count 6.2, Red Blood Count 3.57, Hemoglobin 12.0, Hematocrit 37, Mean Corpuscular Volume 103, Mean Corpuscular Hemoglobin 34, Mean Corpuscular Hemoglobin Concent 33, Red Cell Distribution Width 14.1, Platelet Count 147, Mean Platelet Volume 10.2, Immature Granulocyte % (Auto) 1, Neutrophils (%) (Auto) 58, Lymphocytes (%) (Auto) 29, Monocytes (%) (Auto) 10, Eosinophils (%) (Auto) 3, Basophils (%) (Auto) 0, Neutrophils # (Auto) 3.6, Lymphocytes # (Auto) 1.8, Monocytes # (Auto) 0.6, Eosinophils # (Auto) 0.2, Basophils # (Auto) 0.0, Immature Granulocyte # (Auto) 0.0, Sodium Level 143, Potassium Level 4.3, Chloride Level 110, Carbon Dioxide Level 25, Anion Gap 8, Blood Urea Nitrogen 13, Creatinine 0.65, Estimat Glomerular Filtration Rate 86, BUN/Creatinine Ratio 20, Glucose Level 88, Calcium Level 8.3, Corrected Calcium 8.9, Total Bilirubin 0.5, Aspartate Amino Transf (AST/SGOT) 21, Alanine Aminotransferase (ALT/SGPT) 13, Alkaline Phosphatase 44, Total Protein 5.9, Albumin 3.3 Discharge Home Medications: Active Scripts Active Metoprolol Succinate 50 Mg Tab.er.24h 50 Mg PO DAILY@1999 Hydrocodone-Acetamin 5-325 mg (Hydrocodone/Acetaminophen) 5 Mg-325 Mg Tablet 0.25 Ea PO HS PRN Eliquis (Apixaban) 2.5 Mg Tablet 2.5 Mg PO BID 30 Days Resume 05/01 Reported Papaya Enzyme (Papaya) 1 Each Tablet 1 Each PO TID PRN Cyclobenzaprine HCl 5 Mg Tablet 2.5 Mg PO HS PRN THIS IS TAKEN IN THE MIDDLE OF THE NIGHT IF NEEDED TAKES OF A 5MG TAB Cyclobenzaprine HCl 5 Mg Tablet 2.5 Mg PO HS TAKES OF A 5MG TAB Enbrel (Etanercept) 50 Mg/Ml (1 Ml) Syringe 50 Mg INJ UBALDO Methotrexate (Methotrexate Sodium) 2.5 Mg Tablet 20 Mg PO TUE TAKES 8 (2.5MG) TABS Amlodipine Besylate 5 Mg Tablet 5 Mg PO HS Loteprednol Etabonate 0.5 % Drops.gel 1 Drop OU HS Vitamin D3 (Cholecalciferol (Vitamin D3)) 25 Mcg (1000 Unit) Capsule 25 Mcg PO DAILY Zinc (Zinc Gluconate) 50 Mg Tablet 50 Mg PO DAILY Tylenol Extra Strength (Acetaminophen) 500 Mg Tablet 500-1,000 Mg PO Q6H PRN Vitamin C (Ascorbate Calcium) 500 Mg Tablet 500 Mg PO DAILY Mag-Oxide (Magnesium Oxide) 200 Mg Magnesium Tablet 200 Mg PO BID Melatonin 1 Mg Tablet 1 Mg PO HS Folic Acid 1 Mg Tablet 1 Mg PO BID Gabapentin 100 Mg Capsule 300 Mg PO HS TAKES 3 (100MG) CAPS Loratadine 10 Mg Tablet 10 Mg PO DAILY Instructions to patient/family Please see electronic discharge instructions given to patient. Diagnosis/Problems Diagnosis/Problems (1) Pacemaker (2) Scalp laceration Status: Acute (3) Third degree heart block Status: Acute (4) Contusion of left hip Status: Acute (5) Chronic anticoagulation Status: Acute (6) Syncope Status: Acute (7) Afib (8) HLD (hyperlipidemia) (9) HTN (hypertension) DONA ROUSSEAU DO May 06, 2023 05:25
[2023-05-06 08:00] VITALS: BP 137/69
[2023-05-06] MEDS: ENOXAPARIN 40 MG/0.4 ML SYRINGE SC SCH (08:09)
[2023-05-06] MEDS: DOCUSATE SODIUM 100 MG CAPSULE PO SCH (08:09)
[2023-05-06] MEDS: LORATADINE 10 MG TABLET PO SCH (08:09)
[2023-05-06] MEDS: FOLIC ACID 1 MG TAB PO SCH (08:09)
[2023-05-06] MEDS: amLODIPine 5 MG TABLET PO SCH (08:09)
[2023-05-06] MEDS: MAGNESIUM OXIDE 400 MG TABLET PO SCH (08:09)
[2023-05-06] MEDS: SENNA W/DOCUSATE TABLET PO SCH (08:10)
--- NOTE | 2023-05-06 08:23 | Cardiology Progress Note ---
Subjective Date Seen by Provider: May 06, 2023 Time Seen by Provider: 08:22 Subjective/Events-last exam Patient was seen at bedside, sitting comfortably, feeling well. No new com plaint Objective-Cardiology Exam Last Set of Vital Signs Vital Signs 05/05/23 20:43 Temp 36.5 Pulse 101 Resp 20 B/P (MAP) 133/64 (87) Pulse Ox 96 O2 Delivery Room Air I&O Intake and Output 05/06/23 00:00 Intake Total 1740 ml Balance 1740 ml Intake Oral 1740 ml # Voids 11 # Bowel Movements 1 General: Alert, Oriented X3, Cooperative HEENT: Atraumatic, PERRLA Neck: Supple, No JVD, No Thyromegaly Lungs: Clear to Auscultation, Normal Air Movement Heart: Regular Rate, Normal S1, Normal S2, Other (Systolic murmur at the left sternal border) Abdomen: Normal Bowel Sounds, Soft, No Tenderness, No Hepatosplenomegaly, No Masses Extremities: No Clubbing, No Cyanosis, No Edema, Normal Pulses, No Tenderness/Swelling Skin: No Rashes, No Breakdown, No Significant Lesion Neuro: Normal Gait, Normal Speech, Strength at 5/5 X4 Ext, Normal Tone, Sensation Intact Psych/Mental Status: Mental Status NL, Mood NL A/P-Cardiology Admission Diagnosis Sinus node dysfunction Coronary artery disease Hypertension Hyperlipidemia Assessment/Plan Generalized weakness, unsteady gait Receiving PT/OT. Status post syncope, sustained a fall with injury to her head and back secondary to severe bradycardia and hypotension Patient is in complete heart block, will require dual-chamber pacemaker implant Status post dual chamber pacemaker implantation. Feeling better, heart rate is better. Heart rate and blood pressure are stable. Pneumopericardium, pneumothorax post pacemaker implant Small to moderate in size Repeat chest x-ray showed no deterioration, Asymptomatic, continue to monitor Sinus node dysfunction, complete heart block, symptomatic Status post pacemaker implant History of paroxysmal atrial fibrillation with episodes of tachycardia Maintained on digoxin 0.125 mg daily and metoprolol 12.5 mg twice daily Has history of episodes of tachycardia History of recurrent palpitation, reporting improvement at this time. [id number] score of 5, maintained on Eliquis 2.5 mg twice daily Coronary artery disease, History of CABG 3 done in 2008 using SAMUEL to LAD, vein graft to the proximal LAD, vein graft to the right PDA. Cardiac catheterization in October 2018 after having an abnormal stress test showed severe stenosis at the left main, ostial circumflex and LAD, the LAD is corrected by vein graft to the mid portion, the circumflex is small not amendable to intervention and not bypassed, SAMUEL to the distal LAD is atretic with sluggish flow probably due to competitive flow through the vein graft to the mid LAD, mild to moderate disease in the right coronary artery that is a large dominant artery, patent vein graft to the right coronary artery. Stress test was done on April 05, 2023 with large reversible ischemia involving the whole lateral wall anterior lateral and inferolateral wall with stress score 11, SDS 6, EF 55% Patient is asymptomatic, she has severe stenosis at the left main and ostial circumflex artery and the circumflex artery is a small artery and not corrected by bypass. The SAMUEL to the LAD is atretic due to the competitive flow through the vein graft to the mid LAD. We discussed conservative management and will consider cardiac catheterization if she becomes symptomatic 2D echo was done on October 16, 2020 showing normal LV size with EF 55 to 65%, grade 1 diastolic dysfunction, mild mitral regurgitation, PA pressure 40 to 45 mm 2D echo was done in December 2022 with mild LVH, EF 55 to 65%. Hypertension, Hospitalization in April 2022 for hypertensive urgency. Having labile blood pressure Maintained on amlodipine 5 mg daily, Toprol-XL 50 mg daily Monitor blood pressure Hyperlipidemia, intolerant to statins and Zetia. Monitor lipids History of rheumatoid arthritis, maintained on methotrexate. Doing well at this time. Continue to monitor. History of back pain. Premature atrial contractions, premature ventricular contractions, palpitation, feeling better on the current medication. Continue to monitor. Mild bilateral carotid stenosis, nonobstructive disease, last ultrasound done in December 2022. Continue to monitor Status post hospitalization for bacterial meningitis after epidural injection, doing better. Following with Dr. Arely Louis for discharge and arrange for follow-up as an outpatient in 2 weeks WLATER MARQUEZ MD May 06, 2023 08:23
[2023-05-06] MEDS: ACETAMINOPHEN 325 MG TABLET PO PRN (10:12)
[2023-05-06 10:40] VITALS: BP 137/69
--- NOTE | 2023-05-06 13:48 | Therapy Team Discharge Summary ---
Therapy Discharge Summary Discharge Recommendations Date of Discharge May 06, 2023 at 10:40 Physical Therapy Roll Left to Right (QC): 6 Sit to Lying (QC): 6 Lying to Sitting/Side of Bed(Q: 6 Sit to Stand (QC): 6 Chair/Slc-gi-Tlhkc Xfer(QC): 6 Toilet Transfer (QC): 6 Car Transfer (QC): 6 Does the Patient Walk: Yes Mode of Locomotion: Walk Anticipated Mode of Locomotion: Walk Walk 10 feet (QC): 6 Walk 50 ft with 2 Turns(QC): 6 Walk 150 ft (QC): 6 Walking 10ft on uneven surface: 6 Distance: 170ft Gait Assistive Device: Cane Small Base Quad Does the Pt Use a Wheelchair: No Wheel 50 ft with 2 turns (QC): 9 Wheel 150 ft (QC): 9 Type of Wheelchair: N/A #of Steps: 12 1 Step (curb) (QC): 6 4 Steps (QC): 6 12 Steps (QC): 6 Walking Assistive Device: Cane Balance Sitting Static: Normal Balance Sitting Dynamic: Good Balance-Standing Static: Fair Picking up an Object (QC): 6 Occupational Therapy Pt admitted to ARU with SSS s/p pacemaker. At OF, pt was independent with ADLs and functional mobility, no AD. Upon initial evaluation, pt required set up assist with eating, SBA-CGA oral care, UBD, and footwear and partial assist with showering, LBD and toileting. OT tx focused on increasing BUE Strength and activity tolerance, and increasing safety and independence with ADLS and functional mobility. Pt made good progress towards goals, attaining IND level with all LTGs. Pt discharged home, d/c from OT Impaired Funct Balance, Impaired Self-Care Skills, Restricted Funct UE ROM, Visual-Perceptual Deficit Eating (QC): 6 Oral Hygiene (QC): 6 Shower/Bathe Self (QC): 6 Upper Body Dressing (QC): 6 Lower Body Dressing (QC): 6 On/Off Footwear (QC): 6 Toileting Hygiene (QC): 6 PT Surveillance Agent Goals Correction Goals PT Correction Goals Time Frame: May 14, 2023 Roll Left to Right (QC): 6 (Pt will be Mod I with functional mobility, in order to safely return home with spouse. ) Sit to Lying (QC): 6 (Pt will be Mod I with functional mobility, in order to safely return home with spouse. ) Lying-Sitting on Side/Bed(QC): 6 (Pt will be Mod I with functional mobility, in order to safely return home with spouse. ) Sit to Stand (QC): 6 (Pt will be Mod I with functional mobility, in order to safely return home with spouse. ) Chair/Lbj-mq-Hrjma Xfer(QC): 6 (Pt will be Mod I with functional mobility, in order to safely return home with spouse. ) Toilet/Commode Transfer (QC): 6 (Pt will be Mod I with functional mobility, in order to safely return home with spouse. ) Car Transfer (QC): 6 (Pt will be Mod I with functional mobility, in order to safely return home with spouse. ) Does the Patient Walk: Yes Walk 10 feet (QC): 6 (Pt will be Mod I with functional mobility, in order to safely return home with spouse. ) Walk 10ft-Uneven Surface(QC): 6 (Pt will be Mod I with functional mobility, in order to safely return home with spouse. ) Walk 50ft with 2 Turns (QC): 6 (Pt will be Mod I with functional mobility, in order to safely return home with spouse. ) Walk 150 ft (QC): 6 (Pt will be Mod I with functional mobility, in order to safely return home with spouse. ) Does the Pt use WC or Scooter?: No Wheel 50 feet with 2 turns (QC: 9 Type: N/A Wheel 150 feet: 9 Type: N/A 1 Step (curb) (QC): 6 (Pt will be Mod I with functional mobility, in order to safely return home with spouse. ) 4 Steps (QC): 6 (Pt will be Mod I with functional mobility, in order to safely return home with spouse. ) 12 Steps (QC): 9 (level entry at home ) Picking up an Object (QC): 6 OT Surveillance Agent Goals Correction Goals Time Frame: May 14, 2023 Acute change in mental status: 0 Inattention: 0 Disorganized thinkin Altered level of consciousness: 0 Eating (QC): 6 Oral Hygiene (QC): 6 Toileting Hygiene (QC): 6 Shower/Bathe Self (QC): 6 Upper Body Dressing (QC): 6 Lower Body Dressing (QC): 6 On/Off Footwear (QC): 6 Additional Goals: 1-Demonstrate ADL Tasks, 2-Verbalize Understanding, 3- ImproveStrength/Sunni 1=Demonstrate adherence to instructed precautions during ADL tasks. 2=Patient will verbalize/demonstrate understanding of assistive devices/modifications for ADL. 3=Patient will improve strength/tolerance for activity to enable patient to perform ADL's. ILA BROWN OT May 06, 2023 13:48
--- NOTE | 2023-05-06 14:24 | Therapy Team Discharge Summary ---
Therapy Discharge Summary Discharge Recommendations Date of Discharge May 06, 2023 at 10:40 Therapy D/C Recommendations: Home w/ Family Support, Physical Therapy Home Care Physical Therapy Pt is an 87 y/o female who fell on 04/27/23; Pacemaker placement on 04/28/23; Admitted to ARU on 04/30/23. PLOF, pt was Mod I with no AD. Upon PT eval, pt was SBA/CGA for bed mobility, transfers, and walking, and Min A for 4 steps. PT f ocused on B LE strength, endurance, overall functional mobility, balance/safety, and Ind. Pt progressed well with PT and met all set goals. Pt was Mod I with functional mobility. Pt discharged from ARU to home with spouse, family support, and HHC on 05/06/23; D/C from PT at this time. Roll Left to Right (QC): 6 Sit to Lying (QC): 6 Lying to Sitting/Side of Bed(Q: 6 Sit to Stand (QC): 6 Chair/Zim-ro-Gtlwc Xfer(QC): 6 Toilet Transfer (QC): 6 Car Transfer (QC): 6 Does the Patient Walk: Yes Mode of Locomotion: Walk Anticipated Mode of Locomotion: Walk Walk 10 feet (QC): 6 Walk 50 ft with 2 Turns(QC): 6 Walk 150 ft (QC): 6 Walking 10ft on uneven surface: 6 Gait Assistive Device: Cane Small Base Quad Does the Pt Use a Wheelchair: No Wheel 50 ft with 2 turns (QC): 9 Wheel 150 ft (QC): 9 Type of Wheelchair: N/A #of Steps: 12 1 Step (curb) (QC): 6 4 Steps (QC): 6 12 Steps (QC): 6 Walking Assistive Device: Cane Balance Sitting Static: Normal Balance Sitting Dynamic: Good Balance-Standing Static: Fair Picking up an Object (QC): 6 Occupational Therapy Impaired Funct Balance, Impaired Self-Care Skills, Restricted Funct UE ROM, Visual-Perceptual Deficit Eating (QC): 6 Oral Hygiene (QC): 6 Shower/Bathe Self (QC): 6 Upper Body Dressing (QC): 6 Lower Body Dressing (QC): 6 On/Off Footwear (QC): 6 Toileting Hygiene (QC): 6 PT Usp Goals Usp Goals PT Usp Goals Time Frame: May 14, 2023 Roll Left to Right (QC): 6 (Pt will be Mod I with functional mobility, in order to safely return home with spouse. ) Sit to Lying (QC): 6 (Pt will be Mod I with functional mobility, in order to safely return home with spouse. ) Lying-Sitting on Side/Bed(QC): 6 (Pt will be Mod I with functional mobility, in order to safely return home with spouse. ) Sit to Stand (QC): 6 (Pt will be Mod I with functional mobility, in order to safely return home with spouse. ) Chair/Vnt-vt-Plubi Xfer(QC): 6 (Pt will be Mod I with functional mobility, in order to safely return home with spouse. ) Toilet/Commode Transfer (QC): 6 (Pt will be Mod I with functional mobility, in order to safely return home with spouse. ) Car Transfer (QC): 6 (Pt will be Mod I with functional mobility, in order to safely return home with spouse. ) Does the Patient Walk: Yes Walk 10 feet (QC): 6 (Pt will be Mod I with functional mobility, in order to safely return home with spouse. ) Walk 10ft-Uneven Surface(QC): 6 (Pt will be Mod I with functional mobility, in order to safely return home with spouse. ) Walk 50ft with 2 Turns (QC): 6 (Pt will be Mod I with functional mobility, in order to safely return home with spouse. ) Walk 150 ft (QC): 6 (Pt will be Mod I with functional mobility, in order to safely return home with spouse. ) Does the Pt use WC or Scooter?: No Wheel 50 feet with 2 turns (QC: 9 Type: N/A Wheel 150 feet: 9 Type: N/A 1 Step (curb) (QC): 6 (Pt will be Mod I with functional mobility, in order to safely return home with spouse. ) 4 Steps (QC): 6 (Pt will be Mod I with functional mobility, in order to safely return home with spouse. ) 12 Steps (QC): 9 (level entry at home ) Picking up an Object (QC): 6 OT Cutter First Goals Cutter First Goals Time Frame: May 14, 2023 Acute change in mental status: 0 Inattention: 0 Disorganized thinkin Altered level of consciousness: 0 Eating (QC): 6 Oral Hygiene (QC): 6 Toileting Hygiene (QC): 6 Shower/Bathe Self (QC): 6 Upper Body Dressing (QC): 6 Lower Body Dressing (QC): 6 On/Off Footwear (QC): 6 Additional Goals: 1-Demonstrate ADL Tasks, 2-Verbalize Understanding, 3- ImproveStrength/Sunni 1=Demonstrate adherence to instructed precautions during ADL tasks. 2=Patient will verbalize/demonstrate understanding of assistive devices/modifications for ADL. 3=Patient will improve strength/tolerance for activity to enable patient to perform ADL's. MARILOU PEDROZA PT May 06, 2023 14:24
== END 2023-05-06 10:40 | disposition home health service (06) | DRG 309 ==
PROVIDERS: ADMIT Internal Medicine; ATTEND Internal Medicine
DX: I49.5 Sick sinus syndrome (principal); J93.9 Pneumothorax, unspecified; I48.0 Paroxysmal atrial fibrillation; I25.10 Atherosclerotic heart disease of native coronary artery without angina pectoris; I10 Essential (primary) hypertension; I49.1 Atrial premature depolarization; I49.3 Ventricular premature depolarization; Z91.81 History of falling; M41.9 Scoliosis, unspecified; E78.00 Pure hypercholesterolemia, unspecified; M06.9 Rheumatoid arthritis, unspecified; K59.00 Constipation, unspecified; K21.9 Gastro-esophageal reflux disease without esophagitis; I65.23 Occlusion and stenosis of bilateral carotid arteries; H35.30 Unspecified macular degeneration; H54.3 Unqualified visual loss, both eyes; H91.90 Unspecified hearing loss, unspecified ear; Z95.0 Presence of cardiac pacemaker; Z87.891 Personal history of nicotine dependence; Z79.01 Long term (current) use of anticoagulants; Z95.1 Presence of aortocoronary bypass graft; Z88.7 Allergy status to serum and vaccine; Z91.09 Other allergy status, other than to drugs and biological substances; Z79.899 Other long term (current) drug therapy
CPT/HCPCS: 36415; 71045; 80053; 85025; 94760